=== PATIENT | female | born 1995 | race African-American/Black ===

== ENCOUNTER 2017-06-11 07:10 | Inpatient (IN) | payer OTHER, MEDICAID ==
[~2017-06-11] VITALS: Ht 165.1 cm; Wt 58.0 kg
[2017-06-11 08:20] LABS: CONDITION Y; Hematocrit 35.3 % (36.0-46.0); Hemoglobin 11.9 g/dL (12.2-16.2); Mean Corpuscular Hemoglobin 31.3 pg (28.0-32.0); Mean Corpuscular Hgb Conc. 33.8 g/dL (32.0-36.0); Mean Corpuscular Volume 92.7 fL (80.0-100.0); Mean Platelet Volume 7.6 fL (7.4-10.4); Platelet Count (auto) 711 10^3/uL (140-450); Red Cell Distribution Width 13.4 % (11.6-16.0); SUSPECT SEE PRINTOUT; White Blood Cell 26.9 10^3/uL (4.4-10.8)
[2017-06-11 08:27] LABS: Metamyelocytes % 0; Myelocytes % 0; Promyelocytes % 0; Reactive Lymphocytes 0
[2017-06-11] MEDS ORDERED: HYDROmorphone HCL 2 MG/ML VL IV ONE (08:30)
[2017-06-11] MEDS ORDERED: ONDANSETRON HCL 4 MG/2 ML VIAL IV ONE (08:30)
[2017-06-11] MEDS ORDERED: InsuLIN REG 1unit/0.01ml Soln (100units/ml) IV ONE (08:30)
[2017-06-11] MEDS ORDERED: SODIUM CHLORIDE 0.9% 1,000 ML IV ONE ×2 (08:30→09:49)
[2017-06-11 08:41] LABS: Albumin 3.1 g/dL (3.4-5.0); BUN/Creatinine Ratio 15.8; Calcium 9.5 mg/dL (8.5-10.1); Potassium 4.4 mmol/L (3.5-5.1)
[2017-06-11 08:46] LABS: Bilirubin, Total 0.5 mg/dL (0.2-1.0); Total Protein 9.3 g/dL (6.4-8.2)
[2017-06-11 08:59] LABS: Platelet Estimate Increased; RBC Morphology Normal
[2017-06-11 10:08] LABS: Allen Test Yes; Base Excess -20.1 mmol/L (-2.0-2.0); Blood 02Sat 96.3 % (96-100); Blood COHb 0.3 % (0.5-1.5); Blood MetHb 0.5 % (0.0-1.5); HCO3 5.8 mmol/L (22-26.0); HHb 3.7 % (0.0-5.0); MODE ROOM AIR; O2Hb 95.5 % (94.0-97.0); PCO2 15.6 mmHg (35.0-45.0); PCO2(T) 15.6 mmHg (35.0-45.0); PO2 110.8 mmHg (80.0-100.0); PO2(T) 110.8 mmHg (80.0-100.0); Sample Type Arterial; pH 7.191 (7.350-7.450)
[2017-06-11] MEDS ORDERED: HYDROcodone-ACET 5/325MG TAB PO PRN (10:15)
[2017-06-11] MEDS ORDERED: LACTULOSE 20Gm/30ML SOLN PO PRN (10:15)
[2017-06-11] MEDS ORDERED: MORPHINE SULF INJ 2 MG/ML SYRINGE 1ML IV PRN (10:15)
[2017-06-11] MEDS ORDERED: cefTRIAXone 1GM/50ML D5W 50 ML IV ONE ×2 (10:15→10:19)
[2017-06-11] MEDS ORDERED: TEMAZEPAM 15 MG CAP PO PRN (10:15)
[2017-06-11] MEDS ORDERED: LORazepam 0.5 MG TAB PO PRN (10:15)
[2017-06-11] MEDS ORDERED: DEXTROSE (50%) 50ML SYRG IV PRN (10:15)
[2017-06-11] MEDS ORDERED: NITROGLYCERIN 0.4 MG SL TAB SL PRN (10:15)
[2017-06-11] MEDS ORDERED: ACETAMINOPHEN 500 MG TAB PO PRN (10:15)
[2017-06-11] MEDS: FAMOTIDINE (10MG/ML) 2ML VL IV SCH (11:25)
[2017-06-11] MEDS: ACCU-CHEK COMFORT CURVE STRIP VI SCH ×9 (11:30→20:00)
[2017-06-11] MEDS: InsuLIN R (HUMAN) 100 UNITS in SODIUM CHL 0.9% 99 ML IV SCH ×2 (11:31→13:00)
[2017-06-11 11:38] LABS: Urine RBC None Seen /hpf (0 - 4)
[2017-06-11] MEDS: SODIUM CHLORIDE 0.9% 1,000 ML IV SCH ×4 (12:03→23:03)
[2017-06-11 12:08] LABS: Urine Bilirubin Negative (Negative); Urine Blood Negative /uL (Negative); Urine Color Yellow (Yellow); Urine Mucus FEW (None Seen); Urine Nitrite Negative (Negative); Urine Squamous Epithelial Cell FEW /hpf (<5); Urine Urobilinogen Normal (Negative)
[2017-06-11 12:13] LABS: Urine Glucose 4+ mg/dL (Normal); Urine Ketone 4+ (Negative)
[2017-06-11] MEDS: MORPHINE SULFATE 4 MG/ML SYRG IV PRN ×2 (13:45→23:14)
[2017-06-11] MEDS: PROMETHAZINE HCL 25 MG/ML 1ML IV PRN ×2 (13:46→23:14)
[2017-06-11] MEDS ORDERED: SODIUM CHLORIDE 0.9% 1,000 ML IV SCH (14:11)
[2017-06-11] MEDS ORDERED: LORazepam 2MG/ML-1ML VIAL ONE (15:08)
[2017-06-11] MEDS ORDERED: LORazepam 2MG/ML-1ML VIAL IV ONE (15:15)
[2017-06-11] MEDS ORDERED: HALOPERIDOL LACTATE 5 MG/ML INJ VIAL ONE (16:02)
[2017-06-11] MEDS ORDERED: HALOPERIDOL LACTATE 5 MG/ML INJ VIAL IV ONE (16:15)
[2017-06-11] MEDS ORDERED: MIDAZOLAM HCL 1MG/1ML-2 ML VIAL IV ONE (17:30)
[2017-06-11 17:36] LABS: BUN/Creatinine Ratio 12.5; Calcium 8.6 mg/dL (8.5-10.1); Potassium 4.3 mmol/L (3.5-5.1)
[2017-06-11] MEDS: InsuLIN REG 1unit/0.01ml Soln (100units/ml) SC SCH (20:00)
[2017-06-12] VITALS (7 sets, daily range): BP systolic 105–123; BP diastolic 64–76
[2017-06-12] MEDS: InsuLIN REG 1unit/0.01ml Soln (100units/ml) SC SCH ×6 (00:22→20:45)
[2017-06-12] MEDS: ACCU-CHEK COMFORT CURVE STRIP VI SCH ×6 (00:22→20:00)
[2017-06-12 00:46] LABS: Calcium 8.8 mg/dL (8.5-10.1); Potassium 3.5 mmol/L (3.5-5.1)
[2017-06-12] MEDS: MORPHINE SULFATE 4 MG/ML SYRG IV PRN ×2 (03:30→09:12)
[2017-06-12] MEDS: SODIUM CHLORIDE 0.9% 1,000 ML IV SCH ×3 (05:19→18:19)
[2017-06-12 05:50] LABS: Basophils # (auto) 0 uL; CONDITION Y; Eosinophils # (auto) 0 uL; Hematocrit 28.7 % (36.0-46.0); Hemoglobin 9.9 g/dL (12.2-16.2); Lymphocytes # (auto) 1.4 uL; Lymphocytes % (auto) 7.9 % (10.0-50.0); Mean Corpuscular Hgb Conc. 34.6 g/dL (32.0-36.0); Mean Corpuscular Volume 89.6 fL (80.0-100.0); Mean Platelet Volume 7.3 fL (7.4-10.4); Monocytes # (auto) 1.2 uL; Monocytes % (auto) 6.5 % (0.0-12.0); Neutrophils # (auto) 15.6 uL; Neutrophils % (auto) 85.6 % (37.0-80.0); Platelet Count (auto) 638 10^3/uL (140-450); Red Cell Distribution Width 13.2 % (11.6-16.0); White Blood Cell 18.3 10^3/uL (4.4-10.8)
[2017-06-12 06:16] LABS: Calcium 8.7 mg/dL (8.5-10.1)
[2017-06-12 06:24] LABS: Albumin 2.5 g/dL (3.4-5.0); BUN/Creatinine Ratio 8.7; Bilirubin, Total 0.3 mg/dL (0.2-1.0); Total Protein 7.7 g/dL (6.4-8.2)
[2017-06-12 06:27] LABS: Potassium 2.6 mmol/L (3.5-5.1)
[2017-06-12] MEDS ORDERED: POTASSIUM CHL 10% (20 MEQ/15ML) ORAL SOLN PO ONE (07:00)
[2017-06-12] MEDS: POTASSIUM CHL 20MEQ/100ML 100 ML IV SCH ×2 (07:09→12:42)
[2017-06-12] MEDS: FAMOTIDINE (10MG/ML) 2ML VL IV SCH (09:11)
[2017-06-12] MEDS ORDERED: INSLANTI SC (09:54)
[2017-06-12] MEDS: cefTRIAXone 1GM/50ML D5W 50 ML IV SCH (11:45)
[2017-06-12] MEDS ORDERED: POTASSIUM CHL 20MEQ/100ML 100 ML IV SCH (12:15)
[2017-06-12] MEDS ORDERED: traMADol HCL 50 MG TAB PO PRN (13:45)
[2017-06-12] MEDS: GABAPENTIN 100 MG CAP PO SCH ×2 (14:00→22:57)
[2017-06-12] MEDS: CYCLOBENZAPRINE HCL 10 MG TAB PO SCH ×2 (14:00→22:56)
[2017-06-12] MEDS: IBUPROFEN 600 MG TAB PO PRN ×2 (16:42→23:14)
[2017-06-12] MEDS: LIDOCAINE 5% TOPICAL PATCH TOP SCH (18:00)
[2017-06-12] MEDS ORDERED: INSULIN DETEMIR(LEVEMIR) 1unit/0.01ml Soln (100units/ml) SC SCH (22:00)
[2017-06-13] VITALS (8 sets, daily range): BP systolic 109–131; BP diastolic 64–79
[2017-06-13] MEDS: InsuLIN REG 1unit/0.01ml Soln (100units/ml) SC SCH ×6 (00:50→20:08)
[2017-06-13] MEDS: SODIUM CHLORIDE 0.9% 1,000 ML IV SCH ×3 (00:52→14:51)
[2017-06-13] MEDS: ACCU-CHEK COMFORT CURVE STRIP VI SCH ×6 (04:20→20:07)
[2017-06-13] MEDS: GABAPENTIN 100 MG CAP PO SCH ×2 (06:11→14:03)
[2017-06-13] MEDS: CYCLOBENZAPRINE HCL 10 MG TAB PO SCH ×2 (06:11→14:03)
[2017-06-13] MEDS: cefTRIAXone 1GM/50ML D5W 50 ML IV SCH (08:46)
[2017-06-13] MEDS ORDERED: FAMOTIDINE INJECTION 40 MG in SODIUM CHL 0.9% 100 ML IV SCH (10:00)
[2017-06-13 16:05] LABS: Albumin 2.4 g/dL (3.4-5.0); BUN/Creatinine Ratio 11.1; Bilirubin, Total 0.2 mg/dL (0.2-1.0); Calcium 8.9 mg/dL (8.5-10.1); Total Protein 7.8 g/dL (6.4-8.2)
[2017-06-13 16:09] LABS: Potassium 2.9 mmol/L (3.5-5.1)
[2017-06-13] MEDS ORDERED: POTASSIUM CHL 10% (20 MEQ/15ML) ORAL SOLN PO ONE ×2 (16:45→18:00)
[2017-06-13] MEDS: LIDOCAINE 5% TOPICAL PATCH TOP SCH (18:00)
[2017-06-13] MEDS: IBUPROFEN 600 MG TAB PO PRN (19:53)
== END 2017-06-13 21:45 | disposition home or self-care (01) | DRG 420 ==
LOC: ER 07:10 → TELE 07:11 → TELE-WESTW 23:56
PROVIDERS: ADMIT Internal Medicine; ATTEND Internal Medicine
DX: E10.10 Type 1 diabetes mellitus with ketoacidosis without coma (principal); M41.9 Scoliosis, unspecified; M54.5 Low back pain; G89.4 Chronic pain syndrome; K59.00 Constipation, unspecified; Z79.4 Long term (current) use of insulin; Z87.01 Personal history of pneumonia (recurrent); Z91.14 Patient's other noncompliance with medication regimen
CPT/HCPCS: 36415; 36600; 71010; 73502; 80048; 80053; 80307; 81001; 81025; 82150; 82805; 82962; 83036; 83690; 83735; 84132; 85007; 85025; 85027; 85652; 86141; 87081; 87086; 87088; 87186; 96361; 96365; 96366; 96375; 99291; J0696; J1815; J2250; J2405; J3480; J3490

== ENCOUNTER 2018-07-09 18:13 | Inpatient (IN) | payer MEDICAID ==
[~2018-07-09] VITALS: Ht 165.1 cm; Wt 56.7 kg
[~2018-07-09 18:13] MED LIST: INSLANTI SC; INSREGIDR SC
[2018-07-09 19:16] LABS: Basophils # (auto) 0 uL; Basophils % (auto) 0.3 % (0.0-2.0); Eosinophils # (auto) 0 uL; Hematocrit 44.6 % (36.0-46.0); Hemoglobin 14.5 g/dL (12.2-16.2); Lymphocytes # (auto) 0.9 uL; Lymphocytes % (auto) 7.5 % (10.0-50.0); Mean Corpuscular Hemoglobin 31.5 pg (28.0-32.0); Mean Corpuscular Hgb Conc. 32.6 g/dL (32.0-36.0); Mean Corpuscular Volume 96.9 fL (80.0-100.0); Monocytes % (auto) 7.8 % (0.0-12.0); Neutrophils # (auto) 10.4 uL; Neutrophils % (auto) 84.4 % (37.0-80.0); Platelet Count (auto) 349 10^3/uL (140-450); Red Cell Distribution Width 13.3 % (11.8-14.3); White Blood Cell 12.3 10^3/uL (4.4-10.8)
[2018-07-09 19:55] LABS: Alanine Aminotransferase 23 U/L (13-56); Albumin 3.4 g/dL (3.4-5.0); Alkaline Phosphatase 109 U/L (45-117); Anion Gap 19 (5-15); Aspartate Aminotransferase 19 U/L (15-37); BUN/Creatinine Ratio 10.9; Bilirubin, Total 0.7 mg/dL (0.2-1.0); Blood Urea Nitrogen 12 mg/dL (7-18); Calcium 7.9 mg/dL (8.5-10.1); Carbon Dioxide 5 mmol/L (21-32); Chloride 105 mmol/L (98-107); GFR African American 81 mL/min; GFR Non-African American 67 mL/min; Glucose 471 mg/dL (74-106); Magnesium 2.3 mg/dL (1.6-2.6); Potassium 5.1 mmol/L (3.5-5.1); Sodium 129 mmol/L (136-145); Total Protein 8.4 g/dL (6.4-8.2)
[2018-07-09 20:07] LABS: Urine Bacteria FEW /hpf (None Seen); Urine Blood Negative /uL (Negative); Urine Specific Gravity 1.022 (1.001-1.035); Urine WBC 1 /hpf (0 - 5)
[2018-07-09] MEDS ORDERED: SODIUM CHLORIDE 0.9% 1,000 ML IV ONE ×2 (20:15)
[2018-07-09] MEDS ORDERED: InsuLIN R (HUMAN) 100 UNITS in SODIUM CHL 0.9% 99 ML IV SCH (20:23)
[2018-07-09] MEDS ORDERED: DEXTROSE (50%) 50ML SYRG IV PRN ×2 (20:30→22:15)
[2018-07-09 20:44] LABS: Alcohol, Urine < 3.0 mg/dL (0-5); Amphetamine Screen, Urine NEGATIVE (NEGATIVE); Barbiturate Scree,Urine NEGATIVE (NEGATIVE); Benzodiazephine Screen, Urine NEGATIVE (NEGATIVE); Cannabinoid Screen, Urine NEGATIVE (NEGATIVE); Cocaine Screen, Urine NEGATIVE (NEGATIVE); Opiate Scree,Urine NEGATIVE (NEGATIVE); Phencyclidine Screen, Urine NEGATIVE (NEGATIVE)
[2018-07-09] MEDS ORDERED: SODIUM BICARBONATE 8.4 % INJ 50ML VIAL IV ONE ×2 (20:45→21:00)
[2018-07-09] MEDS: ACCU-CHEK COMFORT CURVE STRIP VI SCH ×2 (21:07→23:00)
[2018-07-09] MEDS: SODIUM CHLORIDE 0.9% 1,000 ML IV SCH (22:04)
[2018-07-09] MEDS ORDERED: ONDANSETRON HCL 4 MG/2 ML VIAL IV PRN (22:15)
[2018-07-09] MEDS ORDERED: HYDROcodone-ACET 5/325MG TAB PO PRN (22:15)
[2018-07-09] MEDS ORDERED: MORPHINE SULF INJ 2 MG/ML SYRINGE 1ML IV PRN (22:15)
[2018-07-09] MEDS ORDERED: ACETAMINOPHEN 500 MG TAB PO PRN (22:15)
[2018-07-09 22:48] LABS: Amylase 53 U/L (25-115); Lipase 72 U/L (73-393)
[2018-07-10] MEDS: ACCU-CHEK COMFORT CURVE STRIP VI SCH ×9 (00:30→22:24)
[2018-07-10] MEDS: SODIUM CHLORIDE 0.9% 1,000 ML IV SCH ×5 (01:00→20:21)
[2018-07-10 06:18] LABS: Basophils # (auto) 0 uL; Basophils % (auto) 0.1 % (0.0-2.0); Eosinophils # (auto) 0 uL; Eosinophils % (auto) 0.1 % (0.0-7.0); Hematocrit 36.7 % (36.0-46.0); Hemoglobin 12.5 g/dL (12.2-16.2); Lymphocytes # (auto) 1.3 uL; Lymphocytes % (auto) 13.9 % (10.0-50.0); Mean Corpuscular Hemoglobin 31.4 pg (28.0-32.0); Mean Corpuscular Hgb Conc. 34.1 g/dL (32.0-36.0); Mean Corpuscular Volume 92.1 fL (80.0-100.0); Monocytes # (auto) 0.8 uL; Monocytes % (auto) 8.4 % (0.0-12.0); Neutrophils % (auto) 77.5 % (37.0-80.0); Nucleated Red Blood Cells % 0.1 %; Platelet Count (auto) 304 10^3/uL (140-450); Red Blood Cells 3.98 10^6/uL (4.0-5.20); Red Cell Distribution Width 12.9 % (11.8-14.3); White Blood Cell 9.1 10^3/uL (4.4-10.8)
[2018-07-10 06:44] LABS: Albumin 2.8 g/dL (3.4-5.0); BUN/Creatinine Ratio 12.7; Bilirubin, Total 0.4 mg/dL (0.2-1.0); Calcium 7.4 mg/dL (8.5-10.1); Potassium 3.6 mmol/L (3.5-5.1); Total Protein 6.9 g/dL (6.4-8.2)
[2018-07-10 10:06] VITALS: BP 87/55
[2018-07-10] MEDS: InsuLIN REG 1unit/0.01ml Soln (100units/ml) SC SCH ×2 (11:56→17:09)
[2018-07-10 15:30] LABS: BUN/Creatinine Ratio 8.8; Calcium 7.9 mg/dL (8.5-10.1); Potassium 3.6 mmol/L (3.5-5.1)
[2018-07-10 16:53] VITALS: BP 101/66
[2018-07-10 21:59] VITALS: BP 88/60
[2018-07-10] MEDS ORDERED: InsuLIN REG 1unit/0.01ml Soln (100units/ml) SC SCH (22:00)
[2018-07-10] MEDS ORDERED: INSULIN LANTUS (GLARGINE) 1 /0.01ml (100units/ml) SC SCH (22:00)
[2018-07-11] MEDS: SODIUM CHLORIDE 0.9% 1,000 ML IV SCH ×2 (03:35→11:13)
[2018-07-11 04:36] VITALS: BP 99/64
[2018-07-11] MEDS: ACCU-CHEK COMFORT CURVE STRIP VI SCH ×2 (06:30→11:13)
[2018-07-11] MEDS: InsuLIN REG 1unit/0.01ml Soln (100units/ml) SC SCH ×2 (06:30→11:23)
[2018-07-11 08:00] VITALS: BP 97/63
[2018-07-11 09:09] VITALS: BP 97/63
[2018-07-11 12:34] VITALS: BP 104/72
[2018-07-11 14:56] VITALS: BP 104/72
== END 2018-07-11 16:00 | disposition home or self-care (01) | DRG 420 ==
LOC: EDBD 18:13 → ER 18:14 → TELE 18:15 → TELE-WESTW 07-10 10:31
PROVIDERS: ADMIT Nurse Practitioner Family; ATTEND Internal Medicine
DX: E10.10 Type 1 diabetes mellitus with ketoacidosis without coma (principal); M41.9 Scoliosis, unspecified; G89.29 Other chronic pain; M54.9 Dorsalgia, unspecified; E86.0 Dehydration; Z82.49 Family history of ischemic heart disease and other diseases of the circulatory system; Z83.3 Family history of diabetes mellitus
CPT/HCPCS: 36415; 36600; 71045; 80048; 80053; 80307; 81001; 82010; 82150; 82805; 82962; 83690; 83735; 84484; 84702; 85025; 93005; 96361; 96374; 96375; 99291; J1815; J2405

== ENCOUNTER 2019-08-18 13:10 | Emergency (ER) | payer MEDICAID ==
[~2019-08-18] VITALS: Ht 157.5 cm; Wt 49.0 kg
[2019-08-18] MEDS ORDERED: SODIUM CHLORIDE 0.9% 3,000 ML IV ONE (13:45)
[2019-08-18 14:22] LABS: Basophils # (auto) 0 uL; Eosinophils # (auto) 0 uL; Eosinophils % (auto) 0.2 % (0.0-7.0); Hematocrit 39.5 % (36.0-46.0); Hemoglobin 13.2 g/dL (12.2-16.2); Lymphocytes # (auto) 0.9 uL; Lymphocytes % (auto) 18.3 % (10.0-50.0); Mean Corpuscular Hemoglobin 31.8 pg (28.0-32.0); Mean Corpuscular Hgb Conc. 33.6 g/dL (32.0-36.0); Mean Corpuscular Volume 94.9 fL (80.0-100.0); Monocytes # (auto) 0.3 uL; Monocytes % (auto) 5.3 % (0.0-12.0); Neutrophils # (auto) 3.8 uL; Neutrophils % (auto) 75.2 % (37.0-80.0); Nucleated Red Blood Cells % 0.1 %; Platelet Count (auto) 250 10^3/uL (140-450); Red Blood Cells 4.16 10^6/uL (4.0-5.20); Red Cell Distribution Width 12.3 % (11.8-14.3); White Blood Cell 5.1 10^3/uL (4.4-10.8)
[2019-08-18 14:34] LABS: Potassium 3.9 mmol/L (3.5-5.1)
[2019-08-18 14:41] LABS: Albumin 3.3 g/dL (3.4-5.0); BUN/Creatinine Ratio 11.4; Bilirubin, Total 0.7 mg/dL (0.2-1.0); Calcium 8.2 mg/dL (8.5-10.1); Total Protein 7.1 g/dL (6.4-8.2)
[2019-08-18] MEDS ORDERED: InsuLIN REG 1unit/0.01ml Soln (100units/ml) IV ONE (15:15)
[2019-08-18 17:49] LABS: Urine Bacteria MOD /hpf (None Seen); Urine Blood 3+ /uL (Negative); Urine Mucus FEW (None Seen); Urine WBC 40 /hpf (0 - 5)
[2019-08-18 18:04] VITALS: BP 106/70
== END 2019-08-18 18:40 | disposition home or self-care (01) ==
LOC: ER 13:10 → EDBD 13:10 → ER 18:40
DX: E10.65 Type 1 diabetes mellitus with hyperglycemia (principal); N39.0 Urinary tract infection, site not specified; E86.0 Dehydration; Z79.4 Long term (current) use of insulin
CPT/HCPCS: 36415; 80053; 81001; 82962; 85025; 96361; 96374; 99283; J1815; J7030

== ENCOUNTER 2019-10-24 11:08 | Inpatient (IN) | payer MEDICAID ==
[~2019-10-24] VITALS: Ht 154.9 cm; Wt 54.6 kg
[2019-10-24] MEDS ORDERED: SODIUM CHLORIDE 0.9% 1,000 ML IVB ONE (11:10)
[2019-10-24] MEDS ORDERED: InsuLIN R (HUMAN) 100 UNITS in SODIUM CHL 0.9% 99 ML IV SCH (11:10)
[2019-10-24] MEDS ORDERED: DEXTROSE (50%) 50ML SYRG IV PRN (11:15)
[2019-10-24] MEDS ORDERED: ONDANSETRON HCL 4 MG/2 ML VIAL IV ONE (11:45)
[2019-10-24] MEDS ORDERED: InsuLIN REG 1unit/0.01ml Soln (100units/ml) IV ONE (11:45)
[2019-10-24] MEDS ORDERED: MORPHINE SULF INJ 2 MG/ML SYRINGE 1ML IV ONE (11:45)
[2019-10-24 12:01] LABS: Basophils # (auto) 0.1 uL; Basophils % (auto) 0.6 % (0.0-2.0); Eosinophils # (auto) 0 uL; Hematocrit 52.5 % (36.0-46.0); Hemoglobin 16.5 g/dL (12.2-16.2); Lymphocytes # (auto) 1.7 uL; Lymphocytes % (auto) 11.1 % (10.0-50.0); Mean Corpuscular Hemoglobin 31.4 pg (28.0-32.0); Mean Corpuscular Hgb Conc. 31.5 g/dL (32.0-36.0); Mean Corpuscular Volume 99.9 fL (80.0-100.0); Monocytes # (auto) 0.2 uL; Monocytes % (auto) 1.5 % (0.0-12.0); Neutrophils # (auto) 13.4 uL; Neutrophils % (auto) 86.8 % (37.0-80.0); Red Blood Cells 5.25 10^6/uL (4.0-5.20); Red Cell Distribution Width 13.6 % (11.8-14.3); White Blood Cell 15.5 10^3/uL (4.4-10.8)
[2019-10-24] MEDS: ACCU-CHEK COMFORT CURVE STRIP VI SCH ×8 (12:07→22:39)
[2019-10-24 12:22] LABS: Platelet Count (auto) 495 10^3/uL (140-450)
[2019-10-24 13:03] LABS: Urine Bacteria FEW /hpf (None Seen); Urine Blood Negative /uL (Negative); Urine Specific Gravity 1.019 (1.001-1.035); Urine WBC 1 /hpf (0 - 5)
[2019-10-24 13:05] LABS: Urine Pregnacy Test Negative (Negative)
[2019-10-24 13:12] LABS: Alcohol, Urine < 3.0 mg/dL (0-5); Amphetamine Screen, Urine NEGATIVE (NEGATIVE); Barbiturate Scree,Urine NEGATIVE (NEGATIVE); Benzodiazephine Screen, Urine NEGATIVE (NEGATIVE); Cannabinoid Screen, Urine NEGATIVE (NEGATIVE); Cocaine Screen, Urine NEGATIVE (NEGATIVE); Opiate Scree,Urine NEGATIVE (NEGATIVE); Phencyclidine Screen, Urine NEGATIVE (NEGATIVE)
[2019-10-24] MEDS ORDERED: ONDANSETRON HCL 4 MG/2 ML VIAL IV PRN (13:15)
[2019-10-24] MEDS ORDERED: SODIUM CHLORIDE 0.9% 1,000 ML IV SCH (13:15)
[2019-10-24] MEDS ORDERED: MORPHINE SULF INJ 2 MG/ML SYRINGE 1ML IV PRN (13:15)
[2019-10-24] MEDS ORDERED: NITROGLYCERIN 0.4 MG SL TAB SL PRN (13:15)
[2019-10-24] MEDS ORDERED: SODIUM CHLORIDE 0.9% 1,000 ML IV ONE (13:15)
[2019-10-24 13:40] LABS: Anion Gap 19 (5-15); Blood Alcohol < 3.0 mg/dL (0-5); Blood Urea Nitrogen 18 mg/dL (7-18); Calcium 8.2 mg/dL (8.5-10.1); Chloride 111 mmol/L (98-107); Magnesium 2.3 mg/dL (1.6-2.6); Potassium 4.6 mmol/L (3.5-5.1); Sodium 137 mmol/L (136-145)
[2019-10-24 13:43] LABS: Alanine Aminotransferase 35 U/L (13-56); Alkaline Phosphatase 144 U/L (45-117); Aspartate Aminotransferase 24 U/L (15-37); Bilirubin, Total 0.4 mg/dL (0.2-1.0); GFR African American 74 mL/min; GFR Non-African American 61 mL/min; Total Protein 8.9 g/dL (6.4-8.2)
[2019-10-24 13:51] LABS: Carbon Dioxide 7 mmol/L (21-32); Glucose 619 mg/dL (74-106)
[2019-10-24 14:33] LABS: BUN/Creatinine Ratio 15.4
[2019-10-24 19:06] LABS: BUN/Creatinine Ratio 14.6; Calcium 8.1 mg/dL (8.5-10.1); Potassium 4.2 mmol/L (3.5-5.1)
[2019-10-24] MEDS: LACTATED RINGER'S 1,000 ML IV SCH (19:59)
[2019-10-24] MEDS: MORPHINE SULF INJ 2 MG/ML SYRINGE 1ML IV PRN (21:26)
[2019-10-24] MEDS: FAMOTIDINE (10MG/ML) 2ML VL IV SCH (21:31)
[2019-10-25] MEDS: ACCU-CHEK COMFORT CURVE STRIP VI SCH ×9 (00:08→23:37)
[2019-10-25 00:47] LABS: BUN/Creatinine Ratio 13.2; Calcium 8.3 mg/dL (8.5-10.1); Potassium 3.9 mmol/L (3.5-5.1)
[2019-10-25] MEDS: LACTATED RINGER'S 1,000 ML IV SCH (03:50)
[2019-10-25] MEDS: MORPHINE SULF INJ 2 MG/ML SYRINGE 1ML IV PRN (03:50)
[2019-10-25] MEDS ORDERED: DEXTROSE (50%) 50ML SYRG IV PRN (05:30)
[2019-10-25 06:10] LABS: Basophils # (auto) 0 uL; Basophils % (auto) 0.3 % (0.0-2.0); Eosinophils # (auto) 0 uL; Hemoglobin 14.7 g/dL (12.2-16.2); Lymphocytes # (auto) 1.5 uL; Lymphocytes % (auto) 14.4 % (10.0-50.0); Mean Corpuscular Hemoglobin 31.7 pg (28.0-32.0); Mean Corpuscular Hgb Conc. 33.4 g/dL (32.0-36.0); Mean Corpuscular Volume 94.8 fL (80.0-100.0); Monocytes # (auto) 0.9 uL; Monocytes % (auto) 8.4 % (0.0-12.0); Neutrophils # (auto) 8.2 uL; Neutrophils % (auto) 76.9 % (37.0-80.0); Nucleated Red Blood Cells % 0.1 %; Platelet Count (auto) 379 10^3/uL (140-450); Red Blood Cells 4.64 10^6/uL (4.0-5.20); Red Cell Distribution Width 13.1 % (11.8-14.3); White Blood Cell 10.7 10^3/uL (4.4-10.8)
[2019-10-25 06:29] LABS: Potassium 3.6 mmol/L (3.5-5.1)
--- NOTE | 2019-10-25 06:30 | NUR ---
Telemetry admit from [facility] admitted to Telemetry unit. Patient oriented to Billie Britton RN primary RN, unit, room, bed, and unit policies regarding patient care and visiting hours. Patient now on continuous telemetry monitoring, tele box # 34 and telemetry reading on arrival to unit is NSR. Patient placed on bedside oxygen, weighed by bedscale and encouraged to call if they need something. All questions and concerns addressed, patient verbalized understanding. Note: patient alert and oriented x 4 on room air with even and unlabored respirations, no s/s of distress. IV intact and patent. bed low locked poosition with side rails up x 2 and call light within reach. Instructed to call for assistance PRN.
[2019-10-25 06:34] LABS: BUN/Creatinine Ratio 15.1; Calcium 8.6 mg/dL (8.5-10.1)
--- NOTE | 2019-10-25 07:00 | NUR ---
Closing Note patient resting in bed with even and unlabored respirations, no s/s of distress. IV intact and patent infusing IVF per orders. Admission endorsed to dayshift RN Will, he is aware. Bed low locked position with side rail up x 2 and call light within reach. Endorsed care to day shift RN.
[2019-10-25] MEDS: FAMOTIDINE (10MG/ML) 2ML VL IV SCH ×2 (10:26→21:44)
[2019-10-25] MEDS: InsuLIN REG 1unit/0.01ml Soln (100units/ml) SC SCH ×5 (10:26→23:38)
[2019-10-25] MEDS ORDERED: SODIUM CHLORIDE 0.9% 1,000 ML IV SCH (10:30)
[2019-10-25] MEDS ORDERED: INSULIN LANTUS (GLARGINE) 1 /0.01ml (100units/ml) SC ONE (10:30)
[2019-10-25 10:43] LABS: Albumin 3.2 g/dL (3.4-5.0); Calcium 8.2 mg/dL (8.5-10.1)
[2019-10-25 10:47] LABS: BUN/Creatinine Ratio 12.4; Bilirubin, Total 0.4 mg/dL (0.2-1.0); Total Protein 7.1 g/dL (6.4-8.2)
[2019-10-25 10:49] LABS: Magnesium 1.8 mg/dL (1.6-2.6); Phosphorus 2.4 mg/dL (2.5-4.90)
[2019-10-25] MEDS ORDERED: SODIUM PHOSPHATES 24 MEQ in SODIUM CHL 0.9% 100 ML IV ONE (14:00)
[2019-10-25] MEDS: MAGNESIUM SULFATE 1GM/100ML 100 ML IV SCH ×3 (14:00→23:10)
[2019-10-25 17:19] VITALS: BP 121/68
[2019-10-25 17:58] LABS: Anion Gap 10 (5-15); BUN/Creatinine Ratio 8.6; Blood Urea Nitrogen 7 mg/dL (7-18); Calcium 8.3 mg/dL (8.5-10.1); Carbon Dioxide 14 mmol/L (21-32); Chloride 116 mmol/L (98-107); GFR African American 114 mL/min; GFR Non-African American 94 mL/min; Glucose 255 mg/dL (74-106); Potassium 3.4 mmol/L (3.5-5.1); Sodium 140 mmol/L (136-145)
[2019-10-25] MEDS: SODIUM BICARBONATE 50ML VIAL 50 ML in SOD CHL 0.45% 1,000 ML IV SCH (18:14)
--- NOTE | 2019-10-25 19:35 | NUR ---
Opening Shift Note Report received from day shift RN. Assumed care of patient, awake and A&O x4. No S/S of distress/SOB noted and denies pain at this time. Instructed on POC and to call for assist PRN, will continue to monitor for changes Q1hr and PRN.
[2019-10-25 22:00] VITALS: BP 143/87
[2019-10-25] MEDS ORDERED: MAGNESIUM SULFATE 1GM/100ML 100 ML IV ONE (22:58)
[2019-10-25] MEDS ORDERED: POTASSIUM CHLORIDE 40 MEQ, LIDOCAINE 1% (LOCAL ANESTH.) 4 ML in SODIUM CHL 0.9% 100 ML IV ONE (23:15)
[2019-10-26] MEDS: MAGNESIUM SULFATE 1GM/100ML 100 ML IV SCH (00:35)
[2019-10-26] MEDS ORDERED: POTASSIUM CHL 20MEQ/100ML 200 ML IV ONE (01:53)
[2019-10-26] MEDS ORDERED: LIDOCAINE 1% HCL (LOCAL ANESTH.) INJ 20ML MDV ONE (01:57)
[2019-10-26] MEDS: ACCU-CHEK COMFORT CURVE STRIP VI SCH ×5 (03:35→21:18)
[2019-10-26] MEDS: InsuLIN REG 1unit/0.01ml Soln (100units/ml) SC SCH ×5 (03:36→21:18)
[2019-10-26 05:00] VITALS: BP 106/75
--- NOTE | 2019-10-26 07:40 | NUR ---
OPENING NOTE ASSUMED CARE OF PT. ALERT AND ORIENTED. NO S/S OF SOB/DISTRESS NOTED. DENIES ANY PAIN. SAFETY PRECAUTIONS IN PLACE. BED SET TO LOWEST POSITION/LOCKED. BEDSIDE RAILS UP X2. CALL LIGHT WITHIN REACH. INSTRUCTED PT TO CALL FOR ASSISTANCE. UPDATED PT ON POC. PT VERBALIZED UNDERSTANDING. WILL CONTINUE TO MONITOR Q1HR AND PRN.
[2019-10-26 07:50] LABS: Calcium 7.8 mg/dL (8.5-10.1); Magnesium 2.3 mg/dL (1.6-2.6); Potassium 3.3 mmol/L (3.5-5.1)
[2019-10-26 07:51] LABS: BUN/Creatinine Ratio 10.9; Phosphorus 1.5 mg/dL (2.5-4.90)
[2019-10-26] MEDS: FAMOTIDINE (10MG/ML) 2ML VL IV SCH ×2 (08:16→21:18)
[2019-10-26 09:00] VITALS: BP 108/77
[2019-10-26] MEDS ORDERED: INSLANTI SC (11:39)
[2019-10-26] MEDS ORDERED: POTASSIUM CHL 20 Meq TABLET PO ONE (11:45)
[2019-10-26] MEDS ORDERED: SODIUM PHOSPHATES 40 MEQ in D5W 5% 250 ML IV ONE (11:45)
[2019-10-26] MEDS: SODIUM BICARBONATE 50ML VIAL 50 ML in SOD CHL 0.45% 1,000 ML IV SCH (12:03)
[2019-10-26 13:00] VITALS: BP 115/76
[2019-10-26 17:00] VITALS: BP 112/69
[2019-10-26 21:39] VITALS: BP 107/69
[2019-10-26] MEDS ORDERED: INSULIN LANTUS (GLARGINE) 1 /0.01ml (100units/ml) SC SCH (22:00)
[2019-10-27] MEDS: InsuLIN REG 1unit/0.01ml Soln (100units/ml) SC SCH ×5 (01:09→16:03)
[2019-10-27] MEDS: ACCU-CHEK COMFORT CURVE STRIP VI SCH ×5 (01:10→16:03)
[2019-10-27 04:53] VITALS: BP 103/65
--- NOTE | 2019-10-27 07:25 | NUR ---
Opening Shift Note Assumed care of patient, awake and alert. No S/S of distress/SOB, no pain noted or reported. Updated on POC and instructed to call for assistance as needed, patient verbalized understanding. Bed locked in lowest position, side rails up x2, call light within reach. Will continue to monitor for changes Q1hr and PRN.
[2019-10-27 09:00] VITALS: BP 111/78
[2019-10-27 09:40] LABS: Calcium 7.4 mg/dL (8.5-10.1); Magnesium 1.8 mg/dL (1.6-2.6)
[2019-10-27 09:41] LABS: BUN/Creatinine Ratio 20.4
[2019-10-27] MEDS: FAMOTIDINE (10MG/ML) 2ML VL IV SCH (10:00)
[2019-10-27 10:10] LABS: Potassium 2.7 mmol/L (3.5-5.1)
--- NOTE | 2019-10-27 10:23 | NUR ---
RECEIVED CRITICAL LAB VALUE POTASSIUM 2.7. NOTIFIED DR. JEFF, RECEIVED ORDERS. WILL INPUT AND FOLLOW THROUGH.
[2019-10-27] MEDS ORDERED: POTASSIUM CHL 20 Meq TABLET PO ONE ×3 (10:30→12:30)
[2019-10-27 10:55] LABS: Phosphorus 2.3 mg/dL (2.5-4.90)
[2019-10-27] MEDS ORDERED: MAGNESIUM SULFATE 1GM/100ML 100 ML IV ONE (11:00)
[2019-10-27] MEDS ORDERED: SODIUM PHOSPHATES 20 MEQ in SODIUM CHL 0.9% 100 ML IV ONE (11:30)
[2019-10-27 13:00] VITALS: BP 118/71
[2019-10-27 17:00] VITALS: BP 108/65
--- NOTE | 2019-10-27 17:35 | NUR ---
Potassium level resulted Potassium 3.9 after replacement, per Dr. Aggarwal potassium is within normal limits, okay to discharge home. Will follow through with orders.
[2019-10-27 17:39] VITALS: BP 114/78
--- NOTE | 2019-10-27 18:38 | NUR ---
Discharge home Discharge instructions given as ordered. Encourage to follow up with PMD as instructed. All questions and concerns addressed. Patient verbalized understanding. Medication reconciliation form completed and copy given to patient. IV removed with catheter intact, pressure dressing applied. Telemetry unit returned to ICU. Patient taken to vehicle via wheelchair with all personal belongings, accompanied by staff and family member. No distress noted at time of departure.
== END 2019-10-27 18:38 | disposition home or self-care (01) | DRG 420 ==
LOC: EDSEX 11:08 → EDBD 11:08 → ER 11:08 → TELE 11:09 → TELE-CENTR 10-25 06:29
PROVIDERS: ADMIT Radiology Diagnostic Radiology; ATTEND Internal Medicine
DX: E10.10 Type 1 diabetes mellitus with ketoacidosis without coma (principal); R65.10 Systemic inflammatory response syndrome (SIRS) of non-infectious origin without acute organ dysfunction; E83.39 Other disorders of phosphorus metabolism; K21.9 Gastro-esophageal reflux disease without esophagitis; E87.6 Hypokalemia; M41.9 Scoliosis, unspecified; Z83.3 Family history of diabetes mellitus; Z91.14 Patient's other noncompliance with medication regimen; Z79.899 Other long term (current) drug therapy
CPT/HCPCS: 36415; 36600; 74176; 80048; 80053; 80307; 80320; 81001; 81025; 82010; 82805; 82962; 83036; 83735; 84100; 84132; 84702; 85025; 93005; 96361; 96365; 96375; G0378; J1815; J2001; J2405; J3480; J3490; J7060

== ENCOUNTER 2020-06-03 07:05 | Inpatient (IN) | payer MEDICAID ==
[~2020-06-03] VITALS: Ht 152.4 cm; Wt 48.0 kg
[2020-06-03] MEDS ORDERED: SODIUM CHLORIDE 0.9% 1,000 ML IV ONE ×3 (07:07→10:00)
[2020-06-03] MEDS ORDERED: InsuLIN R (HUMAN) 100 UNITS in SODIUM CHL 0.9% 99 ML IV SCH ×2 (07:07→09:56)
[2020-06-03] MEDS ORDERED: INSULIN LANTUS (GLARGINE) 1 /0.01ml (100units/ml) SC ONE (07:15)
[2020-06-03] MEDS ORDERED: DEXTROSE (50%) 50ML SYRG IV PRN (07:15)
[2020-06-03] MEDS: ACCU-CHEK COMFORT CURVE STRIP VI SCH ×14 (07:41→23:00)
[2020-06-03 08:49] LABS: Basophils # (auto) 0.1 10 ^3/uL (0-0.2); Basophils % (auto) 0.6 % (0.0-2.0); Eosinophils # (auto) 0 10 ^3/uL (0-0.8); Hematocrit 47.5 % (36.0-46.0); Hemoglobin 15.4 g/dL (12.2-16.2); Lymphocytes % (auto) 7.1 % (10.0-50.0); Mean Corpuscular Hemoglobin 32.3 pg (28.0-32.0); Mean Corpuscular Hgb Conc. 32.5 g/dL (32.0-36.0); Mean Corpuscular Volume 99.4 fL (80.0-100.0); Monocytes # (auto) 0.7 10 ^3/uL (0-1.3); Monocytes % (auto) 5.1 % (0.0-12.0); Neutrophils % (auto) 87.2 % (37.0-80.0); Platelet Count (auto) 287 10^3/uL (140-450); Red Blood Cells 4.78 10^6/uL (4.0-5.20); Red Cell Distribution Width 15.2 % (11.8-14.3); White Blood Cell 13.7 10^3/uL (4.4-10.8)
[2020-06-03 08:56] LABS: Urine Bacteria FEW /hpf (None Seen); Urine Blood TRACE /uL (Negative); Urine Hyaline Cast FEW /lpf (0 - 2); Urine Specific Gravity 1.024 (1.001-1.035); Urine WBC 24 /hpf (0 - 5)
[2020-06-03] MEDS ORDERED: SODIUM BICARBONATE 8.4 % INJ 50ML VIAL IV ONE (09:00)
[2020-06-03] MEDS ORDERED: PIPERACILLIN-TAZOB 3.375GM 100 ML IV ONE (09:00)
[2020-06-03 09:08] LABS: Potassium 4.1 mmol/L (3.5-5.1)
[2020-06-03 09:19] LABS: Albumin 3.8 g/dL (3.4-5.0); BUN/Creatinine Ratio 9.2; Bilirubin, Total 0.4 mg/dL (0.2-1.0); Magnesium 2.4 mg/dL (1.6-2.6); Phosphorus 3.1 mg/dL (2.5-4.90); Total Protein 9.4 g/dL (6.4-8.2)
[2020-06-03] MEDS: SODIUM CHLORIDE 0.9% 1,000 ML IV SCH ×4 (09:37→19:47)
[2020-06-03] MEDS ORDERED: NITROGLYCERIN 0.4 MG SL TAB SL PRN (10:00)
[2020-06-03] MEDS ORDERED: ONDANSETRON HCL 4 MG/2 ML VIAL IV PRN (10:00)
[2020-06-03] MEDS ORDERED: DOCUSATE SOD 100 MG CAP PO PRN (10:00)
[2020-06-03] MEDS ORDERED: LORazepam 0.5 MG TAB PO PRN (10:00)
[2020-06-03] MEDS ORDERED: ACETAMINOPHEN 325 MG TAB PO PRN (10:00)
[2020-06-03] MEDS ORDERED: ALUM & MAG HYDROX-SIMETH LIQ(MAALOX) 30 ML PO PRN (10:00)
[2020-06-03] MEDS ORDERED: MORPHINE SULF INJ 2 MG/ML SYRINGE 1ML IV PRN (10:00)
[2020-06-03] MEDS ORDERED: FAMOTIDINE (10MG/ML) 2ML VL IV ONE (10:15)
[2020-06-03] MEDS ORDERED: D5W/SOD CHLO 0.9% 1,000 ML IV ONE (10:30)
[2020-06-03] MEDS ORDERED: SODIUM CHLORIDE 0.9% 1,000 ML IV SCH (11:07)
[2020-06-03] MEDS: ENOXAPARIN SOD 30 MG/0.3 ML SYRINGE SC SCH (11:54)
[2020-06-03 14:57] LABS: Calcium 7.5 mg/dL (8.5-10.1)
[2020-06-03 15:10] LABS: Potassium 4.6 mmol/L (3.5-5.1)
[2020-06-03] MEDS ORDERED: GABA100C9 PO (15:33)
[2020-06-03] MEDS ORDERED: OMEP20TA PO (15:34)
[2020-06-03] MEDS ORDERED: INSU1INJ19 SC (15:38)
[2020-06-03] MEDS ORDERED: INSU100I51 SC (15:38)
[2020-06-03] MEDS ORDERED: ROSU10TA16 PO (15:40)
[2020-06-03] MEDS: MORPHINE SULF INJ 2 MG/ML SYRINGE 1ML IV PRN (17:25)
[2020-06-03 19:41] LABS: BUN/Creatinine Ratio 11.1; Calcium 7.3 mg/dL (8.5-10.1)
[2020-06-03] MEDS: CYCLOBENZAPRINE HCL 10 MG TAB PO SCH (21:55)
[2020-06-03] MEDS: FAMOTIDINE (10MG/ML) 2ML VL IV SCH (21:55)
[2020-06-03 23:17] LABS: BUN/Creatinine Ratio 13.8; Calcium 7.7 mg/dL (8.5-10.1)
[2020-06-04] MEDS: ACCU-CHEK COMFORT CURVE STRIP VI SCH ×11 (00:28→18:58)
[2020-06-04 03:30] LABS: BUN/Creatinine Ratio 13.3; Calcium 7.6 mg/dL (8.5-10.1)
[2020-06-04 03:34] LABS: Potassium 2.9 mmol/L (3.5-5.1)
[2020-06-04] MEDS ORDERED: POTASSIUM CHL 20MEQ/100ML 100 ML IV ONE (04:00)
[2020-06-04] MEDS: HYDROcodone-ACET 5/325MG TAB PO PRN (05:12)
[2020-06-04] MEDS: CYCLOBENZAPRINE HCL 10 MG TAB PO SCH ×3 (05:12→22:17)
[2020-06-04] MEDS: SODIUM CHLORIDE 0.9% 1,000 ML IV SCH (07:26)
[2020-06-04 07:58] LABS: Basophils # (auto) 0 10 ^3/uL (0-0.2); Basophils % (auto) 0.4 % (0.0-2.0); Eosinophils # (auto) 0 10 ^3/uL (0-0.8); Eosinophils % (auto) 0.9 % (0.0-7.0); Hematocrit 34.3 % (36.0-46.0); Hemoglobin 11.4 g/dL (12.2-16.2); Lymphocytes # (auto) 1.3 10 ^3/uL (0.4-5.4); Lymphocytes % (auto) 27.4 % (10.0-50.0); Mean Corpuscular Hemoglobin 32.8 pg (28.0-32.0); Mean Corpuscular Hgb Conc. 33.1 g/dL (32.0-36.0); Mean Corpuscular Volume 99.1 fL (80.0-100.0); Monocytes # (auto) 0.4 10 ^3/uL (0-1.3); Monocytes % (auto) 8.1 % (0.0-12.0); Neutrophils % (auto) 63.2 % (37.0-80.0); Nucleated Red Blood Cells % 0.1 %; Platelet Count (auto) 225 10^3/uL (140-450); Red Blood Cells 3.46 10^6/uL (4.0-5.20); Red Cell Distribution Width 15.2 % (11.8-14.3); White Blood Cell 4.7 10^3/uL (4.4-10.8)
[2020-06-04 08:13] LABS: Albumin 2.3 g/dL (3.4-5.0); Calcium 7.7 mg/dL (8.5-10.1); INR 1.06 (0.9-1.15); Magnesium 1.8 mg/dL (1.6-2.6); Partial Thromboplastin Time 26.9 sec (23.64-32.05)
[2020-06-04 08:18] LABS: BUN/Creatinine Ratio 11.6; Bilirubin, Total 0.5 mg/dL (0.2-1.0); Phosphorus 1.8 mg/dL (2.5-4.90); Total Protein 5.9 g/dL (6.4-8.2)
[2020-06-04 08:34] LABS: Potassium 2.9 mmol/L (3.5-5.1)
[2020-06-04] MEDS ORDERED: INSULIN LANTUS (GLARGINE) 1 /0.01ml (100units/ml) SC ONE (09:00)
[2020-06-04] MEDS ORDERED: DEXTROSE (50%) 50ML SYRG IV PRN (09:00)
[2020-06-04] MEDS ORDERED: SOD CHL 0.9%/ KCL 40MEQ 1,000 ML IV ONE (09:00)
[2020-06-04] MEDS ORDERED: POTASSIUM CHLORIDE 40 MEQ, LIDOCAINE 1% (LOCAL ANESTH.) 4 ML in SODIUM CHL 0.9% 100 ML IV ONE (09:00)
[2020-06-04] MEDS: cefTRIAXone 1GM/50ML D5W 50 ML IV SCH (09:27)
[2020-06-04] MEDS ORDERED: INSULIN LANTUS (GLARGINE) 1 /0.01ml (100units/ml) SC SCH (10:00)
[2020-06-04] MEDS: FAMOTIDINE (10MG/ML) 2ML VL IV SCH ×2 (10:28→22:17)
[2020-06-04] MEDS: ENOXAPARIN SOD 30 MG/0.3 ML SYRINGE SC SCH (10:28)
[2020-06-04] MEDS ORDERED: POTASSIUM EFFERVESENT TAB 25 MEQ PO ONE (11:00)
[2020-06-04] MEDS: POTASSIUM CHL 20 Meq TABLET PO ONE (11:00)
[2020-06-04] MEDS: InsuLIN REG 1unit/0.01ml Soln (100units/ml) SC SCH ×2 (12:02→18:58)
[2020-06-04] MEDS: MORPHINE SULF INJ 2 MG/ML SYRINGE 1ML IV PRN ×2 (12:39→20:25)
--- NOTE | 2020-06-04 13:45 | NUR ---
Telemetry admit from [facility] admitted to Telemetry unit after SBAR received. Patient oriented to Tatiana Gordon, primary RN, unit, room, bed, and unit policies regarding patient care and visiting hours. Patient now on continuous telemetry monitoring, tele box # 22 and telemetry reading on arrival to unit is sinus rhythm in the 80's. Updated on POC and instructed to call for assistance as needed, patient verbalized understanding. Bed locked in lowest position, side rails up x2, call light within reach. Will continue to monitor q1hr and PRN. Addendum: 06/04/20 at 1357 by Tatiana Gordon RN NO S/S OF DISTRESS OR SOB.
[2020-06-04 14:18] VITALS: BP 132/67
[2020-06-04 20:04] LABS: Potassium 3.8 mmol/L (3.5-5.1)
[2020-06-04 22:00] VITALS: BP 106/74
[2020-06-04 22:47] LABS: BUN/Creatinine Ratio 9.3; Potassium 3.6 mmol/L (3.5-5.1)
[2020-06-05] MEDS: ACCU-CHEK COMFORT CURVE STRIP VI SCH ×4 (00:11→17:45)
[2020-06-05] MEDS: InsuLIN REG 1unit/0.01ml Soln (100units/ml) SC SCH ×4 (00:28→17:47)
[2020-06-05 02:14] LABS: Anion Gap 6 (5-15); Blood Urea Nitrogen 6 mg/dL (7-18); Calcium 8.4 mg/dL (8.5-10.1); Carbon Dioxide 17 mmol/L (21-32); Chloride 114 mmol/L (98-107); GFR African American 159 mL/min; GFR Non-African American 132 mL/min; Glucose 267 mg/dL (74-106); Potassium 4.6 mmol/L (3.5-5.1); Sodium 137 mmol/L (136-145)
[2020-06-05 05:00] VITALS: BP 98/70
[2020-06-05] MEDS: CYCLOBENZAPRINE HCL 10 MG TAB PO SCH (05:42)
[2020-06-05] MEDS: HYDROcodone-ACET 5/325MG TAB PO PRN ×2 (05:48→15:50)
[2020-06-05 06:24] LABS: BUN/Creatinine Ratio 12.5; Calcium 8.5 mg/dL (8.5-10.1)
[2020-06-05] MEDS ORDERED: INSULIN LANTUS (GLARGINE) 1 /0.01ml (100units/ml) SC SCH (07:00)
--- NOTE | 2020-06-05 07:30 | NUR ---
Opening Shift Note Assumed care of patient, awake and alert. No S/S of distress/SOB, reports mild body pain. Instructed on POC and to call for assist PRN, will continue to monitor for changes Q1hr and PRN.
[2020-06-05 08:22] VITALS: BP 105/71
[2020-06-05] MEDS ORDERED: POTASSIUM CHL 20 Meq TABLET PO ONE (09:00)
[2020-06-05] MEDS ORDERED: POTASSIUM EFFERVESENT TAB 25 MEQ PO ONE ×2 (09:00→19:30)
[2020-06-05] MEDS ORDERED: ENOXAPARIN SOD 40 MG/0.4 ML SYRINGE SC SCH (10:00)
[2020-06-05] MEDS: cefTRIAXone 1GM/50ML D5W 50 ML IV SCH (10:19)
[2020-06-05] MEDS: FAMOTIDINE (10MG/ML) 2ML VL IV SCH (10:19)
[2020-06-05 11:17] LABS: Calcium 8.3 mg/dL (8.5-10.1); Potassium 3.2 mmol/L (3.5-5.1)
[2020-06-05 12:02] VITALS: BP 96/67
[2020-06-05] MEDS ORDERED: CIPR500T4 PO (14:09)
[2020-06-05 14:29] LABS: Calcium 8.4 mg/dL (8.5-10.1); Potassium 3.4 mmol/L (3.5-5.1)
--- NOTE | 2020-06-05 16:40 | NUR ---
Case management called regarding home health orders, awaiting call back.
[2020-06-05 16:47] VITALS: BP 95/65
--- NOTE | 2020-06-05 19:30 | NUR ---
Received report from day RN that patient per physician, patient will be discharged. Patient rounded and made aware of the communication with MD. Patient verbalized understanding. Assumed care of patient, awake and alert. No S/S of distress/SOB or pain. Instructed on POC and to call for assist PRN, will continue to monitor for changes Q1hr and PRN.
[2020-06-05 20:30] VITALS: BP 115/76
--- NOTE | 2020-06-05 21:00 | NUR ---
Discharge instructions given as ordered. Encourage to follow up with PMD as instructed. All questions and concerns addressed. Patient verbalized understanding. Medication reconciliation form completed and copy given to patient. No home medications held in Pharmacy, no needed vaccines at this time. IV removed with catheter intact, pressure dressing applied, patient voiding freely. Telemetry unit returned to ICU. Patient taken to vehicle via wheelchair with all personal belongings, accompanied by staff and met by family member. No distress noted at time of departure.
== END 2020-06-05 21:00 | disposition home or self-care (01) | DRG 720 ==
LOC: EDBD 07:05 → EDUNIT# 07:05 → ER 07:05 → TELE 07:06 → TELE-CENTR 06-04 14:08
PROVIDERS: ADMIT Hospitalist; ATTEND Internal Medicine Nephrology
DX: A41.9 Sepsis, unspecified organism (principal); R64 Cachexia; E10.10 Type 1 diabetes mellitus with ketoacidosis without coma; E86.0 Dehydration; N39.0 Urinary tract infection, site not specified; R74.8 Abnormal levels of other serum enzymes; E87.6 Hypokalemia; Z79.4 Long term (current) use of insulin; Z82.49 Family history of ischemic heart disease and other diseases of the circulatory system; Z83.3 Family history of diabetes mellitus; Z91.19 Patient's noncompliance with other medical treatment and regimen; Z68.20 Body mass index [BMI] 20.0-20.9, adult
CPT/HCPCS: 36415; 36600; 71045; 80048; 80053; 80061; 81001; 82010; 82805; 82962; 83036; 83735; 83930; 84100; 85025; 85610; 85730; 87040; 96365; 99291; G0378; J0696; J1815; J2001; J2543; J3480; J3490; J7042

== ENCOUNTER 2020-06-24 11:50 | Emergency (ER) | payer MEDICAID ==
[~2020-06-24] VITALS: Ht 170.2 cm; Wt 49.9 kg
[~2020-06-24 11:50] MED LIST changes: +CIPR500T4 PO; +GABA100C9 PO; -INSLANTI SC; -INSREGIDR SC; +INSU100I51 SC; +INSU1INJ19 SC; +OMEP20TA PO; +ROSU10TA16 PO
[2020-06-24 16:27] VITALS: BP 123/87
[2020-06-24] MEDS ORDERED: ACETAMINOPHEN/CODEINE#3 (300/30mg) TAB PO ONE (16:45)
== END 2020-06-24 17:50 | disposition home or self-care (01) ==
LOC: EDBD 11:50 → ER 11:50
DX: M54.2 Cervicalgia (principal); R51 Headache; M25.511 Pain in right shoulder; M54.6 Pain in thoracic spine; E11.9 Type 2 diabetes mellitus without complications; E78.5 Hyperlipidemia, unspecified
CPT/HCPCS: 72040; 72070; 73030

== ENCOUNTER 2020-08-25 12:01 | Inpatient (IN) | payer MEDICAID ==
[~2020-08-25] VITALS: Ht 160 cm; Wt 51.6 kg
[2020-08-25] MEDS ORDERED: DEXTROSE 50% SYRINGE 50 ML IV ONE (14:04)
[2020-08-25] MEDS ORDERED: DEXTROSE (50%) 50ML SYRG IV ONE (14:15)
[2020-08-25 14:20] LABS: Basophils # (auto) 0 10 ^3/uL (0-0.2); Basophils % (auto) 0.5 % (0.0-2.0); Eosinophils # (auto) 0 10 ^3/uL (0-0.8); Eosinophils % (auto) 0.3 % (0.0-7.0); Hematocrit 38.6 % (36.0-46.0); Hemoglobin 13.6 g/dL (12.2-16.2); Lymphocytes # (auto) 3.3 10 ^3/uL (0.4-5.4); Lymphocytes % (auto) 41.8 % (10.0-50.0); Mean Corpuscular Hemoglobin 31.8 pg (28.0-32.0); Mean Corpuscular Hgb Conc. 35.1 g/dL (32.0-36.0); Mean Corpuscular Volume 90.6 fL (80.0-100.0); Monocytes # (auto) 0.6 10 ^3/uL (0-1.3); Monocytes % (auto) 7.8 % (0.0-12.0); Neutrophils % (auto) 49.6 % (37.0-80.0); Nucleated Red Blood Cells % 0.1 %; Platelet Count (auto) 357 10^3/uL (140-450); Red Blood Cells 4.26 10^6/uL (4.0-5.20); Red Cell Distribution Width 11.9 % (11.8-14.3)
[2020-08-25 14:33] LABS: Albumin 3.4 g/dL (3.4-5.0); Anion Gap 5 (5-15); Blood Urea Nitrogen 13 mg/dL (7-18); Calcium 8.9 mg/dL (8.5-10.1); Carbon Dioxide 28 mmol/L (21-32); Chloride 110 mmol/L (98-107); Sodium 143 mmol/L (136-145)
[2020-08-25 14:40] LABS: Alanine Aminotransferase 19 U/L (13-56); Alkaline Phosphatase 75 U/L (45-117); Aspartate Aminotransferase 12 U/L (15-37); BUN/Creatinine Ratio 16.7; Bilirubin, Total 0.3 mg/dL (0.2-1.0); GFR African American 118 mL/min; GFR Non-African American 97 mL/min; Total Protein 7.1 g/dL (6.4-8.2)
[2020-08-25 14:48] LABS: Glucose 43 mg/dL (74-106); Potassium 2.7 mmol/L (3.5-5.1)
[2020-08-25 15:04] LABS: INR 0.94 (0.9-1.15); Partial Thromboplastin Time 23.8 sec (23.0-31.2)
[2020-08-25] MEDS ORDERED: POTASSIUM CHL 20 Meq TABLET PO ONE ×2 (16:00)
[2020-08-25] MEDS ORDERED: GABAPENTIN 300 MG CAP PO ONE (19:00)
[2020-08-25] MEDS ORDERED: MORPHINE SULF INJ 2 MG/ML SYRINGE 1ML IV PRN (21:00)
[2020-08-25] MEDS ORDERED: ACCU-CHEK COMFORT CURVE STRIP VI SCH (21:00)
[2020-08-25] MEDS ORDERED: TEMAZEPAM 15 MG CAP PO PRN (21:00)
[2020-08-25] MEDS ORDERED: SOD CHL 0.9%/ KCL 40MEQ 1,000 ML IV ONE (21:00)
[2020-08-25] MEDS ORDERED: ACETAMINOPHEN 325 MG TAB PO PRN (21:00)
[2020-08-25] MEDS ORDERED: LORazepam 0.5 MG TAB PO PRN (21:00)
[2020-08-25] MEDS ORDERED: NITROGLYCERIN 0.4 MG SL TAB SL PRN (21:00)
[2020-08-25] MEDS ORDERED: DEXTROSE (50%) 50ML SYRG IV PRN (21:00)
[2020-08-25] MEDS: SODIUM CHLORIDE 0.9% 1,000 ML IV SCH (21:44)
[2020-08-25] MEDS: MORPHINE SULF INJ 2 MG/ML SYRINGE 1ML IV PRN (21:45)
[2020-08-25] MEDS: HYDROcodone-ACET 5/325MG TAB PO PRN (23:39)
[2020-08-26] VITALS (7 sets, daily range): BP systolic 95–112; BP diastolic 67–81
--- NOTE | 2020-08-26 00:10 | NUR ---
Telemetry admit from [facility] admitted to Telemetry unit. No SBAR was received. Patient oriented to ZACKERY JONES RN primary RN, unit, room, bed, and unit policies regarding patient care and visiting hours. Patient now on continuous telemetry monitoring, tele box #79 and telemetry reading on arrival to unit is NSR. Patient weighed by bed scale and encouraged to call if they need something. All questions and concerns addressed, patient verbalized understanding.
[2020-08-26] MEDS ORDERED: BACL10TA PO (01:53)
[2020-08-26] MEDS ORDERED: GABA300C10 PO (01:53)
[2020-08-26] MEDS ORDERED: NITR-52 PO (01:54)
[2020-08-26] MEDS: ACCU-CHEK COMFORT CURVE STRIP VI SCH ×5 (02:16→22:26)
[2020-08-26] MEDS: MORPHINE SULF INJ 2 MG/ML SYRINGE 1ML IV PRN ×2 (03:58→08:49)
[2020-08-26] MEDS: ONDANSETRON HCL 4 MG/2 ML VIAL IV PRN ×2 (04:00→08:48)
[2020-08-26 06:21] LABS: Basophils # (auto) 0 10 ^3/uL (0-0.2); Basophils % (auto) 0.7 % (0.0-2.0); Eosinophils # (auto) 0 10 ^3/uL (0-0.8); Eosinophils % (auto) 0.6 % (0.0-7.0); Hematocrit 37.5 % (36.0-46.0); Lymphocytes % (auto) 40.2 % (10.0-50.0); Mean Corpuscular Hemoglobin 31.8 pg (28.0-32.0); Mean Corpuscular Hgb Conc. 34.6 g/dL (32.0-36.0); Mean Corpuscular Volume 91.9 fL (80.0-100.0); Monocytes # (auto) 0.3 10 ^3/uL (0-1.3); Monocytes % (auto) 6.4 % (0.0-12.0); Neutrophils # (auto) 2.6 10 ^3/uL (1.6-8.6); Neutrophils % (auto) 52.1 % (37.0-80.0); Nucleated Red Blood Cells % 0.2 %; Platelet Count (auto) 275 10^3/uL (140-450); Red Blood Cells 4.08 10^6/uL (4.0-5.20); Red Cell Distribution Width 11.8 % (11.8-14.3); White Blood Cell 4.9 10^3/uL (4.4-10.8)
[2020-08-26 06:47] LABS: Potassium 4.6 mmol/L (3.5-5.1)
[2020-08-26 06:50] LABS: BUN/Creatinine Ratio 23.4; Calcium 8.4 mg/dL (8.5-10.1)
[2020-08-26] MEDS: InsuLIN REG 1unit/0.01ml Soln (100units/ml) SC SCH ×2 (11:29→17:38)
[2020-08-26] MEDS ORDERED: DEXTROSE (50%) 50ML SYRG IV PRN (11:30)
[2020-08-26] MEDS: SODIUM CHLORIDE 0.9% 1,000 ML IV SCH (13:40)
--- NOTE | 2020-08-26 15:54 | NUR ---
assessment Patient is a 24 year old female who is alert and oriented. Patients cognitive abilities are intact. Prior to admission patient lived home with family and functioned independently. Patient informed me she is able to care for her own ADLs. Per patient she will return home to her prior living arrangements post discharge and family will transport her home. I informed patient of her consult for not feeling safe at home. Patient informed me she never said she didnt feel safe. Patient informed me she is safe at home and the nurse was asking her questions after they gave her [place]. patient will benefit for home health for medication management and safety. I informed patient she has a right to speak to a high school social science teacher regarding all care. I informed patient she has a right to participate in any and all discharge planning. Patient does not have a POA and advanced directive. I have offered patient information on POA and advanced directives. I informed the patient the advantages and benefits of having an Advanced Directive. Patient verbalized understanding and agreed to discharge plan home. Addendum: 08/26/20 at 1557 by Damaris VELASQUEZ Amended: Links added.
[2020-08-26] MEDS: HYDROcodone-ACET 5/325MG TAB PO PRN (17:45)
--- NOTE | 2020-08-26 19:00 | NUR ---
Patient care endorsed endorsed care to Nidhi aguilera. Patient laying comfortably in bed no acute distress or sob noted. Call light within reach.
[2020-08-26] MEDS ORDERED: INSULIN LANTUS (GLARGINE) 1 /0.01ml (100units/ml) SC SCH (22:00)
[2020-08-26] MEDS ORDERED: InsuLIN REG 1unit/0.01ml Soln (100units/ml) SC SCH (22:00)
[2020-08-27] MEDS: HYDROcodone-ACET 5/325MG TAB PO PRN ×2 (00:33→09:29)
[2020-08-27 05:00] VITALS: BP 99/64
[2020-08-27 05:13] LABS: Basophils # (auto) 0 10 ^3/uL (0-0.2); Basophils % (auto) 0.3 % (0.0-2.0); Eosinophils # (auto) 0 10 ^3/uL (0-0.8); Eosinophils % (auto) 0.6 % (0.0-7.0); Hematocrit 41.4 % (36.0-46.0); Hemoglobin 14.3 g/dL (12.2-16.2); Lymphocytes % (auto) 44.9 % (10.0-50.0); Mean Corpuscular Hemoglobin 31.6 pg (28.0-32.0); Mean Corpuscular Hgb Conc. 34.5 g/dL (32.0-36.0); Mean Corpuscular Volume 91.7 fL (80.0-100.0); Monocytes # (auto) 0.3 10 ^3/uL (0-1.3); Neutrophils # (auto) 2.1 10 ^3/uL (1.6-8.6); Neutrophils % (auto) 47.2 % (37.0-80.0); Platelet Count (auto) 312 10^3/uL (140-450); Red Blood Cells 4.52 10^6/uL (4.0-5.20); Red Cell Distribution Width 12.1 % (11.8-14.3); White Blood Cell 4.5 10^3/uL (4.4-10.8)
[2020-08-27 05:38] LABS: Urine Bacteria FEW /hpf (None Seen); Urine Blood Negative /uL (Negative); Urine Mucus FEW (None Seen); Urine Specific Gravity 1.018 (1.001-1.035); Urine WBC 4 /hpf (0 - 5)
[2020-08-27 05:39] LABS: Calcium 8.5 mg/dL (8.5-10.1); Potassium 4.2 mmol/L (3.5-5.1)
[2020-08-27 05:43] LABS: BUN/Creatinine Ratio 36.2
[2020-08-27 05:52] LABS: Alcohol, Urine < 3.0 mg/dL (0-10); Amphetamine Screen, Urine NEGATIVE (NEGATIVE); Barbiturate Scree,Urine NEGATIVE (NEGATIVE); Benzodiazephine Screen, Urine NEGATIVE (NEGATIVE); Cannabinoid Screen, Urine NEGATIVE (NEGATIVE); Cocaine Screen, Urine NEGATIVE (NEGATIVE); Opiate Scree,Urine POSITIVE (NEGATIVE); Phencyclidine Screen, Urine NEGATIVE (NEGATIVE)
[2020-08-27] MEDS: InsuLIN REG 1unit/0.01ml Soln (100units/ml) SC SCH ×2 (07:00→11:30)
[2020-08-27] MEDS: ACCU-CHEK COMFORT CURVE STRIP VI SCH ×2 (07:00→11:39)
[2020-08-27] MEDS: SODIUM CHLORIDE 0.9% 1,000 ML IV SCH (07:00)
[2020-08-27 09:00] VITALS: BP 103/71
--- NOTE | 2020-08-27 10:00 | NUR ---
MD AT BEDSIDE DR. CARRILLO WAS IN TO SEE PATIENT AND MD LEFT DISCHARGE ORDER AND PATIENT IS AWARE.
[2020-08-27 13:00] VITALS: BP 110/71
== END 2020-08-27 15:35 | disposition home or self-care (01) | DRG 420 ==
LOC: EDUNIT# 12:01 → EDBD 12:01 → ER 12:01 → TELE 12:02 → TELE-WESTW 23:18
PROVIDERS: ADMIT Hospitalist; ATTEND Internal Medicine Pulmonary Disease
DX: E11.649 Type 2 diabetes mellitus with hypoglycemia without coma (principal); E87.6 Hypokalemia; M79.604 Pain in right leg; M79.605 Pain in left leg; I10 Essential (primary) hypertension; Z82.49 Family history of ischemic heart disease and other diseases of the circulatory system; Z83.3 Family history of diabetes mellitus; Z79.4 Long term (current) use of insulin; G89.29 Other chronic pain; R07.9 Chest pain, unspecified
CPT/HCPCS: 36415; 71045; 80048; 80053; 80307; 81001; 81025; 82962; 83036; 83735; 84484; 84702; 85025; 85379; 85610; 85730; 93005; 93970; G0378; J1815; J2405

== ENCOUNTER 2021-11-07 16:03 | Emergency (ER) | payer MEDICAID ==
[~2021-11-07] VITALS: Ht 157.5 cm; Wt 54.4 kg
[~2021-11-07 16:03] MED LIST changes: +BACL10TA PO; -GABA100C9 PO; +GABA300C10 PO; +NITR-52 PO
[2021-11-07] MEDS ORDERED: LIDOCAINE VISCOUS 2% 15ML UD PO ONE (17:00)
[2021-11-07] MEDS ORDERED: METOCLOPRAMIDE HCL 5MG/ml INJ 2ml VIAL IV ONE (17:00)
[2021-11-07] MEDS ORDERED: FAMOTIDINE (10MG/ML) 2ML VL IV ONE (17:00)
[2021-11-07] MEDS ORDERED: SODIUM CHLORIDE 0.9% 1,000 ML IV ONE (17:00)
[2021-11-07 19:14] LABS: Basophils # (auto) 0.1 10 ^3/uL (0-0.2); Basophils % (auto) 0.5 % (0.0-2.0); Eosinophils # (auto) 0 10 ^3/uL (0-0.8); Hemoglobin 12.3 g/dL (12.2-16.2); Lymphocytes # (auto) 1.3 10 ^3/uL (0.4-5.4)
[2021-11-07 19:16] LABS: Eosinophils % (auto) 0.1 % (0.0-7.0); Lymphocytes % (auto) 10.9 % (10.0-50.0); Mean Corpuscular Hemoglobin 29.6 pg (28.0-32.0); Mean Corpuscular Hgb Conc. 34.1 g/dL (32.0-36.0); Monocytes # (auto) 0.7 10 ^3/uL (0-1.3); Neutrophils % (auto) 82.5 % (37.0-80.0); Red Blood Cells 4.13 10^6/uL (4.0-5.20); White Blood Cell 12.1 10^3/uL (4.4-10.8)
[2021-11-07 19:22] LABS: Potassium 4.9 mmol/L (3.5-5.1)
[2021-11-07 19:30] LABS: Albumin 2.7 g/dL (3.4-5.0); BUN/Creatinine Ratio 18.1; Bilirubin, Total 0.5 mg/dL (0.2-1.0); Calcium 9.2 mg/dL (8.5-10.1); Total Protein 7.8 g/dL (6.4-8.2)
[2021-11-07] MEDS ORDERED: IOHEXOL 300 MG/ML 100ML BOTTLE IJ ONE (23:22)
[2021-11-08 02:38] VITALS: BP 103/55
== END 2021-11-08 02:40 | disposition home or self-care (01) ==
LOC: EDBD 16:03 → ER 16:03
DX: R10.84 Generalized abdominal pain (principal); M54.50 Low back pain, unspecified; E11.9 Type 2 diabetes mellitus without complications; E78.5 Hyperlipidemia, unspecified; Z79.4 Long term (current) use of insulin; Z79.899 Other long term (current) drug therapy
CPT/HCPCS: 36415; 74177; 80053; 83605; 83690; 85025; 96361; 96374; 96375; 99285; J2765; J3490; J7030; Q9967

== ENCOUNTER 2021-12-20 20:19 | Emergency (ER) | payer MEDICAID ==
[~2021-12-20] VITALS: Ht 160 cm; Wt 59.0 kg
[2021-12-20] MEDS ORDERED: SODIUM CHLORIDE 0.9% 2,000 ML IV ONE (21:15)
[2021-12-20 21:42] LABS: Mean Corpuscular Hgb Conc. 32.8 g/dL (32.0-36.0)
[2021-12-20 21:44] LABS: Hemoglobin 11.1 g/dL (12.2-16.2); Mean Corpuscular Hemoglobin 27.8 pg (28.0-32.0); Mean Corpuscular Volume 84.7 fL (80.0-100.0); Red Blood Cells 4.01 10^6/uL (4.0-5.20); Red Cell Distribution Width 14.6 % (11.8-14.3); White Blood Cell 15.9 10^3/uL (4.4-10.8)
[2021-12-20 21:46] LABS: Basophils % (manual) 0 (0.0-2.0); Blast Cells 0; Eosinophils % (manual) 0 (0-7); Metamyelocytes % 0; Myelocytes % 0; Promyelocytes % 0; Reactive Lymphocytes 0
[2021-12-20 21:56] LABS: Albumin 3.2 g/dL (3.4-5.0); Calcium 9.6 mg/dL (8.5-10.1); Magnesium 2.1 mg/dL (1.6-2.6); Potassium 4.3 mmol/L (3.5-5.1)
[2021-12-20 22:00] LABS: BUN/Creatinine Ratio 26.3; Bilirubin, Total 0.4 mg/dL (0.2-1.0); Total Protein 8.5 g/dL (6.4-8.2)
[2021-12-20 22:16] LABS: Band Neutrophils % (manual) 6
[2021-12-20 22:17] LABS: Lymphocytes % (manual) 3 (10.0-50.0); Monocytes % (manual) 6 (0-12)
[2021-12-20] MEDS ORDERED: ONDANSETRON HCL 4 MG/2 ML VIAL IV ONE (23:00)
[2021-12-20] MEDS ORDERED: MORPHINE SULFATE 4 MG/ML SYR/VIAL IV ONE (23:00)
[2021-12-21] MEDS ORDERED: SODIUM CHLORIDE 0.9% 1,000 ML IV SCH (03:30)
[2021-12-21] MEDS ORDERED: ONDANSETRON HCL 4 MG/2 ML VIAL IV PRN (03:30)
[2021-12-21] MEDS ORDERED: cefTRIAXone 1GM/50ML D5W 50 ML IV ONE (03:30)
[2021-12-21] MEDS ORDERED: HYDROcodone-ACET 5/325MG TAB PO PRN (03:30)
[2021-12-21] MEDS ORDERED: DEXTROSE (50%) 50ML SYRG IV PRN (03:30)
[2021-12-21] MEDS ORDERED: ACETAMINOPHEN 325 MG TAB PO PRN (03:30)
[2021-12-21] MEDS ORDERED: MORPHINE SULFATE 4 MG/ML SYR/VIAL IV PRN (03:30)
[2021-12-21] MEDS ORDERED: ACCU-CHEK COMFORT CURVE STRIP VI SCH (04:00)
[2021-12-21] MEDS ORDERED: InsuLIN REG 1unit/0.01ml Soln (100units/ml) SC SCH (04:00)
[2021-12-21 04:27] LABS: Eosinophils # (auto) 0 10 ^3/uL (0-0.8); Hemoglobin 9.3 g/dL (12.2-16.2); Lymphocytes # (auto) 0.2 10 ^3/uL (0.4-5.4); Neutrophils # (auto) 14.1 10 ^3/uL (1.6-8.6); White Blood Cell 14.8 10^3/uL (4.4-10.8)
[2021-12-21 04:29] LABS: Basophils # (auto) 0 10 ^3/uL (0-0.2); Basophils % (auto) 0.1 % (0.0-2.0); Hematocrit 27.6 % (36.0-46.0); Lymphocytes % (auto) 1.5 % (10.0-50.0); Mean Corpuscular Hemoglobin 28.5 pg (28.0-32.0); Mean Corpuscular Hgb Conc. 33.7 g/dL (32.0-36.0); Mean Corpuscular Volume 84.7 fL (80.0-100.0); Monocytes # (auto) 0.4 10 ^3/uL (0-1.3); Monocytes % (auto) 2.7 % (0.0-12.0); Neutrophils % (auto) 95.7 % (37.0-80.0); Red Blood Cells 3.26 10^6/uL (4.0-5.20); Red Cell Distribution Width 14.7 % (11.8-14.3)
[2021-12-21 04:49] LABS: Albumin 2.2 g/dL (3.4-5.0); BUN/Creatinine Ratio 24.4; Calcium 8.6 mg/dL (8.5-10.1); Potassium 3.6 mmol/L (3.5-5.1)
[2021-12-21 04:52] LABS: Bilirubin, Total 0.4 mg/dL (0.2-1.0); Total Protein 6.5 g/dL (6.4-8.2)
[2021-12-21 07:00] VITALS: BP 122/68
[2021-12-21] MEDS ORDERED: INSULIN LANTUS (GLARGINE) 1 /0.01ml (100units/ml) SC SCH (10:00)
[2021-12-21] MEDS ORDERED: ASPirin 81 mg TAB PO SCH (10:00)
[2021-12-21] MEDS ORDERED: FAMOTIDINE (10MG/ML) 2ML VL IV SCH (10:00)
[2021-12-22] MEDS ORDERED: cefTRIAXone 1GM/50ML D5W 50 ML IV SCH (09:00)
== END 2021-12-21 07:11 | disposition home or self-care (01) ==
LOC: EDSEX 20:19 → EDBD 20:19 → ER 20:21
DX: R10.9 Unspecified abdominal pain (principal); E10.8 Type 1 diabetes mellitus with unspecified complications; K21.9 Gastro-esophageal reflux disease without esophagitis; E78.5 Hyperlipidemia, unspecified; Z76.5 Malingerer [conscious simulation]
CPT/HCPCS: 36415; 74176; 80053; 82010; 82150; 82962; 83036; 83690; 83735; 84702; 85007; 85025; 85027; 93005; 96361; 96365; 96372; 96375; 99285; J0696; J1815; J2270; J2405; J7030

== ENCOUNTER 2024-12-31 01:40 | Inpatient (IN) | payer MEDICAID ==
[~2024-12-31] VITALS: Ht 154.9 cm; Wt 59.5 kg
[~2024-12-31 01:40] MED LIST changes: +GABA-1250 PO; -GABA300C10 PO
--- NOTE | 2024-12-31 01:46 | ED.PDOC ---
GI ASSESSMENT HPI Comments 29-year-old female came to ER via EMS for abdominal pain. Patient has history of GERD, past 3 days she has been having intermittent episodes of diffuse abdominal pain, associated with bouts of nausea and vomiting. 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 Allergies: Coded Allergies: NO KNOWN ALLERGIES (Unverified , 10/24/19) Home Meds Active Scripts Ciprofloxacin Hcl (Ciprofloxacin Hcl) 500 Mg Tab, 1 TAB PO BID for 7 Days, #14 TAB 0 Refills Prov:SAVANNA SOLORZANO MD 06/05/20 Reported Medications Nitrofurantoin (Nitrofurantoin) 100 Mg Cap, 1 CAP PO DAILY, #20 CAP 08/26/20 Baclofen (Baclofen) 10 Mg Tab, 10 MG PO Q8HP PRN for PAIN SCALE 1 THRU 6 for 30 Days, MG 08/26/20 Gabapentin (Gabapentin) 300 Mg Cap, 1 CAP PO TID, #90 CAP 5 Refills 08/26/20 Rosuvastatin Calcium (Crestor) 10 Mg Tab, 1 TAB PO HS, #30 TAB 5 Refills 06/03/20 Insulin Glargine (Basaglar Kwikpen) 100 Unit/Ml Inj, 33 UNIT SC HS, INJ 06/03/20 Insulin Aspart (Insulin Aspart Flexpen) 100 Unit/Ml Inj, 6 UNIT SC TID, INJ SLIDING SCALE 06/03/20 Omeprazole (Gnp Omeprazole) 20 Mg Tab, 1 TAB PO DAILY PRN for ACID REFLUX, #90 TAB 1 Refill 06/03/20 Information Source: Patient, Emergency Med Personnel Mode of Arrival: EMS Timing: Days Duration: Intermittent Prehospital treatment: None Quality: Aching Vomitus: Watery Stool: Normal Severity: Moderate Recent: None Recent Hx of: Ulcer Disease Pain Location: Diffuse Modifying Factors: Nothing Associated sign and symptoms: Nausea, Vomiting, Abdominal Pain Past Medical History PAST MEDICAL HISTORY: DM, GERD, High Lipids Surgical History: Denies all surgeries GUITAR REPAIRER History: No Pertinent GUITAR REPAIRER History Family History Family History: Reviewed,noncontributory to illness, Family hx of DM Social History Smoker: Non-Smoker Alcohol: Denies ETOH Use Drugs: Denies Drug Use Lives In: Home Constitutional: denies: chills, diaphoresis, fatigue, fever, malaise, sweats, weakness, others EENTM: denies: blurred vision, double vision, ear bleeding, ear discharge, ear drainage, ear pain, ear ringing, eye pain, eye redness, hearing loss, mouth pain, mouth swelling, nasal discharge, nose bleeding, nose congestion, nose pain, photophobia, tearing, throat pain, throat swelling, voice changes, others Respiratory: denies: cough, hemoptysis, orthopnea, SOB at rest, shortness of breath, SOB with excertion, stridor, wheezing, others Cardiovascular: denies: chest pain, dizzy spells, diaphoresis, Dyspnea on exertion, edema, irregular heart beat, left arm pain, lightheadedness, palpitations, PND, syncope, others Gastrointestinal: reports: abdominal pain, nausea, vomiting; denies: abdomen distended, blood streaked bowels, constipated, diarrhea, dysphagia, difficulty swallowing, hematemesis, melena, poor appetite, poor fluid intake, rectal bleeding, rectal pain, others Genitourinary: denies: abnormal vagina bleeding, burning, dyspareunia, dysuria, flank pain, frequency, hematuria, incontinence, pain, , vagina discharge, urgency, others Neurological: denies: dizziness, fainting, headache, left sided numbness, left sided weakness, numbness, paresthesia, pre-existing deficit, right sided numbness, right sided weakness, seizure, speech problems, tingling, tremors, weakness, others Musculoskeletal: denies: back pain, gout, joint pain, joint swelling, muscle pain, muscle stiffness, neck pain, others Integumetry: denies: bruises, change in color, change in hair/nails, dryness, laceration, lesions, lumps, rash, wounds, others Allergic/Immunocompromised: denies: Difficulty Healing, Frequent Infections, Hives, Itching, others Hematologic/Lymphatic: denies: anemia, blood clots, easy bleeding, easy bruising, swollen glands, others Endocrine: denies: excessive hunger, excessive sweating, excessive thirst, excessive urination, flushing, intolerance to cold, intolerance to heat, unexplained weight gain, unexplained weight loss, others Psychiatric: denies: anxiety, bipolar disorder, depression, hopeless, panic dis order, schizophrenia, sleepless, suicidal, others Physical Exam General Appearance: Mild Distress, Normal HEENT: Normal ENT Inspection, Pharynx Normal, TMs Normal Neck: Full Range of Motion, Non-Tender, Normal, Normal Inspection Respiratory: Chest Non-Tender, Lungs Clear, No Accessory Muscle Use, No Respiratory Distress, Normal Breath Sounds Cardiovascular: No Edema, No JVD, No Murmur, No Gallop, Normal Peripheral Pulses, Regular Rate/Rhythm Breast Exam: Deferred Gastrointestinal: No Organomegaly, Non Tender, No Pulsatile Mass, Normal Bowel Sounds, Soft Genitalia: Deferred Pelvic: Deferred Rectal: Deferred Extremities: No calf tenderness, Normal capillary refill, Normal inspection, Normal range of motion, Non-tender, No pedal edema Musculoskeletal : Apperance: Normal Neurologic: Alert, supervisor diagnostic II-XII nml as Tested, No Motor Deficits, Normal Affect, Normal Mood, No Sensory Deficits Cerebellar Function: Normal Reflexes: Normal Skin: Dry, Normal Color, Warm Lymphatic: No Adenopathy Was a procedure done? Was a procedure done?: No GI differential Dx Differential Diagnosis: Diverticular disease, Gastritis/PUD, Gastroenteritis X-Ray, Labs, Meds, VS Vital Signs Date Time Temp Pulse Resp B/P (MAP) Pulse Ox O2 Delivery O2 Flow Rate FiO2 12/31/24 01:41 98.7 105 14 161/97 (118) 95 Lab Test 12/31/24 04:15 12/31/24 02:32 Range/Units White Blood Count Pending Red Blood Count Pending Hemoglobin Pending Hematocrit Pending Mean Corpuscular Volume Pending Mean Corpuscular Hemoglobin Pending Mean Corpuscular Hemoglobin Concent Pending Red Cell Distribution Width Pending Platelet Count Pending Mean Platelet Volume Pending Neutrophils (%) (Auto) Pending Lymphocytes (%) (Auto) Pending Monocytes (%) (Auto) Pending Basophils (%) (Auto) Pending Neutrophils # (Auto) Pending Lymphocytes # (Auto) Pending Monocytes # (Auto) Pending Sodium Level 139 136-145 mmol/L Potassium Level 3.7 3.5-5.1 mmol/L Chloride Level 108 H 98-107 mmol/L Carbon Dioxide Level 24 20-31 mmol/L Anion Gap 7 5-15 Blood Urea Nitrogen 12 9-23 mg/dL Creatinine 1.17 H 0.550-1.02 mg/dL Glomerular Filtration Rate Calc 65 >90 mL/min BUN/Creatinine Ratio 10.3 10.0-20.0 Serum Glucose 72 L 74-106 mg/dL Lactic Acid Level 1.7 0.4-2.0 mmol/L Calcium Level 9.7 8.7-10.4 mg/dL Total Bilirubin 0.6 0.2-1.0 mg/dL Aspartate Amino Transferase (AST) 25 13-40 U/L Alanine Aminotransferase (ALT) 17 7-40 U/L Alkaline Phosphatase 114 46-116 U/L Total Protein 6.5 5.7-8.2 g/dL Albumin 3.5 3.2-4.8 g/dL Lipase 25 12-53 U/L Beta HCG, Quantitative 0.5 L 1.5-4.2 mIU/mL [place] [address] Ph: [phone] DIAGNOSTIC IMAGING Diagnostic Imaging Report : [id number] Signed PATIENT: MICK LIANG ACCT: [id number] UNIT: [id number] : 1995 LOC: ER ROOM / BED: / AGE / SEX: 29 / F ADM STATUS: REG ER SERVICE [id number] ORDERING PHYSICIAN: HERB CURTIS MD PROCEDURE(s): ABPL - CT AB PEL WO CON-NO ORAL OR IV REASON: abd pain ORDER NUMBER(s): [id number], ACCESSION NUMBER(s): [id number] EXAM: CT CT AB PEL WO CON-NO ORAL OR IV HISTORY: abd pain COMPARISON: CT ABD PELVIS WO CONTRAST on DOS: 12/20/21 TECHNIQUE: Helical CT images of the abdomen and pelvis were performed without IV contrast. Sagittal and coronal reformatted images were obtained. This CT exam was pe rformed using one or more of the following dose reduction techniques: Automated exposure control, adjustment of the mA and/or kv according to patient size, or the use of iterative reconstruction techniques. Radiation Dose : Abdomen/Pelvis: CTDIvol 5.14 mGy, DLP 273.39 mGy*cm. FINDINGS: CT abdomen: The heart is enlarged. There are moderate bilateral pleural effusions. There is partial consolidation of the bilateral lower lobes. There is interstitial prominence in the lung bases. The liver measures 19 cm longitudinal. The noncontrast spleen, gallbladder, pancreas, kidneys, and adrenal glands are unremarkable. No abdominal aortic aneurysm. Evaluation of the abdomen is limited by beam hardening artifact from thoracolumbar posterior fusion extending caudally to the L3 level. CT pelvis: No abnormal bowel dilatation air. There is low volume free fluid in the pelvis. There is fecal retention in the colon. The appendix is not dilated. The noncontrast uterus and urinary bladder are unremarkable. IMPRESSION: 1. Cardiomegaly with moderate bilateral pleural effusions, bilateral lower lobe partial consolidation, and bilateral lung base interstitial prominence suggestive of CHF. 2. Mild hepatomegaly. 3. Low volume free fluid in the pelvis may be physiologic. 4. Postoperative changes of thoracolumbar posterior fusion extending as far caudally as the L3 level. 5. Fecal retention in the colon suggestive of constipation. 6. No evidence of bowel obstruction, acute appendicitis, or other acute process in the abdomen or pelvis. ATED BY: ELIS CHUN MD DICTATED DATE/TIME: 12/31/24437 SIGNED BY: ELIS CHUN MD SIGNED DATE/TIME: 12/31/24437 CC: Lipase is 25. Creatinine is 1.17. BNP troponin and EKG are pending. C BC is pending The patient will be admitted to the hospitalist for further evaluation and care. Time of 1ST Reevaluation: 01:43 Reevaluation 1ST: Unchanged Patient Education/Counseling: Diagnosis, Treatment Family Education/Counseling: No Family Present Departure 1 Departure Time of Disposition: 05:12 Impression: Primary Impression: Cardiomegaly Additional Impressions: Pleural cavity effusion Pneumonia Qualified Codes: J18.9 - Pneumonia, unspecified organism Hepatomegaly Acute kidney injury Disposition: ADMITTED INPATIENT Admit to: Tele Condition: Guarded Critical Care Note Critical Care Time?: Yes (45 min-critical care time only) Stability Stability form required: No Heart Score Heart Score: Heart Score Response (Comments) Value History N/A 0 EKG N/A 0 Age N/A 0 Risk Factors N/A 0 Troponin N/A 0 Total 0 I personally scribed for HERB CURTIS MD ([email or web address]) on 12/31/24 at 01:46. Electronically submitted by Dimitri Hsu ([email or web address]). HERB CURTIS MD Dec 31, 2024 01:46
[2024-12-31 03:09] LABS: Alanine Aminotransferase 17 U/L (7-40); Albumin 3.5 g/dL (3.2-4.8); Alkaline Phosphatase 114 U/L (46-116); Anion Gap 7 (5-15); Aspartate Aminotransferase 25 U/L (13-40); BUN/Creatinine Ratio 10.3 (10.0-20.0); Blood Urea Nitrogen 12 mg/dL (9-23); Calcium 9.7 mg/dL (8.7-10.4); Carbon Dioxide 24 mmol/L (20-31); Lipase 25 U/L (12-53); Potassium 3.7 mmol/L (3.5-5.1); Sodium 139 mmol/L (136-145)
[2024-12-31 03:10] LABS: Bilirubin, Total 0.6 mg/dL (0.2-1.0); Total Protein 6.5 g/dL (5.7-8.2)
[2024-12-31 04:09] LABS: Chloride 108 mmol/L (98-107); Glucose 72 mg/dL (74-106)
--- NOTE | 2024-12-31 04:40 | DVH ---
EXAM: CT CT AB PEL WO CON-NO ORAL OR IV HISTORY: abd pain COMPARISON: CT ABD PELVIS WO CONTRAST on DOS: 12/20/21 TECHNIQUE: Helical CT images of the abdomen and pelvis were performed without IV contrast. Sagittal and coronal reformatted images were obtained. This CT exam was performed using one or more of the following dos e reduction techniques: Automated exposure control, adjustment of the mA and/or kv according to patie nt size, or the use of iterative reconstruction techniques. Radiation Dose : Abdomen/Pelvis: CTDIvol 5.14 mGy, DLP 273.39 mGy*cm. FINDINGS: CT abdomen: The heart is enlarged. There are moderate bilateral pleural effusions. There is partial consolidation of the bilateral lower lobes. There is interstitial prominence in the lung bases. The l iver measures 19 cm longitudinal. The noncontrast spleen, gallbladder, pancreas, kidneys, and adrenal glands are unremarkable. No abdominal aortic aneurysm. Evaluation of the abdomen is limited by roselia m hardening artifact from thoracolumbar posterior fusion extending caudally to the L3 level. CT pelvis: No abnormal bowel dilatation air. There is low volume free fluid in the pelvis. There is fecal retention in the colon. The appendix is not dilated. The noncontrast uterus and urinary bladd er are unremarkable. IMPRESSION: 1. Cardiomegaly with moderate bilateral pleural effusions, bilateral lower lobe partial consolidation , and bilateral lung base interstitial prominence suggestive of CHF. 2. Mild hepatomegaly. 3. Low volume free fluid in the pelvis may be physiologic. 4. Postoperative changes of thoracolumbar posterior fusion extending as far caudally as the L3 level. 5. Fecal retention in the colon suggestive of constipation. 6. No evidence of bowel obstruction, acute appendicitis, or other acute process in the abdomen or pel vis.
[2024-12-31 04:55] LABS: Basophils # (auto) 0 10 ^3/uL (0-0.2); Basophils % (auto) 0.4 % (0.0-2.0); Eosinophils # (auto) 0.1 10 ^3/uL (0-0.8); Eosinophils % (auto) 0.9 % (0.0-7.0); Hematocrit 37.9 % (36.0-46.0); Hemoglobin 12.3 g/dL (12.2-16.2); Lymphocytes # (auto) 2.4 10 ^3/uL (0.4-5.4); Lymphocytes % (auto) 38.7 % (10.0-50.0); Mean Corpuscular Hemoglobin 29.7 pg (28.0-32.0); Mean Corpuscular Hgb Conc. 32.5 g/dL (32.0-36.0); Mean Corpuscular Volume 91.2 fL (80.0-100.0); Monocytes # (auto) 0.5 10 ^3/uL (0-1.3); Monocytes % (auto) 8.1 % (0.0-12.0); Neutrophils # (auto) 3.2 10 ^3/uL (1.6-8.6); Neutrophils % (auto) 51.9 % (37.0-80.0); Nucleated Red Blood Cells % 0.2 %; Platelet Count (auto) 370 10^3/uL (140-450); Red Blood Cells 4.16 10^6/uL (4.0-5.20); Red Cell Distribution Width 14.2 % (11.8-14.3); White Blood Cell 6.2 10^3/uL (4.4-10.8)
[2024-12-31] MEDS ORDERED: levoFLOXacin 500MG 100 ML IV ONE (05:15)
[2024-12-31 07:26] VITALS: PULSE 104; RESP 16; O2SAT 99
[2024-12-31] MEDS: cefTRIAXone 1GM/50ML D5W 50 ML IV ONE (07:28)
[2024-12-31] MEDS: metroNIDAZOLE 500MG/100ML 100 ML IV ONE (08:39)
[2024-12-31] MEDS ORDERED: ACETAMINOPHEN 325 MG TAB PO PRN (12:30)
[2024-12-31] MEDS ORDERED: MORPHINE SULFATE INJ 2 MG/ml SYRG IV PRN (12:30)
--- NOTE | 2024-12-31 12:30 | DVHHP2 ---
History of Present Illness Reason for Visit: Abdominal pain History of Present Illness This 29-year-old female presents in the ED with a chief complaint of abdominal pain. The patient reports history of GERD currently taking omeprazole has been having generalized abdominal pain associated with nausea and vomiting three days ago. Patient denies fever, chills, chest pain, shortness of breath hematemesis, diarrhea or other acute symptoms. Past medical history of diabetes type 1, hyperlipidemia, neuropathy, and GERD. Past Medical History As stated in HPI Past Surgical History Denies Family History Reviewed, non-contributory to the management of this case. Past Social History The patient lives at home, denies smoking, alcohol or illicit drugs abuse. Review of Systems Constitutional: Yes: Malaise; No: Fever, Chills, Sweats, Weakness, Other Eyes: No: Pain, Vision change, Conjunctivae inflammation, Eyelid inflammation, Other, Redness ENT: No: Ear pain, Ear discharge, Nose pain, Nose discharge, Nose congestion, Mouth pain, Mouth swelling, Throat pain, Throat swelling, Other Respiratory: No: Cough, Dry, Shortness of breath, SOB with excertion, Wheezing, Hemoptysis, Pleuritic Pain, Sputum, Wheezing, Other Cardiovascular: No: Chest Pain, Palpitations, Orthopnea, Paroxysmal Noc. Dyspnea, Edema, Lt Headedness, Other Gastrointestinal: Nausea, Vomiting, Abdominal Pain, Constipation; No: Diarrhea, Melena, Hematochezia, Other Genitourinary: No Dysuria, No Frequency, No Incontinence, No Hematuria, No Retention, No Other Musculoskeletal: No: other, neck pain, shoulder pain, arm pain, back pain, hand pain, leg pain, foot pain Skin: No: Rash, Lesions, Jaundice, Bruising, Other Neurological: No: Weakness, Numbness, Incoordination, Change in speech, Confusion, Seizures, Other Allergies: Coded Allergies: NO KNOWN ALLERGIES (Unverified , 10/24/19) Exam Vital Signs Vital Signs Date Time Temp Pulse Resp B/P (MAP) Pulse Ox O2 Delivery O2 Flow Rate FiO2 12/31/24 12:00 90 17 159/113 (128) 94 12/31/24 07:26 Room Air* 0 21 12/31/24 07:26 98.7 98.7 General Appearance: Alert, Oriented X3, Cooperative, mild distress HEENT: Atraumatic, PERRLA, EOMI, Mucous membr. moist/pink Respiratory: Clear to auscultation, Normal air movement Cardiovascular: Regular rate, Normal S1, Normal S2 Abdominal: Normal bowel sounds, Soft, No tenderness Extremities: No clubbing, No cyanosis, No edema, Normal pulses Skin: No rashes, No breakdown, No significant lesion Neuro: Normal gait, Normal speech Psych/Mental Status: Mental status NL, Mood NL Labs/Xrays Labs Test 12/31/24 06:45 12/31/24 05:55 12/31/24 04:15 12/31/24 02:32 Range/Units Troponin I High Sensitivity 35 *H </=34 ng/L B-Type Natriuretic Peptide 119.24 0-100 pg/mL White Blood Count 6.2 4.4-10.8 10^3/uL Red Blood Count 4.16 4.0-5.20 10^6/uL Hemoglobin 12.3 12.2-16.2 g/dL Hematocrit 37.9 36.0-46.0 % Mean Corpuscular Volume 91.2 80.0-100.0 fL Mean Corpuscular Hemoglobin 29.7 28.0-32.0 pg Mean Corpuscular Hemoglobin Concent 32.5 32.0-36.0 g/dL Red Cell Distribution Width 14.2 11.8-14.3 % Platelet Count 370 140-450 10^3/uL Mean Platelet Volume 7.9 6.9-10.8 fL Neutrophils (%) (Auto) 51.9 37.0-80.0 % Lymphocytes (%) (Auto) 38.7 10.0-50.0 % Monocytes (%) (Auto) 8.1 0.0-12.0 % Eosinophils (%) (Auto) 0.9 0.0-7.0 % Basophils (%) (Auto) 0.4 0.0-2.0 % Neutrophils # (Auto) 3.2 1.6-8.6 10 ^3/uL Lymphocytes # (Auto) 2.4 0.4-5.4 10 ^3/uL Monocytes # (Auto) 0.5 0-1.3 10 ^3/uL Eosinophils # (Auto) 0.1 0-0.8 10 ^3/uL Basophils # (Auto) 0 0-0.2 10 ^3/uL Nucleated Red Blood Cells 0.2 % Sodium Level 139 136-145 mmol/L Potassium Level 3.7 3.5-5.1 mmol/L Chloride Level 108 H 98-107 mmol/L Carbon Dioxide Level 24 20-31 mmol/L Anion Gap 7 5-15 Blood Urea Nitrogen 12 9-23 mg/dL Creatinine 1.17 H 0.550-1.02 mg/dL Glomerular Filtration Rate Calc 65 >90 mL/min BUN/Creatinine Ratio 10.3 10.0-20.0 Serum Glucose 72 L 74-106 mg/dL Lactic Acid Level 1.7 0.4-2.0 mmol/L Calcium Level 9.7 8.7-10.4 mg/dL Total Bilirubin 0.6 0.2-1.0 mg/dL Aspartate Amino Transferase (AST) 25 13-40 U/L Alanine Aminotransferase (ALT) 17 7-40 U/L Alkaline Phosphatase 114 46-116 U/L Total Protein 6.5 5.7-8.2 g/dL Albumin 3.5 3.2-4.8 g/dL Lipase 25 12-53 U/L Beta HCG, Quantitative 0.5 L 1.5-4.2 mIU/mL PROCEDURE(s): ABPL - CT AB PEL WO CON-NO ORAL OR IV REASON: abd pain ORDER NUMBER(s): [id number], ACCESSION NUMBER(s): [id number] EXAM: CT CT AB PEL WO CON-NO ORAL OR IV HISTORY: abd pain COMPARISON: CT ABD PELVIS WO CONTRAST on DOS: 12/20/21 TECHNIQUE: Helical CT images of the abdomen and pelvis were performed without IV contrast. Sagittal and coronal reformatted images were obtained. This CT exam was performed using one or more of the following dose reduction techniques: Automated exposure control, adjustment of the mA and/or kv according to patient size, or the use of iterative reconstruction techniques. Radiation Dose : Abdomen/Pelvis: CTDIvol 5.14 mGy, DLP 273.39 mGy*cm. FINDINGS: CT abdomen: The heart is enlarged. There are moderate bilateral pleural effusions. There is partial consolidation of the bilateral lower lobes. There is interstitial prominence in the lung bases. The liver measures 19 cm lo ngitudinal. The noncontrast spleen, gallbladder, pancreas, kidneys, and adrenal glands are unremarkable. No abdominal aortic aneurysm. Evaluation of the abdomen is limited by beam hardening artifact from thoracolumbar posterior fusion extending caudally to the L3 level. CT pelvis: No abnormal bowel dilatation air. There is low volume free fluid in the pelvis. There is fecal retention in the colon. The appendix is not dilated. The noncontrast uterus and urinary bladder are unremarkable. IMPRESSION: 1. Cardiomegaly with moderate bilateral pleural effusions, bilateral lower lobe partial consolidation, and bilateral lung base interstitial prominence suggestive of CHF. 2. Mild hepatomegaly. 3. Low volume free fluid in the pelvis may be physiologic. 4. Postoperative changes of thoracolumbar posterior fusion extending as far caudally as the L3 level. 5. Fecal retention in the colon suggestive of constipation. 6. No evidence of bowel obstruction, acute appendicitis, or other acute process in the abdomen or pelvis. Assessment/Plan Assessment/Plan # accelerated hypertension Admit to telemetry unit Started on nifedipine Hydralazine as needed Monitor BP # cardiomegaly, rule out CHF # elevated troponin # pleural effusion Cardiology consult Echo Monitor EKG and troponin Check UDS # possible pneumonia Empiric antibiotic ceftriaxone and azithromycin Blood and sputum culture Chest x-ray in a.m. # acute abdominal pain # constipation # GERD CT abdomen pelvis reviewed Pantoprazole Lactulose # hyperlipidemia Continue with statins Lipid panel # DM type 1 # neuropathy Insulin sliding scale Check A1c Continue gabapentin Medical plan discussed with patient and RN Plan discussed with: Patient Date of Service: Dec 31, 2024 Billing Provider: GEOVANNA CARDONA Common Visit Codes: [id number] INP/OBS CARE (HIGH) GEOVANNA CARDONA Dec 31, 2024 12:30
[2024-12-31] MEDS ORDERED: DEXTROSE (50%) 50ML SYRG IV PRN (12:45)
--- NOTE | 2024-12-31 13:03 | DVH ---
CHEST RADIOGRAPH Indication: sob Technique: Single frontal view of the chest was obtained COMPARISON: CHEST PORTABLE on DOS: 08/25/20 FINDINGS: Lines and Tubes: Thoracolumbar spinal fixation hardware. Lungs: Low lung volumes. Congestion Pleura: No effusion. No pneumothorax. Cardiomediastinal contours: Cardiomegaly. Bones: Unremarkable IMPRESSION: Low lung volumes. Congestion. Cardiomegaly.
[2024-12-31] MEDS ORDERED: LACTULOSE 20Gm/30ML SOLN PO PRN (13:15)
[2024-12-31 14:20] LABS: Magnesium 2.1 mg/dL (1.6-2.6)
[2024-12-31 14:33] VITALS: RESP 19; O2SAT 96
--- NOTE | 2024-12-31 16:02 | DVHINCON2 ---
Date Seen: Dec 31, 2024 Referring Physician PATRICK Turner Reason for Consultation Elevated troponin, possible CHF History of Present Illness This is a 29-year-old female patient who presents to the emergency room with chief complaint of abdominal pain, nausea, and vomiting for approximately three days. She comes to the emergency room for further evaluation. Cardiology is now being consulted for elevated troponin level and possible CHF. Initial twelve lead electrocardiogram reveals normal sinus rhythm with nonspecific ST segment changes in lateral leads. Initial troponin level of 28ng/L with peak level at 35ng/L. Initial BNP level of 119.24pg/mL. The patient denies any cardiac symptoms including chest pain, shortness of breath, or palpitations. Significant past medical history includes hypertension, dyslipidemia, type 1 diabetes mellitus, peripheral neuropathy, and GERD. Past Medical History Past medical history reviewed. No other significant than mentioned above. Past Surgical History Back surgery Family History: Diabetes mellitus G8 FATHER aunt Family history: Cardiovascular disease GRANDMOTHER Family history: Diabetes mellitus G8 FATHER Family History Family history reviewed. Social History Denies the use of tobacco, alcohol or illicit drugs. Allergies: Coded Allergies: NO KNOWN ALLERGIES (Unverified , 10/24/19) Home Meds Active Scripts Ciprofloxacin Hcl (Ciprofloxacin Hcl) 500 Mg Tab, 1 TAB PO BID for 7 Days, #14 TAB 0 Refills Prov:SAVANNA SOLORZANO MD 06/05/20 Reported Medications Nitrofurantoin (Nitrofurantoin) 100 Mg Cap, 1 CAP PO DAILY, #20 CAP 08/26/20 Baclofen (Baclofen) 10 Mg Tab, 10 MG PO Q8HP PRN for PAIN SCALE 1 THRU 6 for 30 Days, MG 08/26/20 Gabapentin (Gabapentin) 300 Mg Cap, 1 CAP PO TID, #90 CAP 5 Refills 08/26/20 Rosuvastatin Calcium (Crestor) 10 Mg Tab, 1 TAB PO HS, #30 TAB 5 Refills 06/03/20 Insulin Glargine (Basaglar Kwikpen) 100 Unit/Ml Inj, 33 UNIT SC HS, INJ 06/03/20 Insulin Aspart (Insulin Aspart Flexpen) 100 Unit/Ml Inj, 6 UNIT SC TID, INJ SLIDING SCALE 06/03/20 Omeprazole (Gnp Omeprazole) 20 Mg Tab, 1 TAB PO DAILY PRN for ACID REFLUX, #90 TAB 1 Refill 06/03/20 Home Meds Home medications reviewed. Current Medications Current Medications Medications (Trade) Dose Ordered Sig/Sid Route PRN Reason Start Time Stop Time Status Last Admin Acetaminophen/ Hydrocodone Bitart ([place] 5/325MG Tab) 1 tab Q4HP PRN PO MODERATE PAIN (4-6 PAIN SCALE) 12/31/24 12:30 Ondansetron HCl (Zofran) 4 mg Q4HP PRN IV NAUSEA / VOMITING 12/31/24 12:30 Acetaminophen (Tylenol Tablet) 650 mg Q6HP PRN PO PAIN SCALE 1-3 OR TEMP>100.4 12/31/24 12:30 Morphine Sulfate 2 mg Q4HPRN PRN IV SEVERE PAIN (7-10 PAIN SCALE) 12/31/24 12:30 Diagnostic Test (Pha) (Accu-Chek Comfort Curve T) 1 strip ACHS 12/31/24 17:00 Insulin Human Regular (InsuLIN R) HS SC 12/31/24 22:00 Insulin Human Regular (InsuLIN R) AC SC 12/31/24 17:00 Dextrose 50 ml UD PRN IV Blood Sugar LESS THAN 60 12/31/24 12:45 Gabapentin (Neurontin Capsule) 300 mg TID PO 12/31/24 14:00 Atorvastatin Calcium (Lipitor) 1 mg HS PO 12/31/24 22:00 Lactulose 30 ml DAILYPRN PRN PO FOR CONSTIPATION 12/31/24 13:15 Lisinopril (Zestril Tablet) 20 mg DAILY PO 12/31/24 15:30 Pantoprazole Sodium (Protonix Tablet) 40 mg DAILY PO 12/31/24 15:30 Review of Systems Constitutional: No symptom reported Ears, Nose, & Throat: No symptom reported Eyes: No symptom reported Neurological: No symptoms reported Pulmonary/Respiratory: No symptoms reported Cardiovascular: No symptom reported Gastrointestinal: Abdominal pain, nausea and vomiting Genitourinary: No symptom reported Musculoskeletal: No symptom reported Skin: No symptom reported Psychiatric: No symptom reported Endocrine: No symptom reported Hematologic/Lymphatic: No symptom reported Vital Signs Vital Signs Date Time Temp Pulse Resp B/P (MAP) Pulse Ox O2 Delivery O2 Flow Rate FiO2 12/31/24 14:33 19 96 Room Air* 0 21 12/31/24 12:00 90 159/113 (128) 12/31/24 07:26 98.7 98.7 Physical Exam General Appearance: Cooperative. Well-developed. Well-nourished. No acute distress. Pulmonary/Respiratory: Clear, bilateral breaths sounds. Cardiovascular/Chest: Regular rate and rhythm. Peripheral Pulses: 2+ Radial (R). 2+ Radial (L). 2+ Pedal (R). 2+ Pedal (L) Abdominal Exam: Normal bowel sounds. Abdomen appears distended Ankle Exam: Negative ankle edema Lower extremities: Negative lower extremity edema Neuro/Mental Status: A/OX4, coherent. Thoughts/Psych: Normal thought pattern. Appropriate mood and affect. Good judgment and insight. Appearance: No acute distress. Skin Exam: Normal inspection. Normal color. Warm and dry. Labs/Diagnostic Data Labs Test 12/31/24 14:55 12/31/24 06:45 12/31/24 05:55 12/31/24 04:15 Range/Units POC Glucose 67 L 70-106 mg/dl Troponin I High Sensitivity 35 *H </=34 ng/L Hemoglobin A1c 11.3 H <5.7 % A1C B-Type Natriuretic Peptide 119.24 0-100 pg/mL White Blood Count 6.2 4.4-10.8 10^3/uL Red Blood Count 4.16 4.0-5.20 10^6/uL Hemoglobin 12.3 12.2-16.2 g/dL Hematocrit 37.9 36.0-46.0 % Mean Corpuscular Volume 91.2 80.0-100.0 fL Mean Corpuscular Hemoglobin 29.7 28.0-32.0 pg Mean Corpuscular Hemoglobin Concent 32.5 32.0-36.0 g/dL Red Cell Distribution Width 14.2 11.8-14.3 % Platelet Count 370 140-450 10^3/uL Mean Platelet Volume 7.9 6.9-10.8 fL Neutrophils (%) (Auto) 51.9 37.0-80.0 % Lymphocytes (%) (Auto) 38.7 10.0-50.0 % Monocytes (%) (Auto) 8.1 0.0-12.0 % Eosinophils (%) (Auto) 0.9 0.0-7.0 % Basophils (%) (Auto) 0.4 0.0-2.0 % Neutrophils # (Auto) 3.2 1.6-8.6 10 ^3/uL Lymphocytes # (Auto) 2.4 0.4-5.4 10 ^3/uL Monocytes # (Auto) 0.5 0-1.3 10 ^3/uL Eosinophils # (Auto) 0.1 0-0.8 10 ^3/uL Basophils # (Auto) 0 0-0.2 10 ^3/uL Nucleated Red Blood Cells 0.2 % Test 12/31/24 02:32 Range/Units Sodium Level 139 136-145 mmol/L Potassium Level 3.7 3.5-5.1 mmol/L Chloride Level 108 H 98-107 mmol/L Carbon Dioxide Level 24 20-31 mmol/L Anion Gap 7 5-15 Blood Urea Nitrogen 12 9-23 mg/dL Creatinine 1.17 H 0.550-1.02 mg/dL Glomerular Filtration Rate Calc 65 >90 mL/min BUN/Creatinine Ratio 10.3 10.0-20.0 Serum Glucose 72 L 74-106 mg/dL Lactic Acid Level 1.7 0.4-2.0 mmol/L Calcium Level 9.7 8.7-10.4 mg/dL Magnesium Level 2.1 1.6-2.6 mg/dL Total Bilirubin 0.6 0.2-1.0 mg/dL Aspartate Amino Transferase (AST) 25 13-40 U/L Alanine Aminotransferase (ALT) 17 7-40 U/L Alkaline Phosphatase 114 46-116 U/L Total Protein 6.5 5.7-8.2 g/dL Albumin 3.5 3.2-4.8 g/dL Triglycerides Level 97 < 150 mg/dL Cholesterol Level 305 H < 200 mg/dL LDL Cholesterol 237 H < 100 mg/dL HDL Cholesterol 63 H 40-59 mg/dL Lipase 25 12-53 U/L Thyroid Stimulating Hormone (TSH) 2.64 0.55-4.78 uIU/mL Beta HCG, Quantitative 0.5 L 1.5-4.2 mIU/mL Assessment Acute on chronic decompensated HFrEF, NYHA class II-III, newly diagnosed NSTEMI Hypertension Dyslipidemia Bilateral pleural effusions, moderate in size Type 1 diabetes mellitus, uncontrolled (hgb A1c 11.3%) Peripheral neuropathy GERD Plan/Recommendation We will continue with the following plan/recommendations (Dr. Watson): * Transthoracic echocardiogram reveals EF 30-35% * Initiate guideline directed medical therapy for congestive heart failure (monitor renal function) * Initiate MRA (spironolactone), with stable potassium levels * Strict intake and output, daily weights, maintain fluid restriction * Blood pressure control * Lipid-lowering agent * Cardiac surveillance * UDS Patient seen and examined at bedside with . Given new finding of congestive heart failure with reduced ejection fraction, the patient may benefit from ischemic workup. She is not currently having any cardiac symptoms. We are currently pending urine drug screen. Further plans and recommendation per clinical course and progression. In the meantime, continue with medical management. Thank you for allowing us to care for this patient. Please call with any questions or concerns. Critical care time spent: 44 minutes This medical document was created using an electronic medical record system with voice recognition software and computerized dictation system. Although this document has been carefully reviewed, there might still be some phonetic and typographical errors. Occasional wrong-word or ``sound-alike substitutions may have occurred due to the inherent limitations of voice recognition software. These areas are purely typographical due to imperfections of the software programs and do not reflect any compromise in the patient's medical care. Please read the chart carefully and recognize, using context, where these substitutions have occurred. Plan discussed with: Patient NYHA Physical activity limitations: Class2(Slight)fatigue,sob (palpitatns, angina w activityv) Date of Service: Dec 31, 2024 Billing Provider: LUISA VEGAS Cardiology Common Codes: 73491-[id number] INP/OBS CARE (High) Cardiology Consultation Codes: [id number] CONSULT <45MIN LUISA VEGAS Dec 31, 2024 16:02
[2024-12-31] MEDS: PANTOPRAZOLE 40 MG TAB PO SCH (16:06)
[2024-12-31] MEDS: GABAPENTIN 300 MG CAP PO SCH (16:06)
[2024-12-31] MEDS: LISINOPRIL 20 MG TAB PO SCH (16:07)
[2024-12-31 16:10] VITALS: BP 153/107; PULSE 96; RESP 17; TEMP 97.2; O2SAT 94
[2024-12-31 17:00] VITALS: BP 162/105; PULSE 96; RESP 17; TEMP 97.2; O2SAT 98
[2024-12-31] MEDS: ACCU-CHEK COMFORT CURVE STRIP VI SCH (17:00)
[2024-12-31] MEDS: InsuLIN REG 1unit/0.01ml Soln (100units/ml) SC SCH ×2 (17:52→22:00)
--- NOTE | 2024-12-31 19:07 | DVHSR ---
APPROVED REPORT EXAM: Two-dimensional and M-mode echocardiogram with Doppler and color Doppler. Blood Pressure: 159/113 mmHg INDICATION Rule Out CHF RISK FACTORS Height: 5' 6", Weight: 150 DIMENSIONS LVDd4.9 (3.8-5.7cm)LA (2D)4.9 (1.9-4.0cm)Aortic Root2.9 (2.0-3.7cm) LVDs3.9 (2.5-4.0cm)LA (MM) (1.9-4.0cm)Aortic Cusp Exc1.6 (1.5-2.0cm) EF (%) 40.0 (55-70%)Rt. Atrium3.8 (1.9-4.0cm)Asc. Aorta cm IVSd0.8 (0.7-1.1cm)RV (D) (1.8-2.4cm) PWd0.8 (0.7-1.1cm) Mitral Valve MitralMitral Stenosis E wave0.90m/sMV Mean GR.mmHg A wave0.90m/sMV Peak GR.mmHg E/A ratio1.02D MVAcm2 Aortic Valve Aortic ValveAortic Stenosis V10.70m/Jordan Mean GR.4mmHg V21.40m/Jordan Peak GR.9mmHg LVOT Diameter2.0 (1.8-2.4cm)Doppler AVA1.57cm2 Pulmonic Valve V21.00m/s LEFT VENTRICLE The left ventricle is normal size. There is normal left ventricular wall thickness. Left ventricular systolic function is moderate to severely reduced, LVEF 30-35%. Mild diastolic dysfu nction. Global hypokinesis. RIGHT VENTRICLE The right ventricle is not well visualized. ATRIA The left atrium is moderately dilated. The right atrium is mildly dilated. MITRAL VALVE The mitral valve leaflets appear thickened, but open well. There is no mitral valve regurgitation noted. PULMONIC VALVE The pulmonic valve is grossly normal in structure and function. There is no pulmonic valvular regurgitation. TRICUSPID VALVE The tricuspid valve is grossly normal. No tricuspid regurgitation. AORTIC VALVE The aortic valve is trileaflet. No aortic regurgitation is present. GREAT VESSELS The aortic root is normal size. PERICARDIAL EFFUSION Trace pericardial effusion. There is moderate left pleural effusion. Conclusion The left ventricle is normal size. There is normal left ventricular wall thickness. Left ventricular systolic function is moderate to severely reduced, LVEF 30-35%. Mild diastolic dysfunction. Global hy pokinesis. The left atrium is moderately dilated. The right atrium is mildly dilated. No significant valvular abnormalities. There is moderate left pleural effusion. Trace pericardial effusion.
[2024-12-31 20:00] VITALS: PULSE 103; PULSE 104; RESP 18; O2SAT 96
[2024-12-31 21:00] VITALS: BP 143/98; PULSE 103; RESP 18; TEMP 98.2; O2SAT 96
[2024-12-31] MEDS: CARVEDILOL 3.125 MG TAB PO SCH (21:43)
[2024-12-31] MEDS: ATORVASTATIN 20 MG TAB PO SCH (21:44)
[2024-12-31] MEDS ORDERED: ATORVASTATIN 20 MG TAB PO SCH ×2 (22:00)
[2024-12-31] MEDS: ONDANSETRON HCL 4 MG/2 ML VIAL IV PRN (23:14)
[2025-01-01] VITALS (13 sets, daily range): BP systolic 113–155; BP diastolic 82–107; PULSE 78–105; RESP 12–21; TEMP 98–98.7; O2SAT 90–99
[2025-01-01 09:07] LABS: Urine Bacteria FEW /hpf (None Seen); Urine Blood Negative /uL (Negative); Urine Clarity Turbid (Clear); Urine Color Colorless (Yellow); Urine Mucus FEW (None Seen); Urine Protein, UAD 3+ (Negative); Urine Specific Gravity 1.015 (1.001-1.035); Urine Squamous Epithelial Cell MANY /hpf (<5); Urine Urobilinogen Normal (Negative); Urine WBC 55 /HPF (0-5)
[2025-01-01] MEDS: EMPAGLIFLOZIN 10 MG TAB PO SCH (09:20)
[2025-01-01 09:49] LABS: Amphetamine Screen, Urine Neg (NEGATIVE); Barbiturate Scree,Urine Neg (NEGATIVE); Benzodiazephine Screen, Urine Neg (NEGATIVE); Cannabinoid Screen, Urine Neg (NEGATIVE); Cocaine Screen, Urine Neg (NEGATIVE); Opiate Scree,Urine Neg (NEGATIVE); Phencyclidine Screen, Urine Neg (NEGATIVE)
--- NOTE | 2025-01-01 10:08 | DVHPN2 ---
Consult Progress Note Date Seen: Jan 01, 2025 Subjective Review of Systems: CVS:Normal, RESPIRATORY:Normal, NEURO:Normal Objective vital signs Vital Sign Date Time Temp Pulse Resp B/P (MAP) Pulse Ox O2 Delivery O2 Flow Rate FiO2 01/01/25 09:19 105 135/101 01/01/25 09:00 98.7 20 93 98.7 01/01/25 08:00 Room Air* 0 21 Total Intake and Output 12/31/24 12/31/24 01/01/25 15:00 23:00 07:00 Intake Total 150 ml 200 ml 250 ml Output Total 0 ml Balance 150 ml 200 ml 250 ml medications Current Medications Medications Dose Ordered Sig/Sid Route Start Time Stop Time Status Last Admin Dose Admin Acetaminophen/ Hydrocodone Bitart 1 tab Q4HP PRN PO 12/31/24 12:30 Ondansetron HCl 4 mg Q4HP PRN IV 12/31/24 12:30 12/31/24 23:14 4 MG Acetaminophen 650 mg Q6HP PRN PO 12/31/24 12:30 Morphine Sulfate 2 mg Q4HPRN PRN IV 12/31/24 12:30 Diagnostic Test (Pha) 1 strip ACHS 12/31/24 17:00 01/01/25 06:26 1 STRIP Insulin Human Regular HS SC 12/31/24 22:00 Insulin Human Regular AC SC 12/31/24 17:00 01/01/25 06:31 3 UNITS Dextrose 50 ml UD PRN IV 12/31/24 12:45 Gabapentin 300 mg TID PO 12/31/24 14:00 01/01/25 06:26 300 MG Lactulose 30 ml DAILYPRN PRN PO 12/31/24 13:15 Lisinopril 20 mg DAILY PO 12/31/24 15:30 01/01/25 09:19 20 MG Pantoprazole Sodium 40 mg DAILY PO 12/31/24 15:30 01/01/25 09:18 40 MG Carvedilol 3.125 mg Q12HR PO 12/31/24 22:00 01/01/25 09:19 3.125 MG Empaglifozin 10 mg DAILY PO 01/01/25 10:00 01/01/25 09:20 10 MG Atorvastatin Calcium 80 mg HS PO 12/31/24 22:00 12/31/24 21:44 80 MG Examination: LUNGS:Normal, CVS:Normal, NEURO:Normal laboratory and microbiology Laboratory Tests 12/31/24 04:15 12/31/24 02:32 Test 12/31/24 02:32 Range/Units Serum Glucose 72 L 74-106 mg/dL Problem List/Assessment/Plan Problem List/Assessment/Plan NSTEMI rule out coronary artery disease Acute on chronic decompensated HFrEF, NYHA class II-III, newly diagnosed Bilateral pleural effusions, moderate in size Type 1 diabetes mellitus, uncontrolled (hgb A1c 11.3%) Hypertensive urgency Dyslipidemia Peripheral neuropathy GERD Plan/Recommendation (Dr. Moore) * Transthoracic echocardiogram reveals EF 30-35% * Continue guideline directed medical therapy for congestive heart failure (monitor renal function) * Initiate MRA (spironolactone), with stable potassium levels * Strict intake and output, daily weights, maintain fluid restriction * Aggressive blood pressure control * Lipid-lowering agent * Cardiac surveillance Given new finding of congestive heart failure with reduced ejection fraction, the patient is scheduled for a coronary angiogram with cardiac catheterization on 01/01/2025. All risks and benefits of the procedure were discussed with the patient who agrees to proceed with intervention. All questions answered. Thank you for allowing us to care for this patient. Please call with any questions or concerns. This medical document was created using an electronic medical record system with voice recognition software and computerized dictation system. Although this document has been carefully reviewed, there might still be some phonetic and typographical errors. Occasional wrong-word or ``sound-alike substitutions may have occurred due to the inherent limitations of voice recognition software. These areas are purely typographical due to imperfections of the software programs and do not reflect any compromise in the patient's medical care. Please read the chart carefully and recognize, using context, where these substitutions have occurred. Plan discussed with: Patient, Other Date of Service: Jan 01, 2025 Billing Provider: NATE ARRIOLA Cardiology Common Codes: [id number] [facility] NATE ARRIOLA Jan 01, 2025 10:08
[2025-01-01] MEDS: LACTULOSE 20Gm/30ML SOLN PO ONE ×2 (10:45→12:33)
[2025-01-01 11:06] LABS: Basophils # (auto) 0.1 10 ^3/uL (0-0.2); Basophils % (auto) 0.8 % (0.0-2.0); Eosinophils # (auto) 0.1 10 ^3/uL (0-0.8); Eosinophils % (auto) 0.8 % (0.0-7.0); Hematocrit 34.6 % (36.0-46.0); Hemoglobin 11.8 g/dL (12.2-16.2); Lymphocytes # (auto) 3.1 10 ^3/uL (0.4-5.4); Lymphocytes % (auto) 46.5 % (10.0-50.0); Mean Corpuscular Hgb Conc. 34.2 g/dL (32.0-36.0); Mean Corpuscular Volume 87.8 fL (80.0-100.0); Monocytes # (auto) 0.4 10 ^3/uL (0-1.3); Monocytes % (auto) 5.6 % (0.0-12.0); Neutrophils # (auto) 3.1 10 ^3/uL (1.6-8.6); Neutrophils % (auto) 46.3 % (37.0-80.0); Nucleated Red Blood Cells % 0.2 %; Platelet Count (auto) 400 10^3/uL (140-450); Red Blood Cells 3.94 10^6/uL (4.0-5.20); Red Cell Distribution Width 13.8 % (11.8-14.3); White Blood Cell 6.6 10^3/uL (4.4-10.8)
[2025-01-01 11:30] LABS: Alanine Aminotransferase 14 U/L (7-40); Albumin 3.4 g/dL (3.2-4.8); Alkaline Phosphatase 103 U/L (46-116); Anion Gap 7 (5-15); Aspartate Aminotransferase 25 U/L (13-40); Bilirubin, Total 0.6 mg/dL (0.2-1.0); Blood Urea Nitrogen 12 mg/dL (9-23); Carbon Dioxide 25 mmol/L (20-31); Chloride 107 mmol/L (98-107); Potassium 3.7 mmol/L (3.5-5.1); Sodium 139 mmol/L (136-145); Total Protein 6.1 g/dL (5.7-8.2)
[2025-01-01 11:38] LABS: Glucose 203 mg/dL (74-106)
[2025-01-01] MEDS: cefTRIAXone 1GM/50ML D5W 50 ML IV ONE (12:19)
[2025-01-01] MEDS: METOCLOPRAMIDE HCL 5MG/ml INJ 2ml VIAL IV ONE (12:34)
[2025-01-01] MEDS: IODIXANOL 320MG/ML 100ML BTL IV ONE (13:47)
--- NOTE | 2025-01-01 13:57 | DVHPNRES ---
Progress Note Date Seen: Jan 01, 2025 Resident Creating Document: ИРИНА DEMARCO RESIDENT Medical Necessity Reason Pt with a Central, PICC or Fol: No Subjective Review of Systems This is a 29 year old female with past medical history of type 1 diabetes, hyperlipidemia, neuropathy, GERD presented to the ED with a chief complaint of abdominal pain for 2 days prior to this admission. Patient states that for last 3 days she was felling bloated and abdominal pain which is localized around the umbilicus and sometime associated with nausea and few episodes of vomiting in last 2 days. she was also complaining of constipation but her last bowel movement was yesterday before coming to the hospital. she has chronic constipation since 13 years of age after back surgery for scoliosis and normally she has bowel movement every other day. Patient denies fever, chest pain, shortness of breath, cough, dysuria hematuria, flu like symptoms or sick contact. Patient was seen and examined on the bedside. She is alert, oriented x3. Echo revealed ejection fraction 30-35% and Cardiology was consulted and and they recommended left heart catheterization to rule out ischemic heart failure. Constitutional: No: Fever, Chills, Sweats, Weakness, Malaise, Other Eyes: No: Pain, Vision change, Conjunctivae inflammation, Eyelid inflammation, Other, Redness ENT: No: Ear pain, Ear discharge, Nose pain, Nose discharge, Nose congestion, Mouth pain, Mouth swelling, Throat pain, Throat swelling, Other Respiratory: Shortness of breath, improving No: Cough, Dry,Wheezing, Hemoptysis, Pleuritic Pain, Sputum, Wheezing, Other Cardiovascular: No: Chest Pain, Palpitations, Orthopnea, Paroxysmal Noc. Dyspnea, Edema, Lt Headedness, Other Gastrointestinal: Nausea, Vomiting, Abdominal Pain, Constipation, No Diarrhea, Melena, Hematochezia, Other Musculoskeletal: No: other, neck pain, shoulder pain, arm pain, back pain, hand pain, leg pain, foot pain Neurological:; No: Weakness, Numbness, Incoordination, Change in speech, Confusion, Seizures Objective vital signs Vital Sign Date Time Temp Pulse Resp B/P (MAP) Pulse Ox O2 Delivery O2 Flow Rate FiO2 01/01/25 10:19 95 155/98 01/01/25 09:00 98.7 20 93 98.7 01/01/25 08:00 Room Air* 0 21 Total Intake and Output 12/31/24 12/31/24 01/01/25 15:00 23:00 07:00 Intake Total 150 ml 200 ml 250 ml Output Total 0 ml Balance 150 ml 200 ml 250 ml medications Current Medications Medications Dose Ordered Sig/Sid Route Start Time Stop Time Status Last Admin Dose Admin Acetaminophen/ Hydrocodone Bitart 1 tab Q4HP PRN PO 12/31/24 12:30 Ondansetron HCl 4 mg Q4HP PRN IV 12/31/24 12:30 12/31/24 23:14 4 MG Acetaminophen 650 mg Q6HP PRN PO 12/31/24 12:30 Morphine Sulfate 2 mg Q4HPRN PRN IV 12/31/24 12:30 Diagnostic Test (Pha) 1 strip ACHS 12/31/24 17:00 01/01/25 11:30 1 STRIP Insulin Human Regular HS SC 12/31/24 22:00 Insulin Human Regular AC SC 12/31/24 17:00 01/01/25 12:40 6 UNITS Dextrose 50 ml UD PRN IV 12/31/24 12:45 Gabapentin 300 mg TID PO 12/31/24 14:00 01/01/25 13:32 300 MG Lactulose 30 ml DAILYPRN PRN PO 12/31/24 13:15 Lisinopril 20 mg DAILY PO 12/31/24 15:30 01/01/25 09:19 20 MG Carvedilol 3.125 mg Q12HR PO 12/31/24 22:00 01/01/25 09:19 3.125 MG Empaglifozin 10 mg DAILY PO 01/01/25 10:00 01/01/25 09:20 10 MG Atorvastatin Calcium 80 mg HS PO 12/31/24 22:00 12/31/24 21:44 80 MG Spironolactone 25 mg DAILY PO 01/02/25 10:00 Ceftriaxone Sodium 50 ml @ 100 mls/hr DAILY@09 IV 01/02/25 09:00 Famotidine 20 mg Q12HR PO 01/01/25 22:00 Docusate Sodium 100 mg BID PO 01/01/25 22:00 Examination Physical examination: General Appearance: Alert, Oriented X3, Cooperative, No acute distress HEENT: Atraumatic, PERRLA, EOMI, Mucous membrane moist/pink Respiratory: Clear to auscultation, Normal air movement Cardiovascular: Regular rate, Normal S1, Normal S2, No murmurs, no chest wall tenderness Abdominal: Normal bowel sounds, Soft, No tenderness, No hepatospenomegaly, No masses Extremities: No clubbing, No cyanosis, No edema, Normal pulses, No tenderness/swelling Skin: No rashes, No breakdown, No significant lesion Neuro: Normal gait, Normal speech, Strength at 5/5 X4 ext, Normal tone, Sensation intact, grossly intact cranial nerves Psych/Mental Status: Mental status NL, Mood NL laboratory and microbiology Laboratory Tests 01/01/25 10:35 Test 01/01/25 10:35 Range/Units Serum Glucose 203 H 74-106 mg/dL Labs and/or images reviewed: Labs reviewed by me, Image(s) reviewed by me Problem List/Assessment/Plan Problem List/Assessment/Plan Assessment and plan: # Abdominal pain, nausea and vomiting likely due to gastroperesis due to longstanding uncontrolled type 1 diabetes mellitus # Possible gastritis/PUD # History of GERD # History of chronic constipation and recent CT scan of the abdomen pelvis revealed retention of fecal material in the large bowel. - CT abdomen pelvis revealed fecal retention in the colon suggestive of constipation. - Lactulose 30 mL once and p.r.n. and docusate 100 mg p.o. b.i.d. - Pepcid 20 mg b.i.d. - Metoclopramide 5 mg IV once # Newly diagnosed acute on chronic decompensated systolic heart failure (HFrEF- 30 to 35%) # Possible community acquired gram positive/gram negative pneumonia # NSTEMI secondary to above - chest x-ray showed increased cardiac silhouette and congestion - BNP is mildly elevated - Echo on 12/31/24 EF 30 to 35% with mild diastolic dysfunction. - CT abdomen pelvis demonstrated cardiomegaly with moderate bilateral pleural effusions, bilateral lower lobe partial consolidation bilateral lung disease interstitial prominence suggestive of CHF. - UDS is negative - Cardiology on board and recommended left heart catheterization to rule out ischemic myopathy - Started GDMT and we will titrate up according to the response of the blood pressure - Started carvedilol 3.125 mg b.i.d., Jardiance 10 mg daily, spironolactone 25 mg daily, and atorvastatin 80 mg at HS - IV ceftriaxone 1 g daily and IV azithromycin 500 mg daily. - Incentive spirometry. # Hypertensive urgency - continue lisinopril 20 mg p.o. daily # PAOLO likely secondary to hemodynamically mediated /VMN - IV NS 500 ml bolus over 2 hours - Monitor BMP # Acute cystitis - U/A consistent with UTI - Ordered urine bacterial culture - IV ceftriaxone 1 g daily # Uncontrolled type 1 insulin-dependent diabetes mellitus, HbA1C 11.2% - Moderate sliding scale of insulin. # History of peripheral neuropathy - Continue gabapentin 300 mg PO TID Diet : cardiac and consistent carbohydrate diet DVT prophylaxis: Not recommended pod prophylaxis: Pepcid Goal of care discussed with the patient for more than 20 minutes full code Plan of treatment discussed with Dr. Mercer Plan discussed with: Patient, Other My Orders My Orders Orders - ИРИНА DEMARCO Procedure Category Date Status Time Ceftriaxone 1gm/50ml PHA 2//25 In Process D5w (Rocephin) 09:00 Famotidine Tablet PHA 2/3/25 In Process (Pepcid Tablet) 22:00 Docusate Sodium PHA 2//25 In Process Capsule (Colace 22:00 Date of Service: Jan 01, 2025 Billing Provider: SEFERINO SILVERIO MD Common Visit Codes: [id number] INP/OBS CARE(HIGH) ИРИНА DEMARCO Jan 01, 2025 13:57 SEFERINO SILVERIO MD Jan 03, 2025 00:28
[2025-01-01] MEDS: fentaNYL CITRATE 100 MCG/2 ML VL ONE (14:13)
[2025-01-01] MEDS: MIDAZOLAM HCL 2MG/2ML 2ml VIAL (1mg/ml) ONE (14:13)
[2025-01-01] MEDS: LIDOCAINE 2%HCL (LOCAL ANESTH.) INJ 20ML MDV ONE (14:14)
[2025-01-01] MEDS: ANGIOMAX 250 MG VIAL IV ONE (14:15)
[2025-01-01] MEDS: VERAPAMIL 2.5MG/ML INJ 2ML VIAL IV ONE (14:15)
[2025-01-01] MEDS: SODIUM CHL 0.9% 0 ML ONE (14:15)
[2025-01-01] MEDS: HEPARIN SODIUM (PORCINE) 5000 UNITS/ML 1ML VIAL ONE (14:22)
[2025-01-01 14:41] LABS: INR 0.97 (0.9-1.15); Partial Thromboplastin Time 28.4 SEC (24.5-34.5); Prothrombin Time 10.3 sec (9.3-11.8)
--- NOTE | 2025-01-01 15:06 | DVHOP2 ---
Operative Report Operative Report CARDIAC TOWER EQUIPMENT REPAIRER PROCEDURE REPORT [place], [place] Date of Service: 01/01/25 Correctional Officer Captain: Guillaume Ugarte MD PROCEDURES PERFORMED: Coronary angiogram, left heart catheterization, conscious sedation administration and supervision, less than 15 minutes; fluoroscopy use and interpretation. PREOPERATIVE DIAGNOSES: ACS, new onset CHF POSTOP DIAGNOSIS: NICM DESCRIPTION OF PROCEDURE: The patient or appropriate family signed informed consent understanding the risks, benefits and alternatives of the procedure, they wished to proceed. The patient was brought to the cardiac laboratory technology teacher in n.p.o. state. The patient was prepped in a sterile fashion. Sedation was used per cardiac cath protocol. I administered 2 mL of 2% lidocaine to the right wrist. With an antegrade front wall puncture. I cannulated the right radial artery and placed a 6-Tongan Glidesheath slender. Next, an intra-arterial spasmolytic was administered. Next, a - 5 [place] Chataignier catheter and were used for coronary angiogram and LVEDP measurement and pressure pullback. At the completion of procedure, all guides and wires were removed, and there were no immediate complications.3000 U of IV heparin given FINDINGS: RCA: Moderate vessel off the right sinus of Valsalva, there is no severe flow limiting stenosis. rpDA has moderate luminal irregularities LEFT MAIN: Moderate size left main, it bifurcates into LAD and circumflex. no severe stenosis CIRCUMFLEX: Moderate caliber vessel coming off the left main with no flow limiting stenosis. moderate distal Luminal irregularities LAD: LAD is a moderate caliber vessel coming of the left main. no severe stenosis. Diag branches have ostial plaque . LVEDP of 14 mmhg CONCLUSIONS: 1. no severe CAD PLAN: Aggressive risk factor modification and medical management for the patient. NIC---start HF therapy GUILLAUME UGARTE MD Jan 01, 2025 15:06
--- NOTE | 2025-01-01 15:07 | DVHPN2 ---
Progress Note Date Seen: Jan 01, 2025 Medical Necessity Reason Pt with a Central, PICC or Fol: No Subjective Patient reports: Feels better Other Systems: sp cath Objective vital signs Vital Sign Date Time Temp Pulse Resp B/P (MAP) Pulse Ox O2 Delivery O2 Flow Rate FiO2 01/01/25 10:19 95 155/98 01/01/25 09:00 98.7 20 93 98.7 01/01/25 08:00 Room Air* 0 21 Total Intake and Output 12/31/24 12/31/24 01/01/25 15:00 23:00 07:00 Intake Total 150 ml 200 ml 250 ml Output Total 0 ml Balance 150 ml 200 ml 250 ml medications Current Medications Medications Dose Ordered Sig/Sid Route Start Time Stop Time Status Last Admin Dose Admin Acetaminophen/ Hydrocodone Bitart 1 tab Q4HP PRN PO 12/31/24 12:30 Ondansetron HCl 4 mg Q4HP PRN IV 12/31/24 12:30 12/31/24 23:14 4 MG Acetaminophen 650 mg Q6HP PRN PO 12/31/24 12:30 Morphine Sulfate 2 mg Q4HPRN PRN IV 12/31/24 12:30 Diagnostic Test (Pha) 1 strip ACHS 12/31/24 17:00 01/01/25 11:30 1 STRIP Insulin Human Regular HS SC 12/31/24 22:00 Insulin Human Regular AC SC 12/31/24 17:00 01/01/25 12:40 6 UNITS Dextrose 50 ml UD PRN IV 12/31/24 12:45 Gabapentin 300 mg TID PO 12/31/24 14:00 01/01/25 13:32 300 MG Lactulose 30 ml DAILYPRN PRN PO 12/31/24 13:15 Lisinopril 20 mg DAILY PO 12/31/24 15:30 01/01/25 09:19 20 MG Carvedilol 3.125 mg Q12HR PO 12/31/24 22:00 01/01/25 09:19 3.125 MG Empaglifozin 10 mg DAILY PO 01/01/25 10:00 01/01/25 09:20 10 MG Atorvastatin Calcium 80 mg HS PO 12/31/24 22:00 12/31/24 21:44 80 MG Spironolactone 25 mg DAILY PO 01/02/25 10:00 Ceftriaxone Sodium 50 ml @ 100 mls/hr DAILY@09 IV 01/02/25 09:00 Famotidine 20 mg Q12HR PO 01/01/25 22:00 Docusate Sodium 100 mg BID PO 01/01/25 22:00 Azithromycin 250 ml @ 125 mls/hr DAILY IV 01/02/25 10:00 Examination: GENERAL:Abnormal, HEENT:Abnormal, LUNGS:Abnormal, CVS:Abnormal, ABDOMEN:Abnormal laboratory and microbiology Laboratory Tests 01/01/25 10:35 Test 01/01/25 10:35 Range/Units Serum Glucose 203 H 74-106 mg/dL Problem List/Assessment/Plan Problem List/Assessment/Plan NICM type 1 DM frailty HL asa, statin start HF therapy: beta marilia,SGLT not approved in type 1 DM typically?, aldactone , drake/arb/ arni Plan discussed with: Patient My Orders My Orders Orders - GUILLAUME UGARTE MD Procedure Category Date Status Time Electrocardigram EKG 01/01/25 Logged 13:44 Post Cath Vital Signs MAURO 01/01/25 In Process Q 15min Post Cath Activity MAURO 01/01/25 In Process Protocol 15:03 Cardiac DIET 01/01/25 Transmitted Diet-2gna,Lofat,Lochol Dinner Date of Service: Jan 01, 2025 Billing Provider: GUILLAUME UGARTE MD Common Visit Codes: NOT BILLABLE GUILLAUME UGARTE MD Jan 01, 2025 15:07
[2025-01-01] MEDS: AZITHROMYCIN 500MG/ 250ML 250 ML IV ONE (16:39)
[2025-01-01] MEDS: HYDROcodone-ACET 5/325MG TAB PO PRN (16:39)
[2025-01-01] MEDS: SODIUM CHLORIDE 0.9% 500 ML IV ONE (19:43)
[2025-01-01] MEDS: FAMOTIDINE 20 MG TAB PO SCH (21:41)
[2025-01-01] MEDS: DOCUSATE SOD 100 MG CAP PO SCH (21:41)
[2025-01-02] VITALS (7 sets, daily range): BP systolic 124–136; BP diastolic 81–89; PULSE 92–114; RESP 16–20; TEMP 98.1–98.6; O2SAT 94–98
[2025-01-02] MEDS: INSULIN LANTUS (GLARGINE) 1 /0.01ml (100units/ml) SC SCH (06:51)
[2025-01-02] MEDS: cefTRIAXone 1GM/50ML D5W 50 ML IV SCH (08:05)
[2025-01-02 08:47] LABS: Basophils # (auto) 0.1 10 ^3/uL (0-0.2); Basophils % (auto) 0.8 % (0.0-2.0); Eosinophils # (auto) 0 10 ^3/uL (0-0.8); Eosinophils % (auto) 0.5 % (0.0-7.0); Hematocrit 33.9 % (36.0-46.0); Hemoglobin 11.8 g/dL (12.2-16.2); Lymphocytes # (auto) 2.7 10 ^3/uL (0.4-5.4); Lymphocytes % (auto) 32.8 % (10.0-50.0); Mean Corpuscular Hemoglobin 29.9 pg (28.0-32.0); Mean Corpuscular Hgb Conc. 34.7 g/dL (32.0-36.0); Monocytes # (auto) 0.5 10 ^3/uL (0-1.3); Monocytes % (auto) 5.9 % (0.0-12.0); Neutrophils # (auto) 4.9 10 ^3/uL (1.6-8.6); Nucleated Red Blood Cells % 0.1 %; Platelet Count (auto) 368 10^3/uL (140-450); Red Blood Cells 3.95 10^6/uL (4.0-5.20); Red Cell Distribution Width 13.1 % (11.8-14.3); White Blood Cell 8.2 10^3/uL (4.4-10.8)
[2025-01-02 09:22] LABS: Potassium 3.7 mmol/L (3.5-5.1); Sodium 139 mmol/L (136-145)
[2025-01-02 09:23] LABS: Anion Gap 10 (5-15); Calcium 9.1 mg/dL (8.7-10.4); Carbon Dioxide 22 mmol/L (20-31)
[2025-01-02 09:28] LABS: BUN/Creatinine Ratio 11.7 (10.0-20.0); Blood Urea Nitrogen 17 mg/dL (9-23)
[2025-01-02 09:31] LABS: Chloride 107 mmol/L (98-107); Glucose 200 mg/dL (74-106)
[2025-01-02] MEDS: ASPirin 81 mg TAB PO SCH (09:40)
[2025-01-02] MEDS: SPIRONOLACTONE 25 MG TAB PO SCH (09:40)
--- NOTE | 2025-01-02 09:43 | DVHPN2 ---
Consult Progress Note Date Seen: Jan 02, 2025 Subjective Review of Systems: CVS:Normal, RESPIRATORY:Normal, NEURO:Normal Objective vital signs Vital Sign Date Time Temp Pulse Resp B/P (MAP) Pulse Ox O2 Delivery O2 Flow Rate FiO2 01/02/25 08:24 98.6 97 17 135/87 (103) 95 98.6 01/01/25 20:00 Room Air* 0 21 Total Intake and Output 01/01/25 01/01/25 01/02/25 15:00 23:00 07:00 Intake Total 900 ml 325 ml Output Total 1400 ml Balance -500 ml 325 ml medications Current Medications Medications Dose Ordered Sig/Sid Route Start Time Stop Time Status Last Admin Dose Admin Acetaminophen/ Hydrocodone Bitart 1 tab Q4HP PRN PO 12/31/24 12:30 01/01/25 16:39 1 TAB Ondansetron HCl 4 mg Q4HP PRN IV 12/31/24 12:30 01/02/25 08:30 4 MG Acetaminophen 650 mg Q6HP PRN PO 12/31/24 12:30 Morphine Sulfate 2 mg Q4HPRN PRN IV 12/31/24 12:30 Diagnostic Test (Pha) 1 strip ACHS 12/31/24 17:00 01/02/25 06:27 1 STRIP Insulin Human Regular HS SC 12/31/24 22:00 01/01/25 21:37 4 UNITS Insulin Human Regular AC SC 12/31/24 17:00 01/02/25 06:29 9 UNITS Dextrose 50 ml UD PRN IV 12/31/24 12:45 Gabapentin 300 mg TID PO 12/31/24 14:00 01/02/25 06:10 300 MG Lactulose 30 ml DAILYPRN PRN PO 12/31/24 13:15 Lisinopril 20 mg DAILY PO 12/31/24 15:30 01/01/25 09:19 20 MG Carvedilol 3.125 mg Q12HR PO 12/31/24 22:00 01/01/25 21:42 3.125 MG Atorvastatin Calcium 80 mg HS PO 12/31/24 22:00 01/01/25 21:42 80 MG Spironolactone 25 mg DAILY PO 01/02/25 10:00 Ceftriaxone Sodium 50 ml @ 100 mls/hr DAILY@09 IV 01/02/25 09:00 01/02/25 08:05 100 MLS/HR Famotidine 20 mg Q12HR PO 01/01/25 22:00 01/01/25 21:41 20 MG Docusate Sodium 100 mg BID PO 01/01/25 22:00 01/01/25 21:41 100 MG Azithromycin 250 ml @ 125 mls/hr DAILY IV 01/02/25 10:00 Aspirin 81 mg DAILY PO 01/02/25 10:00 Insulin Glargine 12 units QAM SC 01/02/25 07:00 01/02/25 06:51 12 UNITS Examination: LUNGS:Normal, CVS:Normal, NEURO:Normal laboratory and microbiology Laboratory Tests 01/02/25 08:20 Test 01/02/25 08:20 Range/Units Serum Glucose 200 H 74-106 mg/dL Problem List/Assessment/Plan Problem List/Assessment/Plan NSTEMI, coronary artery disease ruled out Acute on chronic decompensated HFrEF, NYHA class II-III, newly diagnosed Non-ischemic/likely hypertensive cardiomyopathy with LVEF 30-35% Bilateral pleural effusions, moderate in size Type 1 diabetes mellitus, uncontrolled (Hgb A1c 11.3%) Hypertensive urgency Dyslipidemia Peripheral neuropathy PAOLO on CKD, likely HEATHER GERD Plan/Recommendation (Dr. 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 Continue GDMT for CHF, if no improvement on LVEF with three months of medical therapy the patient may be a candidate for an ICD. Follow-up with PCP for referral to Cardiology within 3-4 weeks post-discharge. There is no further cardiac work-up indicated at this time. Kindly call if in need to re-consult. Thank you for allowing us to care for this patient. This medical document was created using an electronic medical record system with voice recognition software and computerized dictation system. Although this document has been carefully reviewed, there might still be some phonetic and typographical errors. Occasional wrong-word or ``sound-alike substitutions may have occurred due to the inherent limitations of voice recognition software. These areas are purely typographical due to imperfections of the software programs and do not reflect any compromise in the patient's medical care. Please read the chart carefully and recognize, using context, where these substitutions have occurred. Plan discussed with: Patient, Other Date of Service: Jan 02, 2025 Billing Provider: NATE ARRIOLA Cardiology Common Codes: [id number] INP/OBS CARE(Mod) NATE ARRIOLA Jan 02, 2025 09:43
[2025-01-02] MEDS: AZITHROMYCIN 500MG/ 250ML 250 ML IV SCH (10:23)
[2025-01-02] MEDS: EMPAGLIFLOZIN 10 MG TAB PO SCH (10:35)
[2025-01-02] MEDS: FUROSEMIDE 20 MG TAB PO SCH (10:35)
[2025-01-02] MEDS: SODIUM CHLORIDE 0.9% 250 ML IV ONE (12:28)
--- NOTE | 2025-01-02 13:01 | ECG ---
[facility] Test Date: 2024-12-31 Test Time: 11:37:45 Pat Name: MICK LIANG Department: ER Room: [facility]1T A Gender: F Repairer General: DR SALOMON: 1995 Requested By: HERB CURTIS Order Number: [id number] Reading MD: Jose Moore Measurements Intervals [place] Rate: 90 P: 76 [place]: 143 QRS: 94 QRSD: 86 T: 265 QT: 369 QTc: 452 Interpretive Statements Sinus rhythm Borderline right axis deviation Nonspecific T abnormalities, lateral leads Artifact in lead(s) V1 Electronically Signed On 01-02-2025 17:48:54 PST by Jose Moore Please click the below link to view image of tracing.
[2025-01-02] MEDS ORDERED: EMPA1TAB PO (13:51)
[2025-01-02] MEDS ORDERED: SPIR25TA8 PO (13:51)
[2025-01-02] MEDS ORDERED: FURO1TAB33 PO (13:51)
[2025-01-02] MEDS ORDERED: DOCU-94 PO (13:51)
[2025-01-02] MEDS ORDERED: LISI20TA56 PO (13:51)
[2025-01-02] MEDS ORDERED: LEVO750T40 PO (13:51)
[2025-01-02] MEDS ORDERED: CARV3.1240 PO (13:51)
[2025-01-02] MEDS ORDERED: FAMO20TA10 PO (13:52)
[2025-01-02] MEDS ORDERED: ATOR80TA PO (13:58)
--- NOTE | 2025-01-02 14:10 | DVHDSRES ---
Discharge Summary Date of Admission Resident Creating Document: ИРИНА DEMARCO RESIDENT Dec 31, 2024 at 12:20 Date of Discharge: Jan 02, 2025 Admitting Diagnosis # Abdominal pain, nausea and vomiting likely due to gastroparesis due to longstanding uncontrolled type 1 diabetes mellitus Wounds: No wound was present Labs/Diagnostic Data: Laboratory Results Test 01/02/25 08:20 01/02/25 06:22 01/01/25 14:09 01/01/25 10:35 White Blood Count 8.2 10^3/uL (4.4-10.8) Red Blood Count 3.95 10^6/uL (4.0-5.20) Hemoglobin 11.8 g/dL (12.2-16.2) Hematocrit 33.9 % (36.0-46.0) Mean Corpuscular Volume 86.0 fL (80.0-100.0) Mean Corpuscular Hemoglobin 29.9 pg (28.0-32.0) Mean Corpuscular Hemoglobin Concent 34.7 g/dL (32.0-36.0) Red Cell Distribution Width 13.1 % (11.8-14.3) Platelet Count 368 10^3/uL (140-450) Mean Platelet Volume 8.0 fL (6.9-10.8) Neutrophils (%) (Auto) 60.0 % (37.0-80.0) Lymphocytes (%) (Auto) 32.8 % (10.0-50.0) Monocytes (%) (Auto) 5.9 % (0.0-12.0) Eosinophils (%) (Auto) 0.5 % (0.0-7.0) Basophils (%) (Auto) 0.8 % (0.0-2.0) Neutrophils # (Auto) 4.9 10 ^3/uL (1.6-8.6) Lymphocytes # (Auto) 2.7 10 ^3/uL (0.4-5.4) Monocytes # (Auto) 0.5 10 ^3/uL (0-1.3) Eosinophils # (Auto) 0 10 ^3/uL (0-0.8) Basophils # (Auto) 0.1 10 ^3/uL (0-0.2) Nucleated Red Blood Cells 0.1 % Sodium Level 139 mmol/L (136-145) Potassium Level 3.7 mmol/L (3.5-5.1) Chloride Level 107 mmol/L (98-107) Carbon Dioxide Level 22 mmol/L (20-31) Anion Gap 10 (5-15) Blood Urea Nitrogen 17 mg/dL (9-23) Creatinine 1.45 mg/dL (0.550-1.02) Glomerular Filtration Rate Calc 50 mL/min (>90) BUN/Creatinine Ratio 11.7 (10.0-20.0) Serum Glucose 200 mg/dL (74-106) Calcium Level 9.1 mg/dL (8.7-10.4) POC Glucose 265 mg/dl (70-106) Prothrombin Time 10.3 sec (9.3-11.8) Prothrombin Time INR 0.97 (0.9-1.15) Activated Partial Thromboplast Time 28.4 SEC (24.5-34.5) Total Bilirubin 0.6 mg/dL (0.2-1.0) Aspartate Amino Transferase (AST) 25 U/L (13-40) Alanine Aminotransferase (ALT) 14 U/L (7-40) Alkaline Phosphatase 103 U/L (46-116) Total Protein 6.1 g/dL (5.7-8.2) Albumin 3.4 g/dL (3.2-4.8) Test 01/01/25 10:30 01/01/25 08:30 12/31/24 20:51 12/31/24 05:55 Beta HCG, Quantitative 0.4 mIU/mL (1.5-4.2) Urine Color Colorless (Yellow) Urine Clarity Turbid (Clear) Urine pH 7.0 (5.0-9.0) Urine Specific [place] 1.015 (1.001-1.035) Urine Protein 3+ (Negative) Urine Ketones Negative (Negative) Urine Blood Negative /uL (Negative) Urine Nitrite Negative (Negative) Urine Bilirubin Negative (Negative) Urine Urobilinogen Normal mg/dL (Negative) Urine Leukocyte Esterase 3+ /uL (Negative) Urine RBC 15 /hpf (0 - 4) Urine Microscopic WBC 55 /HPF (0-5) Urine Squamous Epithelial Cells Many /hpf (<5) Urine Bacteria Few /hpf (None Seen) Urine Mucus Few (None Seen) Urine Glucose Trace mg/dL (Normal) Urine Test Negative (Negative) Urine Opiates Screen Neg (NEGATIVE) Urine Fentanyl Screen Neg (NEGATIVE) Urine Barbiturates Screen Neg (NEGATIVE) Urine Phencyclidine Screen Neg (NEGATIVE) Urine Amphetamines Screen Neg (NEGATIVE) Urine Benzodiazepines Screen Neg (NEGATIVE) Urine Cocaine Screen Neg (NEGATIVE) Urine Cannabinoids Screen Neg (NEGATIVE) Troponin I High Sensitivity 22 ng/L (</=34) Hemoglobin A1c 11.3 % A1C (<5.7) B-Type Natriuretic Peptide 119.24 pg/mL (0-100) Test 12/31/24 02:32 Lactic Acid Level 1.7 mmol/L (0.4-2.0) Magnesium Level 2.1 mg/dL (1.6-2.6) Triglycerides Level 97 mg/dL (< 150) Cholesterol Level 305 mg/dL (< 200) LDL Cholesterol 237 mg/dL (< 100) HDL Cholesterol 63 mg/dL (40-59) Lipase 25 U/L (12-53) Thyroid Stimulating Hormone (TSH) 2.64 uIU/mL (0.55-4.78) Other Laboratory Tests 01/02/25 08:20 Brief Hx & Hospital Course: This is a 29 year old female with past medical history of type 1 diabetes, hyperlipidemia, neuropathy, GERD presented to the ED with a chief complaint of abdominal pain for 2 days prior to this admission. Patient states that for last 3 days she was felling bloated and abdominal pain which is localized around the umbilicus and sometime associated with nausea and few episodes of vomiting in last 2 days. she was also complaining of constipation but her last bowel movement was yesterday before coming to the hospital. she has chronic constipation since 13 years of age after back surgery for scoliosis and normally she has bowel movement every other day. Hospital course: Initial chest x-ray showed increased cardiac silhouette and congestion, BNP was mildly elevated and Echo on 12/31/24 EF 30 to 35% with mild diastolic dysfunction, UDS was negative. Cardiology was on board and the patient underwent left heart catheterization and excluded the ischemic cardiomyopathy and recommended aspirin , statin and GDMT and also mentioned Continue GDMT for CHF, if no improvement on LVEF with three months of medical therapy the patient may be a candidate for an ICD. UA was consistent with UTI and the patient was treated IV ceftriaxone 1 g daily. The patient was also treated for possible pneumonia with IV ceftriaxone 1 g daily and IV azithromycin 500 mg daily. patient was also treated with lactulose 30 mL daily PRN and Colace 100 mg b.i.d. for constipation and patient had bowel movement yesterday with relief of abdominal pain. Blood glucose was controlled with Lantus 12 units at q.a.m. and moderate sliding scale of insulin. Discharge plan was discussed with the patient and all questions were answered. Patient is being discharged to home. Discharge diagnosis: # Abdominal pain, nausea and vomiting likely due to gastroperesis due to longstanding uncontrolled type 1 diabetes mellitus # Possible gastritis/PUD # History of GERD # History of chronic constipation # Newly diagnosed acute on chronic decompensated systolic heart failure (HFrEF- 30 to 35%) # Possible community acquired gram positive/gram negative pneumonia # NSTEMI secondary to above # Hypertensive urgency # PAOLO likely secondary to hemodynamically mediated /VMN # Acute cystitis # Uncontrolled type 1 insulin-dependent diabetes mellitus, HbA1C 11.2% # History of peripheral neuropathy Discharge Plan: Disposition: Home Medication : Atorvastatin 80 mg at HS, carvedilol 3.125 mg b.i.d., Jardiance 10 mg daily, furosemide 20 mg daily, lisinopril 20 mg daily, spironolactone 25 mg daily, levofloxacin 750 mg p.o daily for 5 days, docusate sodium 100 mg b.i.d. for 30 days, famotidine 20 mg b.i.d. for 30 days Follow up: PCP and check BMP in 1 week Cardiology in 1 to 2 week. Consults/Reason for consult Cardiology was consulted Operations or Procedures This is a 29 year old female with past medical history of type 1 diabetes, hyperlipidemia, neuropathy, GERD presented to the ED with a chief complaint of abdominal pain for 2 days prior to this admission. Patient states that for last 3 days she was felling bloated and abdominal pain which is localized around the umbilicus and sometime associated with nausea and few episodes of vomiting in last 2 days. she was also complaining of constipation but her last bowel movement was yesterday before coming to the hospital. she has chronic constipation since 13 years of age after back surgery for scoliosis and normally she has bowel movement every other day. Hospital course: Initial chest x-ray showed increased cardiac silhouette and congestion, BNP was mildly elevated and Echo on 12/31/24 EF 30 to 35% with mild diastolic dysfunction, UDS was negative. Cardiology was on board and the patient underwent left heart catheterization and excluded the ischemic cardiomyopathy and recommended aspirin , statin and GDMT and also mentioned Continue GDMT for CHF, if no improvement on LVEF with three months of medical therapy the patient may be a candidate for an ICD. UA was consistent with UTI and the patient was treated IV ceftriaxone 1 g daily. The patient was also treated for possible pneumonia with IV ceftriaxone 1 g daily and IV azithromycin 500 mg daily. patient was also treated with lactulose 30 mL daily PRN and Colace 100 mg b.i.d. for constipation and patient had bowel movement yesterday with relief of abdominal pain. Blood glucose was controlled with Lantus 12 units at q.a.m. and moderate sliding scale of insulin. Discharge plan was discussed with the patient and all questions were answered. Patient is being discharged to home. Discharge diagnosis: # Abdominal pain, nausea and vomiting likely due to gastroperesis due to longstanding uncontrolled type 1 diabetes mellitus # Possible gastritis/PUD # History of GERD # History of chronic constipation # Newly diagnosed acute on chronic decompensated systolic heart failure (HFrEF- 30 to 35%) # Possible community acquired gram positive/gram negative pneumonia # NSTEMI secondary to above # Hypertensive urgency # PAOLO likely secondary to hemodynamically mediated /VMN # Acute cystitis # Uncontrolled type 1 insulin-dependent diabetes mellitus, HbA1C 11.2% # History of peripheral neuropathy Discharge Plan: Disposition: Home Medication : Atorvastatin 80 mg at HS, carvedilol 3.125 mg b.i.d., Jardiance 10 mg daily, furosemide 20 mg daily, lisinopril 20 mg daily, spironolactone 25 mg daily, levofloxacin 750 mg p.o daily for 5 days, docusate sodium 100 mg b.i.d. for 30 days, famotidine 20 mg b.i.d. for 30 days Follow up: PCP in 1 week Cardiology in 1 to 2 week. Condition at Discharge: Guarded Final Diagnosis/Problems List # Abdominal pain, nausea and vomiting likely due to gastroperesis due to longstanding uncontrolled type 1 diabetes mellitus # Possible gastritis/PUD # History of GERD # History of chronic constipation # Newly diagnosed acute on chronic decompensated systolic heart failure (HFrEF- 30 to 35%) # Possible community acquired gram positive/gram negative pneumonia # NSTEMI secondary to above # Hypertensive urgency # PAOLO likely secondary to hemodynamically mediated /VMN # Acute cystitis # Uncontrolled type 1 insulin-dependent diabetes mellitus, HbA1C 11.2% # History of peripheral neuropathy Discharge Disposition: Home Discharge Statement: "Patient was advised to return to the ER or call 911 if any headaches, dizziness, shortness of breath, chest pain, abdominal pain, bleeding, fevers, or worsening of medical condition. Patient was counseled about treatment plan, medications, possible side effects, patientverbalized understanding. All questions were answered to the best of my ability. This discharge took greater then 30 minutes in planning, reviewing documentation, counseling the patient, and discussing with other team members." ASSESSMENT ASSESSMENT Assessment Date of Service: Jan 02, 2025 Billing Provider: SEFERINO SILVERIO MD Common Visit Codes: 60901-KLM/OBS DISCH DAY >30min ИРИНА DEMARCO Jan 02, 2025 14:10 SEFERINO SILVERIO MD Jan 03, 2025 15:45
[2025-01-02 15:40] LABS: Calcium 8.7 mg/dL (8.7-10.4); Potassium 3.8 mmol/L (3.5-5.1)
[2025-01-02 15:41] LABS: Carbon Dioxide 23 mmol/L (20-31)
[2025-01-02 15:46] LABS: Blood Urea Nitrogen 19 mg/dL (9-23); Glucose 84 mg/dL (74-106)
[2025-01-02 15:57] LABS: Chloride 111 mmol/L (98-107)
--- NOTE | 2025-01-02 16:13 | ECG ---
[facility] Test Date: 2025-01-01 Test Time: 14:17:08 Pat Name: MICK LIANG Department: Room: [facility]1T A Gender: F Washer Meat: MATY : 1995 Requested By: GUILLAUME UGARTE Order Number: [id number] Reading MD: Jose Moore Measurements Intervals [place] Rate: 99 P: 46 VT: 156 QRS: 61 QRSD: 80 T: 149 QT: 358 QTc: 459 Interpretive Statements Normal sinus rhythm Nonspecific T wave abnormality Electronically Signed On 01-02-2025 17:45:36 PST by Jose Moore Please click the below link to view image of tracing.
[2025-01-02 16:48] LABS: Anion Gap 8 (5-15); Sodium 142 mmol/L (136-145)
== END 2025-01-02 18:26 | disposition home or self-care (01) | DRG 48 ==
LOC: EDBD 01:40 → ER 01:40 → EDUNIT# 01:40 → TELE 12:20 → TELE-WESTW 13:27
PROVIDERS: ADMIT Student in an Organized Health Care Education/Training Program; ATTEND Anesthesiology
PROC: B2111ZZ Fluoroscopy of Multiple Coronary Arteries using Low Osmolar Contrast (ICD-10-PCS; principal; 2025-01-01)
PROC: 4A023N7 Measurement of Cardiac Sampling and Pressure, Left Heart, Percutaneous Approach (ICD-10-PCS; 2025-01-01)
PROC: 05H933Z Insertion of Infusion Device into Right Brachial Vein, Percutaneous Approach (ICD-10-PCS; 2025-01-01)
PROC: B54MZZA Ultrasonography of Right Upper Extremity Veins, Guidance (ICD-10-PCS; 2025-01-01)
DX: E10.43 Type 1 diabetes mellitus with diabetic autonomic (poly)neuropathy (principal); N17.0 Acute kidney failure with tubular necrosis; I21.4 Non-ST elevation (NSTEMI) myocardial infarction; I50.23 Acute on chronic systolic (congestive) heart failure; J15.69 Pneumonia due to other Gram-negative bacteria; I42.8 Other cardiomyopathies; J15.9 Unspecified bacterial pneumonia; I11.0 Hypertensive heart disease with heart failure; N30.80 Other cystitis without hematuria; E10.42 Type 1 diabetes mellitus with diabetic polyneuropathy; K31.84 Gastroparesis; E10.65 Type 1 diabetes mellitus with hyperglycemia; E78.5 Hyperlipidemia, unspecified; K21.9 Gastro-esophageal reflux disease without esophagitis; K59.00 Constipation, unspecified; K29.70 Gastritis, unspecified, without bleeding; I16.0 Hypertensive urgency; Z79.4 Long term (current) use of insulin; Z79.2 Long term (current) use of antibiotics; Z79.899 Other long term (current) drug therapy; Z83.3 Family history of diabetes mellitus; Z82.49 Family history of ischemic heart disease and other diseases of the circulatory system
CPT/HCPCS: 36415; 71045; 74176; 80048; 80053; 80061; 80307; 81001; 81025; 82962; 83036; 83605; 83690; 83735; 83880; 84443; 84484; 84702; 85025; 85610; 85730; 93005; 93306; 93458; 99152; 99291; G0378; J1815; J2250; J2405; J3490; Q9967

== ENCOUNTER 2025-01-30 19:32 | Inpatient (IN) | payer MEDICAID ==
[~2025-01-30] VITALS: Ht 154.9 cm; Wt 55.4 kg
[2025-01-30] MEDS: SODIUM CHLOR 0.9% PF (SALINE LOCK) 10ML VIAL/SYR IV SCH (00:04)
[~2025-01-30 19:32] MED LIST changes: +ATOR80TA PO; +CARV3.1240 PO; -CIPR500T4 PO; +DOCU-94 PO; +EMPA1TAB PO; +FAMO20TA10 PO; +FURO1TAB33 PO; +LEVO750T40 PO; +LISI20TA56 PO; -NITR-52 PO; -OMEP20TA PO; -ROSU10TA16 PO; +SPIR25TA8 PO
[2025-01-30] MEDS: ALBUTEROL SULF 2.5 MG/0.5ML(0.5%) NEB SOLN HHN ONE (19:54)
[2025-01-30] MEDS: IPRATROPIUM BROM 0.5 MG/2.5ML INH SOL HHN ONE (19:54)
--- NOTE | 2025-01-30 20:07 | ED.PDOC ---
SOB-HPI HPI Comments This is a 29-year-old female who comes in with chief complaint of shortness for breath for the past 45 minutes. When the paramedics arrived, the patient was saturating at 85% on room air. With the breathing treatment the patient went up to 95%. The patient has been diagnosed with a recent ammonia and was on antibiotics for approximately five days but she was done at this time. Upon arrival, the patient was still having some wheezing as well as being somewhat hypertensive. EN route, the patient had an Accu-Chek of 337. She does have a history of DKA. Chief Complaint: Shortness of Breath Time Seen by MD: 19:35 Primary Care Provider: DR FREEDOM BERNSTEIN [place] Reviewed notes: Nurses Notes, Medications, Allergies (No allergies to medications) Information Source: Patient, Emergency Med Personnel Mode of Arrival: EMS Severity: Moderate Timing: Minutes Duration: Since onset Context: At Rest PE Risk Factors: None History of: None Prehospital treatment: Accucheck (337), Beta-Agonist Tx, Supervisor Typesetting, IVF Modifying Factors: Nothing Associated Signs and Symptoms: Wheeze, Cough If cough with SOB: Non-Productive Past Medical History PAST MEDICAL HISTORY: DM, GERD, High Lipids Surgical History (Other): back surgery [employer] History: No Pertinent [employer]IVER History Family History Family History: Family hx of DM Social History Smoker: Non-Smoker Alcohol: Denies ETOH Use Drugs: Denies Drug Use Lives In: Home Constitutional: denies: chills, diaphoresis, fatigue, fever, malaise, sweats, weakness, others EENTM: denies: blurred vision, double vision, ear bleeding, ear discharge, ear drainage, ear pain, ear ringing, eye pain, eye redness, hearing loss, mouth pain, mouth swelling, nasal discharge, nose bleeding, nose congestion, nose pain, photophobia, tearing, throat pain, throat swelling, voice changes, others Respiratory: reports: shortness of breath, wheezing; denies: cough, hemoptysis, orthopnea, SOB at rest, SOB with excertion, stridor, others Cardiovascular: denies: chest pain, dizzy spells, diaphoresis, Dyspnea on exertion, edema, irregular heart beat, left arm pain, lightheadedness, palpitations, PND, syncope, others Gastrointestinal: denies: abdomen distended, abdominal pain, blood streaked bowels, constipated, diarrhea, dysphagia, difficulty swallowing, hematemesis, melena, nausea, poor appetite, poor fluid intake, rectal bleeding, rectal pain, vomiting, others Genitourinary: denies: abnormal vagina bleeding, burning, dyspareunia, dysuria, flank pain, frequency, hematuria, incontinence, pain, , vagina discharge, urgency, others Neurological: denies: dizziness, fainting, headache, left sided numbness, left sided weakness, numbness, paresthesia, pre-existing deficit, right sided numbness, right sided weakness, seizure, speech problems, tingling, tremors, w eakness, others Musculoskeletal: denies: back pain, gout, joint pain, joint swelling, muscle pain, muscle stiffness, neck pain, others Integumetry: denies: bruises, change in color, change in hair/nails, dryness, laceration, lesions, lumps, rash, wounds, others Allergic/Immunocompromised: denies: Difficulty Healing, Frequent Infections, Hives, Itching, others Hematologic/Lymphatic: denies: anemia, blood clots, easy bleeding, easy bruising, swollen glands, others Endocrine: denies: excessive hunger, excessive sweating, excessive thirst, excessive urination, flushing, intolerance to cold, intolerance to heat, unexplained weight gain, unexplained weight loss, others Psychiatric: denies: anxiety, bipolar disorder, depression, hopeless, panic disorder, schizophrenia, sleepless, suicidal, others Physical Exam General Appearance: Moderate Distress HEENT: Normal ENT Inspection, Pharynx Normal, TMs Normal Neck: Full Range of Motion, Non-Tender, Normal, Normal Inspection Respiratory: Accessory Muscle Use, Chest Non-Tender, Decreased Breath Sounds, Respiratory Distress, Wheezing Cardiovascular: No Edema, No JVD, No Murmur, No Gallop, Normal Peripheral Pulses, Regular Rate/Rhythm Breast Exam: Deferred Gastrointestinal: No Organomegaly, Non Tender, No Pulsatile Mass, Normal Bowel Sounds, Soft Genitalia: Deferred Pelvic: Deferred Rectal: Deferred Extremities: No calf tenderness, Normal capillary refill, No pedal edema Musculoskeletal : Apperance: Normal Neurologic: Alert, manufacturing clerk II-XII nml as Tested, Motor Weakness, Normal Affect, Normal Mood, No Sensory Deficits Cerebellar Function: Normal Reflexes: Normal Skin: Dry, Normal Color, Warm Lymphatic: No Adenopathy Was a procedure done? Was a procedure done?: No Differential Dx Differential Diagnosis: Asthma, Bronchitis, CHF, COPD, Pneumonia X-Ray, Labs, Meds, VS Vital Signs Date Time Temp Pulse Resp B/P (MAP) Pulse Ox O2 Delivery O2 Flow Rate FiO2 01/30/25 20:09 90 90 Room Air* 0 21 21 01/30/25 19:45 98.2 116 22 187/113 (137) 85 Lab Test 01/30/25 19:54 Range/Units White Blood Count 8.4 4.4-10.8 10^3/uL Red Blood Count 4.54 4.0-5.20 10^6/uL Hemoglobin 13.5 12.2-16.2 g/dL Hematocrit 39.6 36.0-46.0 % Mean Corpuscular Volume 87.1 80.0-100.0 fL Mean Corpuscular Hemoglobin 29.7 28.0-32.0 pg Mean Corpuscular Hemoglobin Concent 34.1 32.0-36.0 g/dL Red Cell Distribution Width 13.6 11.8-14.3 % Platelet Count 371 140-450 10^3/uL Mean Platelet Volume 9.0 6.9-10.8 fL Neutrophils (%) (Auto) 50.5 37.0-80.0 % Lymphocytes (%) (Auto) 43.3 10.0-50.0 % Monocytes (%) (Auto) 3.7 0.0-12.0 % Eosinophils (%) (Auto) 1.9 0.0-7.0 % Basophils (%) (Auto) 0.6 0.0-2.0 % Neutrophils # (Auto) 4.2 1.6-8.6 10 ^3/uL Lymphocytes # (Auto) 3.6 0.4-5.4 10 ^3/uL Monocytes # (Auto) 0.3 0-1.3 10 ^3/uL Eosinophils # (Auto) 0.2 0-0.8 10 ^3/uL Basophils # (Auto) 0.1 0-0.2 10 ^3/uL Nucleated Red Blood Cells 0.1 % Sodium Level 139 136-145 mmol/L Potassium Level 3.5 3.5-5.1 mmol/L Chloride Level 106 98-107 mmol/L Carbon Dioxide Level 24 20-31 mmol/L Anion Gap 9 5-15 Blood Urea Nitrogen 18 9-23 mg/dL Creatinine 1.23 H 0.550-1.02 mg/dL Glomerular Filtration Rate Calc 61 >90 mL/min BUN/Creatinine Ratio 14.6 10.0-20.0 Serum Glucose 277 H 74-106 mg/dL Lactic Acid Level 2.2 *H 0.4-2.0 mmol/L Calcium Level 9.6 8.7-10.4 mg/dL B-Type Natriuretic Peptide 324.26 0-100 pg/mL Current Medications Medications (Trade) Dose Ordered Sig/Sid Route Start Time Stop Time Status Last Admin Ipratropium [place] (Atrovent Medneb) 1 mg ONCE ONCE N 01/30/25 19:45 01/30/25 19:46 DC 01/30/25 19:54 Albuterol (Ventolin Medneb) 10 mg ONCE ONCE [facility] 01/30/25 19:45 01/30/25 19:46 DC 01/30/25 19:54 The patient was given a breathing treatment of albuterol and Atrovent. The patient was given Solu-Medrol 125 mg IV push The patient was given Zofran 4 mg IV push The patient's CBC and chemistry panel shows no sign of abnormalities except for mild hyperglycemia at 277 The lactic acid level is elevated at 2.2 The chest x-ray shows: No sign of any abnormalities Images Reviewed?: Images reviewed and evaluated by me Time of 1ST Reevaluation: 20:04 Reevaluation 1ST: Unchanged Patient Education/Counseling: Diagnosis, Treatment, Prognosis Family Education/Counseling: No Family Present Departure 1 Departure Time of Disposition: 21:35 Impression: Primary Impression: Acute respiratory failure Qualified Codes: J96.01 - Acute respiratory failure with hypoxia Additional Impression: Elevated lactic acid level Disposition: ADMITTED INPATIENT Admit to: Tele Condition: Fair Critical Care Note Critical Care Time?: No Stability Stability form required: Yes Unstable for transfer: Telemetry monitoring (Telemetry monitoring required), ED Physician Assesment (Clinical assesment) Heart Score Heart Score: Heart Score Response (Comments) Value History N/A 0 EKG N/A 0 Age N/A 0 Risk Factors N/A 0 Troponin N/A 0 Total 0 DURAN MAY MD Jan 30, 2025 20:07
--- NOTE | 2025-01-30 20:22 | DVH ---
CHEST RADIOGRAPH Indication: sob Technique: Single frontal view of the chest was obtained Comparison: XY CHEST PORTABLE on DOS: 12/31/24, CHEST PORTABLE on DOS: 08/25/20 FINDINGS: Lines and Tubes: None Lungs: No significant change from 12/31/2024 Pleura: No effusion. No pneumothorax. Cardiomediastinal contours: Unremarkable Bones: Paraspinal rods are in place unchanged IMPRESSION: 1. No significant change from 12/31/2024
[2025-01-30 20:23] LABS: Basophils # (auto) 0.1 10 ^3/uL (0-0.2); Basophils % (auto) 0.6 % (0.0-2.0); Eosinophils # (auto) 0.2 10 ^3/uL (0-0.8); Eosinophils % (auto) 1.9 % (0.0-7.0); Hematocrit 39.6 % (36.0-46.0); Hemoglobin 13.5 g/dL (12.2-16.2); Lymphocytes # (auto) 3.6 10 ^3/uL (0.4-5.4); Lymphocytes % (auto) 43.3 % (10.0-50.0); Mean Corpuscular Hemoglobin 29.7 pg (28.0-32.0); Mean Corpuscular Hgb Conc. 34.1 g/dL (32.0-36.0); Mean Corpuscular Volume 87.1 fL (80.0-100.0); Monocytes # (auto) 0.3 10 ^3/uL (0-1.3); Monocytes % (auto) 3.7 % (0.0-12.0); Neutrophils # (auto) 4.2 10 ^3/uL (1.6-8.6); Neutrophils % (auto) 50.5 % (37.0-80.0); Nucleated Red Blood Cells % 0.1 %; Platelet Count (auto) 371 10^3/uL (140-450); Red Blood Cells 4.54 10^6/uL (4.0-5.20); Red Cell Distribution Width 13.6 % (11.8-14.3); White Blood Cell 8.4 10^3/uL (4.4-10.8)
[2025-01-30 20:30] LABS: Chloride 106 mmol/L (98-107); Potassium 3.5 mmol/L (3.5-5.1); Sodium 139 mmol/L (136-145)
[2025-01-30 20:31] LABS: Anion Gap 9 (5-15); Carbon Dioxide 24 mmol/L (20-31)
[2025-01-30 20:32] LABS: Calcium 9.6 mg/dL (8.7-10.4)
[2025-01-30 20:36] LABS: BUN/Creatinine Ratio 14.6 (10.0-20.0); Blood Urea Nitrogen 18 mg/dL (9-23)
[2025-01-30 20:39] LABS: Glucose 277 mg/dL (74-106)
[2025-01-30 20:42] LABS: Lactic Acid w/Reflex 2.2 mmol/L (0.4-2.0)
[2025-01-30] MEDS ORDERED: NITROGLYCERIN 0.4 MG SL TAB SL PRN (21:45)
[2025-01-30] MEDS ORDERED: MORPHINE SULFATE INJ 2 MG/ml SYRG IV PRN ×2 (21:45)
[2025-01-30] MEDS ORDERED: BACLOFEN 10 MG TAB PO PRN (22:45)
[2025-01-30] MEDS ORDERED: DEXTROSE (50%) 50ML SYRG IV PRN (22:45)
[2025-01-30 22:48] LABS: INR 0.93 (0.9-1.15); Partial Thromboplastin Time 26.3 SEC (24.5-34.5); Prothrombin Time 9.9 sec (9.3-11.8)
[2025-01-30] MEDS ORDERED: hydrALAZINE HCL 20 MG/ML VL IV SCH (23:00)
--- NOTE | 2025-01-30 23:04 | DVHHPRES ---
History of Present Illness Resident Creating Document: RUBEN AMBROSE RESIDENT History of Present Illness MICK LIANG has a 29-year-old female with a PMH of Type 1 DM, GERD, HLD, HTN, CHF presented to the ED with the chief complaints of shortness of breaths started in the evening on the day of admission. Patient was reported she has been having occasional shortness of breath for long time and she was recently diagnosed with systolic CHF in December 2024. Today unit patient was sleeping and suddenly she woke up with severe shortness of breath, and EMS arrived and she was saturating at 85% on room air. On mass has been patient denies fever, nausea, vomiting, cough, cold, chest pain, under the record associated symptoms. PMH: Type 1 DM, multiple DKA, GERD, HLD, HTN, HfrEF PSH: Back surgery Family history: Heart failure in grandmother Social history: Lives alone. Denies smoking, alcohol and other drugs use Allergies: No known allergies Review of Systems Constitutional: No: Fever, Chills, Sweats, Weakness, Malaise, Other Eyes: No: Pain, Vision change, Conjunctivae inflammation, Eyelid inflammation, Other, Redness ENT: No: Ear pain, Ear discharge, Nose pain, Nose discharge, Nose congestion, Mouth pain, Mouth swelling, Throat pain, Throat swelling, Other Respiratory: Cough, Shortness of breath, SOB with excertion Cardiovascular: No: Chest Pain, Palpitations, Orthopnea, Paroxysmal Noc. Dyspnea, Edema, Lt Headedness, Other Gastrointestinal: No: Nausea, Vomiting, Abdominal Pain, Diarrhea, Constipation, Melena, Hematochezia, Other Genitourinary: No Dysuria, No Frequency, No Incontinence, No Hematuria, No Retention, No Other Musculoskeletal: No: other, neck pain, shoulder pain, arm pain, back pain, hand pain, leg pain, foot pain Skin: No: Rash, Lesions, Jaundice, Bruising, Other Neurological: No: Weakness, Numbness, Incoordination, Change in speech, Confusion, Seizures, Other Allergies: Coded Allergies: NO KNOWN ALLERGIES (Unverified , 10/24/19) Medications Current Medications Medications Dose Ordered Sig/Sid Route Start Time Stop Time Status Last Admin Dose Admin Sodium Chloride 10 ml Q8HR IV 01/30/25 22:00 Enoxaparin Sodium 40 mg DAILY SC 01/31/25 10:00 Acetaminophen 650 mg Q6HP PRN PO 01/30/25 21:45 Morphine Sulfate 2 mg Q4HPRN PRN IV 01/30/25 21:45 Nitroglycerin 0.4 mg Q5MINP PRN SL 01/30/25 21:45 Morphine Sulfate 2 mg Q30M PRN IV 01/30/25 21:45 Baclofen 10 mg Q8HP PRN PO 01/30/25 22:45 Carvedilol 3.125 mg BID PO 01/31/25 10:00 Empaglifozin 10 mg DAILY PO 01/31/25 10:00 Atorvastatin Calcium 80 mg HS PO 01/31/25 22:00 Diagnostic Test (Pha) 1 strip ACHS 01/31/25 07:00 Insulin Human Regular HS SC 01/31/25 22:00 Insulin Human Regular AC SC 01/30/25 22:45 Dextrose 50 ml UD PRN IV 01/30/25 22:45 Insulin Glargine 10 units QAM SC 01/31/25 07:00 Furosemide 40 mg DAILY IV 01/31/25 10:00 Hydralazine HCl 10 mg Q6HP IV 01/30/25 23:00 UNV Pantoprazole Sodium 40 mg DAILY IV 01/31/25 10:00 UNV Exam Vital Signs Vital Signs Date Time Temp Pulse Resp B/P (MAP) Pulse Ox O2 Delivery O2 Flow Rate FiO2 01/30/25 20:09 90 90 Room Air* 0 21 21 01/30/25 19:45 98.2 116 187/113 (137) Exam General Appearance: Alert, Oriented X3, Cooperative, moderate distress HEENT: Atraumatic, Mucous membranes moist/pink Respiratory: Clear to auscultation, Normal air movement,crackes Cardiovascular: Regular rate, Normal S1, Normal S2, No murmurs Abdominal: Active bowel sounds, Soft, no distention, no tenderness Extremities: No edema, Normal pulses, No tenderness/swelling Skin: No Significant rash, except past surgical scars Neuro: Normal speech, sensorimotor deficits none Psych/Mental Status: Mental status NL, Mood NL Nurse was there as sharperone during examination Labs/Xrays Labs Test 01/30/25 22:14 01/30/25 22:02 01/30/25 19:54 Range/Units White Blood Count 8.4 4.4-10.8 10^3/uL Red Blood Count 4.54 4.0-5.20 10^6/uL Hemoglobin 13.5 12.2-16.2 g/dL Hematocrit 39.6 36.0-46.0 % Mean Corpuscular Volume 87.1 80.0-100.0 fL Mean Corpuscular Hemoglobin 29.7 28.0-32.0 pg Mean Corpuscular Hemoglobin Concent 34.1 32.0-36.0 g/dL Red Cell Distribution Width 13.6 11.8-14.3 % Platelet Count 371 140-450 10^3/uL Mean Platelet Volume 9.0 6.9-10.8 fL Neutrophils (%) (Auto) 50.5 37.0-80.0 % Lymphocytes (%) (Auto) 43.3 10.0-50.0 % Monocytes (%) (Auto) 3.7 0.0-12.0 % Eosinophils (%) (Auto) 1.9 0.0-7.0 % Basophils (%) (Auto) 0.6 0.0-2.0 % Neutrophils # (Auto) 4.2 1.6-8.6 10 ^3/uL Lymphocytes # (Auto) 3.6 0.4-5.4 10 ^3/uL Monocytes # (Auto) 0.3 0-1.3 10 ^3/uL Eosinophils # (Auto) 0.2 0-0.8 10 ^3/uL Basophils # (Auto) 0.1 0-0.2 10 ^3/uL Nucleated Red Blood Cells 0.1 % Prothrombin Time 9.9 9.3-11.8 sec Prothrombin Time INR 0.93 0.9-1.15 Activated Partial Thromboplast Time 26.3 24.5-34.5 SEC Sodium Level 139 136-145 mmol/L Potassium Level 3.5 3.5-5.1 mmol/L Chloride Level 106 98-107 mmol/L Carbon Dioxide Level 24 20-31 mmol/L Anion Gap 9 5-15 Blood Urea Nitrogen 18 9-23 mg/dL Creatinine 1.23 H 0.550-1.02 mg/dL Glomerular Filtration Rate Calc 61 >90 mL/min BUN/Creatinine Ratio 14.6 10.0-20.0 Serum Glucose 277 H 74-106 mg/dL Hemoglobin A1c 10.9 H <5.7 % A1C Calcium Level 9.6 8.7-10.4 mg/dL B-Type Natriuretic Peptide 324.26 0-100 pg/mL Thyroid Stimulating Hormone (TSH) 3.66 0.55-4.78 uIU/mL Assessment/Plan Assessment/Plan # Acute hypoxic respiratory failure likely due to CHF exacerbation # ? acute on chronic systolic CHF exacerbation # hypertensive cardiomyopathy -elevated BNP -mild congestion on CXR -GDM T as tolerated -previous echo in December showed moderate to severely reduced, LVEF 30-35%. Mild diastolic dysfunction. Global hypokinesis. -Lasix 40 mg daily IV -consider cardiology consult # hypertensive urgency - home medications as renal function permits -hydralazine 10 mg scheduled # uncontrolled type 1 DM with HbA1c 10.9 -closely monitor -Accu-Cheks with moderate sliding scale with Lantus 10 units # PAOLO likely VMN -closely monitor lab -avoid nephrotoxic agents # Dyslipidemia # GERD - protonix Protonix Lovenox Cardiac diet Goals of care discussed with the patient for more than 27 minutes: Full code status Case discussed with Dr. Bledsoe, patient and RN Plan discussed with: Patient My Orders Orders - RUBEN AMBROSE RESIDENT Procedure Category Date Status Time Admit ADMIT 01/30/25 Transmitted 21:45 Allergies MAURO 01/30/25 In Process 21:45 Code Status CODE 01/30/25 Transmitted 21:45 Sodium Chloride Lock PHA 01/30/25 In Process (Saline Lock Ns) 22:00 Enoxaparin Sodium PHA 01/31/25 In Process (Lovenox) 10:00 Complete Blood Count LAB 01/31/25 Verified 04:00 Comprehensive LAB 01/31/25 Verified Metabolic Panel 04:00 Cardiac DIET 01/31/25 Transmitted Diet-2gna,Lofat,Lochol Breakfast Condition: Stable MAURO 01/30/25 In Process 21:45 Acetaminophen Tablet PHA 01/30/25 In Process (Tylenol Tablet) 21:45 Morphine Sulfate PHA 01/30/25 In Process Injection 21:45 Nitroglycerin PHA 01/30/25 In Process Sublingual (Ntrostat 21:45 Morphine Sulfate PHA 01/30/25 In Process Injection 21:45 Oxygen By Nasal RT 01/30/25 Transmitted Cannula 21:45 Stat Ekg For Chest MAURO 01/30/25 In Process Pain 21:45 Notify Md Of Changes MAURO 01/30/25 In Process From Base 21:45 Hepatic Panel LAB 01/30/25 In Process 21:45 Ammonia LAB 01/30/25 In Process 21:45 Urinalysis LAB 01/30/25 Logged 21:45 Rapid Influenza A&B LAB 01/30/25 Logged 21:45 PTPTT LAB 01/30/25 In Process 21:45 Magnesium LAB 01/30/25 In Process 21:45 Erythrocyte LAB 01/30/25 Logged Sedimentation Rate 21:45 Drug Screen LAB 01/30/25 Logged 21:45 Covid19 Antigen Felipa LAB 01/30/25 Logged Blood Alcohol LAB 01/30/25 In Process 21:45 D-Dimer LAB 01/30/25 In Process 21:45 Baclofen Tablet PHA 01/30/25 In Process (Liorisal Tablet) 22:45 Carvedilol Tablet PHA 01/31/25 In Process (Coreg Tablet) 10:00 Empagliflozin PHA 01/31/25 In Process (Jardiance) 10:00 Atorvastatin (Lipitor) PHA 01/31/25 In Process 22:00 Glucose Blood PHA 01/31/25 In Process (Accu-Chek Comfort 07:00 Insulin R (Human) PHA 01/31/25 In Process (Insulin R) 22:00 Insulin R (Human) PHA 01/30/25 In Process (Insulin R) 22:45 Dextrose 50% Syringe PHA 01/30/25 In Process 22:45 Insulin Lantus PHA 01/31/25 In Process (Glargine) (Lantus) 07:00 Furosemide Injection PHA 01/31/25 In Process (Lasix Injection) 10:00 Hydralazine Injection PHA 01/30/25 Logged (Apresoline Inject 23:00 Pantoprazole PHA 01/31/25 Logged (Protonix) 10:00 Date of Service: Jan 30, 2025 Billing Provider: MAGALIE BLEDSOE MD Common Visit Codes: [id number] INP/OBS CARE (HIGH) RUBEN AMBROSE RESIDENT Jan 30, 2025 23:04 MAGALIE BLEDSOE MD Jan 31, 2025 18:34
[2025-01-30 23:23] LABS: Alanine Aminotransferase 39 U/L (7-40); Albumin 3.8 g/dL (3.2-4.8); Alkaline Phosphatase 110 U/L (46-116); Aspartate Aminotransferase 32 U/L (13-40); Bilirubin, Direct 0.1 mg/dL (<0.3); Bilirubin, Total 0.6 mg/dL (0.2-1.0); Magnesium 2.1 mg/dL (1.6-2.6); Total Protein 6.6 g/dL (5.7-8.2)
[2025-01-30 23:36] LABS: Blood Alcohol < 3.0 mg/dL (<10)
[2025-01-31] VITALS (9 sets, daily range): BP systolic 103–143; BP diastolic 62–93; PULSE 76–92; RESP 16–23; TEMP 97.6–98.4; O2SAT 97–99
[2025-01-31 00:23] LABS: Erythrocyte Sedimentation Rate 36 mm/hr (0-20)
--- NOTE | 2025-01-31 00:40 | DVH ---
Bilateral lower extremity venous duplex Clinical History: R/O DVT Comparison: VENOUS DVT BILAT on DOS: 08/25/20 Technique: Duplex Doppler evaluation of the deep venous systems of both lower extremities from the common femora l veins to the popliteal veins including color Doppler and spectral/pulsed waveform analysis was perf ormed. Findings: RIGHT SIDE: The common femoral vein demonstrates appropriate compressibility and waveform variability. There is compressibility/patency of the great saphenous vein at the proximal thigh. The femoral vein demonstrates appropriate compressibility and waveform variability. The deep femoral vein demonstrates appropriate compressibility and waveform variability. The popliteal vein demonstrates appropriate compressibility and waveform variability. There is normal compressibility at the tibioperoneal trunk. LEFT SIDE: The common femoral vein demonstrates appropriate compressibility and waveform variability. There is compressibility/patency of the great saphenous vein at the proximal thigh. The femoral vein demonstrates appropriate compressibility and waveform variability. The deep femoral vein demonstrates appropriate compressibility and waveform variability. The popliteal vein demonstrates appropriate compressibility and waveform variability. There is normal compressibility at the tibioperoneal trunk. Prominent bilateral inguinal lymph nodes are seen Impression: 1. No right or left femoropopliteal venous thrombosis.
[2025-01-31] MEDS ORDERED: hydrALAZINE HCL 20 MG/ML VL IV PRN (01:00)
[2025-01-31] MEDS: FUROSEMIDE 40 MG/4 ML VIAL IV ONE (01:09)
[2025-01-31] MEDS: methylPREDNISolone SOD SUCC 125 MG/2 ML VL IV ONE (01:09)
[2025-01-31] MEDS: InsuLIN REG 1unit/0.01ml Soln (100units/ml) SC SCH ×2 (01:37→22:06)
[2025-01-31] MEDS: cloNIDine HCL 0.1 MG TAB PO ONE (01:57)
[2025-01-31 02:53] LABS: Urine Bacteria None Seen /hpf (None Seen)
[2025-01-31 03:09] LABS: Urine Blood 3+ /uL (Negative); Urine Clarity Turbid (Clear); Urine Hyaline Cast FEW /lpf (0 - 2); Urine Protein, UAD 2+ (Negative); Urine Specific Gravity 1.009 (1.001-1.035); Urine Squamous Epithelial Cell FEW /hpf (<5); Urine Urobilinogen Normal (Negative); Urine WBC 67 /HPF (0-5); Urine pH 6.5 (5.0-9.0)
[2025-01-31 03:10] LABS: Urine Color RED (Yellow)
[2025-01-31 03:20] LABS: Amphetamine Screen, Urine Neg (NEGATIVE); Barbiturate Scree,Urine Neg (NEGATIVE); Benzodiazephine Screen, Urine Neg (NEGATIVE); Cannabinoid Screen, Urine Neg (NEGATIVE); Cocaine Screen, Urine Neg (NEGATIVE); Opiate Scree,Urine Neg (NEGATIVE); Phencyclidine Screen, Urine Neg (NEGATIVE)
[2025-01-31 04:11] LABS: COVID19 ANTIGEN SOFIA FIA NEGATIVE (NEGATIVE); Rapid Influenza A Negative (Negative); Rapid Influenza B Negative (Negative)
[2025-01-31] MEDS: ACETAMINOPHEN 325 MG TAB PO PRN (04:25)
[2025-01-31] MEDS ORDERED: HYDROcodone-ACET 5/325MG TAB PO PRN (04:45)
[2025-01-31] MEDS ORDERED: ONDANSETRON HCL 4 MG/2 ML VIAL IV PRN (04:45)
[2025-01-31] MEDS: INSULIN LANTUS (GLARGINE) 1 /0.01ml (100units/ml) SC SCH (07:00)
[2025-01-31] MEDS: ACCU-CHEK COMFORT CURVE STRIP VI SCH (07:00)
[2025-01-31 07:40] LABS: Alanine Aminotransferase 27 U/L (7-40); Albumin 3.6 g/dL (3.2-4.8); Alkaline Phosphatase 89 U/L (46-116); Anion Gap 10 (5-15); Aspartate Aminotransferase 23 U/L (13-40); BUN/Creatinine Ratio 17.6 (10.0-20.0); Blood Urea Nitrogen 22 mg/dL (9-23); Calcium 9.6 mg/dL (8.7-10.4); Carbon Dioxide 26 mmol/L (20-31); Glucose 85 mg/dL (74-106); Sodium 143 mmol/L (136-145); Total Protein 6.4 g/dL (5.7-8.2)
[2025-01-31 07:41] LABS: Bilirubin, Total 0.6 mg/dL (0.2-1.0); Chloride 107 mmol/L (98-107); Potassium 3.4 mmol/L (3.5-5.1)
[2025-01-31 08:23] LABS: Basophils # (auto) 0 10 ^3/uL (0-0.2); Basophils % (auto) 0.3 % (0.0-2.0); Eosinophils # (auto) 0 10 ^3/uL (0-0.8); Eosinophils % (auto) 0.1 % (0.0-7.0); Hematocrit 32.1 % (36.0-46.0); Hemoglobin 11.6 g/dL (12.2-16.2); Lymphocytes # (auto) 0.8 10 ^3/uL (0.4-5.4); Lymphocytes % (auto) 12.4 % (10.0-50.0); Mean Corpuscular Hemoglobin 30.7 pg (28.0-32.0); Mean Corpuscular Hgb Conc. 36.1 g/dL (32.0-36.0); Mean Corpuscular Volume 85.1 fL (80.0-100.0); Monocytes # (auto) 0.1 10 ^3/uL (0-1.3); Monocytes % (auto) 1.3 % (0.0-12.0); Neutrophils # (auto) 5.4 10 ^3/uL (1.6-8.6); Neutrophils % (auto) 85.9 % (37.0-80.0); Nucleated Red Blood Cells % 0.1 %; Platelet Count (auto) 335 10^3/uL (140-450); Red Blood Cells 3.77 10^6/uL (4.0-5.20); Red Cell Distribution Width 13.6 % (11.8-14.3); White Blood Cell 6.3 10^3/uL (4.4-10.8)
[2025-01-31] MEDS: POTASSIUM EFFERVESENT TAB 25 MEQ PO ONE (09:52)
[2025-01-31] MEDS: PANTOPRAZOLE 40 MG/10 ML VIAL INJ IV SCH (09:52)
[2025-01-31] MEDS: ENOXAPARIN SOD 40 MG/0.4 ML SYRINGE SC SCH (09:53)
[2025-01-31] MEDS: EMPAGLIFLOZIN 10 MG TAB PO SCH (09:54)
[2025-01-31] MEDS: VALSARTAN 80 MG TAB PO SCH (09:54)
[2025-01-31] MEDS: CARVEDILOL 3.125 MG TAB PO SCH (09:54)
[2025-01-31] MEDS: SPIRONOLACTONE 25 MG TAB PO SCH (09:55)
[2025-01-31] MEDS: FUROSEMIDE 40 MG/4 ML VIAL IV SCH (09:55)
[2025-01-31] MEDS ORDERED: FUROSEMIDE 40 MG/4 ML VIAL IV SCH (10:00)
--- NOTE | 2025-01-31 17:33 | DVHPNRES ---
Progress Note Date Seen: Jan 31, 2025 Resident Creating Document: DECLAN MCBRIDE RESIDENT Medical Necessity Reason Pt with a Central, PICC or Fol: No Subjective Review of Systems Pauline Reed is a 29-year-old female who presented to the ED with the chief complaints of progressive dyspnea from functional class II to functional class IV three days before her admission, associated with lower limb swelling, orthopnea and nocturnal paroxysmal dyspnea. Patient was recently diagnosed with nonischemic cardiomyopathy with HFrEF, on GDMT and furosemide, which PCP two weeks ago discontinued furosemide due to visual disturbances. Denies fever, palpitation, syncope, nausea, vomiting, cough, cold, chest pain, under the record associated symptoms. Past medical history: Type 1 diabetes, hypertension, dyslipidemia,, multiple admissions due to DKA, GERD, nonischemic cardiomyopathy with HFrEF (LVEF 30-35%) probably genetic etiology, Surgical history: Back surgery, coronary angiography with non obstructive coronary arteries Family history: Heart failure in grandmother, great aunt and sister Social history: Lives alone. Denies smoking, alcohol and other drugs use Allergies: No known allergies Home medication: Lisinopril, empagliflozin, spironolactone, carvedilol, famotidine Patient seen and examined at bedside. Currently has no new complaints, feels better since admission. Objective vital signs Vital Sign Date Time Temp Pulse Resp B/P (MAP) Pulse Ox O2 Delivery O2 Flow Rate FiO2 01/31/25 12:45 97.6 88 16 126/81 (96) 99 97.6 01/31/25 08:00 Room Air* 0 21 medications Current Medications Medications Dose Ordered Sig/Sid Route Start Time Stop Time Status Last Admin Dose Admin Sodium Chloride 10 ml Q8HR IV 01/30/25 22:00 01/31/25 17:01 10 ML Enoxaparin Sodium 40 mg DAILY SC 01/31/25 10:00 01/31/25 09:53 40 MG Acetaminophen 650 mg Q6HP PRN PO 01/30/25 21:45 01/31/25 04:25 650 MG Baclofen 10 mg Q8HP PRN PO 01/30/25 22:45 Carvedilol 3.125 mg BID PO 01/31/25 10:00 01/31/25 09:54 3.125 MG Empaglifozin 10 mg DAILY PO 01/31/25 10:00 01/31/25 09:54 10 MG Atorvastatin Calcium 80 mg HS PO 01/31/25 22:00 Diagnostic Test (Pha) 1 strip ACHS 01/31/25 07:00 01/31/25 17:01 1 STRIP Insulin Human Regular HS SC 01/31/25 22:00 Insulin Human Regular AC SC 01/30/25 22:45 01/31/25 12:52 9 UNITS Dextrose 50 ml UD PRN IV 01/30/25 22:45 Insulin Glargine 10 units QAM SC 01/31/25 07:00 Pantoprazole Sodium 40 mg DAILY IV 01/31/25 10:00 01/31/25 09:52 40 MG Ondansetron HCl 4 mg Q6HPRN PRN IV 01/31/25 04:45 Furosemide 40 mg BID IV 01/31/25 10:00 01/31/25 09:55 40 MG Spironolactone 25 mg DAILY PO 01/31/25 10:00 01/31/25 09:55 25 MG Valsartan 80 mg DAILY PO 01/31/25 10:00 01/31/25 09:54 80 MG Examination Patient lying in bed, in no acute distress General: Lucid, afebrile, mucosae are moist Cardiovascular: Normal S1 and S2. No murmurs, gallops or rubs Respiratory: Normal ventilation mechanics. Bilateral rales on lung bases, rest of lung auscultation is clear Abdomen: Soft, nontender, no organomegaly, normal bowel sounds MSK/skin: Mobilizes 4 limbs. Skin is dry and warm Neurological: Oriented in 3 spheres. No motor no sensitive deficits. Pupils are isocoric and reactive laboratory and microbiology Laboratory Tests 01/31/25 06:41 Test 01/31/25 06:41 Range/Units Serum Glucose 85 74-106 mg/dL Problem List/Assessment/Plan Problem List/Assessment/Plan # Acute hypoxic respiratory failure secondary to CHF exacerbation Required on admission oxygen therapy with nasal cannula. Currently with no oxygen requirement # Acute on chronic systolic congestive heart failure (HFrEF, LVEF 30-35%) Predisposing factor: nonischemic cardiomyopathy, likely genetic etiology. Triggering factor: Noncompliance with diuretic treatment Presents pulmonary edema in chest x-ray, elevated BNP Continued GDM T at this time (carvedilol, spironolactone, empagliflozin and valsartan (switch from lisinopril for eventual upgrade to Entresto)) Echo from 12/2024: moderate to severely reduced, LVEF 30-35%. Mild diastolic dysfunction. Global hypokinesis. Lasix 40 mg b.i.d. IV Planning follow up with guest laundry attendant in less than one month with Dr. Rose. # Nonischemic cardiomyopathy Presented coronary angiography on December 2024 which showed non obstructive coronary arteries Patient may benefit from cardiac device. Has to be compliant with medication for at least three months, re-evaluation with echocardiogram as outpatient with guest laundry attendant. # UTI Urinalysis has positive esterase with WBCs Currently under empiric IV antibiotic (ceftriaxone) # Hypertensive urgency Continue home medication Hydralazine p.r.n. # Type 1 Diabetes - uncontrolled (HbA1c 10.9%) Accu-Cheks with moderate sliding scale with Lantus 10 units Gave her advice on healthy lifestyle habits # PAOLO likely VMN Continue GDMT at the moment Probably due to acute CHF (renal congestion) # Dyslipidemia Continue home medication # GERD Pantoprazole Patient says that she does not tolerate famotidine # Ruled out DVT Completed lower limb extremity ultrasound: No DVT Goals of care discussed with the patient for over 18 minutes: Full code status Discussed plan with Dr. Garduno, patient and nurses: We will continue with IV diuretics, evaluate p.o. diuretics on 02/01/2025. Reinforced importance of adherence to GDM T and diuretics to avoid rehospitalizations. Patient has to follow up with Cardiology as outpatient for eventual evaluation for cardiac device Plan discussed with: Patient, Other (Nurses and mother) My Orders My Orders Orders - DECLAN MCBRIDE Procedure Category Date Status Time Furosemide Injection PHA 01/31/25 In Process (Lasix Injection) 10:00 Spironolactone PHA 01/31/25 In Process (Aldactone) 10:00 Valsartan (Diovan) PHA 01/31/25 In Process 10:00 Date of Service: Jan 31, 2025 Billing Provider: LAUREN DELAROSA MD Common Visit Codes: [id number] INP/OBS CARE(HIGH) DECLAN MCBRIDE Jan 31, 2025 17:33 LAUREN DELAROSA MD Feb 06, 2025 14:47
[2025-01-31] MEDS: cefTRIAXone 1GM/50ML D5W 50 ML IV ONE (18:21)
[2025-01-31] MEDS: ATORVASTATIN 20 MG TAB PO SCH (21:57)
[2025-02-01] VITALS (8 sets, daily range): BP systolic 118–145; BP diastolic 78–98; PULSE 80–89; RESP 16–18; TEMP 97.8–98.1; O2SAT 95–99
[2025-02-01 06:56] LABS: Basophils # (auto) 0 10 ^3/uL (0-0.2); Basophils % (auto) 0.3 % (0.0-2.0); Eosinophils # (auto) 0 10 ^3/uL (0-0.8); Eosinophils % (auto) 0.4 % (0.0-7.0); Hematocrit 31.4 % (36.0-46.0); Hemoglobin 11.2 g/dL (12.2-16.2); Lymphocytes # (auto) 2.6 10 ^3/uL (0.4-5.4); Lymphocytes % (auto) 26.3 % (10.0-50.0); Mean Corpuscular Hemoglobin 30.6 pg (28.0-32.0); Mean Corpuscular Hgb Conc. 35.5 g/dL (32.0-36.0); Monocytes # (auto) 0.5 10 ^3/uL (0-1.3); Neutrophils # (auto) 6.7 10 ^3/uL (1.6-8.6); Nucleated Red Blood Cells % 0.1 %; Platelet Count (auto) 308 10^3/uL (140-450); Red Blood Cells 3.65 10^6/uL (4.0-5.20); Red Cell Distribution Width 13.1 % (11.8-14.3); White Blood Cell 9.9 10^3/uL (4.4-10.8)
[2025-02-01 06:58] LABS: Anion Gap 10 (5-15); Carbon Dioxide 25 mmol/L (20-31); Chloride 105 mmol/L (98-107); Potassium 3.9 mmol/L (3.5-5.1); Sodium 140 mmol/L (136-145)
[2025-02-01 06:59] LABS: Calcium 9.1 mg/dL (8.7-10.4)
[2025-02-01 07:04] LABS: BUN/Creatinine Ratio 15.9 (10.0-20.0)
[2025-02-01 07:05] LABS: Magnesium 2.1 mg/dL (1.6-2.6)
[2025-02-01 07:08] LABS: Blood Urea Nitrogen 31 mg/dL (9-23); Glucose 293 mg/dL (74-106); Phosphorus 6.1 mg/dL (2.4-5.1)
[2025-02-01] MEDS: cefTRIAXone 1GM/50ML D5W 50 ML IV SCH (09:05)
[2025-02-01] MEDS: FUROSEMIDE 40 MG TAB PO SCH (09:05)
--- NOTE | 2025-02-01 09:47 | DVH ---
EXAM: XY CHEST XRAY 1 VIEW Indication: CHF Technique: Single frontal view of the chest was obtained Comparison: XY CHEST PORTABLE on DOS: 01/30/25, XY CHEST PORTABLE on DOS: 12/31/24, CHEST PORTABLE on DOS : 08/25/20 FINDINGS: Lines and Tubes: None Lungs: No focal consolidation. Pleura: No effusion. No pneumothorax. Cardiomediastinal contours: Cardiomegaly. Bones: No acute osseous abnormality. IMPRESSION: Cardiomegaly. No acute cardiopulmonary disease.
[2025-02-01] MEDS: INSULIN LANTUS (GLARGINE) 1 /0.01ml (100units/ml) SC ONE (12:20)
--- NOTE | 2025-02-01 18:20 | DVHPNRES ---
Progress Note Date Seen: Feb 01, 2025 Resident Creating Document: DECLAN MCBRIDE RESIDENT Medical Necessity Reason Pt with a Central, PICC or Fol: No Subjective Review of Systems Pauline Reed is a 29-year-old female who presented to the ED with the chief complaints of progressive dyspnea from functional class II to functional class IV three days before her admission, associated with lower limb swelling, orthopnea and nocturnal paroxysmal dyspnea. Patient was recently diagnosed with nonischemic cardiomyopathy with HFrEF, on GDMT and furosemide, which PCP two weeks ago discontinued furosemide due to visual disturbances. Denies fever, palpitation, syncope, nausea, vomiting, cough, cold, chest pain, under the record associated symptoms. Past medical history: Type 1 diabetes, hypertension, dyslipidemia,, multiple admissions due to DKA, GERD, nonischemic cardiomyopathy with HFrEF (LVEF 30-35%) probably genetic etiology, Surgical history: Back surgery, coronary angiography with non obstructive coronary arteries Family history: Heart failure in grandmother, great aunt and sister Social history: Lives alone. Denies smoking, alcohol and other drugs use Allergies: No known allergies Home medication: Lisinopril, empagliflozin, spironolactone, carvedilol, famotidine Patient seen and examined at bedside. Currently has no new complaints, feels better since admission. Currently on p.o. furosemide. Patient presented increase in her creatinine level (from 1.25 to 1.95), we will monitor 24 hours renal function. Increased Lantus to 13 units Objective vital signs Vital Sign Date Time Temp Pulse Resp B/P (MAP) Pulse Ox O2 Delivery O2 Flow Rate FiO2 02/01/25 17:00 97.9 80 16 118/78 (91) 95 97.9 02/01/25 08:00 Room Air* 0 21 Total Intake and Output 01/31/25 01/31/25 02/01/25 15:00 23:00 07:00 Intake Total 110 ml 720 ml 900 ml Balance 110 ml 720 ml 900 ml medications Current Medications Medications Dose Ordered Sig/Sid Route Start Time Stop Time Status Last Admin Dose Admin Sodium Chloride 10 ml Q8HR IV 01/30/25 22:00 02/01/25 06:10 10 ML Enoxaparin Sodium 40 mg DAILY SC 01/31/25 10:00 02/01/25 09:07 40 MG Acetaminophen 650 mg Q6HP PRN PO 01/30/25 21:45 01/31/25 23:50 650 MG Baclofen 10 mg Q8HP PRN PO 01/30/25 22:45 Carvedilol 3.125 mg BID PO 01/31/25 10:00 02/01/25 09:06 3.125 MG Empaglifozin 10 mg DAILY PO 01/31/25 10:00 02/01/25 09:06 10 MG Atorvastatin Calcium 80 mg HS PO 01/31/25 22:00 01/31/25 21:57 80 MG Diagnostic Test (Pha) 1 strip ACHS 01/31/25 07:00 02/01/25 11:36 1 STRIP Insulin Human Regular HS SC 01/31/25 22:00 01/31/25 22:06 6 UNITS Insulin Human Regular AC SC 01/30/25 22:45 02/01/25 06:05 9 UNITS Dextrose 50 ml UD PRN IV 01/30/25 22:45 Pantoprazole Sodium 40 mg DAILY IV 01/31/25 10:00 02/01/25 09:07 40 MG Ondansetron HCl 4 mg Q6HPRN PRN IV 01/31/25 04:45 Spironolactone 25 mg DAILY PO 01/31/25 10:00 02/01/25 09:06 25 MG Valsartan 80 mg DAILY PO 01/31/25 10:00 02/01/25 09:06 80 MG Ceftriaxone Sodium 50 ml @ 100 mls/hr DAILY@09 IV 02/01/25 09:00 02/01/25 09:05 100 MLS/HR Furosemide 40 mg DAILY PO 02/01/25 10:00 02/01/25 09:05 40 MG Insulin Glargine 13 units QAM SC 02/02/25 07:00 Examination Patient lying in bed, in no acute distress General: Lucid, afebrile, mucosae are moist Cardiovascular: Normal S1 and S2. No murmurs, gallops or rubs Respiratory: Normal ventilation mechanics. Clear lungs sounds on auscultation Abdomen: Soft, nontender, no organomegaly, normal bowel sounds MSK/skin: Mobilizes 4 limbs. Skin is dry and warm Neurological: Oriented in 3 spheres. No motor no sensitive deficits. Pupils are isocoric and reactive laboratory and microbiology Laboratory Tests 02/01/25 05:51 Test 02/01/25 05:51 Range/Units Serum Glucose 293 H 74-106 mg/dL Microbiology Date/Time Source Procedure Growth Status 01/31/25 02:09 Voided Urine Urine Culture - Preliminary Resulted 01/30/25 20:04 Blood Blood Culture - Preliminary NO GROWTH AFTER 24 HOURS OF INCUBATION. Resulted Problem List/Assessment/Plan Problem List/Assessment/Plan # Acute hypoxic respiratory failure secondary to CHF exacerbation Required on admission oxygen therapy with nasal cannula. Currently with no oxygen requirement # Acute on chronic systolic congestive heart failure (HFrEF, LVEF 30-35%) Predisposing factor: nonischemic cardiomyopathy, likely genetic etiology. Triggering factor: Noncompliance with diuretic treatment Presents pulmonary edema in chest x-ray, elevated BNP Continued GDMT at this time (carvedilol, spironolactone, empagliflozin and valsartan (switch from lisinopril for eventual upgrade to Entresto)) Echo from 12/2024: moderate to severely reduced, LVEF 30-35%. Mild diastolic dysfunction. Global hypokinesis. Lasix 40 mg b.i.d. IV Planning follow up with expressive therapist in less than one month with Dr. Rose. # Nonischemic cardiomyopathy Presented coronary angiography on December 2024 which showed non obstructive coronary arteries Patient may benefit from cardiac device. Has to be compliant with medication for at least three months, re-evaluation with echocardiogram as outpatient with expressive therapist. # UTI Urinalysis has positive esterase with WBCs Currently under empiric IV antibiotic (ceftriaxone) # Hypertensive urgency Continue home medication Hydralazine p.r.n. # Type 1 Diabetes - uncontrolled (HbA1c 10.9%) Accu-Cheks with moderate sliding scale with Lantus 10 units Gave her advice on healthy lifestyle habits # PAOLO likely VMN Continue GDMT at the moment Probably due to acute CHF vs medication Will monitor for 24 hours # Dyslipidemia Continue home medication # GERD Pantoprazole Patient says that she does not tolerate famotidine # Ruled out DVT Completed lower limb extremity ultrasound: No DVT Goals of care discussed with the patient for over 18 minutes: Full code status Discussed plan with Dr. Elizondo, patient and nurses: Presented PAOLO, currently on PO diuretics and GDMT, will monitor renal function in 24 hours. Reinforced importance of adherence to GDMT and diuretics to avoid rehospitalizations. Patient has to follow up with Cardiology as outpatient for eventual evaluation for cardiac device Plan discussed with: Patient, Other (Nurses) My Orders My Orders Orders - DECLAN MCBRIDE Procedure Category Date Status Time Furosemide Tablet PHA 02/01/25 In Process (Lasix Tablet) 10:00 Insulin Lantus PHA 02/02/25 In Process (Glargine) (Lantus) 07:00 Chest Xray 1 View XY 02/01/25 Resulted 08:46 Date of Service: Feb 01, 2025 Billing Provider: LAUREN ELIZONDO MD Common Visit Codes: [id number] INP/OBS CARE(HIGH) DECLAN MCBRIDE Feb 01, 2025 18:20 LAUREN ELIZONDO MD Feb 06, 2025 14:48
[2025-02-02 01:00] VITALS: BP 137/93; PULSE 81; RESP 17; TEMP 98.2; O2SAT 96
[2025-02-02 05:00] VITALS: BP 114/77; PULSE 79; RESP 18; TEMP 98.1; O2SAT 94
[2025-02-02] MEDS: INSULIN LANTUS (GLARGINE) 1 /0.01ml (100units/ml) SC SCH (06:36)
[2025-02-02 07:02] LABS: Basophils # (auto) 0 10 ^3/uL (0-0.2); Basophils % (auto) 0.4 % (0.0-2.0); Eosinophils # (auto) 0.2 10 ^3/uL (0-0.8); Eosinophils % (auto) 3.6 % (0.0-7.0); Hematocrit 30.4 % (36.0-46.0); Hemoglobin 10.8 g/dL (12.2-16.2); Lymphocytes # (auto) 2.6 10 ^3/uL (0.4-5.4); Lymphocytes % (auto) 42.4 % (10.0-50.0); Mean Corpuscular Hemoglobin 30.3 pg (28.0-32.0); Mean Corpuscular Hgb Conc. 35.6 g/dL (32.0-36.0); Mean Corpuscular Volume 85.1 fL (80.0-100.0); Monocytes # (auto) 0.3 10 ^3/uL (0-1.3); Monocytes % (auto) 5.2 % (0.0-12.0); Neutrophils % (auto) 48.4 % (37.0-80.0); Nucleated Red Blood Cells % 0.1 %; Platelet Count (auto) 317 10^3/uL (140-450); Red Blood Cells 3.57 10^6/uL (4.0-5.20); Red Cell Distribution Width 13.4 % (11.8-14.3); White Blood Cell 6.2 10^3/uL (4.4-10.8)
[2025-02-02 07:15] LABS: Anion Gap 8 (5-15); Carbon Dioxide 27 mmol/L (20-31); Chloride 106 mmol/L (98-107); Sodium 141 mmol/L (136-145)
[2025-02-02 07:19] LABS: Potassium 3.4 mmol/L (3.5-5.1)
[2025-02-02 07:21] LABS: BUN/Creatinine Ratio 20.7 (10.0-20.0)
[2025-02-02 07:27] LABS: Blood Urea Nitrogen 30 mg/dL (9-23); Glucose 211 mg/dL (74-106)
[2025-02-02 08:00] VITALS: RESP 18; O2SAT 97
[2025-02-02 09:00] VITALS: BP 134/88; PULSE 80; RESP 18; TEMP 97.9; O2SAT 97
[2025-02-02] MEDS: POTASSIUM EFFERVESENT TAB 25 MEQ PO ONE (10:00)
[2025-02-02] MEDS ORDERED: VALS1TAB57 PO (10:58)
[2025-02-02] MEDS ORDERED: FURO40TA4 PO (10:58)
[2025-02-02] MEDS ORDERED: CEPH250C PO (10:58)
[2025-02-02] MEDS ORDERED: ACET-1882 PO (10:58)
[2025-02-02] MEDS ORDERED: PANT40T PO (10:58)
--- NOTE | 2025-02-02 11:00 | DVH ---
CHEST RADIOGRAPH Indication: SOB Technique: Single frontal view of the chest was obtained Comparison: XY CHEST XRAY 1 VIEW on DOS: 02/01/25, XY CHEST PORTABLE on DOS: 01/30/25, XY CHEST PORTABLE on DOS: 12/31/24, CHEST PORTABLE on DOS: 08/25/20 FINDINGS: Lines and Tubes: None Lungs: No focal consolidation. Pleura: No effusion. No pneumothorax. Cardiomediastinal contours: Unremarkable Bones: Surgical spinal rods are present. IMPRESSION: No acute cardiopulmonary disease.
[2025-02-02 12:04] VITALS: BP 118/85; PULSE 81; RESP 18; TEMP 97.9; O2SAT 97
[2025-02-02 13:00] VITALS: BP 119/84; PULSE 88; RESP 18; TEMP 98; O2SAT 99
--- NOTE | 2025-02-02 14:23 | DVHDSRES ---
Discharge Summary Date of Admission Resident Creating Document: DECLAN MCBRIDE RESIDENT Jan 30, 2025 at 21:45 Date of Discharge: Feb 02, 2025 Labs/Diagnostic Data: Laboratory Results Test 02/02/25 11:11 02/02/25 06:05 02/01/25 05:51 01/31/25 06:41 POC Glucose 206 mg/dl (70-106) White Blood Count 6.2 10^3/uL (4.4-10.8) Red Blood Count 3.57 10^6/uL (4.0-5.20) Hemoglobin 10.8 g/dL (12.2-16.2) Hematocrit 30.4 % (36.0-46.0) Mean Corpuscular Volume 85.1 fL (80.0-100.0) Mean Corpuscular Hemoglobin 30.3 pg (28.0-32.0) Mean Corpuscular Hemoglobin Concent 35.6 g/dL (32.0-36.0) Red Cell Distribution Width 13.4 % (11.8-14.3) Platelet Count 317 10^3/uL (140-450) Mean Platelet Volume 8.8 fL (6.9-10.8) Neutrophils (%) (Auto) 48.4 % (37.0-80.0) Lymphocytes (%) (Auto) 42.4 % (10.0-50.0) Monocytes (%) (Auto) 5.2 % (0.0-12.0) Eosinophils (%) (Auto) 3.6 % (0.0-7.0) Basophils (%) (Auto) 0.4 % (0.0-2.0) Neutrophils # (Auto) 3.0 10 ^3/uL (1.6-8.6) Lymphocytes # (Auto) 2.6 10 ^3/uL (0.4-5.4) Monocytes # (Auto) 0.3 10 ^3/uL (0-1.3) Eosinophils # (Auto) 0.2 10 ^3/uL (0-0.8) Basophils # (Auto) 0 10 ^3/uL (0-0.2) Nucleated Red Blood Cells 0.1 % Sodium Level 141 mmol/L (136-145) Potassium Level 3.4 mmol/L (3.5-5.1) Chloride Level 106 mmol/L (98-107) Carbon Dioxide Level 27 mmol/L (20-31) Anion Gap 8 (5-15) Blood Urea Nitrogen 30 mg/dL (9-23) Creatinine 1.45 mg/dL (0.550-1.02) Glomerular Filtration Rate Calc 50 mL/min (>90) BUN/Creatinine Ratio 20.7 (10.0-20.0) Serum Glucose 211 mg/dL (74-106) Calcium Level 9.0 mg/dL (8.7-10.4) Phosphorus Level 6.1 mg/dL (2.4-5.1) Magnesium Level 2.1 mg/dL (1.6-2.6) Total Bilirubin 0.6 mg/dL (0.2-1.0) Aspartate Amino Transferase (AST) 23 U/L (13-40) Alanine Aminotransferase (ALT) 27 U/L (7-40) Alkaline Phosphatase 89 U/L (46-116) Total Protein 6.4 g/dL (5.7-8.2) Albumin 3.6 g/dL (3.2-4.8) Test 01/31/25 02:19 01/31/25 02:09 01/30/25 23:29 01/30/25 22:14 Influenza Type A Antigen Negative (Negative) Influenza Type B Antigen Negative (Negative) SARS-CoV-2 Antigen (Rapid) Negative (NEGATIVE) Urine Color Red (Yellow) Urine Clarity Turbid (Clear) Urine pH 6.5 (5.0-9.0) Urine Specific [place] 1.009 (1.001-1.035) Urine Protein 2+ (Negative) Urine Ketones Negative (Negative) Urine Blood 3+ /uL (Negative) Urine Nitrite Negative (Negative) Urine Bilirubin Negative (Negative) Urine Urobilinogen Normal mg/dL (Negative) Urine Leukocyte Esterase 2+ /uL (Negative) Urine RBC 2412 /hpf (0 - 4) Urine Microscopic WBC 67 /HPF (0-5) Urine Squamous Epithelial Cells Few /hpf (<5) Urine Bacteria None seen /hpf (None Seen) Urine Hyaline Casts Few /lpf (0 - 2) Urine Glucose 2+ mg/dL (Normal) Urine Test Negative (Negative) Urine Opiates Screen Neg (NEGATIVE) Urine Fentanyl Screen Neg (NEGATIVE) Urine Barbiturates Screen Neg (NEGATIVE) Urine Phencyclidine Screen Neg (NEGATIVE) Urine Amphetamines Screen Neg (NEGATIVE) Urine Benzodiazepines Screen Neg (NEGATIVE) Urine Cocaine Screen Neg (NEGATIVE) Urine Cannabinoids Screen Neg (NEGATIVE) Erythrocyte Sedimentation Rate 36 mm/hr (0-20) Direct Bilirubin 0.1 mg/dL (<0.3) Ammonia < 10 umol/L (11-32) Plasma/Serum Blood Alcohol < 3.0 mg/dL (<10) Test 01/30/25 22:02 01/30/25 19:54 Lactic Acid Level 1.3 mmol/L (0.4-2.0) Prothrombin Time 9.9 sec (9.3-11.8) Prothrombin Time INR 0.93 (0.9-1.15) Activated Partial Thromboplast Time 26.3 SEC (24.5-34.5) D-Dimer, Quantitative 0.68 mg/L FEU (0.0-0.49) Hemoglobin A1c 10.9 % A1C (<5.7) B-Type Natriuretic Peptide 324.26 pg/mL (0-100) Thyroid Stimulating Hormone (TSH) 3.66 uIU/mL (0.55-4.78) Other Laboratory Tests 02/02/25 06:05 Brief Hx & Hospital Course: Pauline Reed is a 29-year-old female who presented to the ED with the chief complaints of progressive dyspnea from functional class II to functional class IV three days before her admission, associated with lower limb swelling, orthopnea and nocturnal paroxysmal dyspnea. Patient was recently diagnosed with nonischemic cardiomyopathy with HFrEF, on GDMT and furosemide, which PCP two weeks ago discontinued furosemide due to visual disturbances. Denies fever, palpitation, syncope, nausea, vomiting, cough, cold, chest pain, under the record associated symptoms. Past medical history: Type 1 diabetes, hypertension, dyslipidemia,, multiple admissions due to DKA, GERD, nonischemic cardiomyopathy with HFrEF (LVEF 30-35%) probably genetic etiology, as echocardiogram on 12/2024: Moderate to severely reduced LVEF 30-35%, mild diastolic dysfunction, global hypokinesia Surgical history: Back surgery, coronary angiography with non obstructive coronary arteries Family history: Heart failure in grandmother, great aunt and sister Social history: Lives alone. Denies smoking, alcohol and other drugs use Allergies: No known allergies Home medication: Lisinopril, empagliflozin, spironolactone, carvedilol, famotidine Brief hospital course: Acute hypoxic respiratory failure secondary to CHF exacerbation (HFrEF, LVEF 30-35%) in patient was was noncompliant with medication associated with hypertensive urgency and UTI, responding to IV diuretics, oxygen therapy and empiric IV antibiotic (ceftriaxone, discharged with Keflex). Completed during her admission lower limb extremity ultrasound which ruled out DVT. Due to worsening PAOLO after starting GDMT, monitored her kidney function which showed improvement (she is currently on complete GDM T, pending optimization of dose (carvedilol, spironolactone, empagliflozin and valsartan). Patient presented noncardiac pain (EKG showed persistent negative T-waves in lateral leads), indicated Tylenol. Patient hemodynamically stable, asymptomatic, in condition to be discharged home. 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 Patient may benefit from cardiac device after being compliance with daily MT and persisting with cardiomyopathy. DIAGNOSIS # Acute hypoxic respiratory failure secondary to CHF exacerbation # Acute on chronic systolic congestive heart failure (HFrEF, LVEF 30-35%) # Nonischemic cardiomyopathy # UTI # Hypertensive urgency # Type 1 Diabetes - uncontrolled (HbA1c 10.9%) # PAOLO likely VMN # Dyslipidemia # GERD # Ruled out DVT Goals of care discussed with the patient for over 18 minutes: Full code status Discussed plan with Dr. Elizondo, patient and nurses. Examination Patient lying in bed, in no acute distress General: Lucid, afebrile, mucosae are moist Cardiovascular: Normal S1 and S2. No murmurs, gallops or rubs Respiratory: Normal ventilation mechanics. Clear lungs sounds on auscultation Abdomen: Soft, nontender, no organomegaly, normal bowel sounds MSK/skin: Mobilizes 4 limbs. Skin is dry and warm Neurological: Oriented in 3 spheres. No motor no sensitive deficits. Pupils are isocoric and reactive Operations or Procedures CHEST RADIOGRAPH Indication: sob Technique: Single frontal view of the chest was obtained Comparison: XY CHEST PORTABLE on DOS: 12/31/24, CHEST PORTABLE on DOS: 08/25/20 FINDINGS: Lines and Tubes: None Lungs: No significant change from 12/31/2024 Pleura: No effusion. No pneumothorax. Cardiomediastinal contours: Unremarkable Bones: Paraspinal rods are in place unchanged IMPRESSION: 1. No significant change from 12/31/2024 ATED BY: ANNMARIE JEFFERY Jr., DO DICTATED DATE/TIME: 01/30/252018 Bilateral lower extremity venous duplex Clinical History: R/O DVT Comparison: VENOUS DVT BILAT on DOS: 08/25/20 Technique: Duplex Doppler evaluation of the deep venous systems of both lower extremities from the common femoral veins to the popliteal veins including color Doppler and spectral/pulsed waveform analysis was performed. Findings: RIGHT SIDE: The common femoral vein demonstrates appropriate compressibility and waveform variability. There is compressibility/patency of the great saphenous vein at the proximal thigh. The femoral vein demonstrates appropriate compressibility and waveform variability. The deep femoral vein demonstrates appropriate compressibility and waveform variability. The popliteal vein demonstrates appropriate compressibility and waveform variability. There is normal compressibility at the tibioperoneal trunk. LEFT SIDE: The common femoral vein demonstrates appropriate compressibility and waveform variability. There is compressibility/patency of the great saphenous vein at the proximal thigh. The femoral vein demonstrates appropriate compressibility and waveform variability. The deep femoral vein demonstrates appropriate compressibility and waveform variability. The popliteal vein demonstrates appropriate compressibility and waveform variability. There is normal compressibility at the tibioperoneal trunk. Prominent bilateral inguinal lymph nodes are seen Impression: 1. No right or left femoropopliteal venous thrombosis. ATED BY: DERIAN SANDOVAL MD DICTATED DATE/TIME: 01/31/25 0038 CHEST RADIOGRAPH Indication: SOB Technique: Single frontal view of the chest was obtained Comparison: XY CHEST XRAY 1 VIEW on DOS: 02/01/25, XY CHEST PORTABLE on DOS: 01/30/25, XY CHEST PORTABLE on DOS: 12/31/24, CHEST PORTABLE on DOS: 08/25/20 FINDINGS: Lines and Tubes: None Lungs: No focal consolidation. Pleura: No effusion. No pneumothorax. Cardiomediastinal contours: Unremarkable Bones: Surgical spinal rods are present. IMPRESSION: No acute cardiopulmonary disease. ATED BY: ELIS CHUN MD DICTATED DATE/TIME: 02/02/25 1057 Condition at Discharge: Good Final Diagnosis/Problems List # Acute hypoxic respiratory failure secondary to CHF exacerbation # Acute on chronic systolic congestive heart failure (HFrEF, LVEF 30-35%) # Nonischemic cardiomyopathy # UTI # Hypertensive urgency # Type 1 Diabetes - uncontrolled (HbA1c 10.9%) # PAOLO likely VMN # Dyslipidemia # GERD # Ruled out DVT Discharge Disposition: Home SNF Discharge Will this Physician continue t: No Discharge Instruct/Medications Diet: Consistent carbohydrate, Cardiac 2g Na,low cholest, Renal Activity: No Restrictions, As Tolerated Follow Up/Referral: PCP Cardiology Endocrinologits Medications: Carvedilol, Empagliflozin, Spironolactone, Valsartan, Furosemide, Tylenol, Insulin Discharge Statement: "Patient was advised to return to the ER or call 911 if any headaches, dizziness, shortness of breath, chest pain, abdominal pain, bleeding, fevers, or worsening of medical condition. Patient was counseled about treatment plan, medications, possible side effects, patientverbalized understanding. All questions were answered to the best of my ability. This discharge took greater then 30 minutes in planning, reviewing documentation, counseling the patient, and discussing with other team members." ASSESSMENT ASSESSMENT Assessment Acute on chronic HFrEF Date of Service: Feb 02, 2025 Billing Provider: LAUREN ELIZONDO MD Common Visit Codes: 56627-VJL/OBS DISCH DAY >30min DECLAN MCBRIDE Feb 02, 2025 14:23 LAUREN ELIZONDO MD Feb 06, 2025 14:48
--- NOTE | 2025-02-02 15:32 | ECG ---
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
== END 2025-02-02 13:45 | disposition home or self-care (01) | DRG 133 ==
LOC: ER 19:32 → EDBD 19:32 → OVERFLOW 21:45 → EAST 01-31 05:18
PROVIDERS: ADMIT Student in an Organized Health Care Education/Training Program; ATTEND Student in an Organized Health Care Education/Training Program
DX: J96.01 Acute respiratory failure with hypoxia (principal); N17.0 Acute kidney failure with tubular necrosis; I50.23 Acute on chronic systolic (congestive) heart failure; E87.20 Acidosis, unspecified; Z20.822 Contact with and (suspected) exposure to COVID-19; K21.9 Gastro-esophageal reflux disease without esophagitis; E10.8 Type 1 diabetes mellitus with unspecified complications; E87.5 Hyperkalemia; I11.0 Hypertensive heart disease with heart failure; I43 Cardiomyopathy in diseases classified elsewhere; I16.0 Hypertensive urgency; I42.8 Other cardiomyopathies; N39.0 Urinary tract infection, site not specified; Z83.3 Family history of diabetes mellitus; Z82.49 Family history of ischemic heart disease and other diseases of the circulatory system; Z91.148 Patient's other noncompliance with medication regimen for other reason; Z79.84 Long term (current) use of oral hypoglycemic drugs; Z79.899 Other long term (current) drug therapy
CPT/HCPCS: 36415; 71045; 80048; 80053; 80076; 80307; 80320; 81001; 81025; 82140; 82962; 83036; 83605; 83735; 83880; 84100; 84443; 85025; 85379; 85610; 85652; 85730; 87040; 87086; 87426; 87804; 93005; 93970; 94640; G0378; J1815; J2470

== ENCOUNTER 2025-09-06 18:55 | Inpatient (IN) | payer MEDICAID ==
[~2025-09-06] VITALS: Ht 157.5 cm; Wt 50.0 kg
[~2025-09-06 18:55] MED LIST changes: +ACET-1882 PO; +CEPH250C PO; -FAMO20TA10 PO; -FURO1TAB33 PO; +FURO40TA4 PO; -LEVO750T40 PO; -LISI20TA56 PO; +PANT40T PO; +VALS1TAB57 PO
[2025-09-06 19:00] VITALS: PULSE 95; RESP 19; O2SAT 99
--- NOTE | 2025-09-06 19:13 | ED.PDOC ---
HPI Comments GARTH: HPI: Poor Historian. 23-year-old female brought in by ambulance from home for shortness of breath the last two days. Patient has home health. Home health checked on her yesterday and found to some slight edema and give her some Lasix. Came to check on her again today and found that the short edema returned again. They gave him more Lasix and advised him to go to the ER. Patient has some mild associated mild no chest discomfort. She took some aspirin prior to arrival. Patient has a associated lightheadedness with the shortness of breath earlier. Discharged ast February 06 diagnosed with DIAGNOSIS # Acute hypoxic respiratory failure secondary to CHF exacerbation # Acute on chronic systolic congestive heart failure (HFrEF, LVEF 30-35%) # Nonischemic cardiomyopathy # UTI # Hypertensive urgency # Type 1 Diabetes - uncontrolled (HbA1c 10.9%) # PAOLO likely VMN # Dyslipidemia # GERD # Ruled out DVT REVIEW OF SYSTEMS: CONSTITUTIONAL: Denies acute: fever, diaphoresis, chills, generalized weakness. HEAD: Denies acute: headache, photophobia Eyes: Denies acute: Double vision, vision loss, eye pain, eye discharge. EARS: Denies acute: tinnitus, hearing loss, ear discharge, ear pain, THROAT: Denies acute: sore throat, swelling, difficulty swallowing , pain with swallowing, change in voice. NECK: Denies acute: neck pain, neck swelling, stiff neck. HEART: Denies acute : palpitations, LUNGS: Denies acute: , wheezing, cough, hemoptysis ABDOMEN: Denies acute: abdominal pain, Nausea, Vomiting, diarrhea, melena , hematemesis, hematochezia SKIN: Denies acute: rash, redness, lesions, itchiness. EXTREMITIES: Denies acute: calf pain, numbness, tingling, weakness, denies pain in extremity. Denies acute: Low back pain. Neuro: Denies acute: focal neurological deficit, motor or sensory focal neurological deficit, tremors, seizure like activity, confusion, , change in mental status, loss of bowel or bladder function, cauda equina like symptoms. : Denies acute: dysuria, hematuria, flank pain, increase in urinary frequency. PSYCH: Denies acute: hallucination, suicidal ideation, homicidal ideation. FEMALE: Denies acute: abnormal vaginal bleeding, foul odor, unusual discharge. PHYSICAL EXAM: General: -----mild---acute distress, awake and alert. Head: normocephalic, atraumatic. Neck: supple, trachea is midline, no swelling. Throat: Normal phonation. Eyes:, no erythema, no purulent discharge, no proptosis, no icterus. Heart: regular rate, regular rhythm, no significant murmur appreciated. Lungs: no apparent respiratory distress, Able to speak in full sentences. No wheezing, no rhonchi, no crackles. No stridors Clear to auscultation bilaterally. Abdomen: non tender to palpation, non distended, soft, no guarding, no rebound, + bowel sounds. Neuro: Awake, Alert, oriented to name, self, situation, follows commands GCS=15. Speech is normal. Skin: no petechia, no purpura, no cyanosis, non-pale, not jaundice. Lower extremities: --trace bilateral- Pitting edema no deformity, no focal swelling, no calf TTP. Makes eye contact. moves all four extremities. Face: no apparent facial droop. Ambulating in the ED independently. ED COURSE: DISCLAIMER: This medical document was created using an electronic medical record system with voice recognition software and computerized dictation system. Although this document has been carefully reviewed, there might still be some phonetic and typographical errors. Occasional wrong-word or "sound-alike" substitutions may have occurred due to the inherent limitations of voice recognition software. These areas are purely typographical due to imperfections of the software programs and do not reflect any compromise in the patient's medical care. Please read the chart carefully and recognize, using context, where these substitutions have occurred. Chief Complaint: Chest Pain Time Seen by MD: 19:01 Primary Care Provider: DR LOJA [facility] Reviewed Notes: Skip Pitman Notes, Allergies Allergies: Coded Allergies: NO KNOWN ALLERGIES (Unverified , 10/24/19) Home Meds Active Scripts Pantoprazole Sodium Sesquihydr (Pantoprazole Sodium) 40 Mg Tab, 40 MG PO DAILY for 30 Days, #30 TAB Prov:DECLAN MCBRIDE RESIDENT 02/02/25 Cephalexin (KEFLEX CAPSULE) 250 Mg Cp, 1 CAP PO QID for 3 Days, #28 CAP Prov:DECLAN MCBRIDE [facility] 02/02/25 Valsartan (Valsartan) 80 Mg Tab, 80 MG PO DAILY for 30 Days, #30 TAB Prov:DECLAN MCBRIDE [facility] 02/02/25 Furosemide (Furosemide) 40 Mg Tab, 40 MG PO DAILY for 30 Days, #30 TAB [facility]/25 Acetaminophen (Acetaminophen) 325 Mg Tab, 650 MG PO Q6HP PRN for 10 Days, #80 TAB Prov:DECLAN MCBRIDE [facility] 02/02/25 Atorvastatin Calcium (Lipitor) 80 Mg Tab, 1 TAB PO HS for 30 Days, #30 TAB 5 [facility]/02/25 Docusate Sodium (Colace) 100 Mg Cap, 1 CAP PO BID for 30 Days, #60 CAP [facility]/25 Carvedilol (Carvedilol) 3.125 Mg Tab, 1 TAB PO BID for 30 Days, #60 TAB 3 Refills [facility] 01/02/25 Empagliflozin (Jardiance) 10 Mg Tab, 10 MG PO DAILY for 30 Days, #30 TAB [facility] 01/02/25 Spironolactone (Spironolactone) 25 Mg Tab, 1 TAB PO DAILY for 30 Days, #30 TAB 1 Refill [facility]НА[facility] 01/02/25 Reported Medications Baclofen (Baclofen) 10 Mg Tab, 10 MG PO Q8HP PRN for PAIN SCALE 1 THRU 6 for 30 Days, MG 08/26/20 Gabapentin (Gabapentin) 300 Mg Cap, 1 CAP PO TID, #90 CAP 5 Refills 08/26/20 Insulin Glargine (Basaglar Kwikpen) 100 Unit/Ml Inj, 33 UNIT SC HS, INJ 06/03/20 Insulin Aspart (Insulin Aspart Flexpen) 100 Unit/Ml Inj, 6 UNIT SC TID, INJ SLIDING SCALE 06/03/20 Information Source: Patient, Emergency Med Personnel Mode of Arrival: EMS Past Medical History PAST MEDICAL HISTORY: DM, GERD, High Lipids TAX APPRAISER History: No Pertinent TAX APPRAISER History Family History Family History: Family hx of DM Social History Smoker: Non-Smoker Alcohol: Denies ETOH Use Drugs: Denies Drug Use Lives In: Home EKG EKG : Pulse Rate (adult): 93 Cardiac Rhythm: NSR Was a procedure done? Was a procedure done?: No CP Differential Dx Differential Diagnosis: Other (DDx include ACS, unstable angina, anxiety, PE, pneumothroax, neoplasm, cardiac ischemia, COPD, asthma, CHF, pleural effusion, tobacco abuse, pneumonia, hypoxia, hypercapnia, anemia., infection/sepsis., pulmonary edema. Asthma, Cardiac tamponade, infection.) Differential Diagnosis: CHF Differential Diagnosis: Angina, Chest Wall Pain, Costochondritis, Esophageal reflux/spasm, Gastritis, Myocardial Infarction, Other (Ddx include but not limitied to gastritis, musculoskeletal pain, radiculopathy, atypical chest pain, dissection, aneurysm, ACS, unstable angina, hiatal hernia, GERD, anxiety, costochondritis, PE, pneumothroax, neoplasm, cardiac ischemia, drug abuse, anemia.) X-Ray, Labs, Meds, VS Vital Signs Date Time Temp Pulse Resp B/P (MAP) Pulse Ox O2 Delivery O2 Flow Rate FiO2 09/06/25 22:00 91 16 148/94 (112) 99 09/06/25 21:58 95 20 167/98 99 0.0 21 09/06/25 20:53 167/98 09/06/25 20:21 93 09/06/25 20:01 194/111 09/06/25 19:44 194/111 09/06/25 19:40 90 09/06/25 19:00 95 19 194/111 (138) 99 09/06/25 19:00 95 19 99 Room Air* 0 21 09/06/25 18:55 93 09/06/25 18:55 98.6 98 18 191/116 97 98.6 Lab Test 09/06/25 22:20 09/06/25 20:40 09/06/25 19:38 Range/Units Troponin I High Sensitivity 8 7 9 </=34 ng/L White Blood Count 6.9 4.4-10.8 10^3/uL Red Blood Count 3.97 L 4.0-5.20 10^6/uL Hemoglobin 11.9 L 12.2-16.2 g/dL Hematocrit 34.8 L 36.0-46.0 % Mean Corpuscular Volume 87.8 80.0-100.0 fL Mean Corpuscular Hemoglobin 30.1 28.0-32.0 pg Mean Corpuscular Hemoglobin Concent 34.2 32.0-36.0 g/dL Red Cell Distribution Width 14.3 11.8-14.3 % Platelet Count 247 140-450 10^3/uL Mean Platelet Volume 8.3 6.9-10.8 fL Neutrophils (%) (Auto) 51.3 37.0-80.0 % Lymphocytes (%) (Auto) 41.4 10.0-50.0 % Monocytes (%) (Auto) 6.7 0.0-12.0 % Eosinophils (%) (Auto) 0.3 0.0-7.0 % Basophils (%) (Auto) 0.3 0.0-2.0 % Neutrophils # (Auto) 3.5 1.6-8.6 10 ^3/uL Lymphocytes # (Auto) 2.9 0.4-5.4 10 ^3/uL Monocytes # (Auto) 0.5 0-1.3 10 ^3/uL Eosinophils # (Auto) 0 0-0.8 10 ^3/uL Basophils # (Auto) 0 0-0.2 10 ^3/uL Nucleated Red Blood Cells 0.2 % Sodium Level 144 136-145 mmol/L Potassium Level 3.8 3.5-5.1 mmol/L Chloride Level 107 98-107 mmol/L Carbon Dioxide Level 23 20-31 mmol/L Anion Gap 14 5-15 Blood Urea Nitrogen 21 9-23 mg/dL Creatinine 1.69 H 0.550-1.02 mg/dL Glomerular Filtration Rate Calc 42 >90 mL/min BUN/Creatinine Ratio 12.4 10.0-20.0 Serum Glucose 151 H 74-106 mg/dL Calcium Level 8.9 8.7-10.4 mg/dL Magnesium Level 2.1 1.6-2.6 mg/dL Total Bilirubin 0.9 0.2-1.0 mg/dL Aspartate Amino Transferase (AST) 20 13-40 U/L Alanine Aminotransferase (ALT) 22 7-40 U/L Alkaline Phosphatase 123 H 46-116 U/L B-Type Natriuretic Peptide 41.75 0-100 pg/mL Total Protein 6.9 5.7-8.2 g/dL Albumin 3.7 3.2-4.8 g/dL Current Medications Medications (Trade) Dose Ordered Sig/Sid Route Start Time Stop Time Status Last Admin Furosemide (Lasix Injection) 60 mg ONCE ONCE IV 09/06/25 19:15 09/06/25 19:16 DC 09/06/25 20:01 Nitroglycerin (Ntrostat Sublingual) 0.4 mg ONCE ONCE SL 09/06/25 19:15 09/06/25 19:16 DC 09/06/25 19:44 Atorvastatin Calcium (Lipitor) 20 mg HS PO 09/06/25 22:00 09/06/25 23:27 Amlodipine Besylate (Norvasc Tablet) 5 mg ONCE ONCE PO 09/06/25 21:30 09/06/25 21:39 DC 09/06/25 23:27 Diagnostic Test (Pha) (Accu-Chek Comfort Curve T) 1 strip ACHS 09/06/25 22:00 09/06/25 23:32 Sodium Chloride (Saline Lock Ns) 10 ml Q8HR IV 09/06/25 22:00 09/06/25 22:41 [place] [address] Ph: [phone] DIAGNOSTIC IMAGING Diagnostic Imaging Report : [id number] Signed PATIENT: MICK LIANG ACCT: [id number] UNIT: [id number] : 1995 LOC: ER ROOM / BED: / AGE / SEX: 29 / F ADM STATUS: REG ER SERVICE 1903 ORDERING PHYSICIAN: YAMILET IVY DO PROCEDURE(s): CXRP - CHEST PORTABLE REASON: cp/sob ORDER NUMBER(s): [id number], ACCESSION NUMBER(s): [id number] CHEST RADIOGRAPH Indication: cp/sob Technique: 1 view Comparison: XY CHEST XRAY 1 VIEW on DOS: 02/02/25, XY CHEST XRAY 1 VIEW on DOS: 02/01/25, XY CHEST PORTABLE on DOS: 01/30/25, XY CHEST PORTABLE on DOS: 12/31/24, CHEST PORTABLE on DOS: 08/25/20 FINDINGS: Lines and Tubes: External leads. Lungs/Pleura: No focal consolidation, pleural effusion or pneumothorax. Cardiomediastinum: Unremarkable. Other: No acute osseous abnormality. Spinal fixation hardware. IMPRESSION: 1. No acute cardiopulmonary abnormality. ATED BY: VANESSA BAER MD DICTATED DATE/TIME: 09/06/252019 SIGNED BY: VANESSA BAER MD SIGNED DATE/TIME: 09/06/252019 CC: Time of 1ST Reevaluation: 20:21 Reevaluation 1ST: Unchanged Patient Education/Counseling: Diagnosis, Treatment Family Education/Counseling: No Family Present Comments MDM: patient presented with the above HPI.---cardiac---workup was initiated. patient was found with the above mentioned diagnosis. the following medications were ordered: please refer to order lists of meds and tests obtained by myself Dr. Ivy. Patient ED course and VS have been stabilized. Patient has been reassessed in the ED and remained in a stable condition. Pertinent incidental findings were discussed with the patient and/or family. Patient/family voices understanding and is agreeable with plan. Patient has been observed in the ED adequate length of time to insure improvement/stability. Escalation of care considered: Consideration of escalation to observation or admission Patient was ADMITTED to the medicine team for further evaluation and treatment of their presentation. All the reports of any imaging studies that were ordered by myself were reviewed by myself. SEPSIS Sepsis Screen Date sepsis recognized/suspect: Sep 06, 2025 Time Sepsis recognized/suspect: 1854 Recent Procedure: No On Antibiotic Therapy: No Respiratory Rate >20: No Heart Rate >90: Yes Temp<36 C (96.8 F) or >38.3 C: No SBP <90 or MAP <65 mmHG: No New Acute Mental Status Change: No Is the patient on CPAP, BIPAP,: No Physician Orders Inspector Water Pollution Control (09/06/25 ) Chest Portable (09/06/25 19:03) Electrocardigram (09/06/25 20:03) Electrocardigram (09/06/25 22:03) Atorvastatin (Lipitor) (09/06/25 22:00) Aspirin Tablet (09/07/25 10:00) Famotidine Injection (Pepcid Injection) (09/07/25 10:00) Hydralazine Injection (Apresoline Inject (09/06/25 21:30) Metoprolol Tartrate Tablet (Lopressor Ta (09/06/25 22:00) Consistent Carb(Ccho)Diabetes (09/07/25 Breakfast) Albuterol Medneb (Ventolin Medneb) (09/06/25 21:30) Ipratropium Medneb (Atrovent Medneb) (09/06/25 21:30) Amlodipine Tablet (Norvasc Tablet) (09/07/25 10:00) Glucose Blood (Accu-Chek Comfort Curve T (09/06/25 22:00) Insulin R (Human) (Insulin R) (09/06/25 22:00) Insulin R (Human) (Insulin R) (09/07/25 07:00) Dextrose 50% Syringe (09/06/25 21:30) Allergies (09/06/25:19) Code Status (09/06/25:) Sodium Chloride Lock (Saline Lock Ns) (09/06/25 22:00) Oxygen Per Hour (09/06/25 21:19) Hydrocodone-Acet 5/325mg Tab ([place] 5/32 (09/06/25 21:30) Ondansetron Hcl (Zofran) (09/06/25 21:30) Docusate Sodium Capsule (Colace Capsule) (09/06/25 21:30) Complete Blood Count (09/07/25 04:00) Comprehensive Metabolic Panel (09/07/25 04:00) Condition: Serious (09/06/25 21:19) Acetaminophen Tablet (Tylenol Tablet) (09/06/25 21:30) Bedrest With Bathroom Privileg (09/06/25 21:19) Sequential Compression Device (09/06/25 ) Admit (09/06/25 23:16) Nitroglycerin Sublingual (Ntrostat Subli (09/06/25 23:30) Morphine Sulfate Injection (09/06/25 23:30) Stat Ekg For Chest Pain (09/06/25 23:16) Notify Of Changes From Base (09/06/25 23:16) Industrial Sales Representative For 24 Hours (09/06/25 23:16) Emergency Dysrhythmia Protocol (09/06/25 23:16) Rhythm Strips Once Every Shift (09/06/25 23:16) Oxygen By Nasal Cannula (09/06/25 23:16) Vital Signs Date Time Temp Pulse Resp B/P (MAP) Pulse Ox O2 Delivery O2 Flow Rate FiO2 09/06/25 22:00 91 16 148/94 (112) 99 09/06/25 21:58 95 20 167/98 99 0.0 21 09/06/25 20:53 167/98 09/06/25 20:21 93 09/06/25 20:01 194/111 09/06/25 19:44 194/111 09/06/25 19:40 90 09/06/25 19:00 95 19 194/111 (138) 99 09/06/25 19:00 95 19 99 Room Air* 0 21 09/06/25 18:55 93 09/06/25 18:55 98.6 98 18 191/116 97 98.6 Laboratory Tests Test 09/06/25 19:38 White Blood Count 6.9 10^3/uL (4.4-10.8) Medications Medications Dose Ordered Sig/Sid Route Start Time Stop Time Status Last Admin Dose Admin Amlodipine Besylate 5 mg ONCE ONCE PO 09/06/25 21:30 09/06/25 21:39 DC 09/06/25 23:27 Atorvastatin Calcium 20 mg HS PO 09/06/25 22:00 09/06/25 23:27 Diagnostic Test (Pha) 1 strip ACHS 09/06/25 22:00 09/06/25 23:32 Furosemide 60 mg ONCE ONCE IV 09/06/25 19:15 09/06/25 19:16 DC 09/06/25 20:01 Nitroglycerin 0.4 mg ONCE ONCE SL 09/06/25 19:15 09/06/25 19:16 DC 09/06/25 19:44 Sodium Chloride 10 ml Q8HR IV 09/06/25 22:00 09/06/25 22:41 Departure 1 Departure Time of Disposition: 21:05 Impression: Primary Impression: Chest pain Additional Impressions: Dyspnea CHF (congestive heart failure) Disposition: ADMITTED INPATIENT Admit to: Tele Condition: Guarded Discharged With: Self Critical Care Note Critical Care Time?: Yes (35 min-critical care time only) Stability Stability form required: No Heart Score Heart Score: Heart Score Response (Comments) Value History Moderate Suspicious 1 EKG Normal 0 Age <45 0 Risk Factors 1 or 2 risk factors 1 Troponin Normal limit 0 Total 2 I personally scribed for YAMILET IVY DO ([email or web address]) on 09/06/25 at 19:13. Electronically submitted by Dimitri Hsu ([facility]). I personally scribed for YAMILET IVY DO ([email or web address]) on 09/06/25 at 19:21. Electronically submitted by Dimitri Hsu ([facility]). I personally scribed for YAMILET IVY DO (DVFARMI) on 09/06/25 at 20:21. Electronically submitted by Dimitri Hsu ([facility]). I personally scribed for YAMILET IVY DO (DVFARMI) on 09/06/25 at 23:47. Electronically submitted by Dimitri Hsu ([facility]). I personally scribed for YAMILET IVY DO ([email or web address]) on 09/07/25 at 00:23. Electronically submitted by Dimitri Hsu ([facility]). YAMILET IVY DO Sep 06, 2025 19:13
[2025-09-06] MEDS: NITROGLYCERIN 0.4 MG SL TAB SL ONE (19:44)
[2025-09-06 19:57] LABS: Hematocrit 34.8 % (36.0-46.0); Hemoglobin 11.9 g/dL (12.2-16.2); Mean Corpuscular Hemoglobin 30.1 pg (28.0-32.0); Mean Corpuscular Volume 87.8 fL (80.0-100.0); Nucleated Red Blood Cells % 0.2 %
--- NOTE | 2025-09-06 19:59 | ECG ---
[facility] Test Date: 2025-09-06 Test Time: 19:40:55 Pat Name: MICK LIANG Department[facility] ED Patient [facility]: [id number] Room: 0293T Gender: F Supervisor Agricultural Education: JEREMIAH : 1995 Requested By: YAMILET IVY Order Number: [id number] Reading MD: Jose Moore Measurements Intervals [place] Rate: 90 P: 38 DC: 141 QRS: 54 QRSD: 82 T: 44 QT: 482 QTc: 590 Interpretive Statements Sinus rhythm Borderline T wave abnormalities Prolonged QT interval Electronically Signed On 09-08-2025 20:36:52 PDT by Jose Moore Please click the below link to view image of tracing.
[2025-09-06] MEDS: FUROSEMIDE 100 MG/10ML VIAL IV ONE (20:01)
--- NOTE | 2025-09-06 20:22 | DVH ---
CHEST RADIOGRAPH Indication: cp/sob Technique: 1 view Comparison: XY CHEST XRAY 1 VIEW on DOS: 02/02/25, XY CHEST XRAY 1 VIEW on DOS: 02/01/25, XY CHEST PORTAB LE on DOS: 01/30/25, XY CHEST PORTABLE on DOS: 12/31/24, CHEST PORTABLE on DOS: 08/25/20 FINDINGS: Lines and Tubes: External leads. Lungs/Pleura: No focal consolidation, pleural effusion or pneumothorax. Cardiomediastinum: Unremarkable. Other: No acute osseous abnormality. Spinal fixation hardware. IMPRESSION: 1. No acute cardiopulmonary abnormality.
[2025-09-06 20:25] LABS: Alanine Aminotransferase 22 U/L (7-40); Albumin 3.7 g/dL (3.2-4.8); Anion Gap 14 (5-15); BUN/Creatinine Ratio 12.4 (10.0-20.0); Bilirubin, Total 0.9 mg/dL (0.2-1.0); Blood Urea Nitrogen 21 mg/dL (9-23); Calcium 8.9 mg/dL (8.7-10.4); Carbon Dioxide 23 mmol/L (20-31); Magnesium 2.1 mg/dL (1.6-2.6); Potassium 3.8 mmol/L (3.5-5.1); Sodium 144 mmol/L (136-145); Total Protein 6.9 g/dL (5.7-8.2)
[2025-09-06 20:26] LABS: Alkaline Phosphatase 123 U/L (46-116); Chloride 107 mmol/L (98-107); Glucose 151 mg/dL (74-106)
[2025-09-06] MEDS ORDERED: DOCUSATE SOD 100 MG CAP PO PRN (21:30)
[2025-09-06] MEDS ORDERED: DEXTROSE (50%) 50ML SYRG IV PRN (21:30)
[2025-09-06] MEDS ORDERED: hydrALAZINE HCL 20 MG/ML VL IV PRN (21:30)
[2025-09-06] MEDS ORDERED: ALBUTEROL SULF 2.5 MG/0.5ML(0.5%) NEB SOLN NEB PRN (21:30)
[2025-09-06] MEDS ORDERED: IPRATROPIUM BROM 0.5 MG/2.5ML INH SOL NEB PRN (21:30)
[2025-09-06] MEDS ORDERED: HYDROcodone-ACET 5/325MG TAB PO PRN (21:30)
[2025-09-06] MEDS ORDERED: ACETAMINOPHEN 325 MG TAB PO PRN (21:30)
[2025-09-06 21:58] VITALS: BP 167/98; PULSE 95; RESP 20; O2SAT 99
[2025-09-06] MEDS: SODIUM CHLOR 0.9% PF (SALINE LOCK) 10ML VIAL/SYR IV SCH (22:41)
--- NOTE | 2025-09-06 23:17 | DVHHP2 ---
History of Present Illness Reason for Visit: Acute chest pain History of Present Illness The patient is a 23-year-old female with past medical history of GERD, diabetes mellitus, hyperlipidemia, and hypertension who presented to [facility] ED with complaint of chest pain. Patient reports that she has been experiencing chest pain associated with shortness of breaths and lightheadedness for the past 2 days. Patient was assessed by her home health nurse yesterday and found some slight edema bilateral extremity and was given some Lasix, repeated visits today showed symptoms getting worse that prompted this visit. Patient was seen and evaluated in the ED, laboratory data shows WBC 6.1, hemoglobin 11.9, hematocrit 34.8, platelets 247, sodium 144, potassium 3.8, BUN 21, creatinine 1.69, glucose 151, calcium 8.9, BNP 41.75, troponin 9, blood pressure 197/116 trending down to 167/98, heart rate 92, temperature 98.6 F, O2 saturation 99% on oxygen. Chest x-ray show no acute cardiopulmonary abnormality. Please see medication orders section in the computer. On my assessment, patient denied chest pain at this moment, no dizziness, diaphoresis, headache, currently on oxygen, no diarrhea, nausea, vomiting, no fever, no chills. Patient was admitted for further evaluation and medical management. Past Medical History DM, GERD, High Lipids Past Surgical History Denies all surgeries Family History Reviewed, noncontributory to the management of this case. Past Social History The patient lives at home, denies smoking, alcohol or illicit drugs abuse. Review of Systems Constitutional: No: Fever, Chills, Sweats, Weakness, Malaise, Other Eyes: No: Pain, Vision change, Conjunctivae inflammation, Eyelid inflammation, Other, Redness ENT: No: Ear pain, Ear discharge, Nose pain, Nose discharge, Nose congestion, Mouth pain, Mouth swelling, Throat pain, Throat swelling, Other Respiratory: Shortness of breath; No: Cough, Dry, SOB with excertion, Wheezing, Hemoptysis, Pleuritic Pain, Sputum, Wheezing, Other Cardiovascular: Chest Pain, Lt Headedness; No: Palpitations, Orthopnea, Paroxysmal Noc. Dyspnea, Edema, Other Gastrointestinal: No: Nausea, Vomiting, Abdominal Pain, Diarrhea, Constipation, Melena, Hematochezia, Other Genitourinary: No Dysuria, No Frequency, No Incontinence, No Hematuria, No Retention, No Other Musculoskeletal: No: other, neck pain, shoulder pain, arm pain, back pain, hand pain, leg pain, foot pain Skin: No: Rash, Lesions, Jaundice, Bruising, Other Neurological: No: Weakness, Numbness, Incoordination, Change in speech, Confusion, Seizures, Other Allergies: Coded Allergies: NO KNOWN ALLERGIES (Unverified , 10/24/19) Medications Current Medications Medications Dose Ordered Sig/Sid Route Start Time Stop Time Status Last Admin Dose Admin Atorvastatin Calcium 20 mg HS PO 09/06/25 22:00 Aspirin 81 mg DAILY PO 09/07/25 10:00 Famotidine 20 mg DAILY IV 09/07/25 10:00 Hydralazine HCl 10 mg Q6HP PRN IV 09/06/25 21:30 Metoprolol Tartrate 25 mg BID PO 09/06/25 22:00 Albuterol 2.5 mg Q4HPRN PRN NEB 09/06/25 21:30 Ipratropium [place] 0.5 mg Q4HPRN PRN NEB 09/06/25 21:30 Amlodipine Besylate 5 mg DAILY PO 09/07/25 10:00 Diagnostic Test (Pha) 1 strip ACHS 09/06/25 22:00 Insulin Human Regular HS SC 09/06/25 22:00 Insulin Human Regular AC SC 09/07/25 07:00 Dextrose 50 ml UD PRN IV 09/06/25 21:30 Sodium Chloride 10 ml Q8HR IV 09/06/25 22:00 09/06/25 22:41 10 ML Acetaminophen/ Hydrocodone Bitart 1 tab Q4HP PRN PO 09/06/25 21:30 Ondansetron HCl 4 mg Q4HP PRN IV 09/06/25 21:30 Docusate Sodium 100 mg BIDPRN PRN PO 09/06/25 21:30 Acetaminophen 650 mg Q6HP PRN PO 09/06/25 21:30 Exam Vital Signs Vital Signs Date Time Temp Pulse Resp B/P (MAP) Pulse Ox O2 Delivery O2 Flow Rate FiO2 09/06/25 21:58 95 20 167/98 99 0.0 21 09/06/25 19:00 Room Air* 09/06/25 18:55 98.6 98.6 General Appearance: Alert, Oriented X3, Cooperative, No acute distress HEENT: Atraumatic, PERRLA, EOMI, Mucous membr. moist/pink Respiratory: Normal air movement Cardiovascular: Regular rate, Normal S1, Normal S2, No murmurs Abdominal: Normal bowel sounds, Soft, No tenderness, No hepatospenomegaly, No masses Extremities: No clubbing, No cyanosis, No edema, Normal pulses, No tenderness/swelling Skin: No rashes, No breakdown, No significant lesion Neuro: Normal gait, Normal speech, Strength at 5/5 X4 ext, Normal tone, Sensation intact, Cranial nerves 3-12 NL, Reflexes 2+ Psych/Mental Status: Mental status NL, Mood NL Labs/Xrays Labs Test 09/06/25 22:20 09/06/25 19:38 Range/Units Troponin I High Sensitivity 8 </=34 ng/L White Blood Count 6.9 4.4-10.8 10^3/uL Red Blood Count 3.97 L 4.0-5.20 10^6/uL Hemoglobin 11.9 L 12.2-16.2 g/dL Hematocrit 34.8 L 36.0-46.0 % Mean Corpuscular Volume 87.8 80.0-100.0 fL Mean Corpuscular Hemoglobin 30.1 28.0-32.0 pg Mean Corpuscular Hemoglobin Concent 34.2 32.0-36.0 g/dL Red Cell Distribution Width 14.3 11.8-14.3 % Platelet Count 247 140-450 10^3/uL Mean Platelet Volume 8.3 6.9-10.8 fL Neutrophils (%) (Auto) 51.3 37.0-80.0 % Lymphocytes (%) (Auto) 41.4 10.0-50.0 % Monocytes (%) (Auto) 6.7 0.0-12.0 % Eosinophils (%) (Auto) 0.3 0.0-7.0 % Basophils (%) (Auto) 0.3 0.0-2.0 % Neutrophils # (Auto) 3.5 1.6-8.6 10 ^3/uL Lymphocytes # (Auto) 2.9 0.4-5.4 10 ^3/uL Monocytes # (Auto) 0.5 0-1.3 10 ^3/uL Eosinophils # (Auto) 0 0-0.8 10 ^3/uL Basophils # (Auto) 0 0-0.2 10 ^3/uL Nucleated Red Blood Cells 0.2 % Sodium Level 144 136-145 mmol/L Potassium Level 3.8 3.5-5.1 mmol/L Chloride Level 107 98-107 mmol/L Carbon Dioxide Level 23 20-31 mmol/L Anion Gap 14 5-15 Blood Urea Nitrogen 21 9-23 mg/dL Creatinine 1.69 H 0.550-1.02 mg/dL Glomerular Filtration Rate Calc 42 >90 mL/min BUN/Creatinine Ratio 12.4 10.0-20.0 Serum Glucose 151 H 74-106 mg/dL Calcium Level 8.9 8.7-10.4 mg/dL Magnesium Level 2.1 1.6-2.6 mg/dL Total Bilirubin 0.9 0.2-1.0 mg/dL Aspartate Amino Transferase (AST) 20 13-40 U/L Alanine Aminotransferase (ALT) 22 7-40 U/L Alkaline Phosphatase 123 H 46-116 U/L B-Type Natriuretic Peptide 41.75 0-100 pg/mL Total Protein 6.9 5.7-8.2 g/dL Albumin 3.7 3.2-4.8 g/dL PATIENT: MICK LIANG ACCT: [id number] UNIT: [id number] : 1995 LOC: ER ROOM / BED: / AGE / SEX: 29 / F ADM STATUS: REG ER SERVICE 02 ORDERING PHYSICIAN: YAMILET IVY DO PROCEDURE(s): CXRP - CHEST PORTABLE REASON: cp/sob ORDER NUMBER(s): [id number], ACCESSION NUMBER(s): [id number] CHEST RADIOGRAPH Indication: cp/sob Technique: 1 view Comparison: XY CHEST XRAY 1 VIEW on DOS: 02/02/25, XY CHEST XRAY 1 VIEW on DOS: 02/01/25, XY CHEST PORTABLE on DOS: 01/30/25, XY CHEST PORTABLE on DOS: 12/31/24, CHEST PORTABLE on DOS: 08/25/20 FINDINGS: Lines and Tubes: External leads. Lungs/Pleura: No focal consolidation, pleural effusion or pneumothorax. Cardiomediastinum: Unremarkable. Other: No acute osseous abnormality. Spinal fixation hardware. IMPRESSION: 1. No acute cardiopulmonary abnormality. SEPSIS Sepsis Screen Date sepsis recognized/suspect: Sep 06, 2025 Time Sepsis recognized/suspect: 1899 Recent Procedure: No On Antibiotic Therapy: No Respiratory Rate >20: No Heart Rate >90: No Temp<36 C (96.8 F) or >38.3 C: No SBP <90 or MAP <65 mmHG: No New Acute Mental Status Change: No Is the patient on CPAP, BIPAP,: No Physician Orders Disability Benefits Specialist (09/06/25 ) Chest Portable (09/06/25 19:03) Electrocardigram (09/06/25 20:03) Electrocardigram (09/06/25 22:03) Atorvastatin (Lipitor) (09/06/25 22:00) Aspirin Tablet (09/07/25 10:00) Famotidine Injection (Pepcid Injection) (09/07/25 10:00) Hydralazine Injection (Apresoline Inject (09/06/25 21:30) Metoprolol Tartrate Tablet (Lopressor Ta (09/06/25 22:00) Consistent Carb(Ccho)Diabetes (09/07/25 Breakfast) Albuterol Medneb (Ventolin Medneb) (09/06/25 21:30) Ipratropium Medneb (Atrovent Medneb) (09/06/25 21:30) Amlodipine Tablet (Norvasc Tablet) (09/07/25 10:00) Glucose Blood (Accu-Chek Comfort Curve T (09/06/25 22:00) Insulin R (Human) (Insulin R) (09/06/25 22:00) Insulin R (Human) (Insulin R) (09/07/25 07:00) Dextrose 50% Syringe (09/06/25 21:30) Allergies (09/06/25 21:19) Code Status (09/06/25 21:19) Sodium Chloride Lock (Saline Lock Ns) (09/06/25 22:00) Oxygen Per Hour (09/06/25 21:19) Hydrocodone-Acet 5/325mg Tab (Ucon 5/32 (09/06/25 21:30) Ondansetron Hcl (Zofran) (09/06/25 21:30) Docusate Sodium Capsule (Colace Capsule) (09/06/25 21:30) Complete Blood Count (09/07/25 04:00) Comprehensive Metabolic Panel (09/07/25 04:00) Condition: Serious (09/06/25 21:19) Acetaminophen Tablet (Tylenol Tablet) (09/06/25 21:30) Bedrest With Bathroom Privileg (09/06/25 21:19) Sequential Compression Device (09/06/25 ) Vital Signs Date Time Temp Pulse Resp B/P (MAP) Pulse Ox O2 Delivery O2 Flow Rate FiO2 09/06/25 21:58 95 20 167/98 99 0.0 21 09/06/25 20:53 167/98 09/06/25 20:21 93 09/06/25 20:01 194/111 09/06/25 19:44 194/111 09/06/25 19:40 90 09/06/25 19:00 95 19 194/111 (138) 99 09/06/25 19:00 95 19 99 Room Air* 0 21 09/06/25 18:55 93 09/06/25 18:55 98.6 98 18 191/116 97 98.6 Laboratory Tests Test 09/06/25 19:38 White Blood Count 6.9 10^3/uL (4.4-10.8) Medications Medications Dose Ordered Sig/Sid Route Start Time Stop Time Status Last Admin Dose Admin Furosemide 60 mg ONCE ONCE IV 09/06/25 19:15 09/06/25 19:16 DC 09/06/25 20:01 60 MG Nitroglycerin 0.4 mg ONCE ONCE SL 09/06/25 19:15 09/06/25 19:16 DC 09/06/25 19:44 0.4 MG Sodium Chloride 10 ml Q8HR IV 09/06/25 22:00 09/06/25 22:41 10 ML Assessment/Plan Assessment/Plan Chest pain Hypertensive urgency Dyspnea Acute respiratory distress Acute renal injury Diabetes mellitus with hyperglycemia Plan 1. Admit to telemetry unit 2. Breathing treatment 3. Pain control management 4. Management of fluids and electrolytes 5. Consultation for hospitalist 6. Diagnostic tests chest x-ray 7. DVT prophylaxis-on SCDs 8. Repeat labs CBC, CMP in a.m. 9. Continue with current medical management 10. Treatment plan discussed with patient and RN. Patient verbalized understanding. Plan discussed with: Patient, Other (RN) My Orders Orders - VALENCIA BOO DNP Procedure Category Date Status Time Atorvastatin (Lipitor) PHA 09/06/25 In Process 22:00 Aspirin Tablet PHA 09/07/25 In Process 10:00 Famotidine Injection PHA 09/07/25 In Process (Pepcid Injection) 10:00 Hydralazine Injection PHA 09/06/25 In Process (Apresoline Inject 21:30 Metoprolol Tartrate PHA 09/06/25 In Process Tablet (Lopressor Ta 22:00 Consistent DIET 09/07/25 Transmitted Carb(Ccho)Diabetes Breakfast Albuterol Medneb PHA 09/06/25 In Process (Ventolin Medneb) 21:30 Ipratropium Medneb PHA 09/06/25 In Process (Atrovent Medneb) 21:30 Amlodipine Tablet PHA 09/07/25 In Process (Norvasc Tablet) 10:00 Glucose Blood PHA 09/06/25 In Process (Accu-Chek Comfort 22:00 Insulin R (Human) PHA 09/06/25 In Process (Insulin R) 22:00 Insulin R (Human) PHA 09/07/25 In Process (Insulin R) 07:00 Dextrose 50% Syringe PHA 09/06/25 In Process 21:30 Allergies MAURO 09/06/25 In Process 21:19 Code Status CODE 09/06/25 Transmitted 21:19 Sodium Chloride Lock PHA 09/06/25 In Process (Saline Lock Ns) 22:00 Oxygen Per Hour RT 09/06/25 Transmitted 21:19 Hydrocodone-Acet PHA 09/06/25 In Process 5/325mg Tab (Ucon 21:30 Ondansetron Hcl PHA 09/06/25 In Process (Zofran) 21:30 Docusate Sodium PHA 09/06/25 In Process Capsule (Colace 21:30 Complete Blood Count LAB 09/07/25 Verified 04:00 Comprehensive LAB 09/07/25 Verified Metabolic Panel 04:00 Condition: Serious MAURO 09/06/25 In Process 21:19 Acetaminophen Tablet PHA 09/06/25 In Process (Tylenol Tablet) 21:30 Bedrest With Bathroom MAURO 09/06/25 In Process Privileg 21:19 Sequential MAURO 09/06/25 In Process Compression Device Problem List: (1) Chest pain (2) Hypertensive urgency (3) Dyspnea (4) Acute respiratory distress (5) Acute renal injury (6) Diabetes mellitus with hyperglycemia Date of Service: Sep 06, 2025 Billing Provider: VALENCIA BOO DNP Common Visit Codes: [id number] INP/OBS CARE (HIGH) VALENCIA BOO DNP Sep 06, 2025 23:17
[2025-09-06] MEDS: METOPROLOL TARTRATE 25 MG TAB PO SCH (23:26)
[2025-09-06] MEDS: ATORVASTATIN 20 MG TAB PO SCH (23:27)
[2025-09-06] MEDS ORDERED: MORPHINE SULFATE INJ 2 MG/ml SYRG IV PRN (23:30)
[2025-09-06] MEDS ORDERED: NITROGLYCERIN 0.4 MG SL TAB SL PRN (23:30)
[2025-09-06] MEDS: InsuLIN REG 1unit/0.01ml Soln (100units/ml) SC SCH (23:32)
[2025-09-06] MEDS: ACCU-CHEK COMFORT CURVE STRIP VI SCH (23:32)
[2025-09-07] MEDS: InsuLIN REG 1unit/0.01ml Soln (100units/ml) SC SCH (06:25)
[2025-09-07 06:59] LABS: Hematocrit 30.3 % (36.0-46.0); Hemoglobin 10.4 g/dL (12.2-16.2); Mean Corpuscular Hemoglobin 29.9 pg (28.0-32.0); Mean Corpuscular Volume 87.1 fL (80.0-100.0); Nucleated Red Blood Cells % 0.2 %
[2025-09-07 07:13] VITALS: O2SAT 98
[2025-09-07 07:13] LABS: Alanine Aminotransferase 15 U/L (7-40); Albumin 3.5 g/dL (3.2-4.8); Alkaline Phosphatase 110 U/L (46-116); Anion Gap 13 (5-15); BUN/Creatinine Ratio 8.6 (10.0-20.0); Blood Urea Nitrogen 14 mg/dL (9-23); Calcium 8.9 mg/dL (8.7-10.4); Carbon Dioxide 22 mmol/L (20-31); Chloride 107 mmol/L (98-107); Sodium 142 mmol/L (136-145); Total Protein 6.8 g/dL (5.7-8.2)
[2025-09-07 07:14] LABS: Bilirubin, Total 1.0 mg/dL (0.2-1.0)
[2025-09-07 07:17] LABS: Glucose 162 mg/dL (74-106); Potassium 3.2 mmol/L (3.5-5.1)
[2025-09-07 07:22] VITALS: PULSE 99; RESP 14; O2SAT 98
[2025-09-07] MEDS: FAMOTIDINE (10MG/ML) 2ML VL IV SCH (10:55)
--- NOTE | 2025-09-07 17:02 | DVHPN2 ---
Subjective I am assuming the care of the patient from today onwards. Patient's came with chest pain shortness of breaths found to have probable acute on chronic congestive heart failure exacerbation. Patient has stated that her swelling has been improved. Changes from previous H/P or p: No Changes Eyes: No Pain, No Vision change, No Conjunctivae inflammation, No Eyelid inflammation, No Other, No Redness ENT: No Ear pain, No Ear discharge, No Nose pain, No Nose discharge, No Nose congestion, No Mouth pain, No Mouth swelling, No Throat pain, No Throat swelling, No Other Cardiovascular: Chest Pain, Lt Headedness Respiratory: Shortness of breath Gastrointestinal: No Nausea, No Vomiting, No Abdominal Pain, No Diarrhea, No Constipation, No Melena, No Hematochezia, No Other Genitourinary: No Dysuria, No Frequency, No Incontinence, No Hematuria, No Retention, No Other Musculoskeletal: No other, No neck pain, No shoulder pain, No arm pain, No back pain, No hand pain, No leg pain, No foot pain Skin: No Rash, No Lesions, No Jaundice, No Bruising, No Other Objective Vitals Vital Signs Date Time Temp Pulse Resp B/P (MAP) Pulse Ox O2 Delivery O2 Flow Rate FiO2 09/07/25 15:20 82 18 124/81 (95) 99 09/07/25 14:00 98.2 98.2 09/07/25 07:22 Room Air* 0 21 Exam HEENT pupils are reactive Neck is supple CV is S1-S2 regular rate and rhythm Respiratory diminished breath sounds bases GI positive bowel sound Extremity no edema [employer]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 [employer] no motor deficit Medications Current Medications Medications Dose Ordered Sig/Sid Route Start Time Stop Time Status Last Admin Dose Admin Atorvastatin Calcium 20 mg HS PO 09/06/25 22:00 09/06/25 23:27 20 MG Aspirin 81 mg DAILY PO 09/07/25 10:00 09/07/25 10:55 81 MG Famotidine 20 mg DAILY IV 09/07/25 10:00 09/07/25 10:55 20 MG Hydralazine HCl 10 mg Q6HP PRN IV 09/06/25 21:30 Metoprolol Tartrate 25 mg BID PO 09/06/25 22:00 09/07/25 10:56 25 MG Albuterol 2.5 mg Q4HPRN PRN NEB 09/06/25 21:30 Ipratropium [place] 0.5 mg Q4HPRN PRN NEB 09/06/25 21:30 Amlodipine Besylate 5 mg DAILY PO 09/07/25 10:00 09/07/25 10:56 5 MG Diagnostic Test (Pha) 1 strip ACHS 09/06/25 22:00 09/07/25 06:21 1 STRIP Insulin Human Regular HS SC 09/06/25 22:00 Insulin Human Regular AC SC 09/07/25 07:00 09/07/25 06:25 2 UNITS Dextrose 50 ml UD PRN IV 09/06/25 21:30 Sodium Chloride 10 ml Q8HR IV 09/06/25 22:00 09/07/25 14:15 10 ML Acetaminophen/ Hydrocodone Bitart 1 tab Q4HP PRN PO 09/06/25 21:30 Ondansetron HCl 4 mg Q4HP PRN IV 09/06/25 21:30 Docusate Sodium 100 mg BIDPRN PRN PO 09/06/25 21:30 Acetaminophen 650 mg Q6HP PRN PO 09/06/25 21:30 Nitroglycerin 0.4 mg Q5MINP PRN SL 09/06/25 23:30 Morphine Sulfate 2 mg Q30M PRN IV 09/06/25 23:30 Laboratory Results Laboratory Tests 09/07/25 06:16 Chemistry Test 09/06/25 19:38 09/07/25 06:16 Albumin 3.7 g/dL (3.2-4.8) 3.5 g/dL (3.2-4.8) Calcium Level 8.9 mg/dL (8.7-10.4) 8.9 mg/dL (8.7-10.4) Magnesium Level 2.1 mg/dL (1.6-2.6) Total Protein 6.9 g/dL (5.7-8.2) 6.8 g/dL (5.7-8.2) Cardiac Markers Test 09/06/25 19:38 B-Type Natriuretic Peptide 41.75 pg/mL (0-100) LFT Test 09/06/25 19:38 09/07/25 06:16 Alanine Aminotransferase (ALT) 22 U/L (7-40) 15 U/L (7-40) Alkaline Phosphatase 123 U/L (46-116) H 110 U/L (46-116) Aspartate Amino Transferase (AST) 20 U/L (13-40) 20 U/L (13-40) Total Bilirubin 0.9 mg/dL (0.2-1.0) 1.0 mg/dL (0.2-1.0) Assessment/Plan Assessment/Plan 29-year-old female with a known history of congestive heart failure with a cardiomyopathy with the EF of 30-35% diabetes mellitus type 2, hypertension initially presented to the hospital with shortness of the chest pain found to have 1. Acute on chronic congestive heart failure exacerbation with systolic dysfunction 2. Hypertensive urgency 3. Diabetes mellitus type 1 4. GERD 5. Acute kidney injury with a underlying CKD stage 2 -continue current management including blood pressure medication follow up Nephrology recommendations A Plan discussed with: Patient Date of Service: Sep 07, 2025 Billing Provider: ROSY KHAN MD Common Visit Codes: [id number] INP/OBS CARE(HIGH) ROSY KHAN MD Sep 07, 2025 17:02
--- NOTE | 2025-09-07 17:04 | DVHINCON2 ---
Date of service: Sep 07, 2025 Referring Physician Chayo Marin Reason for Consultation PAOLO, and volume management History of Present Illness 29 Y/ O F with history of CKD II, DM type I, HTN, systolic CHF (EF: 30-35%), HLD, and GERD presented with chief complaint of chest pain, associated with SOB, and bilateral lower extremity swelling. In the ER patient was hypertensvie with BP: 191/116 mmHg, heart rate 98. CXR showed clear lungs. Cr 1.69 mg/dl, Troponin negative x2. He was admitted with impression of hypertensive urgency, and acute CHF. Lasix 60 mg IV x1 was given. Nephrology is consulted for PAOLO and volume management. Past Medical History DM HTN HLD GERD CHF Allergies: Coded Allergies: NO KNOWN ALLERGIES (Unverified , 10/24/19) Home Meds Active Scripts Pantoprazole Sodium Sesquihydr (Pantoprazole Sodium) 40 Mg Tab, 40 MG PO DAILY for 30 Days, #30 TAB Prov:DECLAN MCBRIDE 02/02/25 Cephalexin (KEFLEX CAPSULE) 250 Mg Cp, 1 CAP PO QID for 3 Days, #28 CAP Prov:DECLAN MCBRIDE 02/02/25 Valsartan (Valsartan) 80 Mg Tab, 80 MG PO DAILY for 30 Days, #30 TAB Prov:DECLAN MCBRIDE [facility] [place] 02/02/25 Furosemide (Furosemide) 40 Mg Tab, 40 MG PO DAILY for 30 Days, #30 TAB Prov:DECLAN MCBRIDE [facility] [place] 02/02/25 Acetaminophen (Acetaminophen) 325 Mg Tab, 650 MG PO Q6HP PRN for 10 Days, #80 TAB Prov:DECLAN MCBRIDE 02/02/25 Atorvastatin Calcium (Lipitor) 80 Mg Tab, 1 TAB PO HS for 30 Days, #30 TAB 5 Refills Prov:ИРИНА DEMARCO 01/02/25 Docusate Sodium (Colace) 100 Mg Cap, 1 CAP PO BID for 30 Days, #60 CAP Prov:ИРИНА DEMARCO 01/02/25 Carvedilol (Carvedilol) 3.125 Mg Tab, 1 TAB PO BID for 30 Days, #60 TAB 3 Refills Prov:ИРИНА DEMARCO 01/02/25 Empagliflozin (Jardiance) 10 Mg Tab, 10 MG PO DAILY for 30 Days, #30 TAB Prov:ИРИНА DEMARCO RESIDENT 01/02/25 Spironolactone (Spironolactone) 25 Mg Tab, 1 TAB PO DAILY for 30 Days, #30 TAB 1 Refill Prov:ИРИНА DEMARCO RESIDENT 01/02/25 Reported Medications Baclofen (Baclofen) 10 Mg Tab, 10 MG PO Q8HP PRN for PAIN SCALE 1 THRU 6 for 30 Days, MG 08/26/20 Gabapentin (Gabapentin) 300 Mg Cap, 1 CAP PO TID, #90 CAP 5 Refills 08/26/20 Insulin Glargine (Basaglar Kwikpen) 100 Unit/Ml Inj, 33 UNIT SC HS, INJ 06/03/20 Insulin Aspart (Insulin Aspart Flexpen) 100 Unit/Ml Inj, 6 UNIT SC TID, INJ SLIDING SCALE 06/03/20 Current Medications Current Medications Medications (Trade) Dose Ordered Sig/Sid Route PRN Reason Start Time Stop Time Status Last Admin Atorvastatin Calcium (Lipitor) 20 mg HS PO 09/06/25 22:00 09/06/25 23:27 Aspirin 81 mg DAILY PO 09/07/25 10:00 09/07/25 10:55 Famotidine (Pepcid Injection) 20 mg DAILY IV 09/07/25 10:00 09/07/25 10:55 Hydralazine HCl (Apresoline Injection) 10 mg Q6HP PRN IV SBP>150 09/06/25 21:30 Metoprolol Tartrate (Lopressor Tablet) 25 mg BID PO 09/06/25 22:00 09/07/25 10:56 Albuterol (Ventolin Medneb) 2.5 mg Q4HPRN PRN NEB SHORTNESS OF BREATH 09/06/25 21:30 Ipratropium [place] (Atrovent Medneb) 0.5 mg Q4HPRN PRN NEB SHORTNESS OF BREATH 09/06/25 21:30 Amlodipine Besylate (Norvasc Tablet) 5 mg DAILY PO 09/07/25 10:00 09/07/25 10:56 Diagnostic Test (Pha) (Accu-Chek Comfort Curve T) 1 strip ACHS 09/06/25 22:00 09/07/25 17:00 Insulin Human Regular (InsuLIN R) HS SC 09/06/25 22:00 Insulin Human Regular (InsuLIN R) AC SC 09/07/25 07:00 09/07/25 06:25 Dextrose 50 ml UD PRN IV Blood Sugar LESS THAN 60 09/06/25 21:30 Sodium Chloride (Saline Lock Ns) 10 ml Q8HR IV 09/06/25 22:00 09/07/25 14:15 Acetaminophen/ Hydrocodone Bitart (Rhodes 5/325MG Tab) 1 tab Q4HP PRN PO MODERATE PAIN (4-6 PAIN SCALE) 09/06/25 21:30 Ondansetron HCl (Zofran) 4 mg Q4HP PRN IV NAUSEA / VOMITING 09/06/25 21:30 Docusate Sodium (Colace Capsule) 100 mg BIDPRN PRN PO FOR CONSTIPATION 09/06/25 21:30 Acetaminophen (Tylenol Tablet) 650 mg Q6HP PRN PO PAIN SCALE 1-3 OR TEMP>100.4 09/06/25 21:30 Nitroglycerin (Ntrostat Sublingual) 0.4 mg Q5MINP PRN SL FOR CHEST PAIN 09/06/25 23:30 Morphine Sulfate 2 mg Q30M PRN IV FOR CHEST PAIN 09/06/25 23:30 Family History: Diabetes mellitus G8 FATHER, aunt Family history: Cardiovascular disease GRANDMOTHER Family history: Diabetes mellitus G8 FATHER, Review of Systems As per HPI, all other systems were reviewed and are negative. H&P Exam Vital Signs/I&O Vital Sign Date Time Temp Pulse Resp B/P (MAP) Pulse Ox O2 Delivery O2 Flow Rate FiO2 09/07/25 15:20 82 18 124/81 (95) 99 09/07/25 14:00 98.2 98.2 09/07/25 07:22 Room Air* 0 21 Physical Exam Gen: NAD HEENT: NC, AT Lungs: CTA b/l Cardiac: RRR , no murmur Abd: soft, no distention Ext: mild edema Neuro: no focal deficits Labs/Diagnostic Data Labs/Diagnostic Data Laboratory Tests Test 09/07/25 18:10 09/07/25 06:19 09/07/25 06:16 09/06/25 23:30 Range/Units POC Glucose 161 H 145 H 117 H 70-106 mg/dl White Blood Count 6.5 4.4-10.8 10^3/uL Red Blood Count 3.48 L 4.0-5.20 10^6/uL Hemoglobin 10.4 L 12.2-16.2 g/dL Hematocrit 30.3 #L 36.0-46.0 % Mean Corpuscular Volume 87.1 80.0-100.0 fL Mean Corpuscular Hemoglobin 29.9 28.0-32.0 pg Mean Corpuscular Hemoglobin Concent 34.3 32.0-36.0 g/dL Red Cell Distribution Width 13.9 11.8-14.3 % Platelet Count 193 140-450 10^3/uL Mean Platelet Volume 8.5 6.9-10.8 fL Neutrophils (%) (Auto) 43.5 37.0-80.0 % Lymphocytes (%) (Auto) 48.2 10.0-50.0 % Monocytes (%) (Auto) 7.0 0.0-12.0 % Eosinophils (%) (Auto) 0.7 0.0-7.0 % Basophils (%) (Auto) 0.6 0.0-2.0 % Neutrophils # (Auto) 2.8 1.6-8.6 10 ^3/uL Lymphocytes # (Auto) 3.2 0.4-5.4 10 ^3/uL Monocytes # (Auto) 0.5 0-1.3 10 ^3/uL Eosinophils # (Auto) 0 0-0.8 10 ^3/uL Basophils # (Auto) 0 0-0.2 10 ^3/uL Nucleated Red Blood Cells 0.2 % Sodium Level 142 136-145 mmol/L Potassium Level 3.2 L 3.5-5.1 mmol/L Chloride Level 107 98-107 mmol/L Carbon Dioxide Level 22 20-31 mmol/L Anion Gap 13 5-15 Blood Urea Nitrogen 14 9-23 mg/dL Creatinine 1.62 H 0.550-1.02 mg/dL Glomerular Filtration Rate Calc 44 >90 mL/min BUN/Creatinine Ratio 8.6 L 10.0-20.0 Serum Glucose 162 H 74-106 mg/dL Calcium Level 8.9 8.7-10.4 mg/dL Total Bilirubin 1.0 0.2-1.0 mg/dL Aspartate Amino Transferase (AST) 20 13-40 U/L Alanine Aminotransferase (ALT) 15 7-40 U/L Alkaline Phosphatase 110 46-116 U/L Total Protein 6.8 5.7-8.2 g/dL Albumin 3.5 3.2-4.8 g/dL Test 09/06/25 22:20 09/06/25 20:40 09/06/25 19:38 Range/Units Troponin I High Sensitivity 8 7 9 </=34 ng/L White Blood Count 6.9 4.4-10.8 10^3/uL Red Blood Count 3.97 L 4.0-5.20 10^6/uL Hemoglobin 11.9 L 12.2-16.2 g/dL Hematocrit 34.8 L 36.0-46.0 % Mean Corpuscular Volume 87.8 80.0-100.0 fL Mean Corpuscular Hemoglobin 30.1 28.0-32.0 pg Mean Corpuscular Hemoglobin Concent 34.2 32.0-36.0 g/dL Red Cell Distribution Width 14.3 11.8-14.3 % Platelet Count 247 140-450 10^3/uL Mean Platelet Volume 8.3 6.9-10.8 fL Neutrophils (%) (Auto) 51.3 37.0-80.0 % Lymphocytes (%) (Auto) 41.4 10.0-50.0 % Monocytes (%) (Auto) 6.7 0.0-12.0 % Eosinophils (%) (Auto) 0.3 0.0-7.0 % Basophils (%) (Auto) 0.3 0.0-2.0 % Neutrophils # (Auto) 3.5 1.6-8.6 10 ^3/uL Lymphocytes # (Auto) 2.9 0.4-5.4 10 ^3/uL Monocytes # (Auto) 0.5 0-1.3 10 ^3/uL Eosinophils # (Auto) 0 0-0.8 10 ^3/uL Basophils # (Auto) 0 0-0.2 10 ^3/uL Nucleated Red Blood Cells 0.2 % Sodium Level 144 136-145 mmol/L Potassium Level 3.8 3.5-5.1 mmol/L Chloride Level 107 98-107 mmol/L Carbon Dioxide Level 23 20-31 mmol/L Anion Gap 14 5-15 Blood Urea Nitrogen 21 9-23 mg/dL Creatinine 1.69 H 0.550-1.02 mg/dL Glomerular Filtration Rate Calc 42 >90 mL/min BUN/Creatinine Ratio 12.4 10.0-20.0 Serum Glucose 151 H 74-106 mg/dL Calcium Level 8.9 8.7-10.4 mg/dL Magnesium Level 2.1 1.6-2.6 mg/dL Total Bilirubin 0.9 0.2-1.0 mg/dL Aspartate Amino Transferase (AST) 20 13-40 U/L Alanine Aminotransferase (ALT) 22 7-40 U/L Alkaline Phosphatase 123 H 46-116 U/L B-Type Natriuretic Peptide 41.75 0-100 pg/mL Total Protein 6.9 5.7-8.2 g/dL Albumin 3.7 3.2-4.8 g/dL Assessment Assessment: PAOLO , hemodynamically mediated CKD II (baseline Cr 1.2 mg/dl) hypertensive urgency Acute on chronic systolic CHF (EF: 30-35%) DM type I GERD HLD Plan: Continue Amlodipine 5 mg daily, and Metoprolol 25 mg BID s/p Lasix 60 mg IV x1 Fluid restriction Na restriction, 2g /day Daily BMP Strict I&Os Plan discussed with: Patient, Other KELLY CAMPOS MD Sep 07, 2025 17:04
[2025-09-07 21:00] VITALS: BP 144/102; PULSE 84; RESP 16; TEMP 97.1; O2SAT 98
[2025-09-07 21:02] VITALS: PULSE 80
[2025-09-07 22:23] VITALS: O2SAT 97
[2025-09-08] VITALS (8 sets, daily range): BP systolic 122–140; BP diastolic 81–96; PULSE 77–86; RESP 15–18; TEMP 36.8; O2SAT 96–100
--- NOTE | 2025-09-08 00:08 | DVHSR ---
APPROVED REPORT EXAM: Two-dimensional and M-mode echocardiogram with Doppler and color Doppler. Blood Pressure: 150/99 mmHg INDICATION CHF RISK FACTORS Height: 62, Weight: 120 DIMENSIONS LVDd4.7 (3.8-5.7cm)LA (2D)3.7 (1.9-4.0cm)Aortic Root3.4 (2.0-3.7cm) LVDs3.9 (2.5-4.0cm)LA (MM) (1.9-4.0cm)Aortic Cusp Exc1.9 (1.5-2.0cm) EF (%) 35.0 (55-70%)Rt. Atrium3.6 (1.9-4.0cm)Asc. Aorta cm IVSd1.0 (0.7-1.1cm)RV (D) (1.8-2.4cm) PWd1.2 (0.7-1.1cm) Mitral Valve MitralMitral Stenosis E wave0.77m/sMV Mean GR.mmHg A wave0.62m/sMV Peak GR.mmHg E/A ratio1.22D MVAcm2 DECEL [id number] 1/2 [place] Aortic Valve Aortic ValveAortic Stenosis V10.65m/Jordan Mean GR.4mmHg V21.23m/Jordan Peak GR.6mmHg LVOT Diameter2.3 (1.8-2.4cm)Doppler AVA2.19cm2 Pulmonic Valve V20.96m/s Conclusion MODERATELY DILATED LV GLOBAL LV HYPOKINESIS LV EF IS 35% AND IS MODERATELY REDUED NORMAL VALVES NO EFFUSION
[2025-09-08] MEDS ORDERED: HYDROcodone-ACET 5/325MG TAB ONE (01:58)
--- NOTE | 2025-09-08 07:10 | DVHPN2 ---
Progress Note - Dictate Date Seen: Sep 08, 2025 Medical Necessity Reason Pt with a Central, PICC or Fol: No Subjective denies SOB states swelling has improved a lot vital signs Vital Sign Date Time Temp Pulse Resp B/P (MAP) Pulse Ox O2 Delivery O2 Flow Rate FiO2 09/08/25 05:20 100 Room Air 0.0 09/08/25 05:20 21 09/08/25 05:00 98.3 78 16 124/81 (95) 98.3 Total Intake and Output 09/07/25 09/07/25 09/08/25 15:00 23:00 07:00 Intake Total 120 ml Balance 120 ml medications Current Medications Medications Dose Ordered Sig/Sid Route Start Time Stop Time Status Last Admin Dose Admin Atorvastatin Calcium 20 mg HS PO 09/06/25 22:00 09/07/25 22:53 20 MG Aspirin 81 mg DAILY PO 09/07/25 10:00 09/07/25 10:55 81 MG Famotidine 20 mg DAILY IV 09/07/25 10:00 09/07/25 10:55 20 MG Hydralazine HCl 10 mg Q6HP PRN IV 09/06/25 21:30 Metoprolol Tartrate 25 mg BID PO 09/06/25 22:00 09/07/25 22:53 25 MG Albuterol 2.5 mg Q4HPRN PRN NEB 09/06/25 21:30 Ipratropium [place] 0.5 mg Q4HPRN PRN NEB 09/06/25 21:30 Amlodipine Besylate 5 mg DAILY PO 09/07/25 10:00 09/07/25 10:56 5 MG Diagnostic Test (Pha) 1 strip ACHS 09/06/25 22:00 09/08/25 06:15 1 STRIP Insulin Human Regular HS SC 09/06/25 22:00 09/07/25 22:54 10 UNITS Insulin Human Regular AC SC 09/07/25 07:00 09/08/25 06:15 6 UNITS Dextrose 50 ml UD PRN IV 09/06/25 21:30 Sodium Chloride 10 ml Q8HR IV 09/06/25 22:00 09/08/25 06:14 10 ML Acetaminophen/ Hydrocodone Bitart 1 tab Q4HP PRN PO 09/06/25 21:30 Ondansetron HCl 4 mg Q4HP PRN IV 09/06/25 21:30 Docusate Sodium 100 mg BIDPRN PRN PO 09/06/25 21:30 Acetaminophen 650 mg Q6HP PRN PO 09/06/25 21:30 Nitroglycerin 0.4 mg Q5MINP PRN SL 09/06/25 23:30 Morphine Sulfate 2 mg Q30M PRN IV 09/06/25 23:30 objective Gen: NAD HEENT: NC, AT Lungs: CTA b/l Cardiac: RRR , no murmur Abd: soft, no distention Ext: mild edema Neuro: no focal deficits laboratory and microbiology Laboratory Tests 09/07/25 06:16 Test 09/07/25 06:16 Range/Units Serum Glucose 162 H 74-106 mg/dL Assessment/Plan Assessment: PAOLO , hemodynamically mediated CKD II (baseline Cr 1.2 mg/dl) hypertensive urgency Acute on chronic systolic CHF (EF: 30-35%) DM type I GERD HLD Plan: Continue Amlodipine 5 mg daily, and Metoprolol 25 mg BID Fluid restriction Na restriction, 2g /day Daily BMP Strict I&Os Plan discussed with: Patient KELLY CAMPOS MD Sep 08, 2025 07:10
[2025-09-08] MEDS: ONDANSETRON HCL 4 MG/2 ML VIAL IV PRN (15:16)
--- NOTE | 2025-09-08 16:51 | DVHDS2 ---
Discharge Summary Date of Admission Sep 06, 2025 at 23:16 Date of Discharge: Sep 08, 2025 Labs/Diagnostic Data: Laboratory Results Test 09/08/25 11:41 09/08/25 06:32 09/07/25 06:16 09/06/25 22:20 POC Glucose 171 mg/dl (70-106) White Blood Count 6.5 10^3/uL (4.4-10.8) Red Blood Count 3.48 10^6/uL (4.0-5.20) Hemoglobin 10.4 g/dL (12.2-16.2) Hematocrit 30.3 % (36.0-46.0) Mean Corpuscular Volume 87.1 fL (80.0-100.0) Mean Corpuscular Hemoglobin 29.9 pg (28.0-32.0) Mean Corpuscular Hemoglobin Concent 34.3 g/dL (32.0-36.0) Red Cell Distribution Width 13.9 % (11.8-14.3) Platelet Count 193 10^3/uL (140-450) Mean Platelet Volume 8.5 fL (6.9-10.8) Neutrophils (%) (Auto) 43.5 % (37.0-80.0) Lymphocytes (%) (Auto) 48.2 % (10.0-50.0) Monocytes (%) (Auto) 7.0 % (0.0-12.0) Eosinophils (%) (Auto) 0.7 % (0.0-7.0) Basophils (%) (Auto) 0.6 % (0.0-2.0) Neutrophils # (Auto) 2.8 10 ^3/uL (1.6-8.6) Lymphocytes # (Auto) 3.2 10 ^3/uL (0.4-5.4) Monocytes # (Auto) 0.5 10 ^3/uL (0-1.3) Eosinophils # (Auto) 0 10 ^3/uL (0-0.8) Basophils # (Auto) 0 10 ^3/uL (0-0.2) Nucleated Red Blood Cells 0.2 % Sodium Level 142 mmol/L (136-145) Potassium Level 3.2 mmol/L (3.5-5.1) Chloride Level 107 mmol/L (98-107) Carbon Dioxide Level 22 mmol/L (20-31) Anion Gap 13 (5-15) Blood Urea Nitrogen 14 mg/dL (9-23) Creatinine 1.62 mg/dL (0.550-1.02) Glomerular Filtration Rate Calc 44 mL/min (>90) BUN/Creatinine Ratio 8.6 (10.0-20.0) Serum Glucose 162 mg/dL (74-106) Calcium Level 8.9 mg/dL (8.7-10.4) Total Bilirubin 1.0 mg/dL (0.2-1.0) Aspartate Amino Transferase (AST) 20 U/L (13-40) Alanine Aminotransferase (ALT) 15 U/L (7-40) Alkaline Phosphatase 110 U/L (46-116) Total Protein 6.8 g/dL (5.7-8.2) Albumin 3.5 g/dL (3.2-4.8) Troponin I High Sensitivity 8 ng/L (</=34) Test 09/06/25 19:38 Magnesium Level 2.1 mg/dL (1.6-2.6) B-Type Natriuretic Peptide 41.75 pg/mL (0-100) Other Laboratory Tests 09/07/25 06:16 Brief Hx & Hospital Course: 29-year-old female with a known history of congestive heart failure with a cardiomyopathy with the EF of 30-35% diabetes mellitus type 1, hypertension initially presented to the hospital with shortness of the chest pain found to have and wrist swelling found to have acute on chronic congestive heart failure exacerbation with systolic dysfunction. Patient also has a hypertensive urgency. Patient also had acute kidney injury with a underlying CKD stage 2. Patient was managed accordingly for hypertension and acute kidney injury. Patient is currently requesting to go home and she is stable to be discharged. Condition at Discharge: Stable Final Diagnosis/Problems List 29-year-old female with a known history of congestive heart failure with a cardiomyopathy with the EF of 30-35% diabetes mellitus type 2, hypertension initially presented to the hospital with shortness of the chest pain found to have 1. Acute on chronic congestive heart failure exacerbation with systolic dysfunction 2. Hypertensive urgency 3. Diabetes mellitus type 1 4. GERD 5. Acute kidney injury with a underlying CKD stage 2 Discharge Disposition: Home SNF Discharge Will this Physician continue t: No Discharge Instruct/Medications Diet: Cardiac 2g Na,low cholest Diet comment: 1800 ADA diet. Activity: No Restrictions, As Tolerated Follow Up/Referral: Please follow up with the PCP, Nephrology, Cardiology in 1-2 weeks next Medications: Resume home medication including beta marilia, valsartan, Aldactone. Continued Medications: Acetaminophen (Acetaminophen) 325 Mg Tab 650 MG PO Q6HP PRN for 10 Days, #80 TAB Carvedilol (Carvedilol) 3.125 Mg Tab 1 TAB PO BID for 30 Days, #60 TAB 3 Refills Furosemide (Furosemide) 40 Mg Tab 40 MG PO DAILY for 30 Days, #30 TAB Gabapentin (Gabapentin) 300 Mg Cap 1 CAP PO TID, #90 CAP 5 Refills Insulin Aspart (Insulin Aspart Flexpen) 100 Unit/Ml Inj 6 UNIT SC TID, INJ SLIDING SCALE Insulin Glargine (Basaglar Kwikpen) 100 Unit/Ml Inj 33 UNIT SC HS, INJ Pantoprazole Sodium Sesquihydr (Pantoprazole Sodium) 40 Mg Tab 40 MG PO DAILY for 30 Days, #30 TAB Spironolactone (Spironolactone) 25 Mg Tab 1 TAB PO DAILY for 30 Days, #30 TAB 1 Refill Valsartan (Valsartan) 80 Mg Tab 80 MG PO DAILY for 30 Days, #30 TAB Scheduled Carvedilol (Carvedilol), 1 TAB PO BID Furosemide (Furosemide), 40 MG PO DAILY Gabapentin (Gabapentin), 1 CAP PO TID, (Reported) Insulin Aspart (Insulin Aspart Flexpen), 6 UNIT SC TID, (Reported) Insulin Glargine (Basaglar Kwikpen), 33 UNIT SC HS, (Reported) Pantoprazole Sodium Sesquihydr (Pantoprazole Sodium), 40 MG PO DAILY Spironolactone (Spironolactone), 1 TAB PO DAILY Valsartan (Valsartan), 80 MG PO DAILY Scheduled PRN Acetaminophen (Acetaminophen), 650 MG PO Q6HP PRN Discharge Statement: "Patient was advised to return to the ER or call 911 if any headaches, dizziness, shortness of breath, chest pain, abdominal pain, bleeding, fevers, or worsening of medical condition. Patient was counseled about treatment plan, medications, possible side effects, patientverbalized understanding. All questions were answered to the best of my ability. This discharge took greater then 30 minutes in planning, reviewing documentation, counseling the patient, and discussing with other team members." ASSESSMENT ASSESSMENT Assessment 29-year-old female with a known history of congestive heart failure with a cardiomyopathy with the EF of 30-35% diabetes mellitus type 2, hypertension initially presented to the hospital with shortness of the chest pain found to have 1. Acute on chronic congestive heart failure exacerbation with systolic dysfunction 2. Hypertensive urgency 3. Diabetes mellitus type 1 4. GERD 5. Acute kidney injury with a underlying CKD stage 2 Date of Service: Sep 08, 2025 Billing Provider: ROSY KHAN MD Common Visit Codes: 11087-RBE/OBS DISCH DAY >30min ROSY KHAN MD Sep 08, 2025 16:51
[2025-09-10 10:09] LABS: Hepatitis B Surface Antigen Negative (Negative)
[2025-09-10 10:27] LABS: Hepatitis C Antibody Negative (Negative)
--- NOTE | 2025-09-12 09:18 | ECG ---
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
== END 2025-09-08 19:00 | disposition home or self-care (01) | DRG 194 ==
LOC: EDBD 18:55 → EDUNIT# 18:55 → ER 18:55 → OVERFLOW 23:16 → TELE-WESTW 09-07 20:59
PROVIDERS: ADMIT Internal Medicine; ATTEND Internal Medicine
DX: I13.0 Hypertensive heart and chronic kidney disease with heart failure and stage 1 through stage 4 chronic kidney disease, or unspecified chronic kidney disease (principal); N17.9 Acute kidney failure, unspecified; I16.0 Hypertensive urgency; I50.23 Acute on chronic systolic (congestive) heart failure; E10.65 Type 1 diabetes mellitus with hyperglycemia; E78.5 Hyperlipidemia, unspecified; E10.22 Type 1 diabetes mellitus with diabetic chronic kidney disease; N18.2 Chronic kidney disease, stage 2 (mild); K21.9 Gastro-esophageal reflux disease without esophagitis; I42.9 Cardiomyopathy, unspecified; Z79.4 Long term (current) use of insulin; Z82.49 Family history of ischemic heart disease and other diseases of the circulatory system; Z83.3 Family history of diabetes mellitus
CPT/HCPCS: 36415; 71045; 80053; 82962; 83735; 83880; 84484; 85025; 86803; 87340; 93005; 93306; 96374; 99291; G0378; J1815; J2405; J3490

== ENCOUNTER 2025-11-13 16:50 | Inpatient (IN) | payer MEDICAID ==
[~2025-11-13] VITALS: Ht 157.5 cm; Wt 55.2 kg
[~2025-11-13 16:50] MED LIST changes: +AMLO1TAB22 PO; -ATOR80TA PO; -BACL10TA PO; +BUPR5DIS TOP; -CEPH250C PO; -DOCU-94 PO; -EMPA1TAB PO; +ESCI5TAB20 PO; +OMEP1CAP70 PO; +PREG25CA28 PO; +QUET1TAB11 PO; +SIMV10TA20 PO; +VALS80TA4 PO; +VERI2.5T PO
--- NOTE | 2025-11-13 16:55 | ECG ---
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
[2025-11-13 17:06] VITALS: PULSE 87; RESP 12; O2SAT 98
--- NOTE | 2025-11-13 17:11 | ED.PDOC ---
HPI Comments lee: Chest pain shortness of breath history of CHF on Lasix Discharge diagnosis from 09/08/25 1. Acute on chronic congestive heart failure exacerbation with systolic dysfunction 2. Hypertensive urgency 3. Diabetes mellitus type 1 4. GERD 5. Acute kidney injury with a underlying CKD stage 2 HPI: Poor Historian. 29 year old female presents to the emergency department via EMS with a chief complaint of chest pain onset today. Per EMS, patient has been experiencing sharp, non-radiating chest pain, as well as shortness of breath since this morning. Upon EMS arrival, patient was hypertensive with BP 210/10 ,she was experiencing 10/10 pain, was given Nitro tab, pain had slight improvement. Upon ED arrival, BP was 169/95, BG was 208. She states she has been complaint with medication. Denies dizziness, headache, nausea, vomiting, diarrhea, fever, chills. No other symptoms or modifying factors present at this time. Initial Vitals BP: 169/95 HR: 98 RR: 20 O2: 98% Temp: 98.8 F Blood Glucose: 208 Past Medical History: CHF, DM, HTN, HLD Past Surgical History: Denies Social History: Denies smoking. Denies ETOH. Denies drug use. Medications: Losartan, Amlodipine, Lasix Allergies: NKDA REVIEW OF SYSTEMS: CONSTITUTIONAL: Denies acute: fever, diaphoresis, chills, generalized weakness. HEAD: Denies acute: headache, photophobia Eyes: Denies acute: Double vision, vision loss, eye pain, eye discharge. EARS: Denies acute: tinnitus, hearing loss, ear discharge, ear pain, THROAT: Denies acute: sore throat, swelling, difficulty swallowing , pain with swallowing, change in voice. NECK: Denies acute: neck pain, neck swelling, stiff neck. HEART: Denies acute : palpitations, LUNGS: Denies acute: , wheezing, cough, hemoptysis ABDOMEN: Denies acute: abdominal pain, Nausea, Vomiting, diarrhea, melena , hematemesis, hematochezia SKIN: Denies acute: rash, redness, lesions, itchiness. EXTREMITIES: Denies acute: calf pain, numbness, tingling, weakness, denies pain in extremity. Denies acute: Low back pain. Neuro: Denies acute: focal neurological deficit, motor or sensory focal neurological deficit, tremors, seizure like activity, confusion, dizziness, change in mental status, loss of bowel or bladder function, cauda equina like symptoms. : Denies acute: dysuria, hematuria, flank pain, increase in urinary frequency. PSYCH: Denies acute: hallucination, suicidal ideation, homicidal ideation. FEMALE: Denies acute: abnormal vaginal bleeding, foul odor, unusual discharge. PHYSICAL EXAM: General: ----moderate----acute distress, awake and alert. Head: normocephalic, atraumatic. No raccoon's eyes, no ferrell sign. Neck: supple, trachea is midline, no swelling. Throat: Normal phonation. Eyes:, no erythema, no purulent discharge, no proptosis, no icterus. Heart: regular rate, regular rhythm, no significant murmur appreciated. Lungs: no apparent respiratory distress, Able to speak in full sentences. No wheezing, no rhonchi, no crackles. No stridors Clear to auscultation bilaterally. Abdomen: non tender to palpation, non distended, soft, no guarding, no rebound, + bowel sounds. Neuro: Awake, Alert, oriented to name, self, situation, follows commands GCS=15. Speech is normal. Skin: no petechia, no purpura, no cyanosis, non-pale, not jaundice. Lower extremities: --no - Pitting edema no deformity, no focal swelling, no calf TTP. Makes eye contact. moves all four extremities. Face: no apparent facial droop. ED COURSE: DISCLAIMER: This medical document was created using an electronic medical record system with voice recognition software and computerized dictation system. Although this document has been carefully reviewed, there might still be some phonetic and typographical errors. Occasional wrong-word or "sound-alike" substitutions may have occurred due to the inherent limitations of voice recognition software. These areas are purely typographical due to imperfections of the software programs and do not reflect any compromise in the patient's medical care. Please read the chart carefully and recognize, using context, where these substitutions have occurred. Chief Complaint: Chest Pain Time Seen by MD: 17:00 Primary Care Provider: DR LOJA [facility] Reviewed Notes: Medications, Allergies Allergies: Coded Allergies: NO KNOWN ALLERGIES (Unverified , 10/24/19) Home Meds Active Scripts Insulin Glargine (Lantus Solostar) 100 Unit/Ml Inj, 15 UNIT SC BID, #1 BOX 5 Refills Prov:ARCADIO PURDY MD 11/21/25 Nitroglycerin (NTROSTAT SUBLINGUAL) 0.4 Mg Sl, 0.4 MG SL Q5MINP PRN, #100 TAB Prov:ARCADIO PURDY MD 11/17/25 Spironolactone (Aldactone) 25 Mg Tab, 25 MG PO DAILY, #30 TAB 5 Refills Prov:ARCADIO PURDY MD 11/17/25 Empagliflozin (Jardiance) 10 Mg Tab, 10 MG PO DAILY, #30 TAB 5 Refills Prov:ARCADIO PURDY MD 11/17/25 Gabapentin (Gabapentin) 300 Mg Cap, 300 MG PO TID, #90 CAP Prov:ARCADIO PURDY MD 11/17/25 Valsartan (Valsartan) 80 Mg Tab, 80 MG PO DAILY, #90 TAB 5 Refills Prov:ARCADIO PRUDY MD 11/17/25 Carvedilol (Coreg) 6.25 Mg Tab, 1 TAB PO BID, #180 TAB 1 Refill Prov:ARCADIO PURDY MD 11/17/25 Reported Medications Vericiguat (Verquvo) 2.5 Mg Tab, 1 TAB PO DAILY for 30 Days, #30 11/16/25 Furosemide (Furosemide) 40 Mg Tab, 1 TAB PO DAILY for 30 Days, #30 11/16/25 Quetiapine Fumerate (QUETIAPINE FUMARATE) 25 Mg Tab, 0.5 TAB PO HS for 30 Days, #15 11/16/25 Buprenorphine (BUTRANS) 5 Mcg/Hr Dis, 1 PATCH TOP QWEEKLY for 28 Days, #4 11/16/25 Simvastatin (Simvastatin) 10 Mg Tab, 1 TAB PO DAILY for 30 Days, #30 11/16/25 Omeprazole (Omeprazole Dr) 20 Mg Cap, 1 CAP PO DAILY for 30 Days, #30 11/16/25 Spironolactone (Spironolactone) 25 Mg Tab, 1 TAB PO DAILY for 30 Days, #30 11/16/25 Escitalopram Oxalate (ESCITALOPRAM OXALATE) 5 Mg Tab, 1 TAB PO DAILY for 30 Days, #30 11/16/25 Valsartan (Diovan) 80 Mg Tab, 1 TAB PO DAILY for 30 Days, #30 11/16/25 Amlodipine Besylate (Amlodipine Besylate) 5 Mg Tab, 1 TAB PO DAILY for 30 Days, #30 11/16/25 Pregabalin (Pregabalin) 25 Mg Cap, 1 CAP PO BID for 30 Days, #60 11/16/25 Acetaminophen W/ Codeine (Tylenol #4 W/Codeine) 1 Tab Tb, 1 TAB PO, TAB 11/13/25 Discontinued Reported Medications Carvedilol (Carvedilol) 3.125 Mg Tab, 1 TAB PO DAILY for 30 Days, #30 11/16/25 Information Source: Patient, Emergency Med Personnel Mode of Arrival: EMS Severity: Moderate Timing: Hours Duration: Since onset Prehospital treatment: Oxygen Past Medical History PAST MEDICAL HISTORY: CHF, DM, GERD, High Lipids, HTN Surgical History: Denies all surgeries OUTSIDE PLANT TECHNICIAN History: No Pertinent OUTSIDE PLANT TECHNICIAN History Family History Family History: Family hx of DM Social History Smoker: Non-Smoker Alcohol: Denies ETOH Use Drugs: Denies Drug Use Lives In: Home EKG EKG : Pulse Rate (adult): 94 Cardiac Rhythm: NSR Was a procedure done? Was a procedure done?: No CP Differential Dx Differential Diagnosis: N/A Differential Diagnosis: Other (Ddx include but not limitied to gastritis, musculoskeletal pain, radiculopathy, atypical chest pain, dissection, aneurysm, ACS, unstable angina, hiatal hernia, GERD, anxiety, costochondritis, PE, pneumothroax, neoplasm, cardiac ischemia, drug abuse, anemia.) X-Ray, Labs, Meds, VS Vital Signs Date Time Temp Pulse Resp B/P (MAP) Pulse Ox O2 Delivery O2 Flow Rate FiO2 11/13/25 19:09 91 16 145/91 (109) 97 11/13/25 18:13 81 11/13/25 17:14 98.2 91 13 149/98 (115) 100 98.2 11/13/25 17:11 94 11/13/25 17:06 87 12 98 Room Air* 0 21 11/13/25 17:00 98.8 98 20 169/95 98 98.8 11/13/25 16:51 94 Lab Test 11/13/25 18:02 11/13/25 17:03 Range/Units Troponin I High Sensitivity 5 4 </=34 ng/L White Blood Count 6.6 4.4-10.8 10^3/uL Red Blood Count 3.90 L 4.0-5.20 10^6/uL Hemoglobin 11.4 L 12.2-16.2 g/dL Hematocrit 33.0 L 36.0-46.0 % Mean Corpuscular Volume 84.4 80.0-100.0 fL Mean Corpuscular Hemoglobin 29.1 28.0-32.0 pg Mean Corpuscular Hemoglobin Concent 34.5 32.0-36.0 g/dL Red Cell Distribution Width 12.7 11.8-14.3 % Platelet Count 375 140-450 10^3/uL Mean Platelet Volume 8.0 6.9-10.8 fL Neutrophils (%) (Auto) 64.6 37.0-80.0 % Lymphocytes (%) (Auto) 30.9 10.0-50.0 % Monocytes (%) (Auto) 3.4 0.0-12.0 % Eosinophils (%) (Auto) 0.4 0.0-7.0 % Basophils (%) (Auto) 0.7 0.0-2.0 % Neutrophils # (Auto) 4.2 1.6-8.6 10 ^3/uL Lymphocytes # (Auto) 2.0 0.4-5.4 10 ^3/uL Monocytes # (Auto) 0.2 0-1.3 10 ^3/uL Eosinophils # (Auto) 0 0-0.8 10 ^3/uL Basophils # (Auto) 0 0-0.2 10 ^3/uL Nucleated Red Blood Cells 0.1 % Sodium Level 138 136-145 mmol/L Potassium Level 4.4 3.5-5.1 mmol/L Chloride Level 105 98-107 mmol/L Carbon Dioxide Level 24 20-31 mmol/L Anion Gap 9 5-15 Blood Urea Nitrogen 23 9-23 mg/dL Creatinine 1.70 H 0.550-1.02 mg/dL Glomerular Filtration Rate Calc 42 >90 mL/min BUN/Creatinine Ratio 13.5 10.0-20.0 Serum Glucose 211 H 74-106 mg/dL Calcium Level 9.2 8.7-10.4 mg/dL Total Bilirubin 0.7 0.2-1.0 mg/dL Aspartate Amino Transferase (AST) 34 13-40 U/L Alanine Aminotransferase (ALT) 24 7-40 U/L Alkaline Phosphatase 86 46-116 U/L B-Type Natriuretic Peptide 45.57 0-100 pg/mL Total Protein 7.4 5.7-8.2 g/dL Albumin 4.0 3.2-4.8 g/dL [address] [address] Ph: [phone] DIAGNOSTIC IMAGING Diagnostic Imaging Report : [id number] Signed PATIENT: MICK LEE ACCT: [id number] UNIT: [id number] : 1995 LOC: ER ROOM / BED: / AGE / SEX: 29 / F ADM STATUS: REG ER SERVICE 165 ORDERING PHYSICIAN: YAMILET IVY DO PROCEDURE(s): CXRP - CHEST PORTABLE REASON: cp/sob ORDER NUMBER(s): [id number], ACCESSION NUMBER(s): [id number] CLINICAL HISTORY: CP/SOB. TECHNIQUE: Single frontal view of the chest was obtained. COMPARISON: XY CHEST PORTABLE on DOS: 09/06/25. FINDINGS: DEVICES/LINES/TUBES: None available. LUNGS: Clear. PLEURA: No pneumothorax or pleural effusion. MEDIASTINUM/OTHER: Normal heart size and mediastinal contours. Trachea is midli ne. BONES: No acute osseous abnormality. Extensive hardware fixation of the thoracolumbar spine, which is incompletely assessed on this exam. UPPER ABDOMEN: Unremarkable. IMPRESSION: No acute cardiopulmonary process. ATED BY: DK CHUN MD DICTATED DATE/TIME: 11/13/251751 SIGNED BY: DK CHUN MD SIGNED DATE/TIME: 11/13/251751 CC: Time of 1ST Reevaluation: 17:30 Reevaluation 1ST: Unchanged Patient Education/Counseling: Diagnosis, Treatment Family Education/Counseling: Diagnosis, Treatment Comments MDM: patient presented with the above HPI.--cardiac---workup was initiated. patient was found with the above mentioned diagnosis. the following medications were ordered: please refer to order lists of meds and tests obtained by myself Dr. Ivy. Patient ED course and VS have been stabilized. Patient has been reassessed in the ED and remained in a stable condition. Pertinent incidental findings were discussed with the patient and/or family. Patient/family voices understanding and is agreeable with plan. Patient has been observed in the ED adequate length of time to insure improvement/stability. Escalation of care considered: Consideration of escalation to observation or admission Patient was ADMITTED to the medicine team for further evaluation and treatment of their presentation. All the reports of any imaging studies that were ordered by myself were reviewed by myself. Departure 1 Departure Time of Disposition: 18:18 Impression: Primary Impression: Chest pain Additional Impression: Dyspnea Disposition: ADMITTED INPATIENT Admit to: Tele Condition: Guarded e-Prescriptions Insulin Glargine (Lantus Solostar) 100 Unit/Ml Inj 15 UNIT SC BID, #1 BOX 5 Refills Prov: ARCADIO PURDY MD 11/21/25 Nitroglycerin (NTROSTAT SUBLINGUAL) 0.4 Mg Sl 0.4 MG SL Q5MINP PRN, #100 TAB Prov: ARCADIO PURDY MD 11/17/25 Spironolactone (Aldactone) 25 Mg Tab 25 MG PO DAILY, #30 TAB 5 Refills Prov: ARCADIO PURDY MD 11/17/25 Empagliflozin (Jardiance) 10 Mg Tab 10 MG PO DAILY, #30 TAB 5 Refills Prov: ARCADIO PURDY MD 11/17/25 Gabapentin (Gabapentin) 300 Mg Cap 300 MG PO TID, #90 CAP Prov: ARCADIO PURDY MD 11/17/25 Valsartan (Valsartan) 80 Mg Tab 80 MG PO DAILY, #90 TAB 5 Refills Prov: ARCADIO PURDY MD 11/17/25 Carvedilol (Coreg) 6.25 Mg Tab 1 TAB PO BID, #180 TAB 1 Refill Prov: ARCADIO PURDY MD 11/17/25 Discharged With: Self Critical Care Note Critical Care Time?: No Heart Score Heart Score: Heart Score Response (Comments) Value History Moderate Suspicious 1 EKG Normal 0 Age <45 0 Risk Factors >3 or Hx ASHD 2 Troponin Normal limit 0 Total 3 I personally scribed for YAMILET IVY DO ([email or web address]) on 11/13/25 at 17:11. Electronically submitted by Rachel Romano ([email or web address]). I personally scribed for YAMILET IVY DO ([email or web address]) on 11/13/25 at 17:17. Electronically submitted by Rachel Romano ([email or web address]). I personally scribed for YAMILET IVY DO ([email or web address]) on 11/13/25 at 18:23. Electronically submitted by Rachel Romano ([email or web address]). YAMILET IVY DO Nov 13, 2025 17:11
[2025-11-13 17:17] LABS: Hematocrit 33.0 % (36.0-46.0); Hemoglobin 11.4 g/dL (12.2-16.2); Mean Corpuscular Hemoglobin 29.1 pg (28.0-32.0); Mean Corpuscular Volume 84.4 fL (80.0-100.0); Nucleated Red Blood Cells % 0.1 %
[2025-11-13 17:27] LABS: Alanine Aminotransferase 24 U/L (7-40); Alkaline Phosphatase 86 U/L (46-116); Calcium 9.2 mg/dL (8.7-10.4)
[2025-11-13 17:28] LABS: Albumin 4.0 g/dL (3.2-4.8); Anion Gap 9 (5-15); BUN/Creatinine Ratio 13.5 (10.0-20.0); Bilirubin, Total 0.7 mg/dL (0.2-1.0); Blood Urea Nitrogen 23 mg/dL (9-23); Carbon Dioxide 24 mmol/L (20-31); Chloride 105 mmol/L (98-107); Glucose 211 mg/dL (74-106); Potassium 4.4 mmol/L (3.5-5.1); Sodium 138 mmol/L (136-145); Total Protein 7.4 g/dL (5.7-8.2)
--- NOTE | 2025-11-13 17:54 | DVH ---
CLINICAL HISTORY: CP/SOB. TECHNIQUE: Single frontal view of the chest was obtained. COMPARISON: XY CHEST PORTABLE on DOS: 09/06/25. FINDINGS: DEVICES/LINES/TUBES: None available. LUNGS: Clear. PLEURA: No pneumothorax or pleural effusion. MEDIASTINUM/OTHER: Normal heart size and mediastinal contours. Trachea is midline. BONES: No acute osseous abnormality. Extensive hardware fixation of the thoracolumbar spine, which is incompletely assessed on this exam. UPPER ABDOMEN: Unremarkable. IMPRESSION: No acute cardiopulmonary process.
--- NOTE | 2025-11-13 18:15 | ECG ---
[facility] Test Date: 2025-11-13 Test Time: 18:13:30 Pat Name: MICK LIANG Department: ED Room: [address] [place] [address] Gender: F Shoeblack: CELSO : 1995 Requested By: YAMILET IVY Order Number: [id number] Reading MD: Jose Moore Measurements Intervals [place] Rate: 81 P: 50 MI: 148 QRS: 55 QRSD: 78 T: 0 QT: 392 QTc: 455 Interpretive Statements Sinus rhythm Borderline T abnormalities, inferior leads Baseline wander in lead(s) I Electronically Signed On 11-15-2025 17:23:42 PST by Jose Moore Please click the below link to view image of tracing.
[2025-11-13] MEDS ORDERED: ACETAMINOPHEN 325 MG TAB PO PRN ×2 (19:30→22:00)
[2025-11-13] MEDS ORDERED: DEXTROSE (50%) 50ML SYRG IV PRN ×2 (19:30→22:00)
[2025-11-13] MEDS ORDERED: ONDANSETRON HCL 4 MG/2 ML VIAL IV PRN ×2 (19:30→22:00)
[2025-11-13 20:10] VITALS: PULSE 85; RESP 17; O2SAT 98
[2025-11-13] MEDS ORDERED: ACET300T58 PO (20:56)
[2025-11-13 21:00] VITALS: BP 152/97; PULSE 86; RESP 17; TEMP 97; O2SAT 99
[2025-11-13 21:06] VITALS: O2SAT 98
[2025-11-13] MEDS ORDERED: CARVEDILOL 3.125 MG TAB PO SCH (22:00)
[2025-11-13] MEDS ORDERED: GABAPENTIN 300 MG CAP PO SCH (22:00)
[2025-11-13] MEDS ORDERED: ACCU-CHEK COMFORT CURVE STRIP VI SCH (22:00)
[2025-11-13] MEDS ORDERED: InsuLIN REG 1unit/0.01ml Soln (100units/ml) SC SCH (22:00)
[2025-11-13] MEDS: GABAPENTIN 300 MG CAP PO SCH (22:15)
[2025-11-13] MEDS: CARVEDILOL 3.125 MG TAB PO SCH (22:15)
[2025-11-13] MEDS: ACCU-CHEK COMFORT CURVE STRIP VI SCH (22:18)
[2025-11-13] MEDS: InsuLIN REG 1unit/0.01ml Soln (100units/ml) SC SCH (22:19)
[2025-11-14] VITALS (8 sets, daily range): BP systolic 139–170; BP diastolic 94–106; PULSE 83–90; RESP 16–20; TEMP 97.2–98.9; O2SAT 96–99
--- NOTE | 2025-11-14 04:00 | DVHHP2 ---
History of Present Illness Reason for Visit: Chest pain History of Present Illness 29-year-old female presents for evaluation of chest pain. Patient reports a one day history of substernal sharp nonradiating chest pain with associated shortness for breath. She states that when EMS arrived her blood pressure was reading 210/115. Patient is brought pressure currently he is in the 170s. She denies any chest pain at the moment. No dizziness. No nausea or vomiting. Past Medical History Hypertension, dyslipidemia, diabetes mellitus, CHF Past Surgical History Denies Family History Noncontributory Smoke: No ALCOHOL: none Drugs: None Lives: with Family Review of Systems Review of Systems Review of systems are currently negative otherwise addressed in HPI. Allergies: Coded Allergies: NO KNOWN ALLERGIES (Unverified , 10/24/19) Medications Current Medications Medications Dose Ordered Sig/Sid Route Start Time Stop Time Status Last Admin Dose Admin Carvedilol 3.125 mg Q12HR PO 11/13/25 22:00 11/13/25 22:15 3.125 MG Furosemide 40 mg DAILY PO 11/14/25 10:00 Gabapentin 300 mg TID PO 11/13/25 22:00 11/13/25 22:15 300 MG Spironolactone 25 mg DAILY PO 11/14/25 10:00 Valsartan 80 mg DAILY PO 11/14/25 10:00 Clonidine HCl 0.1 mg Q6HP PRN PO 11/13/25 22:00 11/14/25 00:42 0.1 MG Diagnostic Test (Pha) 1 strip ACHS 11/13/25 22:00 11/13/25 22:18 1 STRIP Insulin Human Regular ACHS SC 11/13/25 22:00 11/13/25 22:19 4 UNITS Dextrose 50 ml UD PRN IV 11/13/25 22:00 Ondansetron HCl 4 mg Q4HP PRN IV 11/13/25 22:00 Acetaminophen 650 mg Q6HP PRN PO 11/13/25 22:00 Exam Vital Signs Vital Signs Date Time Temp Pulse Resp B/P (MAP) Pulse Ox O2 Delivery O2 Flow Rate FiO2 11/14/25 01:42 158/103 11/14/25 01:00 97.2 88 17 99 97.2 11/13/25 21:06 Room Air* 0 21 Exam Gen: 29-year-old female in mild distress. Skin: Warm, dry, normal color and texture, no rash. HEENT: Normocephalic atraumatic, mucous membranes moist and pink. Neck: Cervical and supraclavicular nodes normal without enlargement, trachea is midline, thyroid gland is normal without masses. Pulmonary: Clear to auscultation and percussion bilaterally. Cardiac: Regular rate and rhythm. No murmur Abdomen: Soft, nontender, nondistended, bowel sounds present all 4 quadrants, no guarding, no rigidity, no organomegaly. Extremities: No cyanosis, clubbing, no edema Neuro: Cranial nerves II through XII grossly intact, normal affect and speech, no focal motor deficits. Labs/Xrays ORDERING PHYSICIAN: VALENCIA BOO DNP PROCEDURE(s): ECIDC - ECHO 2D MODE CARDIAC DOP REASON: CHF, unspecified ORDER NUMBER(s): [id number], ACCESSION NUMBER(s): [id number] APPROVED REPORT EXAM: Two-dimensional and M-mode echocardiogram with Doppler and color Doppler. Blood Pressure: 150/99 mmHg INDICATION CHF RISK FACTORS Height: 62, Weight: 120 DIMENSIONS LVDd 4.7 (3.8-5.7cm) LA (2D) 3.7 (1.9-4.0cm) Aortic Root 3.4 (2.0- 3.7cm) LVDs 3.9 (2.5-4.0cm) LA (MM) (1.9-4.0cm) Aortic Cusp Exc 1.9 (1.5- 2.0cm) EF (%) 35.0 (55-70%) Rt. Atrium 3.6 (1.9-4.0cm) Asc. Aorta cm IVSd 1.0 (0.7-1.1cm) RV (D) (1.8-2.4cm) PWd 1.2 (0.7-1.1cm) Mitral Valve Mitral Mitral Stenosis E wave 0.77m/s MV Mean GR. mmHg A wave 0.62m/s MV Peak GR. mmHg E/A ratio 1.2 2D MVA cm2 DECEL Time 143ms PRESS 1/2 Time ms Aortic Valve Aortic Valve Aortic Stenosis V1 0.65m/s AO Mean GR. 4mmHg V2 1.23m/s AO Peak GR. 6mmHg LVOT Diameter 2.3 (1.8-2.4cm) Doppler DORIS 2.19cm2 Pulmonic Valve V2 0.96m/s Conclusion MODERATELY DILATED LV GLOBAL LV HYPOKINESIS LV EF IS 35% AND IS MODERATELY REDUED NORMAL VALVES NO EFFUSION SIGNED BY: ALLEGRA GUO MD SIGNED DATE/TIME: 09/08/25 0008 ORDERING PHYSICIAN: YAMILET IVY DO PROCEDURE(s): CXRP - CHEST PORTABLE REASON: cp/sob ORDER NUMBER(s): [id number], ACCESSION NUMBER(s): [id number] CLINICAL HISTORY: CP/SOB. TECHNIQUE: Single frontal view of the chest was obtained. COMPARISON: XY CHEST PORTABLE on DOS: 09/06/25. FINDINGS: DEVICES/LINES/TUBES: None available. LUNGS: Clear. PLEURA: No pneumothorax or pleural effusion. MEDIASTINUM/OTHER: Normal heart size and mediastinal contours. Trachea is midline. BONES: No acute osseous abnormality. Extensive hardware fixation of the thoracolumbar spine, which is incompletely assessed on this exam. UPPER ABDOMEN: Unremarkable. IMPRESSION: No acute cardiopulmonary process. Labs Test 11/13/25 21:16 11/13/25 20:06 11/13/25 17:03 Range/Units POC Glucose 208 H 70-106 mg/dl Troponin I High Sensitivity 5 </=34 ng/L White Blood Count 6.6 4.4-10.8 10^3/uL Red Blood Count 3.90 L 4.0-5.20 10^6/uL Hemoglobin 11.4 L 12.2-16.2 g/dL Hematocrit 33.0 L 36.0-46.0 % Mean Corpuscular Volume 84.4 80.0-100.0 fL Mean Corpuscular Hemoglobin 29.1 28.0-32.0 pg Mean Corpuscular Hemoglobin Concent 34.5 32.0-36.0 g/dL Red Cell Distribution Width 12.7 11.8-14.3 % Platelet Count 375 140-450 10^3/uL Mean Platelet Volume 8.0 6.9-10.8 fL Neutrophils (%) (Auto) 64.6 37.0-80.0 % Lymphocytes (%) (Auto) 30.9 10.0-50.0 % Monocytes (%) (Auto) 3.4 0.0-12.0 % Eosinophils (%) (Auto) 0.4 0.0-7.0 % Basophils (%) (Auto) 0.7 0.0-2.0 % Neutrophils # (Auto) 4.2 1.6-8.6 10 ^3/uL Lymphocytes # (Auto) 2.0 0.4-5.4 10 ^3/uL Monocytes # (Auto) 0.2 0-1.3 10 ^3/uL Eosinophils # (Auto) 0 0-0.8 10 ^3/uL Basophils # (Auto) 0 0-0.2 10 ^3/uL Nucleated Red Blood Cells 0.1 % Sodium Level 138 136-145 mmol/L Potassium Level 4.4 3.5-5.1 mmol/L Chloride Level 105 98-107 mmol/L Carbon Dioxide Level 24 20-31 mmol/L Anion Gap 9 5-15 Blood Urea Nitrogen 23 9-23 mg/dL Creatinine 1.70 H 0.550-1.02 mg/dL Glomerular Filtration Rate Calc 42 >90 mL/min BUN/Creatinine Ratio 13.5 10.0-20.0 Serum Glucose 211 H 74-106 mg/dL Calcium Level 9.2 8.7-10.4 mg/dL Total Bilirubin 0.7 0.2-1.0 mg/dL Aspartate Amino Transferase (AST) 34 13-40 U/L Alanine Aminotransferase (ALT) 24 7-40 U/L Alkaline Phosphatase 86 46-116 U/L B-Type Natriuretic Peptide 45.57 0-100 pg/mL Total Protein 7.4 5.7-8.2 g/dL Albumin 4.0 3.2-4.8 g/dL SEPSIS Sepsis Screen Date sepsis recognized/suspect: Nov 13, 2025 Time Sepsis recognized/suspect: 1953 Recent Procedure: No On Antibiotic Therapy: No Respiratory Rate >20: No Heart Rate >90: No Temp<36 C (96.8 F) or >38.3 C: No SBP <90 or MAP <65 mmHG: No New Acute Mental Status Change: No Is the patient on CPAP, BIPAP,: No Physician Orders Carvedilol Tablet (Coreg Tablet) (11/13/25 22:00) Furosemide Tablet (Lasix Tablet) (11/14/25 10:00) Gabapentin Capsule (Neurontin Capsule) (11/13/25 22:00) Spironolactone (Aldactone) (11/14/25 10:00) Valsartan (Diovan) (11/14/25 10:00) Clonidine Hcl Tablet (Catapres Tablet) (11/13/25 22:00) Glucose Blood (Accu-Chek Comfort Curve T (11/13/25 22:00) Insulin R (Human) (Insulin R) (11/13/25 22:00) Dextrose 50% Syringe (11/13/25 22:00) Ondansetron Hcl (Zofran) (11/13/25 22:00) Acetaminophen Tablet (Tylenol Tablet) (11/13/25 22:00) Vital Signs Date Time Temp Pulse Resp B/P (MAP) Pulse Ox O2 Delivery O2 Flow Rate FiO2 11/14/25 01:42 158/103 11/14/25 01:00 97.2 88 17 163/102 (122) 99 97.2 11/14/25 00:42 163/102 11/13/25 23:30 87 150/97 11/13/25 22:15 99 152/97 11/13/25 21:06 98 Room Air* 0 21 11/13/25 21:00 97.0 86 17 152/97 (115) 99 97.0 11/13/25 20:10 85 17 98 Room Air* 0 21 11/13/25 20:00 83 Laboratory Tests Test 11/13/25 17:03 White Blood Count 6.6 10^3/uL (4.4-10.8) Medications Medications Dose Ordered Sig/Sid Route Start Time Stop Time Status Last Admin Dose Admin Carvedilol 3.125 mg Q12HR PO 11/13/25 22:00 11/13/25 22:15 3.125 MG Clonidine HCl 0.1 mg Q6HP PRN PO 11/13/25 22:00 11/14/25 00:42 0.1 MG Diagnostic Test (Pha) 1 strip ACHS 11/13/25 22:00 11/13/25 22:18 1 STRIP Gabapentin 300 mg TID PO 11/13/25 22:00 11/13/25 22:15 300 MG Insulin Human Regular ACHS SC 11/13/25 22:00 11/13/25 22:19 4 UNITS Assessment/Plan Assessment/Plan Assessment Hypertensive urgency Diabetes mellitus CHF Chronic kidney disease Plan Admit the patient to Med surge to the hospitalist As needed antihypertensives Resume home medications Continue treatment per orders. Plan discussed with: Patient My Orders Orders - ABA DICK Procedure Category Date Status Time Consistent DIET 11/14/25 Transmitted Carb(Ccho)Diabetes Breakfast Admit ADMIT 11/13/25 Transmitted 19:30 Condition: Stable MAURO 11/13/25 In Process 19:30 Bedrest With Bathroom MAURO 11/13/25 In Process Privileg 19:30 Carvedilol Tablet PHA 11/13/25 In Process (Coreg Tablet) 22:00 Furosemide Tablet PHA 11/14/25 In Process (Lasix Tablet) 10:00 Gabapentin Capsule PHA 11/13/25 In Process (Neurontin Capsule) 22:00 Spironolactone PHA 11/14/25 In Process (Aldactone) 10:00 Valsartan (Diovan) PHA 11/14/25 In Process 10:00 Clonidine Hcl Tablet PHA 11/13/25 In Process (Catapres Tablet) 22:00 Glucose Blood PHA 11/13/25 In Process (Accu-Chek Comfort 22:00 Insulin R (Human) PHA 11/13/25 In Process (Insulin R) 22:00 Dextrose 50% Syringe PHA 11/13/25 In Process 22:00 Ondansetron Hcl PHA 11/13/25 In Process (Zofran) 22:00 Acetaminophen Tablet PHA 11/13/25 In Process (Tylenol Tablet) 22:00 Date of Service: Nov 13, 2025 Billing Provider: ABA DICK Common Visit Codes: [id number] INP/OBS CARE (HIGH) ABA DICK Nov 14, 2025 04:00
[2025-11-14] MEDS ORDERED: SPIRONOLACTONE 25 MG TAB PO SCH (10:00)
[2025-11-14] MEDS ORDERED: FUROSEMIDE 40 MG TAB PO SCH (10:00)
[2025-11-14] MEDS ORDERED: VALSARTAN 80 MG TAB PO SCH (10:00)
--- NOTE | 2025-11-14 10:31 | DVHPN2 ---
Subjective The patient seen and examined at bedside. The patient complains of headache. Reviewed: Care Plan, H&P, Labs, Medications, Previous Orders, Radiology Changes from previous H/P or p: No Changes Objective Vitals Vital Signs Date Time Temp Pulse Resp B/P (MAP) Pulse Ox O2 Delivery O2 Flow Rate FiO2 11/14/25 09:00 97.3 88 16 150/94 (112) 99 97.3 11/13/25 21:06 Room Air* 0 21 Intake/Output Intake and Output 11/14/25 07:00 Intake Total 200 ml Balance 200 ml Intake Oral 200 ml # Voids 2 General Appearance: Alert, Oriented X3, Cooperative, No acute distress HEENT: Atraumatic, PERRLA, EOMI, Mucous membr. moist/pink Neck: Supple Lungs: Clear to auscultation, Normal air movement Cardiovascular: Regular rate, Normal S1, Normal S2, No murmurs, Gallops Abdomen: Normal bowel sounds, Soft, No tenderness Neuro: Strength at 5/5 X4 ext, Cranial nerves 3-12 NL Psych/Mental Status: Mental status NL Medications Current Medications Medications Dose Ordered Sig/Sid Route Start Time Stop Time Status Last Admin Dose Admin Carvedilol 3.125 mg Q12HR PO 11/13/25 22:00 11/13/25 22:15 3.125 MG Furosemide 40 mg DAILY PO 11/14/25 10:00 Gabapentin 300 mg TID PO 11/13/25 22:00 11/14/25 06:02 300 MG Spironolactone 25 mg DAILY PO 11/14/25 10:00 Valsartan 80 mg DAILY PO 11/14/25 10:00 Clonidine HCl 0.1 mg Q6HP PRN PO 11/13/25 22:00 11/14/25 00:42 0.1 MG Diagnostic Test (Pha) 1 strip ACHS 11/13/25 22:00 11/14/25 06:03 1 STRIP Insulin Human Regular ACHS SC 11/13/25 22:00 11/14/25 06:07 2 UNITS Dextrose 50 ml UD PRN IV 11/13/25 22:00 Ondansetron HCl 4 mg Q4HP PRN IV 11/13/25 22:00 Acetaminophen 650 mg Q6HP PRN PO 11/13/25 22:00 Laboratory Results Laboratory Tests 11/13/25 17:03 Chemistry Test 11/13/25 17:03 Albumin 4.0 g/dL (3.2-4.8) Calcium Level 9.2 mg/dL (8.7-10.4) Total Protein 7.4 g/dL (5.7-8.2) Cardiac Markers Test 11/13/25 17:03 B-Type Natriuretic Peptide 45.57 pg/mL (0-100) LFT Test 11/13/25 17:03 Alanine Aminotransferase (ALT) 24 U/L (7-40) Alkaline Phosphatase 86 U/L (46-116) Aspartate Amino Transferase (AST) 34 U/L (13-40) Total Bilirubin 0.7 mg/dL (0.2-1.0) Labs and/or images reviewed: Labs reviewed by me Assessment/Plan Assessment/Plan HTN urgency and uncontrolled. DM type 2 uncontrolled. CHF Chronic kidney disease stage 3 Chest pain, possible 2nd to HTN uncontrolled. Continue current management. Continue with Coreg, Valsatan, spironolactone, Lasix The patient complains of chest pain again today, so I will order a STAT EKG I will add nitroglycerin 0.4mg q 5 min x3 max in 15 min I will add morphine 1mg IV q4hPRN for pain Cardiology consult. Continue SSI Plan discussed with: Patient Date of Service: Nov 14, 2025 Billing Provider: ARCADIO PURDY MD Common Visit Codes: [id number] INP/OBS CARE(HIGH) ARCADIO PURDY MD Nov 14, 2025 10:31
[2025-11-14] MEDS: SPIRONOLACTONE 25 MG TAB PO SCH (10:47)
[2025-11-14] MEDS: VALSARTAN 80 MG TAB PO SCH (10:47)
[2025-11-14] MEDS: FUROSEMIDE 40 MG TAB PO SCH (10:48)
[2025-11-14] MEDS: NITROGLYCERIN 0.4 MG SL TAB SL PRN (15:32)
[2025-11-15] VITALS (9 sets, daily range): BP systolic 146–164; BP diastolic 92–103; PULSE 82–96; RESP 14–19; TEMP 97.6–98.3; O2SAT 99–100
--- NOTE | 2025-11-15 09:13 | ECG ---
[facility] Test Date: 2025-11-14 Test Time: 14:56:57 Pat Name: MICK LIANG Department: Room: 024[facility] Gender: F Historiographer: LEIDY : 1995 Requested By: ARCADIO PURDY Order Number: [id number] Reading MD: Jose Moore Measurements Intervals [place] Rate: 81 P: 41 SC: 148 QRS: 38 QRSD: 84 T: 102 QT: 358 QTc: 416 Interpretive Statements Sinus rhythm RSR' in V1 or V2, probably normal variant Nonspecific T abnormalities, lateral leads Electronically Signed On 11-15-2025 17:30:10 PST by Jose Moore Please click the below link to view image of tracing.
--- NOTE | 2025-11-15 11:52 | DVHPN2 ---
Subjective The patient seen and examined at bedside. The patient complains of chest pain and burning of chest. Reviewed: Care Plan, H&P, Labs, Medications, Previous Orders, Radiology Changes from previous H/P or p: No Changes Objective Vitals Vital Signs Date Time Temp Pulse Resp B/P (MAP) Pulse Ox O2 Delivery O2 Flow Rate FiO2 11/15/25 09:22 153/99 11/15/25 09:21 89 11/15/25 08:47 97.6 17 99 97.6 11/15/25 08:00 Room Air* 0 21 Intake/Output Intake and Output 11/15/25 07:00 Intake Total 850 ml Balance 850 ml Intake Oral 850 ml # Voids 4 General Appearance: Alert, Oriented X3, Cooperative, No acute distress HEENT: Atraumatic, PERRLA, EOMI, Mucous membr. moist/pink Neck: Supple Lungs: Clear to auscultation, Normal air movement Cardiovascular: Regular rate, Normal S1, Normal S2, No murmurs, Gallops Abdomen: Normal bowel sounds, Soft, No tenderness Neuro: Strength at 5/5 X4 ext, Cranial nerves 3-12 NL Psych/Mental Status: Mental status NL Medications Current Medications Medications Dose Ordered Sig/Sid Route Start Time Stop Time Status Last Admin Dose Admin Carvedilol 3.125 mg Q12HR PO 11/13/25 22:00 11/15/25 09:21 3.125 MG Furosemide 40 mg DAILY PO 11/14/25 10:00 11/15/25 09:22 40 MG Gabapentin 300 mg TID PO 11/13/25 22:00 11/15/25 06:23 300 MG Spironolactone 25 mg DAILY PO 11/14/25 10:00 11/15/25 09:21 25 MG Valsartan 80 mg DAILY PO 11/14/25 10:00 11/15/25 09:21 80 MG Clonidine HCl 0.1 mg Q6HP PRN PO 11/13/25 22:00 11/15/25 01:05 0.1 MG Diagnostic Test (Pha) 1 strip ACHS 11/13/25 22:00 11/15/25 10:50 1 STRIP Insulin Human Regular ACHS SC 11/13/25 22:00 11/15/25 06:25 8 UNITS Dextrose 50 ml UD PRN IV 11/13/25 22:00 Ondansetron HCl 4 mg Q4HP PRN IV 11/13/25 22:00 Acetaminophen 650 mg Q6HP PRN PO 11/13/25 22:00 Morphine Sulfate 1 mg Q4HP PRN IV 11/14/25 15:30 Nitroglycerin 0.4 mg Q5MINP PRN SL 11/14/25 15:15 11/15/25 09:20 0.4 MG Laboratory Results Laboratory Tests 11/13/25 17:03 Labs and/or images reviewed: Labs reviewed by me Assessment/Plan Assessment/Plan HTN urgency and uncontrolled. DM type 2 uncontrolled. CHF Chronic kidney disease stage 3 Chest pain, possible 2nd to HTN uncontrolled. Continue current management. Continue with Coreg, Valsatan, spironolactone, Lasix The patient complains of chest pain again today, so I will order a STAT EKG I will add nitroglycerin 0.4mg q 5 min x3 max in 15 min I will add morphine 1mg IV q4hPRN for pain Waiting for Cardiology consult. Continue SSI Plan discussed with: Patient My Orders Orders - ARCADIO PURDY MD Procedure Category Date Status Time Nitroglycerin PHA 11/14/25 In Process Sublingual (Ntrostat 15:15 Morphine Sulfate PHA 11/14/25 In Process Injection 15:30 * Cardiology Consult CONS 11/15/25 Transmitted 07:48 Complete Blood Count LAB 11/16/25 Verified 05:00 Complete Blood Count LAB 11/17/25 Verified 05:00 Complete Blood Count LAB 11/18/25 Verified 05:00 Basic Metabolic Panel LAB 11/16/25 Verified 05:00 Basic Metabolic Panel LAB 11/17/25 Verified 05:00 Basic Metabolic Panel LAB 11/18/25 Verified 05:00 Date of Service: Nov 15, 2025 Billing Provider: RACADIO PURDY MD Common Visit Codes: [id number] INP/OBS CARE(HIGH) ARCADIO PURDY MD Nov 15, 2025 11:52
--- NOTE | 2025-11-15 14:08 | DVHINCON2 ---
Date Seen: Nov 15, 2025 Referring Physician MD Leigh Reason for Consultation Chest pain History of Present Illness This is a 29-year-old female patient who presents to the emergency room with multiple chief complaints including headache, chest pain, and shortness of breath. The patient reports experiencing a headache for approximately one week. She states that she realized that her blood pressures have been elevated at home. She recently went to a pain management appointment where she was told that her blood pressure was "too high". She also reports chest pain which she describes as unprovoked, intermittent, sharp in nature, right and left-sided with associated shortness of breath. She decided to come to the emergency room for further evaluation. Initial twelve lead electrocardiogram found in patient's chart reveals normal sinus rhythm with nonspecific T-wave changes in lateral leads. Serial troponin levels have been negative. Significant past medical history includes congestive heart failure, nonischemic cardiomyopathy, hypertension, dyslipidemia, type 1 diabetes mellitus, chronic kidney disease, peripheral neuropathy, and GERD. 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 It is also worth noting that the patient has undergone a coronary angiogram on 01/01/2025 which revealed no severe coronary artery disease. Past Medical History Past medical history reviewed. No other significant than mentioned above. Past Surgical History Back surgery Family History: Diabetes mellitus G8 FATHER, aunt G8 MOTHER Family history: Cardiovascular disease GRANDMOTHER Family history: Diabetes mellitus G8 FATHER, Family History Family history reviewed. Social History Denies the use of tobacco, alcohol or illicit drugs. Allergies: Coded Allergies: NO KNOWN ALLERGIES (Unverified , 10/24/19) Home Meds Reported Medications Acetaminophen W/ Codeine (Tylenol #4 W/Codeine) 1 Tab Tb, 1 TAB PO, TAB 11/13/25 Home Meds Home medications reviewed. Current Medications Current Medications Medications (Trade) Dose Ordered Sig/Sid Route PRN Reason Start Time Stop Time Status Last Admin Morphine Sulfate 1 mg Q4HP PRN IV MOD TO SEVERE PAIN OR CP 11/14/25 15:30 Nitroglycerin (Ntrostat Sublingual) 0.4 mg Q5MINP PRN SL FOR CHEST PAIN 11/14/25 15:15 11/15/25 09:20 Review of Systems Constitutional: No symptom reported Ears, Nose, & Throat: No symptom reported Eyes: No symptom reported Neurological: Headache Pulmonary/Respiratory: Shortness of breath Cardiovascular: Chest pain Gastrointestinal: No symptom reported Genitourinary: No symptom reported Musculoskeletal: No symptom reported Skin: No symptom reported Psychiatric: No symptom reported Endocrine: No symptom reported Hematologic/Lymphatic: No symptom reported Vital Signs Vital Signs Date Time Temp Pulse Resp B/P (MAP) Pulse Ox O2 Delivery O2 Flow Rate FiO2 11/15/25 13:00 97.9 96 18 164/99 (120) 100 97.9 11/15/25 08:00 Room Air* 0 21 Physical Exam General Appearance: Cooperative. Well-developed. Well-nourished. No acute distress. Pulmonary/Respiratory: Clear, bilateral breaths sounds. Cardiovascular/Chest: Regular rate and rhythm. Peripheral Pulses: 2+ Radial (R). 2+ Radial (L). 2+ Pedal (R). 2+ Pedal (L) Abdominal Exam: Normal bowel sounds. Ankle Exam: Negative ankle edema Lower extremities: Negative lower extremity edema Neuro/Mental Status: A/OX4, coherent. Thoughts/Psych: Normal thought pattern. Appropriate mood and affect. Good judgment and insight. Appearance: No acute distress. Skin Exam: Normal inspection. Normal color. Warm and dry. Labs/Diagnostic Data Labs Test 11/15/25 10:50 11/13/25 20:06 11/13/25 17:03 Range/Units POC Glucose 137 H 70-106 mg/dl Troponin I High Sensitivity 5 </=34 ng/L White Blood Count 6.6 4.4-10.8 10^3/uL Red Blood Count 3.90 L 4.0-5.20 10^6/uL Hemoglobin 11.4 L 12.2-16.2 g/dL Hematocrit 33.0 L 36.0-46.0 % Mean Corpuscular Volume 84.4 80.0-100.0 fL Mean Corpuscular Hemoglobin 29.1 28.0-32.0 pg Mean Corpuscular Hemoglobin Concent 34.5 32.0-36.0 g/dL Red Cell Distribution Width 12.7 11.8-14.3 % Platelet Count 375 140-450 10^3/uL Mean Platelet Volume 8.0 6.9-10.8 fL Neutrophils (%) (Auto) 64.6 37.0-80.0 % Lymphocytes (%) (Auto) 30.9 10.0-50.0 % Monocytes (%) (Auto) 3.4 0.0-12.0 % Eosinophils (%) (Auto) 0.4 0.0-7.0 % Basophils (%) (Auto) 0.7 0.0-2.0 % Neutrophils # (Auto) 4.2 1.6-8.6 10 ^3/uL Lymphocytes # (Auto) 2.0 0.4-5.4 10 ^3/uL Monocytes # (Auto) 0.2 0-1.3 10 ^3/uL Eosinophils # (Auto) 0 0-0.8 10 ^3/uL Basophils # (Auto) 0 0-0.2 10 ^3/uL Nucleated Red Blood Cells 0.1 % Sodium Level 138 136-145 mmol/L Potassium Level 4.4 3.5-5.1 mmol/L Chloride Level 105 98-107 mmol/L Carbon Dioxide Level 24 20-31 mmol/L Anion Gap 9 5-15 Blood Urea Nitrogen 23 9-23 mg/dL Creatinine 1.70 H 0.550-1.02 mg/dL Glomerular Filtration Rate Calc 42 >90 mL/min BUN/Creatinine Ratio 13.5 10.0-20.0 Serum Glucose 211 H 74-106 mg/dL Calcium Level 9.2 8.7-10.4 mg/dL Total Bilirubin 0.7 0.2-1.0 mg/dL Aspartate Amino Transferase (AST) 34 13-40 U/L Alanine Aminotransferase (ALT) 24 7-40 U/L Alkaline Phosphatase 86 46-116 U/L B-Type Natriuretic Peptide 45.57 0-100 pg/mL Total Protein 7.4 5.7-8.2 g/dL Albumin 4.0 3.2-4.8 g/dL Assessment Chest pain, rule out coronary artery disease Hypertensive urgency Chronic compensated HFrEF, NYHA class II Non-ischemic/likely hypertensive cardiomyopathy with LVEF 30-35% Type 1 diabetes mellitus, uncontrolled (A1c 10.0%) Dyslipidemia Chronic kidney disease Peripheral neuropathy GERD Medical noncompliance Plan/Recommendation We will continue with the following plan/recommendations (Dr. Moore): * Transthoracic echocardiogram from 09/07/2025 reveals an EF of 35% * Initiate guideline directed medical therapy for CHF as tolerated * Strict intake and output, daily weights, maintain fluid restriction * Aggressive blood pressure control * Upgrade to telemetry monitoring * Chest pain protocol * HEART score: 3 points * Single antiplatelet therapy and lipid-lowering agent * Nuclear stress test * Risk factor modifications, counseled * Dietary and lifestyle changes. (Patient noted to have [place] food delivered to bedside, reinforced low-sodium diet) Thank you for allowing us to care for this patient. Please call with any questions or concerns. Critical care time spent: 44 minutes This medical document was created using an electronic medical record system with voice recognition software and computerized dictation system. Although this document has been carefully reviewed, there might still be some phonetic and typographical errors. Occasional wrong-word or ``sound-alike substitutions may have occurred due to the inherent limitations of voice recognition software. These areas are purely typographical due to imperfections of the software programs and do not reflect any compromise in the patient's medical care. Please read the chart carefully and recognize, using context, where these substitutions have occurred. Plan discussed with: Patient NYHA Physical activity limitations: Class2(Slight)fatigue,sob (palpitatns, angina w activityv) Date of Service: Nov 15, 2025 Billing Provider: LUISA VEGAS Cardiology Common Codes: [id number] INP/OBS CARE (High) Cardiology Consultation Codes: [id number] CONSULT <45MIN LUISA VEGAS Nov 15, 2025 14:08
[2025-11-15 15:56] LABS: Magnesium 2.2 mg/dL (1.6-2.6)
[2025-11-15 15:58] LABS: Cholesterol 305.0 mg/dL (< 200); HDL Cholesterol 60.0 mg/dL (40-59); Triglycerides 165.0 mg/dL (< 150)
[2025-11-15] MEDS: ATORVASTATIN 20 MG TAB PO SCH (22:16)
[2025-11-16] VITALS (9 sets, daily range): BP systolic 126–164; BP diastolic 86–112; PULSE 79–100; RESP 14–20; TEMP 97.3–98.6; O2SAT 100
[2025-11-16 06:00] LABS: Hematocrit 31.0 % (36.0-46.0); Hemoglobin 10.8 g/dL (12.2-16.2); Mean Corpuscular Hemoglobin 29.5 pg (28.0-32.0); Mean Corpuscular Volume 84.5 fL (80.0-100.0); Nucleated Red Blood Cells % 0.2 %
[2025-11-16 06:20] LABS: Anion Gap 10 (5-15); Carbon Dioxide 25 mmol/L (20-31); Chloride 104 mmol/L (98-107); Potassium 4.8 mmol/L (3.5-5.1); Sodium 139 mmol/L (136-145)
[2025-11-16 06:21] LABS: Calcium 9.0 mg/dL (8.7-10.4)
[2025-11-16 06:26] LABS: BUN/Creatinine Ratio 12.4 (10.0-20.0); Blood Urea Nitrogen 21 mg/dL (9-23)
[2025-11-16 06:32] LABS: Glucose 304 mg/dL (74-106)
[2025-11-16] MEDS: REGADENOSON 0.4 MG/5 ML SYRG IV ONE ×2 (10:41→10:51)
[2025-11-16] MEDS: ASPirin-EC 81 mg tab PO SCH (11:09)
[2025-11-16] MEDS: EMPAGLIFLOZIN 10 MG TAB PO SCH (11:09)
--- NOTE | 2025-11-16 14:21 | DVHPN2 ---
Subjective The patient seen and examined at bedside. The patient complains of chest pain and burning of chest. Waiting to finish stress test. Reviewed: Care Plan, H&P, Labs, Medications, Previous Orders, Radiology Changes from previous H/P or p: No Changes Objective Vitals Vital Signs Date Time Temp Pulse Resp B/P (MAP) Pulse Ox O2 Delivery O2 Flow Rate FiO2 11/16/25 13:30 97.9 92 16 126/86 (99) 100 97.9 11/16/25 07:57 Room Air* 0 21 Intake/Output Intake and Output 11/16/25 07:00 Intake Total 560 ml Balance 560 ml Intake Oral 560 ml # Voids 2 General Appearance: Alert, Oriented X3, Cooperative, No acute distress HEENT: Atraumatic, PERRLA, EOMI, Mucous membr. moist/pink Neck: Supple Lungs: Clear to auscultation, Normal air movement Cardiovascular: Regular rate, Normal S1, Normal S2, No murmurs, Gallops Abdomen: Normal bowel sounds, Soft, No tenderness Neuro: Strength at 5/5 X4 ext, Cranial nerves 3-12 NL Psych/Mental Status: Mental status NL Medications Current Medications Medications Dose Ordered Sig/Sid Route Start Time Stop Time Status Last Admin Dose Admin Carvedilol 3.125 mg Q12HR PO 11/13/25 22:00 11/16/25 11:08 3.125 MG Furosemide 40 mg DAILY PO 11/14/25 10:00 11/16/25 11:08 40 MG Gabapentin 300 mg TID PO 11/13/25 22:00 11/15/25 22:15 300 MG Spironolactone 25 mg DAILY PO 11/14/25 10:00 11/16/25 11:09 25 MG Valsartan 80 mg DAILY PO 11/14/25 10:00 11/16/25 11:08 80 MG Clonidine HCl 0.1 mg Q6HP PRN PO 11/13/25 22:00 11/16/25 01:05 0.1 MG Diagnostic Test (Pha) 1 strip ACHS 11/13/25 22:00 11/16/25 11:07 1 STRIP Insulin Human Regular ACHS SC 11/13/25 22:00 11/16/25 06:11 8 UNITS Dextrose 50 ml UD PRN IV 11/13/25 22:00 Ondansetron HCl 4 mg Q4HP PRN IV 11/13/25 22:00 Acetaminophen 650 mg Q6HP PRN PO 11/13/25 22:00 Morphine Sulfate 1 mg Q4HP PRN IV 11/14/25 15:30 Nitroglycerin 0.4 mg Q5MINP PRN SL 11/14/25 15:15 11/16/25 11:37 0.4 MG Empaglifozin 10 mg DAILY PO 11/16/25 10:00 11/16/25 11:09 10 MG Aspirin 81 mg DAILY PO 11/16/25 10:00 11/16/25 11:09 81 MG Atorvastatin Calcium 40 mg HS PO 11/15/25 22:00 11/15/25 22:16 40 MG Laboratory Results Laboratory Tests 11/16/25 05:28 Chemistry Test 11/15/25 15:23 11/16/25 05:28 Magnesium Level 2.2 mg/dL (1.6-2.6) Calcium Level 9.0 mg/dL (8.7-10.4) Lipid panel Test 11/15/25 15:23 Cholesterol Level 305 mg/dL (< 200) H HDL Cholesterol 60 mg/dL (40-59) H Triglycerides Level 165 mg/dL (< 150) H HgA1c, TSH Test 11/15/25 15:23 Hemoglobin A1c 10.0 % A1C (<5.7) H Thyroid Stimulating Hormone (TSH) 2.22 uIU/mL (0.55-4.78) Labs and/or images reviewed: Labs reviewed by me Assessment/Plan Assessment/Plan HTN urgency and uncontrolled. DM type 2 uncontrolled. CHF Chronic kidney disease stage 3 Chest pain, possible 2nd to HTN uncontrolled. Continue current management. Continue with Coreg, Valsatan, spironolactone, Lasix The patient complains of chest pain again today, so I will order a STAT EKG I will add nitroglycerin 0.4mg q 5 min x3 max in 15 min I will add morphine 1mg IV q4hPRN for pain Waiting for stress test. DC if negative. Continue SSI Plan discussed with: Patient Date of Service: Nov 16, 2025 Billing Provider: ARCADIO PURDY MD Common Visit Codes: [id number] INP/OBS CARE(HIGH) ARCADIO PURDY MD Nov 16, 2025 14:21
[2025-11-17] VITALS (8 sets, daily range): BP systolic 121–141; BP diastolic 84–99; PULSE 77–88; RESP 16–20; TEMP 97.8–98.4; O2SAT 96–100
[2025-11-17] MEDS: CALCIUM CARB 500 MG CHEW TAB PO PRN (04:30)
[2025-11-17 06:16] LABS: Hematocrit 31.1 % (36.0-46.0); Hemoglobin 10.7 g/dL (12.2-16.2); Mean Corpuscular Hemoglobin 29.3 pg (28.0-32.0); Mean Corpuscular Volume 85.0 fL (80.0-100.0); Nucleated Red Blood Cells % 0.0 %
[2025-11-17 06:39] LABS: Chloride 101 mmol/L (98-107); Sodium 137 mmol/L (136-145)
[2025-11-17 06:40] LABS: Anion Gap 11 (5-15); Carbon Dioxide 25 mmol/L (20-31)
[2025-11-17 06:41] LABS: Calcium 9.0 mg/dL (8.7-10.4)
[2025-11-17 06:45] LABS: BUN/Creatinine Ratio 15.1 (10.0-20.0)
[2025-11-17 06:54] LABS: Potassium 5.1 mmol/L (3.5-5.1)
[2025-11-17 06:55] LABS: Blood Urea Nitrogen 30 mg/dL (9-23); Glucose 405 mg/dL (74-106)
[2025-11-17 12:59] LABS: Urine Protein, UAD 1+ (Negative)
[2025-11-17 13:12] LABS: Amphetamine Screen, Urine Neg (NEGATIVE); Barbiturate Scree,Urine Neg (NEGATIVE); Benzodiazephine Screen, Urine Neg (NEGATIVE); Cannabinoid Screen, Urine Neg (NEGATIVE); Cocaine Screen, Urine Neg (NEGATIVE); Opiate Scree,Urine Neg (NEGATIVE); Phencyclidine Screen, Urine Neg (NEGATIVE)
--- NOTE | 2025-11-17 14:12 | DVHPN2 ---
NATE ARRIOLA [facility] 11/17/25 1412: Consult Progress Note Date Seen: Nov 17, 2025 Subjective Review of Systems: CVS:Abnormal, RESPIRATORY:Normal, NEURO:Normal Other Systems: C/o intermittent bilateral inframmary chest pain Objective vital signs Vital Sign Date Time Temp Pulse Resp B/P (MAP) Pulse Ox O2 Delivery O2 Flow Rate FiO2 11/17/25 09:34 124/88 11/17/25 09:33 81 11/17/25 09:00 97.9 20 98 97.9 11/16/25 20:00 Room Air* 0 21 Total Intake and Output 11/16/25 11/16/25 11/17/25 15:00 23:00 07:00 Intake Total 900 ml 400 ml Balance 900 ml 400 ml medications Current Medications Medications Dose Ordered Sig/Sid Route Start Time Stop Time Status Last Admin Dose Admin Carvedilol 3.125 mg Q12HR PO 11/13/25 22:00 11/17/25 09:33 3.125 MG Furosemide 40 mg DAILY PO 11/14/25 10:00 11/17/25 09:34 40 MG Gabapentin 300 mg TID PO 11/13/25 22:00 11/15/25 22:15 300 MG Spironolactone 25 mg DAILY PO 11/14/25 10:00 11/17/25 10:30 25 MG Valsartan 80 mg DAILY PO 11/14/25 10:00 11/17/25 09:33 80 MG Clonidine HCl 0.1 mg Q6HP PRN PO 11/13/25 22:00 11/16/25 01:05 0.1 MG Diagnostic Test (Pha) 1 strip ACHS 11/13/25 22:00 11/17/25 11:30 1 STRIP Insulin Human Regular ACHS SC 11/13/25 22:00 11/17/25 06:48 10 UNITS Dextrose 50 ml UD PRN IV 11/13/25 22:00 Ondansetron HCl 4 mg Q4HP PRN IV 11/13/25 22:00 Acetaminophen 650 mg Q6HP PRN PO 11/13/25 22:00 Morphine Sulfate 1 mg Q4HP PRN IV 11/14/25 15:30 Nitroglycerin 0.4 mg Q5MINP PRN SL 11/14/25 15:15 11/16/25 18:25 0.4 MG Empaglifozin 10 mg DAILY PO 11/16/25 10:00 11/17/25 09:34 10 MG Aspirin 81 mg DAILY PO 11/16/25 10:00 11/17/25 09:34 81 MG Atorvastatin Calcium 40 mg HS PO 11/15/25 22:00 11/16/25 23:01 40 MG Calcium Carbonate 500 mg QIDPRN PRN PO 11/17/25 03:30 11/17/25 13:22 500 MG Examination: LUNGS:Normal, CVS:Normal (NSR), NEURO:Normal laboratory and microbiology Laboratory Tests 11/17/25 05:37 Test 11/17/25 05:37 Range/Units Serum Glucose 405 *H 74-106 mg/dL Problem List/Assessment/Plan Problem List/Assessment/Plan Chest pain in the setting of hypertensive urgency Chronic compensated HFrEF, NYHA class II Non-ischemic/likely hypertensive cardiomyopathy with LVEF 30-35% Type 1 diabetes mellitus, uncontrolled (A1c 10.0%) Dyslipidemia Chronic kidney disease Peripheral neuropathy Medical noncompliance Dietary indiscretions Plan/Recommendation (Dr. Ugarte) * Transthoracic echocardiogram from 09/07/2025 reveals an EF of 35% * Aggressive BP control with guideline directed medical therapy for CHF as tolerated * Strict intake and output, daily weights, maintain fluid restriction * Nuclear stress test completed and reviewed by Dr. Ugarte * Continue lipid-lowering agent and tight glycemic control * Risk factor modifications, counseled * Dietary and lifestyle changes (patient noted to have [place] food delivered to bedside, reinforced low-sodium diet) Case discussed with Dr. Ugarte, patient's primary rental manager who reviewed cardiolite stress test images. Follow-up in his clinic within 1-2 weeks post- discharge. Continue aggressive BP Control as it may be the culprit of symptoms. The patient underwent a cardiac catheterization without catheter-based intervention earlier this year. There is no further cardiac work-up indicated at this time. Kindly call with any questions or concerns. Signing off. Thank you for allowing us to care for this patient. This medical document was created using an electronic medical record system with voice recognition software and computerized dictation system. Although this document has been carefully reviewed, there might still be some phonetic and typographical errors. Occasional wrong-word or ``sound-alike substitutions may have occurred due to the inherent limitations of voice recognition software. These areas are purely typographical due to imperfections of the software programs and do not reflect any compromise in the patient's medical care. Please read the chart carefully and recognize, using context, where these substitutions have occurred. Plan discussed with: Patient, Other Date of Service: Nov 17, 2025 Billing Provider: NATE ARRIOLA Cardiology Common Codes: [id number] HOSP CARE(High GUILLAUME UGARTE MD 11/19/25 1303: Consult Progress Note Problem List/Assessment/Plan Problem List/Assessment/Plan pt had negative Lhc earlier this year, DM not controled, LDL is poor , needs GDMT, NATE ARRIOLA Nov 17, 2025 14:12 GUILLAUME UGARTE MD Nov 19, 2025 13:03
[2025-11-17] MEDS ORDERED: CARV6.2517 PO (14:40)
[2025-11-17] MEDS ORDERED: VALS1TAB57 PO (14:40)
[2025-11-17] MEDS ORDERED: NITR0.4S29 SL (14:40)
[2025-11-17] MEDS ORDERED: GABA-1250 PO (14:40)
[2025-11-17] MEDS ORDERED: EMPA1TAB PO (14:40)
[2025-11-17] MEDS ORDERED: SPIR25TA PO (14:40)
[2025-11-17] MEDS: CARVEDILOL 3.125 MG TAB PO SCH (21:38)
[2025-11-17] MEDS: INSULIN LANTUS (GLARGINE) 1 /0.01ml (100units/ml) SC SCH (21:48)
--- NOTE | 2025-11-17 23:16 | DVHPN2 ---
Subjective The patient seen and examined at bedside. The patient complains of chest pain and burning of chest. Stress test is normal. BG is 400s today. Reviewed: Care Plan, H&P, Labs, Medications, Previous Orders, Radiology Changes from previous H/P or p: No Changes Objective Vitals Vital Signs Date Time Temp Pulse Resp B/P (MAP) Pulse Ox O2 Delivery O2 Flow Rate FiO2 11/17/25 21:38 99 122/84 11/17/25 21:00 97.8 20 99 97.8 11/17/25 20:00 Room Air* 0 21 Intake/Output Intake and Output 11/17/25 07:00 Intake Total 1300 ml Balance 1300 ml Intake Oral 1300 ml # Voids 5 # Bowel Movements 2 General Appearance: Alert, Oriented X3, Cooperative, No acute distress HEENT: Atraumatic, PERRLA, EOMI, Mucous membr. moist/pink Neck: Supple Lungs: Clear to auscultation, Normal air movement Cardiovascular: Regular rate, Normal S1, Normal S2, No murmurs, Gallops Abdomen: Normal bowel sounds, Soft, No tenderness Neuro: Strength at 5/5 X4 ext, Cranial nerves 3-12 NL Psych/Mental Status: Mental status NL Medications Current Medications Medications Dose Ordered Sig/Sid Route Start Time Stop Time Status Last Admin Dose Admin Furosemide 40 mg DAILY PO 11/14/25 10:00 11/17/25 09:34 40 MG Gabapentin 300 mg TID PO 11/13/25 22:00 11/17/25 21:41 300 MG Spironolactone 25 mg DAILY PO 11/14/25 10:00 11/17/25 10:30 25 MG Valsartan 80 mg DAILY PO 11/14/25 10:00 11/17/25 09:33 80 MG Diagnostic Test (Pha) 1 strip ACHS 11/13/25 22:00 11/17/25 21:42 1 STRIP Insulin Human Regular ACHS SC 11/13/25 22:00 11/17/25 21:48 6 UNITS Dextrose 50 ml UD PRN IV 11/13/25 22:00 Ondansetron HCl 4 mg Q4HP PRN IV 11/13/25 22:00 Acetaminophen 650 mg Q6HP PRN PO 11/13/25 22:00 Morphine Sulfate 1 mg Q4HP PRN IV 11/14/25 15:30 Nitroglycerin 0.4 mg Q5MINP PRN SL 11/14/25 15:15 11/16/25 18:25 0.4 MG Empaglifozin 10 mg DAILY PO 11/16/25 10:00 11/17/25 09:34 10 MG Atorvastatin Calcium 40 mg HS PO 11/15/25 22:00 11/17/25 21:41 40 MG Calcium Carbonate 500 mg QIDPRN PRN PO 11/17/25 03:30 11/17/25 21:40 500 MG Carvedilol 6.25 mg Q12HR PO 11/17/25 22:00 11/17/25 21:38 6.25 MG Insulin Glargine 15 units BID@0700,2200 SC 11/17/25 22:00 11/17/25 21:48 15 UNITS Laboratory Results Laboratory Tests 11/17/25 05:37 Chemistry Test 11/17/25 05:37 Calcium Level 9.0 mg/dL (8.7-10.4) Urinalysis Test 11/17/25 11:30 Urine Color Colorless (Yellow) Urine Clarity Clear (Clear) Urine pH 6.0 (5.0-9.0) Urine Specific [place] 1.014 (1.001-1.035) Urine Protein 1+ (Negative) H Urine Ketones Negative (Negative) Urine Blood Negative /uL (Negative) Urine Nitrite Negative (Negative) Urine Bilirubin Negative (Negative) Urine Urobilinogen Normal mg/dL (Negative) Urine Leukocyte Esterase 1+ /uL (Negative) Urine RBC 4 /hpf (0 - 4) Urine Microscopic WBC 3 /HPF (0-5) Urine Squamous Epithelial Cells Few /hpf (<5) Urine Bacteria None seen /hpf (None Seen) Urine Glucose 4+ mg/dL (Normal) H Labs and/or images reviewed: Labs reviewed by me Assessment/Plan Assessment/Plan HTN urgency and uncontrolled. DM type 2 uncontrolled. CHF Chronic kidney disease stage 3 Chest pain, possible 2nd to HTN uncontrolled. Continue current management. Continue with Coreg, Valsatan, spironolactone, Lasix The patient complains of chest pain again today, so I will order a STAT EKG I will add nitroglycerin 0.4mg q 5 min x3 max in 15 min I will add morphine 1mg IV q4hPRN for pain Waiting for stress test. DC if negative. Continue SSI I will add lantus 15 units sq bid. Will follow up blood glucose Discharge planning Plan discussed with: Patient My Orders Orders - ARCADIO PURDY MD Procedure Category Date Status Time Insulin Lantus PHA 11/17/25 In Process (Glargine) (Lantus) 22:00 Date of Service: Nov 17, 2025 Billing Provider: ARCADIO PURDY MD Common Visit Codes: [id number] INP/OBS CARE(HIGH) ARCADIO PURDY MD Nov 17, 2025 23:16
[2025-11-18] VITALS (7 sets, daily range): BP systolic 95–116; BP diastolic 63–81; PULSE 79–92; RESP 16–20; TEMP 98–98.7; O2SAT 98–100
[2025-11-18 06:01] LABS: Hematocrit 33.7 % (36.0-46.0); Hemoglobin 11.6 g/dL (12.2-16.2); Mean Corpuscular Hemoglobin 29.3 pg (28.0-32.0); Mean Corpuscular Volume 85.5 fL (80.0-100.0); Nucleated Red Blood Cells % 0.1 %
[2025-11-18 06:17] LABS: Calcium 10.0 mg/dL (8.7-10.4); Carbon Dioxide 24 mmol/L (20-31)
[2025-11-18 06:22] LABS: BUN/Creatinine Ratio 14.0 (10.0-20.0)
[2025-11-18 06:26] LABS: Blood Urea Nitrogen 33 mg/dL (9-23); Glucose 200 mg/dL (74-106)
[2025-11-18 06:32] LABS: Anion Gap 11 (5-15); Chloride 103 mmol/L (98-107); Sodium 138 mmol/L (136-145)
[2025-11-18 06:38] LABS: Potassium 5.4 mmol/L (3.5-5.1)
[2025-11-18] MEDS: SODIUM ZIRCONIUM CYCL 10 GM PAK PO ONE (11:45)
--- NOTE | 2025-11-18 14:19 | DVHPN2 ---
Subjective The patient seen and examined at bedside. The patient complains of chest pain and burning of chest. The patient is non compliance. Refuse insulin unless blood glucose more than 200 Reviewed: Care Plan, H&P, Labs, Medications, Previous Orders, Radiology Changes from previous H/P or p: No Changes Objective Vitals Vital Signs Date Time Temp Pulse Resp B/P (MAP) Pulse Ox O2 Delivery O2 Flow Rate FiO2 11/18/25 09:48 114/77 11/18/25 09:47 79 11/18/25 09:00 98.4 20 99 98.4 11/18/25 08:00 Room Air* 0 21 Intake/Output Intake and Output 11/18/25 07:00 Intake Total 1000 ml Output Total 775 ml Balance 225 ml Intake Oral 1000 ml Output Urine Total 775 ml General Appearance: Alert, Oriented X3, Cooperative, No acute distress HEENT: Atraumatic, PERRLA, EOMI, Mucous membr. moist/pink Neck: Supple Lungs: Clear to auscultation, Normal air movement Cardiovascular: Regular rate, Normal S1, Normal S2, No murmurs, Gallops Abdomen: Normal bowel sounds, Soft, No tenderness Neuro: Strength at 5/5 X4 ext, Cranial nerves 3-12 NL Psych/Mental Status: Mental status NL Medications Current Medications Medications Dose Ordered Sig/Sid Route Start Time Stop Time Status Last Admin Dose Admin Furosemide 40 mg DAILY PO 11/14/25 10:00 11/18/25 09:48 40 MG Gabapentin 300 mg TID PO 11/13/25 22:00 11/17/25 21:41 300 MG Spironolactone 25 mg DAILY PO 11/14/25 10:00 11/18/25 09:46 25 MG Valsartan 80 mg DAILY PO 11/14/25 10:00 11/18/25 09:46 80 MG Diagnostic Test (Pha) 1 strip ACHS 11/13/25 22:00 11/18/25 11:28 1 STRIP Insulin Human Regular ACHS SC 11/13/25 22:00 11/18/25 06:23 4 UNITS Dextrose 50 ml UD PRN IV 11/13/25 22:00 Ondansetron HCl 4 mg Q4HP PRN IV 11/13/25 22:00 Acetaminophen 650 mg Q6HP PRN PO 11/13/25 22:00 Morphine Sulfate 1 mg Q4HP PRN IV 11/14/25 15:30 Nitroglycerin 0.4 mg Q5MINP PRN SL 11/14/25 15:15 11/16/25 18:25 0.4 MG Empaglifozin 10 mg DAILY PO 11/16/25 10:00 11/18/25 09:47 10 MG Atorvastatin Calcium 40 mg HS PO 11/15/25 22:00 11/17/25 21:41 40 MG Calcium Carbonate 500 mg QIDPRN PRN PO 11/17/25 03:30 11/17/25 21:40 500 MG Carvedilol 6.25 mg Q12HR PO 11/17/25 22:00 11/18/25 09:47 6.25 MG Insulin Glargine 15 units BID@0700,2200 SC 11/17/25 22:00 11/18/25 06:23 15 UNITS Laboratory Results Laboratory Tests 11/18/25 05:07 Chemistry Test 11/18/25 05:07 Calcium Level 10.0 mg/dL (8.7-10.4) Urinalysis Test 11/17/25 11:30 Urine Color Colorless (Yellow) Urine Clarity Clear (Clear) Urine pH 6.0 (5.0-9.0) Urine Specific [place] 1.014 (1.001-1.035) Urine Protein 1+ (Negative) H Urine Ketones Negative (Negative) Urine Blood Negative /uL (Negative) Urine Nitrite Negative (Negative) Urine Bilirubin Negative (Negative) Urine Urobilinogen Normal mg/dL (Negative) Urine Leukocyte Esterase 1+ /uL (Negative) Urine RBC 4 /hpf (0 - 4) Urine Microscopic WBC 3 /HPF (0-5) Urine Squamous Epithelial Cells Few /hpf (<5) Urine Bacteria None seen /hpf (None Seen) Urine Glucose 4+ mg/dL (Normal) H Labs and/or images reviewed: Labs reviewed by me Assessment/Plan Assessment/Plan HTN urgency and uncontrolled. DM type 2 uncontrolled. CHF Chronic kidney disease stage 3 Chest pain, possible 2nd to HTN uncontrolled. Acute kidney injury Medical non compliance. Continue current management. Continue with Coreg, Valsatan, spironolactone, Lasix The patient complains of chest pain again today, so I will order a STAT EKG I will add nitroglycerin 0.4mg q 5 min x3 max in 15 min I will add morphine 1mg IV q4hPRN for pain Waiting for stress test. DC if negative. Continue SSI I will add lantus 15 units sq bid. Will follow up blood glucose I discuss with patient regarding to blood glucose. Advise her not to decline insulin since her blood glucose still elevated. The patient should not hold insulin when BG is 200. Advise her continue to take insulin even blood glucose around 140-150 The patient has elevation of BUN/Cr . Cr is 2.56 today. Will consult market master. Plan discussed with: Patient My Orders Orders - ARCADIO PURDY MD Procedure Category Date Status Time Insulin Lantus PHA 11/17/25 In Process (Glargine) (Lantus) 22:00 *[facility] CONS 11/18/25 Transmitted -[facility] 14:13 Date of Service: Nov 18, 2025 Billing Provider: ARCADIO PURDY MD Common Visit Codes: [id number] INP/OBS CARE(HIGH) ARCADIO PURDY MD Nov 18, 2025 14:19
--- NOTE | 2025-11-18 15:02 | CONS ---
Pharmacy Clinical Information: Potassium level on 11/18 @ 0507 = 5.4. Patient currently on valsartan 80mg PO once daily and spironolactone 25mg PO once daily. May consider holding medications until hyperkalemia resolves if/when clinically appropriate. JUDITH POLLACK [facility] RESIDENT Nov 18, 2025 15:02
[2025-11-18] MEDS: CLOTRIMAZOLE 1 % CREAM 15GM TOP SCH (21:38)
[2025-11-19] VITALS (8 sets, daily range): BP systolic 101–119; BP diastolic 64–86; PULSE 76–88; RESP 16–20; TEMP 97.8–98.6; O2SAT 98–100
[2025-11-19 07:37] LABS: Hematocrit 33.2 % (36.0-46.0); Hemoglobin 11.6 g/dL (12.2-16.2); Mean Corpuscular Hemoglobin 29.6 pg (28.0-32.0); Mean Corpuscular Volume 84.9 fL (80.0-100.0); Nucleated Red Blood Cells % 0.0 %
[2025-11-19 07:43] LABS: Anion Gap 11 (5-15); Carbon Dioxide 24 mmol/L (20-31); Chloride 102 mmol/L (98-107); Potassium 4.5 mmol/L (3.5-5.1); Sodium 137 mmol/L (136-145)
[2025-11-19 07:44] LABS: Calcium 9.0 mg/dL (8.7-10.4)
[2025-11-19 07:49] LABS: BUN/Creatinine Ratio 15.0 (10.0-20.0)
[2025-11-19 07:59] LABS: Blood Urea Nitrogen 37 mg/dL (9-23); Glucose 376 mg/dL (74-106)
--- NOTE | 2025-11-19 08:56 | DVHSR ---
APPROVED REPORT Exam: Nuclear Stress Test Indication: CHEST PAIN Stress Tech: Sonja Canales Ht: 5 ft 2 in Wt: 115 lbs BSA: 1.51 m2 HR: 90 bpm BP: 145/89 mmHg BMI: 21.03 Rhythm: NSR WITH INVERTED T WAVES Medical History Medical History: CHF, CARDIOMYOPATHY, HTN, DYSLIPIDEMIA, DM1, CKD, PERIPHERAL NEUROPATHY, GERD Previous Cardiac Procedures: NEGATIVE ANGIOGRAM 12/31/2024 Stress Test Details Stress Test: Pharmacologic stress testing performed using 0.4 mg of regadenoson per 5 mL given IV over 10 seconds. Reason for pharmacologic stress test: CHEST PAIN. HR Resting HR: 90 bpm Max Heart Rate (APMHR): 192.919688 bpm Max HR Achieved: 109 bpm Target HR (85% APMHR): 163.465230 bpm % of APMHR: 56.77 Recovery HR: 93 bpm BP Resting BP: 145/89 mmHg Recovery BP: 108/69 mmHg ECG Resting ECG: NSR WITH INVERTED T WAVES Clinical Reason for Termination: Completed protocol Nurse Comments RECIEVED PATIENT FROM NUCLEAR MEDICINE. PATIENT CONNECTED TO VP [facility]INICAL [facility]EARCH AND VITALS OBTINED. STRESS TEST COMPLETED PER PROTOCOL. PATIENT TOLERATED WELL AND WAS TAKEN BACK TO NUCLEAR MEDICINE FOR FOLLOW UP IMAGING. Stress ECG Conclusion minor inferior wall defect likely GI artifact lvef 39% no severe ischemia hx of NICM NM EXAM: Myocardial Perfusion REST/STRESS Imaging Protocol: Rest Tc-99m/Stress Tc-99m 1 day Resting Data Rest SPECT myocardial perfusion imaging was performed in supine position 60 minutes following the intravenous injection of 8.4 mCi of Tc-99m Sestamibi. Time of rest injection: 09:16 Date: 11/16/2025 Time of rest imagin:16 Date: 11/16/2025 Administration Route: IV Administration Site: Left Arm Pharmacologic Stress Pharmacologic stress test was performed by injecting Regadenoson 0.4 mg IV push followed by the intravenous injection of 25.5 mCi of Tc-99m Sestamibi. Time of stress injection: 10:43 Date: 11/16/2025 Time of stress imagin:43 Date: 11/16/2025 Administration Route: IV Administration Site: Left Arm Gated Stress SPECT was performed 60 minutes after stress injection. The images were gated to evaluate regional wall motion and calculate left ventricular ejection fraction. Stress only was performed in the Supine position. Nuclear Conclusion Nuclear Findings: negative for ischemia minor inferior wall defect likely GI artifact lvef 39% no severe ischemia hx of NICM
--- NOTE | 2025-11-19 12:06 | DVHPN2 ---
Subjective The patient seen and examined at bedside. The patient complains of chest pain and burning of chest. The patient is non compliance. Refuse insulin unless blood glucose more than 200. Today the patient state that she took all of insulin. BG > 400 again. Reviewed: Care Plan, H&P, Labs, Medications, Previous Orders, Radiology Changes from previous H/P or p: No Changes Objective Vitals Vital Signs Date Time Temp Pulse Resp B/P (MAP) Pulse Ox O2 Delivery O2 Flow Rate FiO2 11/19/25 08:58 84 119/75 11/19/25 08:51 98.1 20 100 98.1 11/19/25 07:45 Room Air* 0 21 Intake/Output Intake and Output 11/19/25 07:00 Intake Total 1172 ml Output Total 300 ml Balance 872 ml Intake Oral 1172 ml Output Urine Total 300 ml # Voids 1 General Appearance: Alert, Oriented X3, Cooperative, No acute distress HEENT: Atraumatic, PERRLA, EOMI, Mucous membr. moist/pink Neck: Supple Lungs: Clear to auscultation, Normal air movement Cardiovascular: Regular rate, Normal S1, Normal S2, No murmurs, Gallops Abdomen: Normal bowel sounds, Soft, No tenderness Neuro: Strength at 5/5 X4 ext, Cranial nerves 3-12 NL Psych/Mental Status: Mental status NL Medications Current Medications Medications Dose Ordered Sig/Sid Route Start Time Stop Time Status Last Admin Dose Admin Furosemide 40 mg DAILY PO 11/14/25 10:00 11/19/25 08:56 40 MG Gabapentin 300 mg TID PO 11/13/25 22:00 11/17/25 21:41 300 MG Spironolactone 25 mg DAILY PO 11/14/25 10:00 11/19/25 08:57 25 MG Valsartan 80 mg DAILY PO 11/14/25 10:00 11/19/25 08:56 80 MG Diagnostic Test (Pha) 1 strip ACHS 11/13/25 22:00 11/19/25 06:16 1 STRIP Insulin Human Regular ACHS SC 11/13/25 22:00 11/19/25 06:17 10 UNITS Dextrose 50 ml UD PRN IV 11/13/25 22:00 Ondansetron HCl 4 mg Q4HP PRN IV 11/13/25 22:00 Acetaminophen 650 mg Q6HP PRN PO 11/13/25 22:00 Morphine Sulfate 1 mg Q4HP PRN IV 11/14/25 15:30 Nitroglycerin 0.4 mg Q5MINP PRN SL 11/14/25 15:15 11/16/25 18:25 0.4 MG Empaglifozin 10 mg DAILY PO 11/16/25 10:00 11/19/25 08:57 10 MG Atorvastatin Calcium 40 mg HS PO 11/15/25 22:00 11/18/25 21:33 40 MG Calcium Carbonate 500 mg QIDPRN PRN PO 11/17/25 03:30 11/17/25 21:40 500 MG Carvedilol 6.25 mg Q12HR PO 11/17/25 22:00 11/19/25 08:58 6.25 MG Insulin Glargine 15 units BID@0700,2200 SC 11/17/25 22:00 11/19/25 06:18 15 UNITS Clotrimazole 1 applic Q12HR TOP 11/18/25 22:00 11/19/25 08:58 1 APPLIC Laboratory Results Laboratory Tests 11/19/25 06:10 Chemistry Test 11/19/25 06:10 Calcium Level 9.0 mg/dL (8.7-10.4) Urinalysis Test 11/17/25 11:30 Urine Color Colorless (Yellow) Urine Clarity Clear (Clear) Urine pH 6.0 (5.0-9.0) Urine Specific [place] 1.014 (1.001-1.035) Urine Protein 1+ (Negative) H Urine Ketones Negative (Negative) Urine Blood Negative /uL (Negative) Urine Nitrite Negative (Negative) Urine Bilirubin Negative (Negative) Urine Urobilinogen Normal mg/dL (Negative) Urine Leukocyte Esterase 1+ /uL (Negative) Urine RBC 4 /hpf (0 - 4) Urine Microscopic WBC 3 /HPF (0-5) Urine Squamous Epithelial Cells Few /hpf (<5) Urine Bacteria None seen /hpf (None Seen) Urine Glucose 4+ mg/dL (Normal) H Labs and/or images reviewed: Labs reviewed by me Assessment/Plan Assessment/Plan HTN urgency and uncontrolled. DM type 2 uncontrolled. CHF Chronic kidney disease stage 3 Chest pain, possible 2nd to HTN uncontrolled. Acute kidney injury Medical non compliance. Continue current management. Continue with Coreg, Valsatan, spironolactone, Lasix The patient complains of chest pain again today, so I will order a STAT EKG I will add nitroglycerin 0.4mg q 5 min x3 max in 15 min I will add morphine 1mg IV q4hPRN for pain Waiting for stress test. DC if negative. Continue SSI I will increase lantus 20 units sq bid. Will follow up blood glucose I discuss with patient regarding to blood glucose. Advise her not to decline insulin since her blood glucose still elevated. The patient should not hold insulin when BG is 200. Advise her continue to take insulin even blood glucose around 140-150 The patient has elevation of BUN/Cr . Waiting for sales service coordinator to see the patient. Plan discussed with: Patient My Orders Orders - ARCADIO PURDY MD Procedure Category Date Status Time *Dr[facility] CONS 11/18/25 Transmitted -[place] 14:13 Clotrimazole 1% PHA 11/18/25 In Process Topical Cream 22:00 Complete Blood Count LAB 11/20/25 Verified 05:00 Complete Blood Count LAB 11/21/25 Verified 05:00 Complete Blood Count LAB 11/22/25 Verified 05:00 Complete Blood Count LAB 11/23/25 Verified 05:00 Basic Metabolic Panel LAB 11/20/25 Verified 05:00 Basic Metabolic Panel LAB 11/21/25 Verified 05:00 Basic Metabolic Panel LAB 11/22/25 Verified 05:00 Basic Metabolic Panel LAB 11/23/25 Verified 05:00 Date of Service: Nov 19, 2025 Billing Provider: ARCADIO PURDY MD Common Visit Codes: [id number] INP/OBS CARE(HIGH) ARCADIO PURDY MD Nov 19, 2025 12:06
[2025-11-19] MEDS: GABAPENTIN 300 MG CAP PO SCH (21:44)
[2025-11-19] MEDS: INSULIN LANTUS (GLARGINE) 1 /0.01ml (100units/ml) SC SCH (21:45)
[2025-11-19] MEDS: MORPHINE SULFATE 4 MG/ML SYR/VIAL IV PRN (23:17)
[2025-11-20] VITALS (8 sets, daily range): BP systolic 112–123; BP diastolic 80–91; PULSE 76–93; RESP 16–20; TEMP 97.7–99.1; O2SAT 99–100
[2025-11-20 05:42] LABS: Hematocrit 34.0 % (36.0-46.0); Hemoglobin 11.8 g/dL (12.2-16.2); Mean Corpuscular Hemoglobin 29.1 pg (28.0-32.0); Mean Corpuscular Volume 83.4 fL (80.0-100.0); Nucleated Red Blood Cells % 0.1 %
[2025-11-20 06:37] LABS: Anion Gap 11 (5-15); Calcium 8.8 mg/dL (8.7-10.4); Carbon Dioxide 22 mmol/L (20-31); Chloride 105 mmol/L (98-107); Potassium 4.0 mmol/L (3.5-5.1); Sodium 138 mmol/L (136-145)
[2025-11-20 06:43] LABS: BUN/Creatinine Ratio 12.7 (10.0-20.0)
[2025-11-20 06:49] LABS: Blood Urea Nitrogen 27 mg/dL (9-23); Glucose 183 mg/dL (74-106)
--- NOTE | 2025-11-20 12:19 | DVHINCON2 ---
Date of service: Nov 20, [address] Jimenez Reason for Consultation Acute kidney injury History of Present Illness Patient is a 29-year-old female with past medical history significant for diabetes mellitus type 1 since age of 11, hypertension, nonischemic cardiomyopathy and Chronic Kidney Disease stage [address] Cross is admitted back on November 13 for chest pain and hypertensive urgency. Hospital course was significant for worsening kidney function nephrology is consulted for acute kidney injury Past Medical History Diabetes mellitus type 1 Hypertension Chronic kidney disease stage 3 Nonischemic cardiomyopathy Past Surgical History Patient denied Allergies: Coded Allergies: NO KNOWN ALLERGIES (Unverified , 10/24/19) Home Meds Active Scripts Nitroglycerin (NTROSTAT SUBLINGUAL) 0.4 Mg Sl, 0.4 MG SL Q5MINP PRN, #100 TAB Prov:ARCADIO PURDY MD 11/17/25 Spironolactone (Aldactone) 25 Mg Tab, 25 MG PO DAILY, #30 TAB 5 Refills Prov:ARCADIO PURDY MD 11/17/25 Empagliflozin (Jardiance) 10 Mg Tab, 10 MG PO DAILY, #30 TAB 5 Refills Prov:ARCADIO PURDY MD 11/17/25 Gabapentin (Gabapentin) 300 Mg Cap, 300 MG PO TID, #90 CAP Prov:ARCADIO PURDY MD 11/17/25 Valsartan (Valsartan) 80 Mg Tab, 80 MG PO DAILY, #90 TAB 5 Refills Prov:ARCADIO PURDY MD 11/17/25 Carvedilol (Coreg) 6.25 Mg Tab, 1 TAB PO BID, #180 TAB 1 Refill Prov:ARCADIO PURDY MD 11/17/25 Reported Medications Vericiguat (Verquvo) 2.5 Mg Tab, 1 TAB PO DAILY for 30 Days, #30 11/16/25 Furosemide (Furosemide) 40 Mg Tab, 1 TAB PO DAILY for 30 Days, #30 11/16/25 Quetiapine Fumerate (QUETIAPINE FUMARATE) 25 Mg Tab, 0.5 TAB PO HS for 30 Days, #15 11/16/25 Buprenorphine (BUTRANS) 5 Mcg/Hr Dis, 1 PATCH TOP QWEEKLY for 28 Days, #4 11/16/25 Simvastatin (Simvastatin) 10 Mg Tab, 1 TAB PO DAILY for 30 Days, #30 11/16/25 Omeprazole (Omeprazole Dr) 20 Mg Cap, 1 CAP PO DAILY for 30 Days, #30 11/16/25 Spironolactone (Spironolactone) 25 Mg Tab, 1 TAB PO DAILY for 30 Days, #30 11/16/25 Escitalopram Oxalate (ESCITALOPRAM OXALATE) 5 Mg Tab, 1 TAB PO DAILY for 30 Days, #30 11/16/25 Valsartan (Diovan) 80 Mg Tab, 1 TAB PO DAILY for 30 Days, #30 11/16/25 Amlodipine Besylate (Amlodipine Besylate) 5 Mg Tab, 1 TAB PO DAILY for 30 Days, #30 11/16/25 Carvedilol (Carvedilol) 3.125 Mg Tab, 1 TAB PO DAILY for 30 Days, #30 11/16/25 Pregabalin (Pregabalin) 25 Mg Cap, 1 CAP PO BID for 30 Days, #60 11/16/25 Acetaminophen W/ Codeine (Tylenol #4 W/Codeine) 1 Tab Tb, 1 TAB PO, TAB 11/13/25 Current Medications Current Medications Medications (Trade) Dose Ordered Sig/Sid Route PRN Reason Start Time Stop Time Status Last Admin Insulin Glargine (Lantus) 20 units BID@0700,2200 SC 11/19/25 22:00 11/20/25 06:21 Gabapentin (Neurontin Capsule) 300 mg BID PO 11/19/25 22:00 Family History: Diabetes mellitus G8 FATHER, aunt G8 MOTHER Family history: Cardiovascular disease GRANDMOTHER Family history: Diabetes mellitus G8 FATHER, Review of Systems All 12 item review of systems reviewed with the patient nonsignificant except what is mentioned in the history of present illness H&P Exam Vital Signs/I&O Vital Sign Date Time Temp Pulse Resp B/P (MAP) Pulse Ox O2 Delivery O2 Flow Rate FiO2 11/20/25 10:09 82 116/85 11/20/25 09:11 97.7 20 100 97.7 11/20/25 08:00 Room Air* 0 21 Intake and Output 11/19/25 11/20/25 19:00 07:00 Intake Total 2000 ml 354 ml Balance 2000 ml 354 ml Intake Oral 2000 ml 354 ml # Voids 2 4 Physical Exam Patient lying comfortably in bed Lungs clear to auscultation bilaterally Cardiac exam regular rate and rhythm GI soft nontender within normal limit Extremities no clubbing cyanosis or edema Neuro nonfocal Labs/Diagnostic Data Labs/Diagnostic Data Laboratory Tests Test 11/20/25 10:18 11/20/25 09:58 11/20/25 09:56 11/20/25 06:12 Range/Units POC Glucose 49 *L 44 *L 46 *L 203 H 70-106 mg/dl Test 11/20/25 05:06 11/20/25 01:18 11/19/25 20:52 11/19/25 18:07 Range/Units White Blood Count 8.4 # 4.4-10.8 10^3/uL Red Blood Count 4.07 4.0-5.20 10^6/uL Hemoglobin 11.8 L 12.2-16.2 g/dL Hematocrit 34.0 L 36.0-46.0 % Mean Corpuscular Volume 83.4 80.0-100.0 fL Mean Corpuscular Hemoglobin 29.1 28.0-32.0 pg Mean Corpuscular Hemoglobin Concent 34.8 32.0-36.0 g/dL Red Cell Distribution Width 12.7 11.8-14.3 % Platelet Count 291 140-450 10^3/uL Mean Platelet Volume 9.2 6.9-10.8 fL Neutrophils (%) (Auto) 53.5 37.0-80.0 % Lymphocytes (%) (Auto) 37.6 10.0-50.0 % Monocytes (%) (Auto) 8.0 0.0-12.0 % Eosinophils (%) (Auto) 0.3 0.0-7.0 % Basophils (%) (Auto) 0.6 0.0-2.0 % Neutrophils # (Auto) 4.5 1.6-8.6 10 ^3/uL Lymphocytes # (Auto) 3.2 0.4-5.4 10 ^3/uL Monocytes # (Auto) 0.7 0-1.3 10 ^3/uL Eosinophils # (Auto) 0 0-0.8 10 ^3/uL Basophils # (Auto) 0.1 0-0.2 10 ^3/uL Nucleated Red Blood Cells 0.1 % Sodium Level 138 136-145 mmol/L Potassium Level 4.0 3.5-5.1 mmol/L Chloride Level 105 98-107 mmol/L Carbon Dioxide Level 22 20-31 mmol/L Anion Gap 11 5-15 Blood Urea Nitrogen 27 #H 9-23 mg/dL Creatinine 2.13 H 0.550-1.02 mg/dL Glomerular Filtration Rate Calc 32 >90 mL/min BUN/Creatinine Ratio 12.7 10.0-20.0 Serum Glucose 183 H 74-106 mg/dL Calcium Level 8.8 8.7-10.4 mg/dL POC Glucose 65 L 176 H 220 H 70-106 mg/dl Test 11/19/25 11:37 11/19/25 06:10 11/18/25 05:07 11/17/25 11:30 Range/Units POC Glucose 100 70-106 mg/dl White Blood Count 6.7 7.2 4.4-10.8 10^3/uL Red Blood Count 3.92 L 3.94 L 4.0-5.20 10^6/uL Hemoglobin 11.6 L 11.6 L 12.2-16.2 g/dL Hematocrit 33.2 L 33.7 L 36.0-46.0 % Mean Corpuscular Volume 84.9 85.5 80.0-100.0 fL Mean Corpuscular Hemoglobin 29.6 29.3 28.0-32.0 pg Mean Corpuscular Hemoglobin Concent 34.9 34.3 32.0-36.0 g/dL Red Cell Distribution Width 12.6 12.8 11.8-14.3 % Platelet Count 322 347 140-450 10^3/uL Mean Platelet Volume 8.8 8.6 6.9-10.8 fL Neutrophils (%) (Auto) 56.8 62.1 37.0-80.0 % Lymphocytes (%) (Auto) 37.1 32.9 10.0-50.0 % Monocytes (%) (Auto) 5.4 4.3 0.0-12.0 % Eosinophils (%) (Auto) 0.3 0.3 0.0-7.0 % Basophils (%) (Auto) 0.4 0.4 0.0-2.0 % Neutrophils # (Auto) 3.8 4.5 1.6-8.6 10 ^3/uL Lymphocytes # (Auto) 2.5 2.4 0.4-5.4 10 ^3/uL Monocytes # (Auto) 0.4 0.3 0-1.3 10 ^3/uL Eosinophils # (Auto) 0 0 0-0.8 10 ^3/uL Basophils # (Auto) 0 0 0-0.2 10 ^3/uL Nucleated Red Blood Cells 0.0 0.1 % Sodium Level 137 138 136-145 mmol/L Potassium Level 4.5 5.4 H 3.5-5.1 mmol/L Chloride Level 102 103 98-107 mmol/L Carbon Dioxide Level 24 24 20-31 mmol/L Anion Gap 11 11 5-15 Blood Urea Nitrogen 37 H 33 H 9-23 mg/dL Creatinine 2.46 H 2.36 H 0.550-1.02 mg/dL Glomerular Filtration Rate Calc 27 28 >90 mL/min BUN/Creatinine Ratio 15.0 14.0 10.0-20.0 Serum Glucose 376 H 200 H 74-106 mg/dL Calcium Level 9.0 10.0 8.7-10.4 mg/dL Urine Color Colorless Yellow Urine Clarity Clear Clear Urine pH 6.0 5.0-9.0 Urine Specific [place] 1.014 1.001-1.035 Urine Protein 1+ H Negative Urine Ketones Negative Negative Urine Blood Negative Negative /uL Urine Nitrite Negative Negative Urine Bilirubin Negative Negative Urine Urobilinogen Normal Negative mg/dL Urine Leukocyte Esterase 1+ Negative /uL Urine RBC 4 0 - 4 /hpf Urine Microscopic WBC 3 0-5 /HPF Urine Squamous Epithelial Cells Few <5 /hpf Urine Bacteria None seen None Seen /hpf Urine Glucose 4+ H Normal mg/dL Urine Opiates Screen Neg NEGATIVE Urine Fentanyl Screen Neg NEGATIVE Urine Barbiturates Screen Neg NEGATIVE Urine Phencyclidine Screen Neg NEGATIVE Urine Amphetamines Screen Neg NEGATIVE Urine Benzodiazepines Screen Neg NEGATIVE Urine Cocaine Screen Neg NEGATIVE Urine Cannabinoids Screen Neg NEGATIVE Test 11/17/25 06:23 11/17/25 05:37 11/16/25 22:53 11/16/25 17:11 Range/Units POC Glucose 409 *H 293 H 319 H 70-106 mg/dl White Blood Count 6.0 4.4-10.8 10^3/uL Red Blood Count 3.66 L 4.0-5.20 10^6/uL Hemoglobin 10.7 L 12.2-16.2 g/dL Hematocrit 31.1 L 36.0-46.0 % Mean Corpuscular Volume 85.0 80.0-100.0 fL Mean Corpuscular Hemoglobin 29.3 28.0-32.0 pg Mean Corpuscular Hemoglobin Concent 34.4 32.0-36.0 g/dL Red Cell Distribution Width 12.6 11.8-14.3 % Platelet Count 295 140-450 10^3/uL Mean Platelet Volume 8.5 6.9-10.8 fL Neutrophils (%) (Auto) 57.8 37.0-80.0 % Lymphocytes (%) (Auto) 34.5 10.0-50.0 % Monocytes (%) (Auto) 6.9 0.0-12.0 % Eosinophils (%) (Auto) 0.6 0.0-7.0 % Basophils (%) (Auto) 0.2 0.0-2.0 % Neutrophils # (Auto) 3.5 1.6-8.6 10 ^3/uL Lymphocytes # (Auto) 2.1 0.4-5.4 10 ^3/uL Monocytes # (Auto) 0.4 0-1.3 10 ^3/uL Eosinophils # (Auto) 0 0-0.8 10 ^3/uL Basophils # (Auto) 0 0-0.2 10 ^3/uL Nucleated Red Blood Cells 0.0 % Sodium Level 137 136-145 mmol/L Potassium Level 5.1 3.5-5.1 mmol/L Chloride Level 101 98-107 mmol/L Carbon Dioxide Level 25 20-31 mmol/L Anion Gap 11 5-15 Blood Urea Nitrogen 30 H 9-23 mg/dL Creatinine 1.99 H 0.550-1.02 mg/dL Glomerular Filtration Rate Calc 34 >90 mL/min BUN/Creatinine Ratio 15.1 10.0-20.0 Serum Glucose 405 *H 74-106 mg/dL Calcium Level 9.0 8.7-10.4 mg/dL Test 11/16/25 11:06 11/16/25 05:48 11/16/25 05:28 11/15/25 21:39 Range/Units POC Glucose 183 H 305 H 349 H 70-106 mg/dl White Blood Count 5.1 4.4-10.8 10^3/uL Red Blood Count 3.67 L 4.0-5.20 10^6/uL Hemoglobin 10.8 L 12.2-16.2 g/dL Hematocrit 31.0 L 36.0-46.0 % Mean Corpuscular Volume 84.5 80.0-100.0 fL Mean Corpuscular Hemoglobin 29.5 28.0-32.0 pg Mean Corpuscular Hemoglobin Concent 35.0 32.0-36.0 g/dL Red Cell Distribution Width 12.4 11.8-14.3 % Platelet Count 303 140-450 10^3/uL Mean Platelet Volume 8.1 6.9-10.8 fL Neutrophils (%) (Auto) 58.2 37.0-80.0 % Lymphocytes (%) (Auto) 34.1 10.0-50.0 % Monocytes (%) (Auto) 6.7 0.0-12.0 % Eosinophils (%) (Auto) 0.8 0.0-7.0 % Basophils (%) (Auto) 0.2 0.0-2.0 % Neutrophils # (Auto) 3.0 1.6-8.6 10 ^3/uL Lymphocytes # (Auto) 1.8 0.4-5.4 10 ^3/uL Monocytes # (Auto) 0.3 0-1.3 10 ^3/uL Eosinophils # (Auto) 0 0-0.8 10 ^3/uL Basophils # (Auto) 0 0-0.2 10 ^3/uL Nucleated Red Blood Cells 0.2 % Sodium Level 139 136-145 mmol/L Potassium Level 4.8 3.5-5.1 mmol/L Chloride Level 104 98-107 mmol/L Carbon Dioxide Level 25 20-31 mmol/L Anion Gap 10 5-15 Blood Urea Nitrogen 21 9-23 mg/dL Creatinine 1.70 H 0.550-1.02 mg/dL Glomerular Filtration Rate Calc 42 >90 mL/min BUN/Creatinine Ratio 12.4 10.0-20.0 Serum Glucose 304 H 74-106 mg/dL Calcium Level 9.0 8.7-10.4 mg/dL Test 11/15/25 16:22 11/15/25 15:23 11/15/25 10:50 11/15/25 10:08 Range/Units POC Glucose 360 H 137 H 63 L 70-106 mg/dl Hemoglobin A1c 10.0 H <5.7 % A1C Magnesium Level 2.2 1.6-2.6 mg/dL Triglycerides Level 165 H < 150 mg/dL Cholesterol Level 305 H < 200 mg/dL LDL Cholesterol 213 H < 100 mg/dL HDL Cholesterol 60 H 40-59 mg/dL Thyroid Stimulating Hormone (TSH) 2.22 0.55-4.78 uIU/mL Beta HCG, Quantitative 1.2 L 1.5-4.2 mIU/mL Test 11/15/25 09:46 11/15/25 05:16 11/14/25 21:41 11/14/25 16:32 Range/Units POC Glucose 44 *L 319 H 271 H 238 H 70-106 mg/dl Test 11/14/25 10:50 11/14/25 09:10 11/14/25 06:05 11/13/25 21:16 Range/Units POC Glucose 142 H 54 L 138 H 208 H 70-106 mg/dl Test 11/13/25 20:06 11/13/25 18:02 11/13/25 17:03 Range/Units Troponin I High Sensitivity 5 5 4 </=34 ng/L White Blood Count 6.6 4.4-10.8 10^3/uL Red Blood Count 3.90 L 4.0-5.20 10^6/uL Hemoglobin 11.4 L 12.2-16.2 g/dL Hematocrit 33.0 L 36.0-46.0 % Mean Corpuscular Volume 84.4 80.0-100.0 fL Mean Corpuscular Hemoglobin 29.1 28.0-32.0 pg Mean Corpuscular Hemoglobin Concent 34.5 32.0-36.0 g/dL Red Cell Distribution Width 12.7 11.8-14.3 % Platelet Count 375 140-450 10^3/uL Mean Platelet Volume 8.0 6.9-10.8 fL Neutrophils (%) (Auto) 64.6 37.0-80.0 % Lymphocytes (%) (Auto) 30.9 10.0-50.0 % Monocytes (%) (Auto) 3.4 0.0-12.0 % Eosinophils (%) (Auto) 0.4 0.0-7.0 % Basophils (%) (Auto) 0.7 0.0-2.0 % Neutrophils # (Auto) 4.2 1.6-8.6 10 ^3/uL Lymphocytes # (Auto) 2.0 0.4-5.4 10 ^3/uL Monocytes # (Auto) 0.2 0-1.3 10 ^3/uL Eosinophils # (Auto) 0 0-0.8 10 ^3/uL Basophils # (Auto) 0 0-0.2 10 ^3/uL Nucleated Red Blood Cells 0.1 % Sodium Level 138 136-145 mmol/L Potassium Level 4.4 3.5-5.1 mmol/L Chloride Level 105 98-107 mmol/L Carbon Dioxide Level 24 20-31 mmol/L Anion Gap 9 5-15 Blood Urea Nitrogen 23 9-23 mg/dL Creatinine 1.70 H 0.550-1.02 mg/dL Glomerular Filtration Rate Calc 42 >90 mL/min BUN/Creatinine Ratio 13.5 10.0-20.0 Serum Glucose 211 H 74-106 mg/dL Calcium Level 9.2 8.7-10.4 mg/dL Total Bilirubin 0.7 0.2-1.0 mg/dL Aspartate Amino Transferase (AST) 34 13-40 U/L Alanine Aminotransferase (ALT) 24 7-40 U/L Alkaline Phosphatase 86 46-116 U/L B-Type Natriuretic Peptide 45.57 0-100 pg/mL Total Protein 7.4 5.7-8.2 g/dL Albumin 4.0 3.2-4.8 g/dL Assessment Acute kidney injury superimposed Chronic Kidney Disease secondary hemodynamic mediated Dehydration Nonischemic cardiomyopathy Uncontrolled diabetes mellitus type 1, A1c 10 Proteinuria due to underlying diabetic nephropathy Hypertension Anemia of chronic kidney disease Recommendations Closely monitor fluid and electrolytes Avoid nephrotoxic medications Strict I&Os Check urine electrolytes and protein excretion Hold off diuresis Insulin sliding scale Blood pressure control We will continue to follow Patient seen and examined by myself. I discussed my plan of care with the patient and primary nurse at the bedside I would like to thank Dr. Purdy for the consult, will follow up Plan discussed with: Patient RAFAELA HOWE MD Nov 20, 2025 12:19
--- NOTE | 2025-11-20 12:25 | DVHPN2 ---
Subjective The patient seen and examined at bedside. The patient blood glucose today is 48. Her mother at bedside. She said the patient blood glucose was very difficult to manage as outpatient also. The patient see the oxygen tank filler, Dr Burks. He plan to start her on insulin pump due to her fluctuation of blood glucose. Reviewed: Care Plan, H&P, Labs, Medications, Previous Orders, Radiology Changes from previous H/P or p: No Changes Objective Vitals Vital Signs Date Time Temp Pulse Resp B/P (MAP) Pulse Ox O2 Delivery O2 Flow Rate FiO2 11/20/25 10:09 82 116/85 11/20/25 09:11 97.7 20 100 97.7 11/20/25 08:00 Room Air* 0 21 Intake/Output Intake and Output 11/20/25 07:00 Intake Total 2354 ml Balance 2354 ml Intake Oral 2354 ml # Voids 6 General Appearance: Alert, Oriented X3, Cooperative, No acute distress HEENT: Atraumatic, PERRLA, EOMI, Mucous membr. moist/pink Neck: Supple Lungs: Clear to auscultation, Normal air movement Cardiovascular: Regular rate, Normal S1, Normal S2, No murmurs, Gallops Abdomen: Normal bowel sounds, Soft, No tenderness Neuro: Strength at 5/5 X4 ext, Cranial nerves 3-12 NL Psych/Mental Status: Mental status NL Medications Current Medications Medications Dose Ordered Sig/Sid Route Start Time Stop Time Status Last Admin Dose Admin Valsartan 80 mg DAILY PO 11/14/25 10:00 11/20/25 10:08 80 MG Diagnostic Test (Pha) 1 strip ACHS 11/13/25 22:00 11/20/25 06:13 1 STRIP Insulin Human Regular ACHS SC 11/13/25 22:00 11/20/25 06:20 4 UNITS Dextrose 50 ml UD PRN IV 11/13/25 22:00 Ondansetron HCl 4 mg Q4HP PRN IV 11/13/25 22:00 Acetaminophen 650 mg Q6HP PRN PO 11/13/25 22:00 Morphine Sulfate 1 mg Q4HP PRN IV 11/14/25 15:30 11/19/25 23:17 1 MG Nitroglycerin 0.4 mg Q5MINP PRN SL 11/14/25 15:15 11/16/25 18:25 0.4 MG Empaglifozin 10 mg DAILY PO 11/16/25 10:00 11/20/25 10:08 10 MG Atorvastatin Calcium 40 mg HS PO 11/15/25 22:00 11/19/25 21:44 40 MG Calcium Carbonate 500 mg QIDPRN PRN PO 11/17/25 03:30 11/17/25 21:40 500 MG Carvedilol 6.25 mg Q12HR PO 11/17/25 22:00 11/20/25 10:09 6.25 MG Clotrimazole 1 applic Q12HR TOP 11/18/25 22:00 11/20/25 10:14 1 APPLIC Insulin Glargine 20 units BID@0700,2200 SC 11/19/25 22:00 11/20/25 06:21 20 UNITS Gabapentin 300 mg BID PO 11/19/25 22:00 Laboratory Results Laboratory Tests 11/20/25 05:06 Chemistry Test 11/20/25 05:06 Calcium Level 8.8 mg/dL (8.7-10.4) Urinalysis Test 11/17/25 11:30 Urine Color Colorless (Yellow) Urine Clarity Clear (Clear) Urine pH 6.0 (5.0-9.0) Urine Specific [place] 1.014 (1.001-1.035) Urine Protein 1+ (Negative) H Urine Ketones Negative (Negative) Urine Blood Negative /uL (Negative) Urine Nitrite Negative (Negative) Urine Bilirubin Negative (Negative) Urine Urobilinogen Normal mg/dL (Negative) Urine Leukocyte Esterase 1+ /uL (Negative) Urine RBC 4 /hpf (0 - 4) Urine Microscopic WBC 3 /HPF (0-5) Urine Squamous Epithelial Cells Few /hpf (<5) Urine Bacteria None seen /hpf (None Seen) Urine Glucose 4+ mg/dL (Normal) H Labs and/or images reviewed: Labs reviewed by me Assessment/Plan Assessment/Plan HTN urgency and uncontrolled. DM type 2 uncontrolled. CHF Chronic kidney disease stage 3 Chest pain, possible 2nd to HTN uncontrolled. Acute kidney injury Medical non compliance. Continue current management. Continue with Coreg, Valsatan, spironolactone, Lasix The patient complains of chest pain again today, so I will order a STAT EKG I will add nitroglycerin 0.4mg q 5 min x3 max in 15 min I will add morphine 1mg IV q4hPRN for pain Waiting for stress test. DC if negative. Continue SSI I will decrease insulin, lantus to 15 units sq bid. Will follow up blood glucose I discuss with patient regarding to blood glucose. Discharge in am if blood glucose less than 200 The patient has elevation of BUN/Cr . Waiting for digital account manager to see the patient. Plan discussed with: Patient, Other (mother) My Orders Orders - ARCADIO PURDY MD Procedure Category Date Status Time Insulin Lantus PHA 11/19/25 In Process (Glargine) (Lantus) 22:00 *Dr[facility] CONS 11/20/25 Transmitted -[facility] 11:42 Insulin Lantus PHA 11/20/25 Transmitted (Glargine) (Lantus) 22:00 Date of Service: Nov 20, 2025 Billing Provider: ARCADIO PURDY MD Common Visit Codes: [id number] INP/OBS CARE(HIGH) ARCADIO PURDY MD Nov 20, 2025 12:25
[2025-11-20 15:06] LABS: Protein, Urine 156.7 mg/dL (1-14); Urine Protein, UAD 2+ (Negative)
[2025-11-20] MEDS: INSULIN LANTUS (GLARGINE) 1 /0.01ml (100units/ml) SC SCH (22:08)
[2025-11-21 01:00] VITALS: BP_SYST 112; BP_SYST 137; BP_DIAS 79; BP_DIAS 91; PULSE 63; PULSE 96; RESP 16; TEMP 97; TEMP 97.7; O2SAT 100; O2SAT 98
[2025-11-21 05:00] VITALS: BP 110/81; PULSE 83; RESP 17; TEMP 97.1; O2SAT 100
[2025-11-21 06:35] LABS: Hematocrit 36.4 % (36.0-46.0); Hemoglobin 12.5 g/dL (12.2-16.2); Mean Corpuscular Hemoglobin 29.5 pg (28.0-32.0); Mean Corpuscular Volume 85.7 fL (80.0-100.0); Nucleated Red Blood Cells % 0.0 %
[2025-11-21 06:54] LABS: Anion Gap 10 (5-15); Carbon Dioxide 28 mmol/L (20-31); Chloride 104 mmol/L (98-107); Potassium 4.4 mmol/L (3.5-5.1); Sodium 142 mmol/L (136-145)
[2025-11-21 06:55] LABS: Calcium 8.8 mg/dL (8.7-10.4)
[2025-11-21 07:00] LABS: BUN/Creatinine Ratio 14.3 (10.0-20.0); Blood Urea Nitrogen 32 mg/dL (9-23); Glucose 194 mg/dL (74-106)
[2025-11-21 07:01] LABS: Magnesium 2.9 mg/dL (1.6-2.6)
[2025-11-21 08:00] VITALS: PULSE 89
[2025-11-21 09:00] VITALS: BP 98/73; PULSE 83; RESP 16; TEMP 98; O2SAT 96
--- NOTE | 2025-11-21 11:30 | DVHPN2 ---
Progress Note Date Seen: Nov 21, 2025 Medical Necessity Reason Pt with a Central, PICC or Fol: No Subjective Patient reports: No new complaints Other Systems: Patient seen and examined by myself today in follow-up Objective vital signs Vital Sign Date Time Temp Pulse Resp B/P (MAP) Pulse Ox O2 Delivery O2 Flow Rate FiO2 11/21/25 09:26 98/73 11/21/25 09:25 83 11/21/25 09:00 98.0 16 96 98.0 11/21/25 07:53 Room Air* 0 21 Total Intake and Output 11/20/25 11/20/25 11/21/25 15:00 23:00 07:00 Intake Total 600 ml 450 ml Balance 600 ml 450 ml medications Current Medications Medications Dose Ordered Sig/Sid Route Start Time Stop Time Status Last Admin Dose Admin Valsartan 80 mg DAILY PO 11/14/25 10:00 11/21/25 09:26 80 MG Diagnostic Test (Pha) 1 strip ACHS 11/13/25 22:00 11/21/25 06:33 1 STRIP Insulin Human Regular ACHS SC 11/13/25 22:00 11/21/25 06:40 6 UNITS Dextrose 50 ml UD PRN IV 11/13/25 22:00 Ondansetron HCl 4 mg Q4HP PRN IV 11/13/25 22:00 Acetaminophen 650 mg Q6HP PRN PO 11/13/25 22:00 Morphine Sulfate 1 mg Q4HP PRN IV 11/14/25 15:30 11/19/25 23:17 1 MG Nitroglycerin 0.4 mg Q5MINP PRN SL 11/14/25 15:15 11/16/25 18:25 0.4 MG Empaglifozin 10 mg DAILY PO 11/16/25 10:00 11/21/25 09:26 10 MG Atorvastatin Calcium 40 mg HS PO 11/15/25 22:00 11/20/25 22:44 40 MG Calcium Carbonate 500 mg QIDPRN PRN PO 11/17/25 03:30 11/17/25 21:40 500 MG Carvedilol 6.25 mg Q12HR PO 11/17/25 22:00 11/21/25 09:25 6.25 MG Clotrimazole 1 applic Q12HR TOP 11/18/25 22:00 11/21/25 09:27 1 APPLIC Gabapentin 300 mg BID PO 11/19/25 22:00 11/20/25 22:00 300 MG Insulin Glargine 15 units BID@0700,2200 SC 11/20/25 22:00 11/21/25 06:40 15 UNITS Examination: LUNGS:Normal, CVS:Normal, MSK:Normal laboratory and microbiology Laboratory Tests 11/21/25 05:27 Test 11/21/25 05:27 Range/Units Serum Glucose 194 H 74-106 mg/dL Problem List/Assessment/Plan Problem List/Assessment/Plan Acute kidney injury superimposed Chronic Kidney Disease secondary hemodynamic mediated, FeNa > 2% Dehydration Nonischemic cardiomyopathy Uncontrolled diabetes mellitus type 1, A1c 10 Proteinuria due to underlying diabetic nephropathy Hypertension Anemia of chronic kidney disease Recommendations Closely monitor fluid and electrolytes Avoid nephrotoxic medications Strict I&Os Hold off diuresis Insulin sliding scale We will continue to follow Plan discussed with: Patient RAFAELA HOWE MD Nov 21, 2025 11:30
[2025-11-21 13:00] VITALS: BP 104/76; PULSE 86; RESP 16; TEMP 98.1; O2SAT 97
[2025-11-21] MEDS ORDERED: INSUINJ37 SC (14:13)
--- NOTE | 2025-11-21 14:15 | DVHDS2 ---
Discharge Summary Date of Admission Nov 13, 2025 at 19:30 Date of Discharge: Nov 21, 2025 Admitting Diagnosis Hypertensive urgency Diabetes mellitus CHF Chronic kidney disease Labs/Diagnostic Data: Laboratory Results Test 11/21/25 11:49 11/21/25 05:27 11/20/25 13:36 11/20/25 05:06 POC Glucose 239 mg/dl (70-106) White Blood Count 6.8 10^3/uL (4.4-10.8) Red Blood Count 4.25 10^6/uL (4.0-5.20) Hemoglobin 12.5 g/dL (12.2-16.2) Hematocrit 36.4 % (36.0-46.0) Mean Corpuscular Volume 85.7 fL (80.0-100.0) Mean Corpuscular Hemoglobin 29.5 pg (28.0-32.0) Mean Corpuscular Hemoglobin Concent 34.4 g/dL (32.0-36.0) Red Cell Distribution Width 13.1 % (11.8-14.3) Platelet Count 360 10^3/uL (140-450) Mean Platelet Volume 8.7 fL (6.9-10.8) Neutrophils (%) (Auto) 49.6 % (37.0-80.0) Lymphocytes (%) (Auto) 40.0 % (10.0-50.0) Monocytes (%) (Auto) 9.5 % (0.0-12.0) Eosinophils (%) (Auto) 0.5 % (0.0-7.0) Basophils (%) (Auto) 0.4 % (0.0-2.0) Neutrophils # (Auto) 3.4 10 ^3/uL (1.6-8.6) Lymphocytes # (Auto) 2.7 10 ^3/uL (0.4-5.4) Monocytes # (Auto) 0.6 10 ^3/uL (0-1.3) Eosinophils # (Auto) 0 10 ^3/uL (0-0.8) Basophils # (Auto) 0 10 ^3/uL (0-0.2) Nucleated Red Blood Cells 0.0 % Sodium Level 142 mmol/L (136-145) Potassium Level 4.4 mmol/L (3.5-5.1) Chloride Level 104 mmol/L (98-107) Carbon Dioxide Level 28 mmol/L (20-31) Anion Gap 10 (5-15) Blood Urea Nitrogen 32 mg/dL (9-23) Creatinine 2.23 mg/dL (0.550-1.02) Glomerular Filtration Rate Calc 30 mL/min (>90) BUN/Creatinine Ratio 14.3 (10.0-20.0) Serum Glucose 194 mg/dL (74-106) Calcium Level 8.8 mg/dL (8.7-10.4) Phosphorus Level 4.4 mg/dL (2.4-5.1) Magnesium Level 2.9 mg/dL (1.6-2.6) Urine Color Light-yellow (Yellow) Urine Clarity Clear (Clear) Urine pH 5.5 (5.0-9.0) Urine Specific [place] 1.016 (1.001-1.035) Urine Protein 2+ (Negative) Urine Ketones Negative (Negative) Urine Blood 2+ /uL (Negative) Urine Nitrite Negative (Negative) Urine Bilirubin Negative (Negative) Urine Urobilinogen Normal mg/dL (Negative) Urine Leukocyte Esterase 1+ /uL (Negative) Urine RBC 1 /hpf (0 - 4) Urine Microscopic WBC 12 /HPF (0-5) Urine Squamous Epithelial Cells Few /hpf (<5) Urine Bacteria None seen /hpf (None Seen) Urine Creatinine 95.73 mg/dL (30.0-125.0) Urine Protein/Creatinine Ratio 1.64 Urine Sodium 63 mmol/L (40-220) Urine Glucose 4+ mg/dL (Normal) Urine Total Protein 156.7 mg/dL (1-14) Vitamin D 25-Hydroxy 10.6 ng/mL (30.0-100) Parathyroid Hormone (Intact) 22.9 pg/mL (18.4-80.1) Test 11/17/25 11:30 11/15/25 15:23 11/13/25 20:06 11/13/25 17:03 Urine Opiates Screen Neg (NEGATIVE) Urine Fentanyl Screen Neg (NEGATIVE) Urine Barbiturates Screen Neg (NEGATIVE) Urine Phencyclidine Screen Neg (NEGATIVE) Urine Amphetamines Screen Neg (NEGATIVE) Urine Benzodiazepines Screen Neg (NEGATIVE) Urine Cocaine Screen Neg (NEGATIVE) Urine Cannabinoids Screen Neg (NEGATIVE) Hemoglobin A1c 10.0 % A1C (<5.7) Triglycerides Level 165 mg/dL (< 150) Cholesterol Level 305 mg/dL (< 200) LDL Cholesterol 213 mg/dL (< 100) HDL Cholesterol 60 mg/dL (40-59) Thyroid Stimulating Hormone (TSH) 2.22 uIU/mL (0.55-4.78) Beta HCG, Quantitative 1.2 mIU/mL (1.5-4.2) Troponin I High Sensitivity 5 ng/L (</=34) Total Bilirubin 0.7 mg/dL (0.2-1.0) Aspartate Amino Transferase (AST) 34 U/L (13-40) Alanine Aminotransferase (ALT) 24 U/L (7-40) Alkaline Phosphatase 86 U/L (46-116) B-Type Natriuretic Peptide 45.57 pg/mL (0-100) Total Protein 7.4 g/dL (5.7-8.2) Albumin 4.0 g/dL (3.2-4.8) Other Laboratory Tests 11/21/25 05:27 Brief Hx & Hospital Course: This is a 29 years old female come in because severe chest pain. Patient had substernal sharp chest pain radiating to the back associated with shortness for breath. The patient called 911 and when EMS arrived at her house, her blood pressure is 210/115. The patient was brought to emergency department and her systolic blood pressure was 170. The patient said that she compliant with her medication. Cardiology was consulted. .Transthoracic echocardiogram from 09/07/2025 reveals an EF of 35%. Per poultry processor, they recommend aggressive blood pressure control with guideline directed medical therapy for CHF as tolerated. Strict intake and output, daily weights, maintain fluid restriction. The patient has a nuclear stress test done showed no acute ischemic. Recommend: Continue lipid-lowering agent and tight glycemic control. Risk factor modification. Counseled the patient on diet and lifestyle change. Counseled the patient needs to eat low sodium diet. Regarding to her blood glucose very difficult to control. The patient had fluctuating blood glucose between 48 to 400. The patient was started on Lantus and subsequently doing better with Lantus 15 units subQ twice per day. Today the patient feels better. Not shortness for breath. No chest pain. Blood pressure control. Blood glucose better controlled. I am going to discharge him home. Advised her to follow up with primary care physician 1-2 weeks. Follow up with Dr. Burks, her tmd teacher assistant per schedule. Activity as tolerated. Diet low-salt low-cholesterol 2000 ADA calorie diet Physical exam: HEENT: Normocephalic atraumatic pupils equal react to light and accommodation. Extraocular muscles intact, conjunctiva pink, oropharynx moist, no thrush, no exudate. Lymphatic: No lymphadenopathy Cardiovascular exam: S1, S2 was heard. No murmurs, rubs, gallops Lung: Clear on auscultation bilaterally, no wheeze, rale, rhonchi. GI: Abdominal soft, nondistended, nontenderness, positive bowel sounds. Extremity: No crepitus, cyanosis, edema. Pedal pulses present bilateral. Full range of motion. Skin: Normal turgor, no rash. Psych: Alert, oriented x3. Neurology: No focal deficits, cranial nerve II to XII grossly intact. This medical document was created using an electronic medical record system with [employer] direct computerized dictation system. Although this document has been carefully reviewed, there may still be some phonetic and typographical errors. These areas are purely typographical due to imperfections of the software programs, and do not reflect any compromise in the patient's medical care. Condition at Discharge: Stable Final Diagnosis/Problems List Hypertensive urgency , improved Diabetes mellitus type 1 with fluctuate diabetes and brittle diabetes. CHF , EF 35% Chronic kidney disease stage 3 Chest pain, acute coronary syndrome has been ruled out Discharge Disposition: Home Discharge Instruct/Medications Diet: Consistent carbohydrate, Cardiac 2g Na,low cholest Activity: No Restrictions, As Tolerated Follow Up/Referral: pcp 1-2 weeks Medications: see med list Scheduled Amlodipine Besylate (Amlodipine Besylate), 1 TAB PO DAILY, (Reported) Buprenorphine (Butrans), 1 PATCH TOP QWEEKLY, (Reported) Carvedilol (Coreg), 1 TAB PO BID Empagliflozin (Jardiance), 10 MG PO DAILY Escitalopram Oxalate (Escitalopram Oxalate), 1 TAB PO DAILY, (Reported) Furosemide (Furosemide), 1 TAB PO DAILY, (Reported) Gabapentin (Gabapentin), 300 MG PO TID Insulin Glargine (Lantus Solostar), 15 UNIT SC BID Omeprazole (Omeprazole Dr), 1 CAP PO DAILY, (Reported) Pregabalin (Pregabalin), 1 CAP PO BID, (Reported) Quetiapine Fumerate (Quetiapine Fumarate), 0.5 TAB PO HS, (Reported) Simvastatin (Simvastatin), 1 TAB PO DAILY, (Reported) Spironolactone (Spironolactone), 1 TAB PO DAILY, (Reported) Spironolactone (Aldactone), 25 MG PO DAILY Valsartan (Diovan), 1 TAB PO DAILY, (Reported) Valsartan (Valsartan), 80 MG PO DAILY Vericiguat (Verquvo), 1 TAB PO DAILY, (Reported) Scheduled PRN Nitroglycerin (Ntrostat Sublingual), 0.4 MG SL Q5MINP PRN Miscellaneous Medications Acetaminophen W/ Codeine (Tylenol #4 W/Codeine), 1 TAB PO, (Reported) Discontinued Medications Carvedilol (Carvedilol), 1 TAB PO DAILY, (Reported) Discharge Statement: "Patient was advised to return to the ER or call 911 if any headaches, dizziness, shortness of breath, chest pain, abdominal pain, bleeding, fevers, or worsening of medical condition. Patient was counseled about treatment plan, medications, possible side effects, patientverbalized understanding. All questions were answered to the best of my ability. This discharge took greater then 30 minutes in planning, reviewing documentation, counseling the patient, and discussing with other team members." ASSESSMENT ASSESSMENT Assessment Diabetes uncontrolled Date of Service: Nov 21, 2025 Billing Provider: ARCADIO PURDY MD Common Visit Codes: 20457-QOM/OBS DISCH DAY >30min ARCADIO PURDY MD Nov 21, 2025 14:15
[2025-11-21 16:50] VITALS: BP 110/70; PULSE 98; RESP 18; TEMP 98; O2SAT 97
== END 2025-11-21 16:35 | disposition home or self-care (01) | DRG 199 ==
LOC: ER 16:50 → EDBD 16:50 → OVERFLOW 19:30 → ER 19:35 → EAST 21:10 → TELE-EAST 11-15 16:10
PROVIDERS: ADMIT Internal Medicine; ATTEND Internal Medicine
DX: I16.0 Hypertensive urgency (principal); N17.0 Acute kidney failure with tubular necrosis; I50.23 Acute on chronic systolic (congestive) heart failure; D63.1 Anemia in chronic kidney disease; I42.8 Other cardiomyopathies; I13.0 Hypertensive heart and chronic kidney disease with heart failure and stage 1 through stage 4 chronic kidney disease, or unspecified chronic kidney disease; N18.30 Chronic kidney disease, stage 3 unspecified; E10.65 Type 1 diabetes mellitus with hyperglycemia; E86.0 Dehydration; K21.9 Gastro-esophageal reflux disease without esophagitis; E78.5 Hyperlipidemia, unspecified; E10.22 Type 1 diabetes mellitus with diabetic chronic kidney disease; E10.42 Type 1 diabetes mellitus with diabetic polyneuropathy; Z83.3 Family history of diabetes mellitus; Z82.49 Family history of ischemic heart disease and other diseases of the circulatory system; Z91.199 Patient's noncompliance with other medical treatment and regimen due to unspecified reason; Z79.4 Long term (current) use of insulin
CPT/HCPCS: 36415; 71045; 78452; 80048; 80053; 80061; 80307; 81001; 82306; 82570; 82962; 83036; 83735; 83880; 83970; 84100; 84156; 84300; 84443; 84484; 84702; 85025; 93005; 93017; G0378; J1815